=== PATIENT | male | born 1995 | race Caucasian/White ===

== ENCOUNTER 2020-07-08 03:30 | Emergency (ER) | payer MEDICAID, SELFPAY ==
[2020-07-08 03:33] VITALS: BP 148/80; PULSE 110; RESP 18; TEMP 37.2; O2SAT 96; BMI 68.4
--- NOTE | 2020-07-08 03:42 | ED_ITS ---
HPI - General Adult General Chief complaint: General Medical Stated complaint: Blood in urine/Nausea Time Seen by Provider: 07/08/20 03:42 Source: patient Mode of arrival: ambulatory Limitations: no limitations History of Present Illness HPI narrative: Patient no significant urinary complaints in the past no history of kidney stone noticed blood in the urine for last 2 days especially when he starts urinating. Patient denies any significant back pain ,has some burning sensation when he urinates no fever no chills no nausea or vomiting patient never had similar complaints in the past Related Data Allergies Allergy/AdvReac Type Severity Reaction Status Date / Time No Known Allergies Allergy Verified 07/08/20 03:37 Review of Systems Review of Systems: Constitutional : No Weight loss, No Fever, No Chills ENT/Mouth : No sore throat, No Rhinorrhea Eyes: No Eye Pain, No Swelling Cardiovascular : pos Chest Pain, no SOB, no Dyspnea on Exertion, No Orthopnea, No Edema, No Palpitations Respiratory : No Cough, No Sputum Gastrointestinal : no Nausea, No Vomiting, No Diarrhea, No abdominal Pain, No Hematochezia, No Melena Genitourinary : No Urinary Frequency Musculoskeletal : No joint pain, No Myalgias, No Joint Swelling Skin : No Skin Lesions, No rash Neuro : No Weakness, No Numbness, pos Dizziness, No Headache Psych : No Anxiety/Panic, No Depression Heme/Lymph: No Bruising, No Lymphadenopathy Endocrine : No Polyuria, No Polydipsia All other systems reviewed and are negative [facility] Past Medical History Medical History Asthma Hypercholesteremia Hypertension Social History Social History Advance Directives: No Advance Directives Information Provided: No Physical Exam Vital Signs: Vital Signs: Last Vital Signs Temp 98.9 F 07/08/20 03:33 Pulse 110 H 07/08/20 03:33 Resp 18 07/08/20 03:33 BP 148/80 H 07/08/20 03:33 Pulse Ox 96 07/08/20 03:33 Body Mass Index 68.4 Appearance: Alert. Oriented X3. No acute distress. Eyes: Pupils equal, round and reactive to light. ENT: Pharynx normal. Neck: Normal inspection. Neck supple. CVS: Normal heart rate and rhythm. Pulses normal. Respiratory: No respiratory distress. Breath sounds normal. Abdomen: Soft and nontender. No mass palpable, bowel sounds are present all 4 quadrants normal no cva tenderness Skin: Skin warm and dry. Normal skin color. Normal skin turgor. Extremities: No lower extremity edema. Neuro: Oriented X 3. No motor deficit. No sensory deficit. Medical Decision Making MDM Narrative Medical decision making narrative: Patient 550 lb with rachele hematuria no significant CVA tenderness no history of kidney stone likely acute cystitis. Patient advised to take antibiotics course and follow-up with urologist for further evaluation Lab Data Lab results reviewed: Yes I reviewed the patient's lab results. Labs: Lab Results 07/08/20 Range/Units 04:00 Urine Color PINK Urine Appearance HAZY Urine pH 6.5 (5.0-8.0) Ur Specific [place] 1.010 (1.005-1.025) Urine Protein 2+ H (NEG-TRACE) MG/DL Urine Glucose (UA) NEG (NEG) MG/DL Urine Ketones NEG (NEG) MG/DL Urine Blood 3+ H (NEG) Urine Nitrite NEG (NEG) Ur Leukocyte Esterase TRACE H (NEG) Urine RBC 76-150 H (0) /HPF Urine WBC 10-14 H (0-4) /HPF Ur Squamous Epith Cells 1+ /LPF Urine Bacteria 1+ /LPF
--- NOTE | 2020-07-08 03:49 | PC.NURSE ---
PATIENT REPORTS WARREN RED BLOOD IN URINE x2 DAYS. PATIENT DENIES PAIN. AWAITING EVALUATION BY . CALL [facility] WITHIN REACH, ENCOURAGED TO PROVIDE URINE SPECIMEN, BUT UNABLE AT THIS TIME. WILL CONTINUE TO MONITOR.
[2020-07-08 04:08] LABS: Glucose Urine UA NEG (NEG); Leukocyte Esterase Urine TRACE (NEG); Nitrite Urine NEG (NEG); PH 6.5 (5.0-8.0); Urine Blood 3+ (NEG); Urine Ketones NEG (NEG); Urine Protein 2+ MG/DL (NEG-TRACE)
[2020-07-08 04:09] LABS: Appearance Urine HAZY; Color Urine PINK
[2020-07-08 04:14] LABS: Bacteria Urine 1+ /LPF; Squamous Epithelial Cell Urine 1+ /LPF
[2020-07-08] MEDS: levoFLOXacin 500 MG TABLET PO (04:40)
== END 2020-07-08 04:44 | disposition home or self-care (01) ==
PROVIDERS: Emergency Provider Internal Medicine
DX: N30.01 Acute cystitis with hematuria (principal)
CPT/HCPCS: 81001; 87086; 99283

== ENCOUNTER 2021-04-19 23:13 | Emergency (ER) | payer MEDICAID, SELFPAY ==
--- NOTE | ~2021-04-19 | XR_ITS ---
EXAMINATION: XR CHEST CLINICAL INFORMATION: Asthma. Cough. COMPARISON: 10/29/2013 TECHNIQUE: Frontal view of the chest was obtained. FINDINGS: The lungs are well expanded. There is no focal consolidation, edema, or effusion. No pneumothorax. The cardiomediastinal silhouette is within normal limits. No acute osseous abnormality. XR/XR chest 1V IMPRESSION: No acute pulmonary finding.
[2021-04-19 23:29] VITALS: BP 144/80; PULSE 128; RESP 22; TEMP 36.6; O2SAT 98; BMI 96.5
[2021-04-20 00:39] LABS: MANUAL DIFF FLAG NO
[2021-04-20 00:40] LABS: Basophils Percent Auto 0.1 % (0-2); Eosinophils Absolute Auto 0.1 X10*3/uL (0.0-0.4); Eosinophils Percent Auto 1.3 % (0-4); Hematocrit 36.4 % (42-52); Hemoglobin 11.2 g/dl (14.0-18.0); Imm Gran Abs Auto 0.03 X10*3/uL (0.00-0.03); Imm Gran Pct Auto 0.4 % (0.0-0.4); Lymphocytes Absolute Auto 1.6 X10*3/uL (1.2-4.9); Mean Corpuscular HGB Conc 30.8 g/dl (31.0-36.0); Mean Corpuscular Hemoglobin 22.8 pg (27.0-33.0); Mean Corpuscular Volume 74.1 fL (80-98); Mean Platelet Volume 11.3 fL (9.4-12.4); Monocytes Absolute Auto 0.7 X10*3/uL (0.1-1.2); Monocytes Percent Auto 9.1 % (2-11); Neutrophils Percent Auto 67.1 % (45-73); Platelet Count 264 X10*3/uL (160-400); Red Blood Count 4.91 X10*6/uL (4.60-5.80); Red Cell Distribution Width 15.9 % (11.0-16.0); White Blood Count 7.5 X10*3/uL (4.8-10.8)
[2021-04-20 00:41] VITALS: BP 132/69; PULSE 113; RESP 18; O2SAT 97
[2021-04-20] MEDS: predniSONE 20 MG TABLET 60 MG PO (01:00)
[2021-04-20] MEDS: Albuterol Sulfate 90 MCG 8 GM INHALER 4 PUFF INHALE (01:01)
[2021-04-20 01:09] LABS: Alanine Aminotransferase 13 U/L (0-40); Albumin Level 3.6 g/dL (3.5-5.0); Alkaline Phosphatase 63 U/L (39-117); Aspartate Amino Transferase 12 U/L (5-37); Bilirubin Total 0.3 mg/dL (0.0-1.0); Blood Urea Nitrogen 14 mg/dL (9-16); Calcium 8.9 mg/dL (8.4-10.2); Creatinine Clr Calc Pharmacy 218.9; Estimated Glomerular Filt Rate > 60; Glucose Random 112 mg/dL (60-115)
[2021-04-20 01:17] LABS: Anion Gap 15 (12-20); Carbon Dioxide 22 mmol/L (22-29); Chloride 105 mmol/L (96-108); Sodium 138 mmol/L (135-145)
[2021-04-20 01:24] LABS: Influenza A PCR NEGATIVE (Negative); Influenza B PCR NEGATIVE (Negative); Resp Syncy Virus RNA Qual PCR NEGATIVE (Negative); SARS COV2 PCR INHOUSE NEGATIVE (Negative)
[2021-04-20 01:31] VITALS: BP 127/80; PULSE 114; RESP 20; O2SAT 98
--- NOTE | 2021-04-20 01:46 | ED.ASTHMA ---
HPI - Asthma General Chief Complaint: Asthma Stated Complaint: asthma Time Seen by Provider: 04/20/21 00:53 Source: patient Mode of arrival: ambulatory Limitations: no limitations History of Present Illness HPI Narrative: Patient morbidly obese to 88 kg with history of asthma and sleep apnea undiagnosed does not have any inhaler complaining of increased shortness of breath for last 3 days with dry cough no fever no chills no chest pain no leg swelling Related Data Previous Rx's Medication Instructions Recorded ciprofloxacin HCl 500 mg tablet 500 mg PO BID #14 tab 07/08/20 (Cipro) albuterol sulfate 90 mcg/actuation 2 puff INHALATION Q4-6H PRN #8.5 g 04/20/21 aerosol inhaler (ProAir HFA) prednisone 20 mg tablet 40 mg PO DAILY #10 tab 04/20/21 Allergies Allergy/AdvReac Type Severity Reaction Status Date / Time No Known Allergies Allergy Verified 07/08/20 03:37 Review of Systems Review of Systems: Yes all other systems are reviewed and are negative PMFSH Past Medical History Medical History Asthma Hypercholesteremia Hypertension Social History Social History Advance Directives: No Advance Directives Information Provided: Yes Physical Exam Vital Signs: Vital Signs: Last Vital Signs Temp 97.8 F 04/19/21 23:29 Pulse 114 H 04/20/21 01:31 Resp 20 04/20/21 01:31 BP 127/80 04/20/21 01:31 Pulse Ox 98 04/20/21 01:31 Body Mass Index 96.5 Appearance: Alert. Oriented X3. No acute distress. ENT: Pharynx normal. Oral Mucosa moist Neck: Normal inspection. Neck supple. CVS: Normal heart rate and rhythm. Pulses normal. Respiratory: No respiratory distress. Equal air entry bilateral, prolonged expiration with wheezing and rhonchi and no rales Abdomen: Soft and nontender. Bowel sounds are present, Skin: Skin warm and dry. Normal skin color. Normal skin turgor. Extremities: No lower extremity edema. No calf tenderness Neuro: Oriented X 3. MDM - Asthma MDM Narrative Medical decision making narrative: Patient felt much better after 4 puffs of inhaler prednisone was given. 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 Result diagrams: 04/20/21 00:35 04/20/21 00:35 Labs: Lab Results 04/20/21 04/20/21 04/20/21 Range/Units 00:35 00:35 00:35 WBC 7.5 (4.8-10.8) X10*3/uL RBC 4.91 (4.60-5.80) X10*6/uL Hgb 11.2 L (14.0-18.0) g/dl Hct 36.4 L (42-52) % MCV 74.1 L (80-98) fL MCH 22.8 L (27.0-33.0) pg MCHC 30.8 L (31.0-36.0) g/dl RDW 15.9 (11.0-16.0) % Plt Count 264 (160-400) X10*3/uL MPV 11.3 (9.4-12.4) fL Immature Gran % (Auto) 0.4 (0.0-0.4) % Neut % (Auto) 67.1 (45-73) % Lymph % (Auto) 22.0 (20-40) % [place] % (Auto) 9.1 (2-11) % Eos % (Auto) 1.3 (0-4) % Baso % (Auto) 0.1 (0-2) % Lymph # (Auto) 1.6 (1.2-4.9) X10*3/uL [place] # (Auto) 0.7 (0.1-1.2) X10*3/uL Eos # (Auto) 0.1 (0.0-0.4) X10*3/uL Baso # (Auto) 0.0 (0.0-0.2) X10*3/uL Abs Immat Gran (auto) 0.03 (0.00-0.03) X10*3/uL Absolute Neuts (auto) 5.0 (2.0-8.3) X10*3/uL Absolute Nucleated RBC 0.000 (0.0-0.012) X10*3/uL Nucleated RBC % (auto) 0.0 (0.0-0.2) /100WBC Sodium 138 (135-145) mmol/L Potassium 4.0 (3.3-5.1) mmol/L Chloride 105 (96-108) mmol/L Carbon Dioxide 22 (22-29) mmol/L Anion Gap 15 (12-20) BUN 14 (9-16) mg/dL Creatinine 1.12 (0.5-1.4) mg/dL Estim Creat Clear Calc 218.9 Estimated GFR > 60 Random Glucose 112 (60-115) mg/dL Calcium 8.9 (8.4-10.2) mg/dL Total Bilirubin 0.3 (0.0-1.0) mg/dL AST 12 (5-37) U/L ALT 13 (0-40) U/L Alkaline Phosphatase 63 (39-117) U/L Total Protein 7.0 (6.5-8.0) g/dL Albumin 3.6 (3.5-5.0) g/dL Coronavirus (PCR) NEGATIVE (Negative) Influenza Type A (PCR) NEGATIVE (Negative) Influenza Type B (PCR) NEGATIVE (Negative) RSV RNA Qual (PCR) NEGATIVE (Negative) Discharge Plan Discharge Clinical Impression: Morbid obesity Asthma with acute exacerbation Qualifiers: Asthma severity: moderate Asthma persistence: persistent Qualified Code(s): J45.41 - Moderate persistent asthma with (acute) exacerbation Patient Disposition: Home, Self-Care Instructions: Asthma (ED), Weight Management (ED) Additional Instructions: Take albuterol inhaler and prednisone as prescribed Follow-up with greenhouse worker,and with weight reduction clinic Prescriptions: New prednisone 20 mg tablet 40 mg PO DAILY Qty: 10 RF: 0 albuterol sulfate [ProAir HFA] 90 mcg/actuation HFA aerosol inhaler 2 puff inhalation Q4-6H PRN (Reason: Wheezing) Qty: 8.5 RF: 0 No Action ciprofloxacin HCl [Cipro] 500 mg tablet 500 mg PO BID Qty: 14 RF: 0 Referrals: Cuco Malloy MD [Physician] - 1 week Quique Morales MD [Physician] - 1 week Interventions: ED Discharge Assessment Last Done: 04/20/21 02:05 Discharge Date/Time: 04/20/21 02:06
== END 2021-04-20 02:06 | disposition home or self-care (01) ==
PROVIDERS: Emergency Provider Internal Medicine
DX: J45.41 Moderate persistent asthma with (acute) exacerbation (principal); E66.01 Morbid (severe) obesity due to excess calories; Z20.822 Contact with and (suspected) exposure to COVID-19; Z79.899 Other long term (current) drug therapy
CPT/HCPCS: 0241U; 36415; 71045; 80053; 85025; 99284

== ENCOUNTER 2021-12-27 23:41 | Emergency (ER) | payer MEDICAID, SELFPAY ==
--- NOTE | ~2021-12-27 | US_ITS ---
EXAMINATION: US VENOUS ULTRASOUND WITH DOPPLER LOWER EXTREMITY, LEFT CLINICAL INFORMATION: Swelling COMPARISON: None TECHNIQUE: Ultrasound of the deep veins is performed from the hip to the calf with compression sonography and color and pulse Doppler assessment. Spectral analysis with color-flow imaging is performed. FINDINGS: There is normal venous compression and respiratory variation and augmented flow. The visualized common femoral vein, superficial femoral vein, profunda femoral vein, popliteal vein, and the trifurcation region shows no evidence of deep venous thrombosis. There is no significant popliteal fossa cyst. If the patient's symptoms persist, followup ultrasound in 5 days 7 days might be of value to exclude proximal propagation from a non-visualized calf vein. US/US venous duplex LE LT IMPRESSION: No DVT demonstrated in the left lower extremity.
--- NOTE | 2021-12-28 01:36 | ED.EXTPRO ---
HPI - Extremity Problem General Chief complaint: Extremity Problem Stated complaint: left leg swollen, right knee pain Time Seen by Provider: 12/28/21 00:20 Source: patient Mode of arrival: ambulatory Limitations: no limitations History of Present Illness HPI Narrative: Patient morbidly obese 450 lb comes here for increased ankle swelling more on the left side than right side, also complaining of right knee pain no shortness of breath no fever no chills Related Data Previous Rx's Medication Instructions Recorded ciprofloxacin HCl 500 mg tablet 500 mg PO BID #14 tabs 07/08/20 (Cipro) albuterol sulfate 90 mcg/actuation 2 puff inhalation Q4-6H PRN 04/20/21 aerosol inhaler (ProAir HFA) Wheezing #8.5 grams prednisone 20 mg tablet 40 mg PO DAILY #10 tabs 04/20/21 cephalexin 500 mg capsule 500 mg PO QID 10 days #40 caps 12/28/21 doxycycline hyclate 100 mg tablet 100 mg PO BID #20 tabs 12/28/21 furosemide 20 mg tablet (Lasix) 20 mg PO QAM #10 tabs 12/28/21 Allergies Allergy/AdvReac Type Severity Reaction Status Date / Time No Known Allergies Allergy Verified 12/28/21 01:46 Review of Systems Review of Systems: Yes all other systems are reviewed and are negative PMFSH Past Medical History Medical History Asthma Hypercholesteremia Hypertension Social History Social History Advance Directives: No Advance Directives Information Provided: No Physical Exam Vital Signs: Vital Signs: Last Vital Signs Temp 98.1 F 12/28/21 01:41 Pulse 110 H 12/28/21 01:41 Resp 20 12/28/21 01:41 BP 130/83 12/28/21 01:41 Pulse Ox 98 12/28/21 01:41 O2 Del Method 12/28/21 01:41 BMI result Body Mass Index 68.4 Appearance: Alert. Oriented X3. No acute distress. Morbidly obese ENT: Pharynx normal. Oral Mucosa moist Neck: Normal inspection. Neck supple. CVS: Normal heart rate and rhythm. Pulses normal. Respiratory: No respiratory distress. Equal air entry bilateral, no wheezing/rales/rhonchi Abdomen: Soft and nontender. Bowel sounds are present, no mass palpable, no CVA tenderness Skin: Skin warm and dry. Normal skin color. Normal skin turgor. Extremities: Nonpitting lower leg edema limited examination tenderness with slight warmth to the left leg Neuro: Oriented X 3. MDM - Extremity (Nontraumatic) MDM Narrative Medical decision making narrative: Patient with clinically left leg cellulitis with discharge patient home on doxycycline Keflex Doppler negative for DVT but showed left inguinal lymph node likely reactive lymphadenopathy from cellulitis. Also will use low-dose of Lasix daily for increased leg swelling/ lymphedema Discharge Plan Discharge Clinical Impression: Cellulitis Patient Disposition: Home, Self-Care Instructions: Cellulitis (ED) Additional Instructions: Take antibiotic as prescribed Report to the ER if worsening of the swelling or redness or pain Prescriptions: New cephalexin 500 mg capsule 500 mg PO QID 10 Days Qty: 40 0RF doxycycline hyclate 100 mg tablet 100 mg PO BID Qty: 20 0RF furosemide [Lasix] 20 mg tablet 20 mg PO QAM Qty: 10 0RF No Action ciprofloxacin HCl [Cipro] 500 mg tablet 500 mg PO BID Qty: 14 0RF prednisone 20 mg tablet 40 mg PO DAILY Qty: 10 0RF albuterol sulfate [ProAir HFA] 90 mcg/actuation HFA aerosol inhaler 2 puff inhalation Q4-6H PRN (Reason: Wheezing) Qty: 8.5 0RF Referrals: Serena Valdivia MD [Physician] - 1 week Cesar Stoner MD [Physician] - 1 week Interventions: ED Discharge Assessment Last Done: 12/28/21 02:24 Discharge Date/Time: 12/28/21 02:25
[2021-12-28 01:41] VITALS: BP 130/83; PULSE 110; RESP 20; TEMP 36.7; O2SAT 98; BMI 68.4
[2021-12-28] MEDS: cephALEXin 500 MG CAPSULE PO (01:50)
== END 2021-12-28 02:25 | disposition home or self-care (01) ==
PROVIDERS: Emergency Provider Internal Medicine
DX: L03.116 Cellulitis of left lower limb (principal); M79.89 Other specified soft tissue disorders; E66.01 Morbid (severe) obesity due to excess calories; Z68.44 Body mass index [BMI] 60.0-69.9, adult; I10 Essential (primary) hypertension; J45.909 Unspecified asthma, uncomplicated
CPT/HCPCS: 93971; 99284

== ENCOUNTER 2022-10-22 12:18 | Emergency (ER) | payer OTHER, SELFPAY ==
--- NOTE | ~2022-10-22 | XR_ITS ---
EXAMINATION: XR CHEST CLINICAL INFORMATION: Chest pain COMPARISON: X-ray 04/19/2021 TECHNIQUE: Frontal view of the chest was obtained. FINDINGS: The cardiomediastinal silhouette is within normal limits. The lungs are well expanded. There is no focal consolidation, edema, or effusion. No pneumothorax. No acute osseous abnormality. XR/XR chest 1V IMPRESSION: No evidence of acute cardiopulmonary process.
--- NOTE | ~2022-10-22 | XR_ITS ---
EXAMINATION: XR TIBIA AND FIBULA, LEFT CLINICAL INFORMATION: History of fall. COMPARISON: None available. TECHNIQUE: AP and lateral views of the left tibia and fibula were obtained. FINDINGS: Morbidly obese body habitus. Diffuse edema of the subcutaneous tissues. Tibia and fibula are intact. No fracture or subluxation at the ankle or foot. No knee joint effusion. At the ankle, the talar dome is well-positioned within the mortise. XR/XR tibia fibula LT 2V IMPRESSION: Normal left tibia and fibula.
--- NOTE | ~2022-10-22 | XR_ITS ---
EXAMINATION: X-ray left ankle X-ray left foot CLINICAL INFORMATION: Pain, injury COMPARISON: None TECHNIQUE: Ankle 3 views. Foot 3 views.. FINDINGS: Ankle: Prominent soft tissue swelling of the distal leg. No acute fracture or dislocation is seen. Talar dome is intact. Ankle mortise is maintained. Anterior calcaneal process appears intact. No significant tibiotalar joint effusion, evaluation limited by body habitus Foot: Alignment is anatomic. No acute fracture is seen. Joint spaces appear maintained. No abnormal soft tissue calcification. No erosions XR/XR ankle LT min 3V IMPRESSION: No visible acute fracture or dislocation. If there is persistent clinical concern/symptoms, follow-up imaging is recommended..
--- NOTE | ~2022-10-22 | XR_ITS ---
EXAMINATION: XR KNEE, LEFT CLINICAL INFORMATION: Knee pain. Status post fall. COMPARISON: X-ray 03/16/2020 TECHNIQUE: Four views of the left knee. FINDINGS: Assessment is limited due to patient body habitus, especially in the lateral views and with regards to evaluating for effusion. Osseous alignment is anatomic. No acute fracture is identified, limited evaluation on the lateral projections due to body habitus. Joint spaces appear maintained. Limited evaluation for joint effusion. XR/XR knee LT 2V IMPRESSION: No acute osseous findings. Limited assessment for fractures and for effusion due to patient body habitus.
--- NOTE | ~2022-10-22 | XR_ITS ---
EXAMINATION: X-ray left ankle X-ray left foot CLINICAL INFORMATION: Pain, injury COMPARISON: None TECHNIQUE: Ankle 3 views. Foot 3 views.. FINDINGS: Ankle: Prominent soft tissue swelling of the distal leg. No acute fracture or dislocation is seen. Talar dome is intact. Ankle mortise is maintained. Anterior calcaneal process appears intact. No significant tibiotalar joint effusion, evaluation limited by body habitus Foot: Alignment is anatomic. No acute fracture is seen. Joint spaces appear maintained. No abnormal soft tissue calcification. No erosions XR/XR foot LT 2V IMPRESSION: No visible acute fracture or dislocation. If there is persistent clinical concern/symptoms, follow-up imaging is recommended..
[2022-10-22 12:39] VITALS: BP 152/83; PULSE 129; RESP 20; TEMP 36.6; O2SAT 96; BMI 76.0
--- NOTE | 2022-10-22 12:41 | ED.GENADULT ---
HPI - General Adult General Chief complaint: Extremity Injury, Lower <YIN Edmonds - Last Filed: 10/22/22 12:43> Stated complaint: Fall/L foot swelling <YIN Edmonds - Last Filed: 10/22/22 12:43> Time Seen by Provider: 10/22/22 13:35 <YIN Edmonds - Last Filed: 10/22/22 12:43> Source: patient <YIN Lopez Last Filed: 10/23/22 18:23> Mode of arrival: ambulatory <YIN Lopez Last Filed: 10/23/22 18:23> Limitations: physical limitation <YIN Lopez Last Filed: 10/23/22 18:23> History of Present Illness HPI narrative: 27-year-old male with PMHx of ?DVT noncompliant on anticoagulation, hypertension, hyperlipidemia, asthma presents to the ED complaining of left ankle pain s/p falling down 3-4 stairs at home 3 days ago. Patient states he lost his balance, denies symptoms prior to fall including CP/SOB. Reports hitting his head against the door frame, denies LOC or taking anticoagulation. Reports ankle pain worse w/ ambulation, minimal relief with Tylenol/Motrin at home. Reports chronic back pain. Denies headache, neck pain, new back pain, urinary incontinence/ retention, numbness, weakness, chest pain, shortness of breath, abdominal pain. <YIN Lopez Last Filed: 10/23/22 18:23> Onset (ago): day(s) (3) <YIN Lopez - Last Filed: 10/23/22 18:23> Location: left (lower leg) <YIN Lopez Last Filed: 10/23/22 18:23> Exacerbating factors: movement <YIN Lopez Last Filed: 10/23/22 18:23> Treatments prior to arrival: NSAID <YIN Lopez Last Filed: 10/23/22 18:23> Related Data Home medications: Previous Rx's Medication Instructions Recorded ciprofloxacin HCl 500 mg tablet 500 mg PO BID #14 tabs 07/08/20 (Cipro) albuterol sulfate 90 mcg/actuation 2 puff inhalation Q4-6H PRN 04/20/21 aerosol inhaler (ProAir HFA) Wheezing #8.5 grams prednisone 20 mg tablet 40 mg PO DAILY #10 tabs 04/20/21 cephalexin 500 mg capsule 500 mg PO QID 10 days #40 caps 12/28/21 doxycycline hyclate 100 mg tablet 100 mg PO BID #20 tabs 12/28/21 furosemide 20 mg tablet (Lasix) 20 mg PO QAM #10 tabs 12/28/21 acetaminophen 500 mg tablet 500 mg PO Q6H PRN fever or pain 10/22/22 (Tylenol Extra Strength) #14 tabs naproxen 500 mg tablet 500 mg PO BID PRN pain 10 days #20 10/22/22 tabs walker #1 ea 10/22/22 <YIN Edmonds Last Filed: 10/22/22 12:43> Allergies/adverse reactions: Allergies Allergy/AdvReac Type Severity Reaction Status Date / Time No Known Allergies Allergy Verified 10/22/22 12:39 <YIN Edmonds Last Filed: 10/22/22 12:43> Review of Systems Review of Systems: Constitutional: No Fever, No Chills ENT/Mouth: No Ear Pain, No Nasal Congestion, No sore throat, No Rhinorrhea, No Swallowing Difficulty Cardiovascular: No Chest Pain, No SOB Respiratory: No Cough, No Sputum, No Wheezing Gastrointestinal: No Nausea, No Vomiting, No Diarrhea, No Constipation, No Abdominal pain Genitourinary: No Dysuria, No Urinary Frequency, No Urgency, No Flank Pain, no urinary incontinence/retention Musculoskeletal: + joint pain, No Myalgias, + Joint Swelling Skin: No Skin Lesions, No rash Neuro: No Weakness, No Numbness, No Paresthesias, + hit head, no LOC, no headache <YIN Lopez Last Filed: 10/23/22 18:23> Yes all other systems are reviewed and are negative <YIN Lopez Last Filed: 10/23/22 18:23> Constitutional: Constitutional: Reports as per HPI <YIN Lopez Last Filed: 10/23/22 18:23> Neurologic: Denies Abnormal speech present and Denies Sensory deficit (Neuro) <YIN Lopez - Last Filed: 10/23/22 18:23> [facility] Past Medical History Attestation statement: The following information was validated with the patient. <YIN Lopez - Last Filed: 10/23/22 18:23> Medical History: Medical History Asthma Hypercholesteremia Hypertension <YIN Edmonds - Last Filed: 10/22/22 12:43> Social History Social History: Social History Advance Directives: No Advance Directives Information Provided: No <YIN Edmonds Last Filed: 10/22/22 12:43> Physical Exam ED Vital Signs: Vital Signs - 24 hr 10/22/22 12:39 10/22/22 13:48 Temperature 98 F Pulse Rate 129 H 116 H Respiratory Rate 20 Blood Pressure 152/83 H Pulse Oximetry 96 98 Oxygen Delivery Method Room Air BMI result Body Mass Index 76.0 <YIN Edmonds - Last Filed: 10/22/22 12:43> Vital Signs - 24 hr 10/22/22 12:39 10/22/22 13:48 Temperature 98 F Pulse Rate 129 H 116 H Respiratory Rate 20 Blood Pressure 152/83 H Pulse Oximetry 96 98 Oxygen Delivery Method Room Air BMI result Body Mass Index 76.0 <YIN Lopez Last Filed: 10/23/22 18:23> Const General: cooperative and no acute distress <YIN Lopez - Last Filed: 10/23/22 18:23> Nutritional Appearance: obese morbidly obese <YIN Lopez Last Filed: 10/23/22 18:23> Orientation/consciousness: patient oriented x3 <YIN Lopez Last Filed: 10/23/22 18:23> Limitations: no limitations <YIN Lopez Last Filed: 10/23/22 18:23> HENMT Head: Yes normal to inspection and Yes atraumatic <YIN Lopez Last Filed: 10/23/22 18:23> Ears: hearing grossly normal bilaterally <Corinna Leon PA - Last Filed: 10/23/22 18:23> General nose exam: Normal external nose present <Corinna Leon PA - Last Filed: 10/23/22 18:23> Face and sinus: Yes normal facial exam <YIN Lopez - Last Filed: 10/23/22 18:23> Eyes General: appearance normal, both eyes and all related structures <Corinna Leon PA - Last Filed: 10/23/22 18:23> Pupils: Equal, round and reactive pupils present <Corinna Leon PA - Last Filed: 10/23/22 18:23> EOM: EOMs intact bilaterally <Corinna Leon PA - Last Filed: 10/23/22 18:23> Neck Other: no midline cervical spinous tenderness <Corinna Leon PA - Last Filed: 10/23/22 18:23> Neck: Yes normal visual inspection and Yes no meningeal signs <Corinna Leon PA - Last Filed: 10/23/22 18:23> Chest Other: + tenderness to palpation to right anterior lateral chest wall. No flail chest, no erythema/ecchymosis, no crepitus <Corinna Leon PA - Last Filed: 10/23/22 18:23> Chest palpation & inspection: normal inspection of the chest, no crepitus and tenderness <Corinna Leon PA - Last Filed: 10/23/22 18:23> Resp Effort & Inspection: normal respiratory effort and no respiratory distress <Corinna Leon PA - Last Filed: 10/23/22 18:23> Auscultation: clear to auscultation bilaterally <Corinna Leon PA - Last Filed: 10/23/22 18:23> Cardio Rate: tachycardic <YIN Lopez - Last Filed: 10/23/22 18:23> Heart sounds: S1 normal heart sound present and S2 normal heart sound present <Corinna Leon PA - Last Filed: 10/23/22 18:23> GI Inspection: Yes normal to inspection <Corinna Leon PA - Last Filed: 10/23/22 18:23> Palpation (GI): Soft to palpation, nontender, no guarding and not rigid <Corinna Leon PA - Last Filed: 10/23/22 18:23> Back/Spine/Pelvis Other: No midline thoracic/lumbar spinous tenderness/step-off or deformity. + bilateral MSK lumbar tenderness. <Corinna Leon PA - Last Filed: 10/23/22 18:23> Cervical Spine: cervical ROM normal <Corinna Leon PA - Last Filed: 10/23/22 18:23> Thoracic/Lumbar Spine: thoracic and lumbar spine normal to inspection <Corinna Leon PA - Last Filed: 10/23/22 18:23> Skin Rashes: no rashes <Corinna Leon PA - Last Filed: 10/23/22 18:23> Wounds: no wounds <Corinna Leon PA - Last Filed: 10/23/22 18:23> Neuro General: patient oriented x3, tone normal, moves all extremities, no meningeal signs, CN's II-XI intact bilaterally and Unable to assess gait <Corinna Leon PA - Last Filed: 10/23/22 18:23> Cranial nerves: Yes Equal, round and reactive pupils present <Corinna Leon PA - Last Filed: 10/23/22 18:23> Cognition (Neuro): normal cognition <Corinna Leon PA - Last Filed: 10/23/22 18:23> Speech: No Abnormal speech present <Corinna Leon PA - Last Filed: 10/23/22 18:23> Gait exam (Neuro): Unable to assess gait <Corinna Leon PA - Last Filed: 10/23/22 18:23> Sensory Exam: No Sensory deficit (Neuro) <Corinna Leon PA - Last Filed: 10/23/22 18:23> Extrem Other: +Swelling appreciated to the left ankle w/ diffuse tenderness to palpation from left knee to foot. Range of motion of the LLE limited secondary to pain and body habitus. pulses intact. No erythema/ warmth or ecchymosis appreciated <Corinna Leon PA - Last Filed: 10/23/22 18:23> Left lower extremity: ankle Details: tenderness and swelling <YIN Lopez - Last Filed: 10/23/22 18:23> Course Course Course Narrative: This is an RME: Additional HPI, ROS, PE not included below will be deferred to primary provider. 27-year-old male presents for evaluation of left lower extremity pain status post fall few days ago, patient reports he fell down 3 steps, bumped his head and his whole lower extremity. He reports since then he has been having pain and swelling, difficulties with ambulation. Spoke to the walk-in center and he was advised to come into the emergency department. No loss of consciousness. Patient is supposed to take blood thinners however has not been taking any of his home medications secondary to not having a PCP. On exam patient with discomfort with ambulation. Neurovascular status intact. Patient obese. Plan imaging head CT. <YIN Edmonds - Last Filed: 10/22/22 12:43> This is an RME: Additional HPI, ROS, PE not included below will be deferred to primary provider. 27-year-old male presents for evaluation of left lower extremity pain status post fall few days ago, patient reports he fell down 3 steps, bumped his head and his whole lower extremity. He reports since then he has been having pain and swelling, difficulties with ambulation. Spoke to the walk-in center and he was advised to come into the emergency department. No loss of consciousness. Patient is supposed to take blood thinners however has not been taking any of his home medications secondary to not having a PCP. On exam patient with discomfort with ambulation. Neurovascular status intact. Patient obese. Plan imaging head CT. XR chest 1V IMPRESSION: No evidence of acute cardiopulmonary process. > unable to obtain rib x-rays as patient weight exceeds x-ray table > will obtain CT chest for further evaluation, to rule out rib fracture XR knee LT 2V IMPRESSION: No acute osseous findings. Limited assessment for fractures and for effusion due to patient body habitus. XR ankle LT min 3V/XR foot LT 2V IMPRESSION: No visible acute fracture or dislocation. If there is persistent clinical concern/symptoms, follow-up imaging is recommended. [id number]-- patient now refusing head/chest CT, reports his head is not a concern. > [place] head CT rule negative. Discussed with patient x-ray results and limited definitive studies due to body habitus. Stressed to patient need to establish PCP, and lose weight. Patient unable to use crutches for support. Will prescribe walker. Results discussed with patient including worrisome signs and symptoms and strict return precautions, and when to return to the emergency department. They verbalized understanding and feel safe for discharge at this time. <YIN Lopez - Last Filed: 10/23/22 18:23> Medications Administered Discontinued Medications Generic Name Dose Route Start Last Admin Trade Name Freq PRN Reason Stop Dose Admin Acetaminophen 650 mg 10/22/22 16:11 10/22/22 16:32 Acetaminophen 325 Mg Tablet PO 10/22/22 16:12 650 mg ONCE ONE Administration Oxycodone HCl 5 mg 10/22/22 16:11 10/22/22 16:31 Oxycodone Hcl Immed Release 5 Mg Tablet PO 10/22/22 16:12 5 mg ONCE ONE Administration <YIN Edmonds - Last Filed: 10/22/22 12:43> Medications Administered Discontinued Medications Generic Name Dose Route Start Last Admin Trade Name Freq PRN Reason Stop Dose Admin Acetaminophen 650 mg 10/22/22 16:11 10/22/22 16:32 Acetaminophen 325 Mg Tablet PO 10/22/22 16:12 650 mg ONCE ONE Administration Oxycodone HCl 5 mg 10/22/22 16:11 10/22/22 16:31 Oxycodone Hcl Immed Release 5 Mg Tablet PO 10/22/22 16:12 5 mg ONCE ONE Administration <YIN Lopez - Last Filed: 10/23/22 18:23> Medical Decision Making Medical Decision Making MDM Narrative: 27-year-old male with PMHx of ?DVT noncompliant on anticoagulation, hypertension, hyperlipidemia, asthma presents to the ED complaining of left ankle pain s/p falling down 3-4 stairs at home 3 days ago. Reports hitting his head against denies LOC or taking anticoagulation. on exam tachycardic, likely from pain/body habitus, left lower extremity with mild swelling and diffuse tenderness and limited ROM secondary to pain. Neurovascular intact. No focal deficits, no evidence of head trauma. No midline spinous tenderness throughout. Concern for lower extremity fracture vs sprain. concern for concussion. Lower suspicion for ICH/CVA. No evidence of cellulitis. Lower suspicion for DVT or compartment syndrome. Low suspicion for intra-abdominal / intrathoracic bleeding plan: X-rays, head CT ordered in triage Please refer to course for remaining clinical decision making, interpretation of labs/imaging results, and discussions with consultants and/or family members. <YIN Lopez - Last Filed: 10/23/22 18:23> Differential Diagnosis Differential Diagnoses: The differential diagnosis associated with the presentation includes <YIN Lopez - Last Filed: 10/23/22 18:23> As above <YIN Lopez - Last Filed: 10/23/22 18:23> Admission/Observation Consideration of admission/observation: Escalation of care including admission/observation considered <YIN Lopez - Last Filed: 10/23/22 18:23> Lab Data MDM Lab Attestation statement: I reviewed the patient's lab results. <YIN Lopez - Last Filed: 10/23/22 18:23> Radiology Impression Discussion of test interpretation with radiology: I have reviewed the radiologist's reading. <YIN Lopez - Last Filed: 10/23/22 18:23> External Record Review External record reviewed: Inpatient record, Office record, Outpatient record, Prior outpatient labs, Prior outpatient radiology, Primary care record and Outside ED record <YIN Lopez - Last Filed: 10/23/22 18:23> Discharge Plan Discharge Clinical Impression: Ankle sprain and strain, Head injury <YIN Edmonds - Last Filed: 10/22/22 12:43> Patient Disposition: Home, Self-Care <YIN Edmonds - Last Filed: 10/22/22 12:43> Instructions: Ankle Sprain (DC), Head Injury (ED) <YIN Edmonds - Last Filed: 10/22/22 12:43> Additional Instructions: Your x-rays do not show any acute fractures. The images are limited due to your body habitus. You likely sprained your ankle, however symptoms persist we recommend repeat x-rays in 1 week. Avoid bearing weight to your left leg until symptoms are improving. YOU NEED TO ESTABLISH CARE WITH A PRIMARY CARE DOCTOR. Ice and elevate your left ankle/ leg. Please practice a healthy diet /lifestyle <YIN Edmonds - Last Filed: 10/22/22 12:43> Prescriptions: New acetaminophen [Tylenol Extra Strength] 500 mg tablet 500 mg PO Q6H PRN (Reason: fever or pain) Qty: 14 0RF naproxen 500 mg tablet 500 mg PO BID PRN (Reason: pain) 10 Days Qty: 20 0RF (DME) walker Misc See Rx Instructions .Route Qty: 1 0RF Rx Instructions: As directed No Action ciprofloxacin HCl [Cipro] 500 mg tablet 500 mg PO BID Qty: 14 0RF prednisone 20 mg tablet 40 mg PO DAILY Qty: 10 0RF albuterol sulfate [ProAir HFA] 90 mcg/actuation HFA aerosol inhaler 2 puff inhalation Q4-6H PRN (Reason: Wheezing) Qty: 8.5 0RF cephalexin 500 mg capsule 500 mg PO QID 10 Days Qty: 40 0RF doxycycline hyclate 100 mg tablet 100 mg PO BID Qty: 20 0RF furosemide [Lasix] 20 mg tablet 20 mg PO QAM Qty: 10 0RF <YIN Edmonds - Last Filed: 10/22/22 12:43> Referrals: [facility] [place] Family Medicine [Provider Group] [facility] [place] Primary CareIon [Provider Group] [facility] [place] Primary Care,Home [Provider Group] <YIN Edmonds - Last Filed: 10/22/22 12:43> Interventions: ED Discharge Assessment Last Done: 10/22/22 17:08 <YIN Edmonds Last Filed: 10/22/22 12:43> Discharge Date/Time: 10/22/22 17:08 <YIN Edmonds - Last Filed: 10/22/22 12:43>
[2022-10-22 13:48] VITALS: PULSE 116; O2SAT 98
[2022-10-22] MEDS: oxyCODONE HCl Immed Release 5 MG TABLET PO (16:31)
[2022-10-22] MEDS: Acetaminophen 325 MG TABLET 650 MG PO (16:32)
== END 2022-10-22 17:08 | disposition home or self-care (01) ==
PROVIDERS: Emergency Provider Emergency Medicine Emergency Medical Services
DX: S09.90XA Unspecified injury of head, initial encounter (principal); S93.402A Sprain of unspecified ligament of left ankle, initial encounter; S96.912A Strain of unspecified muscle and tendon at ankle and foot level, left foot, initial encounter; W10.8XXA Fall (on) (from) other stairs and steps, initial encounter; M79.662 Pain in left lower leg; R00.0 Tachycardia, unspecified; E78.00 Pure hypercholesterolemia, unspecified; I10 Essential (primary) hypertension; E66.01 Morbid (severe) obesity due to excess calories; Z68.45 Body mass index [BMI] 70 or greater, adult; Z91.148 Patient's other noncompliance with medication regimen for other reason; Y93.9 Activity, unspecified; Y92.018 Other place in single-family (private) house as the place of occurrence of the external cause; Y99.9 Unspecified external cause status
CPT/HCPCS: 71045; 73560; 73590; 73610; 73620; 99283

== ENCOUNTER 2023-01-29 17:23 | Emergency (ER) | payer MEDICAID, SELFPAY ==
--- NOTE | ~2023-01-29 | XR_ITS ---
EXAMINATION: XR HIP, FEMUR, KNEE, TIBIA/FIBULA RIGHT CLINICAL INFORMATION: Status post fall, right leg pain. COMPARISON: None available. TECHNIQUE: AP and lateral views of the right hip, femur, knee and tibia/fibula were obtained. FINDINGS: There is no acute fracture or dislocation. Mild medial femoral-tibial joint space narrowing is seen. The remainder the joint spaces are unremarkable. Prominent soft tissue swelling is seen. XR/XR knee RT 2V IMPRESSION: 1. Significant soft tissue swelling without definitive acute underlying osseous abnormality. 2. Mild medial femoral-tibial joint space narrowing likely degenerative in nature.
--- NOTE | ~2023-01-29 | US_ITS ---
EXAMINATION: US EXTREMITY NONVASCULAR LIMITED CLINICAL INFORMATION: Assess for quadriceps tear. COMPARISON: None TECHNIQUE: Linear transducer grayscale and color Doppler examination with attention to the region of the soft tissues of the right neck. FINDINGS: No cystic or solid abnormality is seen. The subcutaneous soft tissues and overlying skin are unremarkable. US/US extremity nonvascular koch IMPRESSION: No soft tissue abnormality in the region of concern. The study is limited for evaluation of tear. If concern is high for tear, MRI is recommended.
--- NOTE | ~2023-01-29 | XR_ITS ---
EXAMINATION: XR HIP, FEMUR, KNEE, TIBIA/FIBULA RIGHT CLINICAL INFORMATION: Status post fall, right leg pain. COMPARISON: None available. TECHNIQUE: AP and lateral views of the right hip, femur, knee and tibia/fibula were obtained. FINDINGS: There is no acute fracture or dislocation. Mild medial femoral-tibial joint space narrowing is seen. The remainder the joint spaces are unremarkable. Prominent soft tissue swelling is seen. XR/XR tibia fibula RT 2V IMPRESSION: 1. Significant soft tissue swelling without definitive acute underlying osseous abnormality. 2. Mild medial femoral-tibial joint space narrowing likely degenerative in nature.
--- NOTE | ~2023-01-29 | XR_ITS ---
EXAMINATION: XR HIP, FEMUR, KNEE, TIBIA/FIBULA RIGHT CLINICAL INFORMATION: Status post fall, right leg pain. COMPARISON: None available. TECHNIQUE: AP and lateral views of the right hip, femur, knee and tibia/fibula were obtained. FINDINGS: There is no acute fracture or dislocation. Mild medial femoral-tibial joint space narrowing is seen. The remainder the joint spaces are unremarkable. Prominent soft tissue swelling is seen. XR/XR femur RT 2V IMPRESSION: 1. Significant soft tissue swelling without definitive acute underlying osseous abnormality. 2. Mild medial femoral-tibial joint space narrowing likely degenerative in nature.
--- NOTE | ~2023-01-29 | XR_ITS ---
EXAMINATION: XR HIP, FEMUR, KNEE, TIBIA/FIBULA RIGHT CLINICAL INFORMATION: Status post fall, right leg pain. COMPARISON: None available. TECHNIQUE: AP and lateral views of the right hip, femur, knee and tibia/fibula were obtained. FINDINGS: There is no acute fracture or dislocation. Mild medial femoral-tibial joint space narrowing is seen. The remainder the joint spaces are unremarkable. Prominent soft tissue swelling is seen. XR/XR ankle RT 2V IMPRESSION: 1. Significant soft tissue swelling without definitive acute underlying osseous abnormality. 2. Mild medial femoral-tibial joint space narrowing likely degenerative in nature.
--- NOTE | ~2023-01-29 | XR_ITS ---
EXAMINATION: XR HIP, FEMUR, KNEE, TIBIA/FIBULA RIGHT CLINICAL INFORMATION: Status post fall, right leg pain. COMPARISON: None available. TECHNIQUE: AP and lateral views of the right hip, femur, knee and tibia/fibula were obtained. FINDINGS: There is no acute fracture or dislocation. Mild medial femoral-tibial joint space narrowing is seen. The remainder the joint spaces are unremarkable. Prominent soft tissue swelling is seen. XR/XR hip RT w PEL1V IMPRESSION: 1. Significant soft tissue swelling without definitive acute underlying osseous abnormality. 2. Mild medial femoral-tibial joint space narrowing likely degenerative in nature.
--- NOTE | 2023-01-29 18:14 | ED_ITS ---
HPI - General Adult General Chief complaint: Extremity Injury, Lower Stated complaint: Right knee pain/left leg pain Time Seen by Provider: 01/29/23 20:28 Source: patient and family (Mother) Mode of arrival: ambulatory Limitations: no limitations History of Present Illness HPI narrative: 27-year-old male history of morbid obesity with a BMI of 60 who presents emergency department for evaluation of fall and pain in his right leg. The patient states that he fell in October of 2022. At that time, he injured his ri ght leg. He was seen in the emergency department and had negative x-rays. He states that since that time he has been having pain in his right leg any points to his right knee when asked to localize the pain. He states the pain is got progressively worse to the point where he cannot walk. He states that over the past week his right leg is given out on him minutes caused him to fall at least 5 times. Prior to coming to the emergency department again his right knee gave out and he fell. He states he is having difficulty walking since this fall and needed assistance from his mother and brother in order to come to the emergency department which is unusual for him. He is currently complaining of pain in his right knee which is 10/10 and worse with movement. He denied any systemic symptoms such as fever, chills, chest pain, shortness of breath, nausea, vomiting. Patient states that his left leg is also become swollen over the the last week and is now larger than the right. He is concerned that he may be retaining fluid in his leg. Related Data Previous Rx's Medication Instructions Recorded ciprofloxacin HCl 500 mg tablet 500 mg PO BID #14 tabs 07/08/20 (Cipro) albuterol sulfate 90 mcg/actuation 2 puff inhalation Q4-6H PRN 04/20/21 aerosol inhaler (ProAir HFA) Wheezing #8.5 grams prednisone 20 mg tablet 40 mg PO DAILY #10 tabs 04/20/21 cephalexin 500 mg capsule 500 mg PO QID 10 days #40 caps 12/28/21 doxycycline hyclate 100 mg tablet 100 mg PO BID #20 tabs 12/28/21 furosemide 20 mg tablet (Lasix) 20 mg PO QAM #10 tabs 12/28/21 acetaminophen 500 mg tablet 500 mg PO Q6H PRN fever or pain 10/22/22 (Tylenol Extra Strength) #14 tabs naproxen 500 mg tablet 500 mg PO BID PRN pain 10 days #20 10/22/22 tabs walker #1 ea 10/22/22 Allergies Allergy/AdvReac Type Severity Reaction Status Date / Time No Known Allergies Allergy Verified 10/22/22 12:39 Review of Systems Review of Systems: Yes all other systems are reviewed and are negative [facility] Past Medical History [facility] Narrative: Past medical history: Morbid obesity, reviewed below. Social history: He lives at home with his family. Medical History Asthma Hypercholesteremia Hypertension Social History Social History Advance Directives: No Advance Directives Information Provided: No Physical Exam ED Vital Signs: Vital Signs - 24 hr 01/29/23 18:22 01/29/23 23:03 01/30/23 06:21 Temperature 97.2 F 98.1 F Pulse Rate 111 H 115 H 111 H Respiratory Rate 20 18 40 H Blood Pressure 148/78 H 119/54 L 117/59 L Pulse Oximetry 99 99 95 Oxygen Delivery Method Room Air Room Air Room Air BMI result Body Mass Index 60.8 Vital signs were normal General: Awake, alert, male patient, he is very pleasant cooperative and does not appear to be in distress Right lower extremity exam: The patient's right lower extremity is tender at the hip, thigh and knee. The patient has limited movement of his knee secondary to his pain, his exam is very limited secondary to his obesity. Course Course Course Narrative: This is a rapid medical exam: Additional HPI, ROS, PE not included below will be deferred to primary provider. Patient is a 27-year-old male with history of asthma, HTN, hypercholesterolemia, and sleep apnea presenting to the emergency department with complaint of right knee pain for 3 weeks, beginning after a fall. States has also had several falls since related to his pain. Also reports left lower leg swelling since a fall 4-5 days ago. Denies fevers. Denies any drainage from his legs. Plan: x-ray, labs 01/30/2023 0717: Patient still pending PT evaluation and Case management. Medications Administered Generic Name Dose Route Start Last Admin Trade Name Freq PRN Reason Stop Dose Admin Acetaminophen 975 mg 01/29/23 23:32 07/13/23 03:45 Acetaminophen 325 Mg Tablet PO 975 mg Q6H PRN Administration Pain, Moderate(Pain Scale 4-6) Discontinued Medications Generic Name Dose Route Start Last Admin Trade Name Mirna PRN Reason Stop Dose Admin Acetaminophen 975 mg 01/29/23 20:51 01/29/23 21:50 Acetaminophen 325 Mg Tablet PO 01/29/23 20:52 975 mg ONCE STA Administration Oxycodone HCl 10 mg 01/29/23 20:51 01/29/23 21:50 Oxycodone Hcl Immed Release 5 Mg Tablet PO 01/29/23 20:52 10 mg ONCE ONE Administration Medical Decision Making Medical Decision Making MDM Narrative: 27-year-old male with a history of asthma, hypercholesterolemia, hypertension sleep apnea morbid obesity with a BMI of 60 who presents emergency department for evaluation of right lower extremity pain after fall. Patient had a fall and October of 2022, was seen here in the emergency department and had negative x-rays of his right leg. States since that time his right leg is become progressively more painful to the point where he is having difficulty walking. Over the past week he has had 5 falls any did fall prior to coming to the emergency department. Patient also states that his left lower extremity is larger than his right lower extremity over the past 4-5 days and he is concerned that he is retaining fluid in his right leg. His exam is limited but he does have tenderness palpation of his right hip, right thigh and right knee. I did order x-rays. Patient's pain was treated with Tylenol 970 mg orally and oxycodone 10 mg orally. It is unclear to me why the patient is left leg is swollen, DVT needs to be considered however duplex ultrasound would not be possible in this patient given his morbid obesity. I will order a D-dimer, PT/INR, PTT. If the D-dimer is positive, then the risks and benefits of starting him on an oral anticoagulant needs to be considered. 2309: Start physician observation: My interpretation of the patient's right hip, tib-fib, knee and ankle x-ray is as follows: No acute fracture seen. Radiology reading similar however the radiologist did note significant soft tissue swelling without definite acute underlying fracture. Also radiologist noted medial femoral tib fib joint space narrowing likely degenerative disease. I did order oxycodone 5 mg and Tylenol 975 mg Q 6 hours as needed for pain. The patient would like to go home if possible. The patient will be kept in the emergency department overnight for case management and physical therapy evaluation to determine if he qualifies for home physical therapy. 0233: Continue physician observation The patient D-dimer 299 which is below the 230 threshold which is reassuring, making DVT of left lower extremity less likely. Patient's medication reconciliation is pending. At the end of my shift, patient's care was turned over to my colleague, Dr. Candie Koch Differential Diagnosis Differential Diagnoses: The differential diagnosis associated with the presentation includes Differential diagnosis includes but is not limited to: Right leg: Acute fracture, soft tissue injury, degenerative joint disease Left leg: DVT Admission/Observation Consideration of admission/observation: Escalation of care including admission/observation considered Lab Data MDM Lab Attestation statement: I reviewed the patient's lab results. Patient's CBC and BMP were unremarkable. The patient's D-dimer was 229 which is normal. PT/INR PTT were normal. 01/29/23 19:00 01/29/23 19:00 Labs: Lab Results 01/29/23 01/29/23 01/30/23 Range/Units 19:00 19:00 01:13 WBC 7.4 (4.8-10.8) X10*3/uL RBC 4.93 (4.60-5.80) X10*6/uL Hgb 10.1 L (14.0-18.0) g/dl Hct 35.4 L (42.0-52.0) % MCV 71.8 L (80.0-98.0) fL MCH 20.5 L (27.0-33.0) pg MCHC 28.5 L (31.0-36.0) g/dl RDW 16.3 H (11.0-16.0) % Plt Count 258 (160-400) X10*3/uL MPV 10.2 (9.4-12.4) fL Immature Gran % (Auto) 0.5 H (0.0-0.4) % Neut % (Auto) 68.5 (45-73) % Lymph % (Auto) 20.0 (20-40) % Levy % (Auto) 9.9 (2-11) % Eos % (Auto) 0.8 (0-4) % Baso % (Auto) 0.3 (0-2) % Lymph # (Auto) 1.5 (1.2-4.9) X10*3/uL Levy # (Auto) 0.7 (0.1-1.2) X10*3/uL Eos # (Auto) 0.1 (0.0-0.4) X10*3/uL Baso # (Auto) 0.0 (0.0-0.2) X10*3/uL Abs Immat Gran (auto) 0.04 H (0.00-0.03) X10*3/uL Absolute Neuts (auto) 5.1 (2.0-8.3) x10*3/uL Absolute Nucleated RBC 0.000 (0.0-0.012) X10*3/uL Nucleated RBC % (auto) 0.0 (0.0-0.2) /100WBC PT 12.6 (10.0-13.1) SEC INR 1.1 (0.9-1.1) APTT 28.6 (26.0-36.4) SEC D-Dimer High Sensitivty 229 NG/ML Sodium 137 (135-145) mmol/L Potassium 4.0 (3.3-5.1) mmol/L Chloride 100 (96-108) mmol/L Carbon Dioxide 26 (22-29) mmol/L Anion Gap 15 (12-20) BUN 6 L (9-16) mg/dL Creatinine 0.82 (0.5-1.4) mg/dL Estim Creat Clear Calc 215.5 Estimated GFR > 60 Random Glucose 101 (60-115) mg/dL Calcium 9.9 D (8.4-10.2) mg/dL Total Bilirubin 0.4 (0.0-1.0) mg/dL AST 13 (5-37) U/L ALT 11 (0-40) U/L Alkaline Phosphatase 63 (39-117) U/L Total Protein 8.1 H (6.5-8.0) g/dL Albumin 3.4 L (3.5-5.0) g/dL Radiology Impression Discussion of test interpretation with radiology: I have reviewed the radiologist's reading. Discharge Plan Discharge Clinical Impression: Acute pain of right knee, Left leg swelling, Multiple falls, Right leg weakness Patient Disposition: Still a Patient Prescriptions: No Action ciprofloxacin HCl [Cipro] 500 mg tablet 500 mg PO BID Qty: 14 0RF prednisone 20 mg tablet 40 mg PO DAILY Qty: 10 0RF albuterol sulfate [ProAir HFA] 90 mcg/actuation HFA aerosol inhaler 2 puff inhalation Q4-6H PRN (Reason: Wheezing) Qty: 8.5 0RF cephalexin 500 mg capsule 500 mg PO QID 10 Days Qty: 40 0RF doxycycline hyclate 100 mg tablet 100 mg PO BID Qty: 20 0RF furosemide [Lasix] 20 mg tablet 20 mg PO QAM Qty: 10 0RF acetaminophen [Tylenol Extra Strength] 500 mg tablet 500 mg PO Q6H PRN (Reason: fever or pain) Qty: 14 0RF naproxen 500 mg tablet 500 mg PO BID PRN (Reason: pain) 10 Days Qty: 20 0RF (DME) walker Misc See Rx Instructions .Route Qty: 1 0RF Rx Instructions: As directed
[2023-01-29 18:22] VITALS: BP 148/78; PULSE 111; RESP 20; TEMP 36.2; O2SAT 99; BMI 60.8
[2023-01-29 19:05] LABS: MANUAL DIFF FLAG NO
[2023-01-29 19:06] LABS: Basophils Percent Auto 0.3 % (0-2); Eosinophils Absolute Auto 0.1 X10*3/uL (0.0-0.4); Eosinophils Percent Auto 0.8 % (0-4); Hematocrit 35.4 % (42.0-52.0); Hemoglobin 10.1 g/dl (14.0-18.0); Imm Gran Abs Auto 0.04 X10*3/uL (0.00-0.03); Imm Gran Pct Auto 0.5 % (0.0-0.4); Lymphocytes Absolute Auto 1.5 X10*3/uL (1.2-4.9); Mean Corpuscular HGB Conc 28.5 g/dl (31.0-36.0); Mean Corpuscular Hemoglobin 20.5 pg (27.0-33.0); Mean Corpuscular Volume 71.8 fL (80.0-98.0); Mean Platelet Volume 10.2 fL (9.4-12.4); Monocytes Absolute Auto 0.7 X10*3/uL (0.1-1.2); Monocytes Percent Auto 9.9 % (2-11); Neutrophils Absolute Auto 5.1 x10*3/uL (2.0-8.3); Neutrophils Percent Auto 68.5 % (45-73); Platelet Count 258 X10*3/uL (160-400); Red Blood Count 4.93 X10*6/uL (4.60-5.80); Red Cell Distribution Width 16.3 % (11.0-16.0); White Blood Count 7.4 X10*3/uL (4.8-10.8)
[2023-01-29 19:29] LABS: Alanine Aminotransferase 11 U/L (0-40); Albumin Level 3.4 g/dL (3.5-5.0); Alkaline Phosphatase 63 U/L (39-117); Anion Gap 15 (12-20); Aspartate Amino Transferase 13 U/L (5-37); Bilirubin Total 0.4 mg/dL (0.0-1.0); Blood Urea Nitrogen 6 mg/dL (9-16); Calcium 9.9 mg/dL (8.4-10.2); Carbon Dioxide 26 mmol/L (22-29); Chloride 100 mmol/L (96-108); Creatinine Clr Calc Pharmacy 215.5; Estimated Glomerular Filt Rate > 60; Glucose Random 101 mg/dL (60-115); Sodium 137 mmol/L (135-145); Total Protein 8.1 g/dL (6.5-8.0)
[2023-01-29] MEDS: Acetaminophen 325 MG TABLET 975 MG PO (21:50)
[2023-01-29] MEDS: oxyCODONE HCl Immed Release 5 MG TABLET 10 MG PO (21:50)
[2023-01-29 23:03] VITALS: BP 119/54; PULSE 115; RESP 18; O2SAT 99
[2023-01-30 01:31] LABS: INTERNATIONAL NORM RATIO 1.1 (0.9-1.1); Prothrombin Time 12.6 SEC (10.0-13.1)
[2023-01-30 01:33] LABS: D Dimer High Sensitivity 229 NG/ML; Partial Thromboplastin Time 28.6 SEC (26.0-36.4)
[2023-01-30] MEDS: Acetaminophen 325 MG TABLET 975 MG PO ×2 (03:45→11:15)
--- NOTE | 2023-01-30 03:45 | PC.NURSE ---
Pt endorsing pain in R knee, 5/10. Plan to medicate per orders.
--- NOTE | 2023-01-30 06:09 | PC.NURSE ---
pt has been sleeping thur the night daughter at bedside. pt has sleep apnea noted. needs met at bedside, no s/s of distress.
[2023-01-30 06:21] VITALS: BP 117/59; PULSE 111; RESP 40; TEMP 36.7; O2SAT 95
[2023-01-30 07:27] VITALS: BP 123/72; PULSE 106; RESP 20; TEMP 36.7; O2SAT 93
--- NOTE | 2023-01-30 07:29 | PC.NURSE ---
pt a&ox3, vss, pt stating that his pain is a 6/10 level, pt lying in bed - seems to be breathing heavier the flatter he lays on the bed, offered to sit patient up a little bit pt denies, call santo placed within reach.
--- NOTE | 2023-01-30 07:57 | PHA.MEDREC ---
Pharmacy Consult ? Medication Reconciliation Pharmacy has completed the medication reconciliation. Pt states no over the counter medications or pain meds. He says only meds are albuterol inhaler, bupropion, and trazodone.
[2023-01-30 08:12] LABS: COVID-19 Test Negative (Negative); IDNOW Serial# 08D9AD1C
[2023-01-30 08:35] VITALS: PULSE 111; O2SAT 95
[2023-01-30 09:40] VITALS: BP 141/90; PULSE 99; RESP 20; TEMP 36.7; O2SAT 93
--- NOTE | 2023-01-30 10:36 | MHC.CM.ED ---
Received case management consult overnight. Patient came to the ER due to knee pain and falls. Work up essentially negative. Physical therapy eval completed. Short term rehab is recommneded. Patient weighs 400lbs and is not vaccinated against Covid. Patient will be difficult to place due to this. Referral sent to all 3 acute rehabs. No bed offers made. Referral sent to all facilities within 25 miles of patient's residence. [facility] is the only facility that is able to offer a bed. Met with patient in regards to discharge planning. Patient lives alone, ambulates independently and had no services prior to coming to the hospital Patient does not have a PCP. T/W explained home therapy would not be an option due to not having a PCP. Option of rehab at [facility] presented. Patient wants to speak to his family and then will let CM know if he's willing to go to [facility]. Continue to monitor for d/c needs.
--- NOTE | 2023-01-30 11:16 | PC.NURSE ---
prn tylenol administered per provider order, pt stating 8/10 pain in right knee - will reassess.
--- NOTE | 2023-01-30 11:17 | PC.NURSE ---
pt requesting to speak to case management.
--- NOTE | 2023-01-30 12:06 | PC.NURSE ---
pt refusing rehab, cm unable to place with [facility] d/t no PCP. dc home via ems at 1300
--- NOTE | 2023-01-30 12:07 | PC.NURSE ---
pt's pain level reassessed -pt stating that the tylenol administration did not help and that the pain in his right knee continues to be an 8/10. pt states that he feels like there is someone poking/pinching him in that area.
--- NOTE | 2023-01-30 12:11 | MHC.CM.ED ---
Addendum entered by Dora Dela Cruz 01/30/23 13:10: Gene NATH made T/W aware that patient is now declining BLS transport and has a ride coming to take him home. Original Note: Patient's family feels patient should go to [facility]. Patient wants to go home before going to [facility]. T/W explained patient would need to go to [facility] from ER. Patient requesting to be d/c'd home. Patient aware he will not receive home PT because he doesn't have a PCP. Patient aware he will need to come back to ER if he feels he needs STR. Patient requesting walker. T/W explained prescription will be provided and that patient's family can bring the [facility]. Gene NATH booked for 1pm. Gene aware patient is 400lbs and lives on the 2nd floor. Patient, Nancy HDZ and Yasmin ESQUEDA aware. Continue to monitor for d/c needs.
[2023-01-30 12:16] VITALS: BP 120/75; PULSE 105; RESP 20; TEMP 36.8; O2SAT 94
== END 2023-01-30 13:21 | disposition home or self-care (01) ==
PROVIDERS: Physician Assistant Medical; Registered Nurse Emergency; Emergency Provider Emergency Medicine Emergency Medical Services
DX: M79.604 Pain in right leg (principal); R53.1 Weakness; R29.6 Repeated falls; I10 Essential (primary) hypertension; E78.00 Pure hypercholesterolemia, unspecified; E66.01 Morbid (severe) obesity due to excess calories; Z68.44 Body mass index [BMI] 60.0-69.9, adult; Z79.899 Other long term (current) drug therapy
CPT/HCPCS: 36415; 73502; 73552; 73560; 73590; 73600; 76882; 80053; 85025; 85379; 85610; 85730; 87635; 97162; 99284

== ENCOUNTER 2023-04-21 14:35 | Outpatient (REF) | payer MEDICAID, SELFPAY ==
[2023-04-21 15:55] LABS: MANUAL DIFF FLAG NO
[2023-04-21 16:05] LABS: Basophils Percent Auto 0.4 % (0-2); Eosinophils Absolute Auto 0.1 X10*3/uL (0.0-0.4); Eosinophils Percent Auto 0.6 % (0-4); Hematocrit 37.6 % (42.0-52.0); Hemoglobin 10.9 g/dl (14.0-18.0); INTERNATIONAL NORM RATIO 1.1 (0.9-1.1); Imm Gran Abs Auto 0.03 X10*3/uL (0.00-0.03); Imm Gran Pct Auto 0.4 % (0.0-0.4); Lymphocytes Absolute Auto 2.1 X10*3/uL (1.2-4.9); Lymphocytes Percent Auto 26.6 % (20-40); Mean Corpuscular Hemoglobin 20.4 pg (27.0-33.0); Mean Corpuscular Volume 70.4 fL (80.0-98.0); Mean Platelet Volume 11.4 fL (9.4-12.4); Monocytes Absolute Auto 0.8 X10*3/uL (0.1-1.2); Monocytes Percent Auto 10.2 % (2-11); Neutrophils Absolute Auto 4.9 x10*3/uL (2.0-8.3); Neutrophils Percent Auto 61.8 % (45-73); Platelet Count 346 X10*3/uL (160-400); Prothrombin Time 13.3 SEC (11.1-13.3); Red Blood Count 5.34 X10*6/uL (4.60-5.80); Red Cell Distribution Width 17.1 % (11.0-16.0); White Blood Count 7.9 X10*3/uL (4.8-10.8)
[2023-04-21 16:13] LABS: Estimated Average Glucose 114 mg/dL; Hemoglobin A1c % 5.6 % (<6.0)
[2023-04-21 16:18] LABS: Alanine Aminotransferase 8 U/L (0-40); Albumin Level 3.9 g/dL (3.5-5.0); Alkaline Phosphatase 69 U/L (39-117); Anion Gap 15 (12-20); Aspartate Amino Transferase 12 U/L (5-37); Bilirubin Total 0.4 mg/dL (0.0-1.0); Blood Urea Nitrogen 12 mg/dL (9-16); C Reactive Protein 6.75 mg/dL (< or = 0.50); Calcium 9.6 mg/dL (8.4-10.2); Carbon Dioxide 25 mmol/L (22-29); Chloride 99 mmol/L (96-108); Cholesterol 242 mg/dL (<200); Estimated Glomerular Filt Rate > 60; Glucose Random 84 mg/dL (60-115); HDL Cholesterol 49 mg/dL (>40); Iron 26 mcg/dL (45-160); LDL Cholesterol Calculated 179 mg/dL (<100); Lactate Dehydrogenase 244 U/L (118-273); Percent Iron Saturation 9 % (15-50); Potassium 4.1 mmol/L (3.3-5.1); Sodium 135 mmol/L (135-145); Total Iron Binding Capacity 283 mcg/dL (228-428); Total Protein 9.1 g/dL (6.5-8.0); Triglycerides 74 mg/dL (<150); Unsaturated Iron Binding 257 ug/dL
[2023-04-21 16:30] LABS: Rheumatoid Factor < 13.0 IU/mL (<15.0)
[2023-04-21 16:37] LABS: Ferritin 52 ng/mL (20-250); TSH reflex Free T4 4.45 uIU/mL (0.32-4.0)
[2023-04-21 16:52] LABS: Creatinine Urine 208.92 mg/dL; Microalbum/Creatinine Ratio Ur 3.8 ug/mg cr (<30)
[2023-04-21 16:57] LABS: Folate 7.2 ng/mL (> or = 4.0); Vitamin B12 392 pg/mL (200-900)
[2023-04-21 17:14] LABS: Erythrocyte Sedimentation Rate 79 MM/HR (0-15)
[2023-04-21 17:18] LABS: Free T4 (Free Thyroxine) 1.13 ng/dL (0.71-1.85)
[2023-04-21 18:50] LABS: CT PCR NOT DETECTED (Not Detect.); NG PCR NOT DETECTED (Not Detect.)
[2023-04-22 07:57] LABS: Syphilis Screen Nonreactive (Nonreactive)
[2023-04-22 08:15] LABS: HBS Num1 12.36 mIU/mL (0-7.99); HBc Num1 0.09 S/CO (0.00-0.79); HBsAGNum1 0.31 S/CO (0.00-0.99); HIV AB/AG Nonreactive (Nonreactive); HIV Num 1 0.06 S/CO (0.00-0.99); Hepatitis B Core Antibody Nonreactive (Nonreactive); Hepatitis B Surface Antigen Negative (Negative); ~Hepatitis B Surface Antibody REACTIVE (Nonreactive)
[2023-04-23 03:22] LABS: Haptoglobin 415 MG/DL ((30-200))
[2023-04-23 15:30] LABS: Cyclic Citrullinated Peptide <16 UNITS
[2023-04-23 16:48] LABS: TS Negative Control Passed; TS Panel A 1; TS Panel B 0; TS Positive Control Passed; TSpotTB Negative (Negative)
[2023-04-25 18:13] LABS: VITAMIN D (1,25 OH) D3 48 pg/mL; Vit D (1,25-Dihydroxy) Total 48 pg/mL (18-72); Vitamin D (1,25 OH) D2 <8 pg/mL
== END 2023-04-21 14:36 | disposition home or self-care (01) ==
LOC: HO.HHCL 14:35
PROVIDERS: Visit Provider Student in an Organized Health Care Education/Training Program
DX: Z00.00 Encounter for general adult medical examination without abnormal findings (principal); Z11.3 Encounter for screening for infections with a predominantly sexual mode of transmission
CPT/HCPCS: 0353U; 80053; 80061; 82043; 82570; 82607; 82652; 82728; 82746; 83010; 83036; 83540; 83615; 84439; 84443; 85025; 85610; 85652; 86140; 86200; 86431; 86481; 86704; 86706; 86780; 87340; 87389

== ENCOUNTER 2023-05-07 12:18 | Outpatient (AMB) | payer MEDICAID, SELFPAY ==
--- NOTE | 2023-05-07 12:21 | MHC.OFFVIS ---
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 Patient reports ongoing pain for 3 years with no previous treatment. He states that he tried Ibuprofen with no relief. Patient reports his right knee is worse than the left knee. The patient states that he was given a prescription for Percocet in the emergency room which gave him fairly good relief. He walks with either a walker or a cane. Patient currently weighs over 700 lb. He states that he has been able to lose approximately 100 lb from cutting out soda and sweets. Allergies No Known Allergies Allergy (Verified 05/07/23 12:21) Medication List - Last Reconciled 05/07/23 by Rickey Michaels MD albuterol sulfate 90 mcg/actuation (ProAir HFA) 2 puffs inhalation Q4-6H PRN bupropion HCl (Wellbutrin XL) 150 mg PO DAILY oxycodone-acetaminophen 5-325 mg (Percocet) 1 tab PO Q12H PRN trazodone 50 mg PO BEDTIME walker As directed walker As directed [facility] Medical History Asthma Hypercholesteremia Hypertension Social History Alcohol intake: current Alcohol intake frequency: holidays/special occasions only Substance Use Type: Marijuana Physical Exam Vital Signs: BMI result Body Mass Index 114.5 Extrem Other: Right knee examination shows no skin lesions, no crepitus with range of motion Results Reviewed Results Reviewed: X-rays of the patient's right knee show mild diffuse joint space narrowing, no acute bony abnormalities Assessment & Plan Assessment & Plan (1) Right knee pain: Code(s): M25.561 - Pain in right knee Plan Mr. Ferrell presents with right knee pain due to morbid obesity, deconditioning and possible meniscus tearing. Because of the patient's size is not a candidate for an MRI or a knee brace. He is not wish to go to formal physical therapy at this time. I did Perch in a referral to the weight loss clinic. I also put in a referral to Interventional Radiology to see if he might be a candidate for a right knee intra-articular cortisone injection under fluoroscopic guidance. Patient states that he has gotten relief from Percocet in the past. I told him that I would give him a prescription for Percocet but for no longer than 1 month. The patient is encouraged to continue with his current weight loss program. Thank you very much for asking me to see this very friendly gentleman. I spent 22 minutes in reviewing the patient's records and imaging studies, seeing the patient and documenting in the medical record. Orders: Referrals Interventional Radiology Referral M25.561 - Pain in right knee Bariatric Surgery Referral E66.9 - Obesity, unspecified Medications: New oxycodone-acetaminophen 5-325 mg (Percocet) Partial Fill upon patient request. 1 tab PO Q12H PRN 30 tabs 0RF pain Coding Level of Care Code New Pt Level 2 (35047) Diagnoses Right knee pain M25.561
[2023-05-07 12:28] VITALS: BMI 114.5
== END 2023-05-07 12:42 | disposition home or self-care (01) ==
PROVIDERS: PCP Student in an Organized Health Care Education/Training Program; Visit Provider Orthopaedic Surgery
DX: M25.561 Pain in right knee (principal)
CPT/HCPCS: 99202

== ENCOUNTER → 2023-05-07 12:18 | Outpatient (BNVA) | payer MEDICAID, SELFPAY | PROVIDERS: PCP Student in an Organized Health Care Education/Training Program; Visit Provider Orthopaedic Surgery | DX: M25.561 Pain in right knee (principal) | CPT/HCPCS: 99202 ==

== ENCOUNTER → 2023-06-17 14:01 | Outpatient (REF) | payer MEDICAID, SELFPAY ==
--- NOTE | 2023-06-17 14:09 | CA_ITS ---
Transthoracic Echocardiogram Patient (Last, First, Middle): Rosendo Ferrell, Gender: Male Date of : 1995 Age: 28 Procedure Date: 06/17/2023 Procedure Type: Transthoracic Echocardiogram Location: OP Height: 172.72 cm Weight: 344.74 kg BSA: 3.60 m2 Heart Rate: bpm BP: 140 / 68 mmHg Infrastructure Solutions Architect: ENMA Referring MD: Karina Duarte MD Symptoms: TACHYCARDIA Study Quality: Technically Difficult, contrast Conclusions: - 1. Technically very limited study despite use of contrast agent due to body habitus 2. Low normal LV ejection fraction of 50-55% Findings Procedure Information The study quality is limited by patients body habitus. Left Ventricle Normal left ventricular cavity size. There is normal left ventricular wall thickness. The left ventricular systolic function is low normal. The visually estimated ejection fraction is between 50-55%. Diastolic function is indeterminate on the basis of available data. Right Ventricle The right ventricle was not well visualized. Atria The left atrium was not well visualized. Interatrial shunt cannot be excluded. The right atrium was not well visualized. Aortic Valve The aortic valve was not well visualized. Mitral Valve The mitral valve was not well visualized. Pulmonic Valve The pulmonic valve was not well visualized. Tricuspid Valve The tricuspid valve was not well visualized. Tricuspid regurgitation envelope is inadequate for calculation of right ventricular systolic pressure. Great Vessels The aorta was not well visualized. The pulmonary artery was not well visualized. Venous The inferior vena cava was not well visualized. Pericardium/Pleural The pericardium was not well visualized. Prior Study Comparison No prior study available for comparison. Measurements 2D Linear Measurements IVSd: 0.92 0.6-0.9/0.6-1.0 cm LVIDd: 5.63 3.9-5.3/4.2-5.9 cm LVIDd Index: 1.06 2.4-3.2/2.2-3.1 cm/m2 LVIDs: 3.87 2.0-3.6 cm LVPWd: 0.92 0.7-1.1 cm LA Diam: 3.70 2.7-3.8/3.0-4.0 cm LAIDs Index: 1.03 1.5-2.3 cm/m2 LV Mass: 256.68 67-162/88-224 g LV Mass Index: 71.30 43-95/49-115 g/m2 LVOT Diam: 2.30 3.0+(-)1.3 cm Mitral Valve MV Pk E: 1.24 MV PK A: 0.88 MV Decel Time: 199.00 E/A: 1.40 E'Lateral: 12.40 E'Medial: 10.70 E/E' Med: 11.60 E/E' Lat: 10.00 PHT: 58.00 MVA PHT: 3.79 Decel Payne: 6.21 Aortic Valve AoV Pk Baron: 1.24 AoV Mn Baron: 0.80 AoV VTI: 0.23 AoV Pk Grad: 6.00 Aov Mn Grad: 3.00 [place] Cont.VTI: 3.05 LVOT LVOT Pk Baron: 0.79 LVOT Mn Baron: 0.51 LVOT VTI: 0.17 LVOT Pk Grad: 3.00 LVOT Mn Grad: 1.00 LVOT Diam: 2.30 LVOT Area: 4.15 Diastolic Function MV Pk E: 1.24 MV Pk A: 0.88 E/A: 1.40 E'Medial: 10.70 E/E' Med: 11.60 E' Laterial: 12.40 E/E' Lat: 10.00 Tricuspid Valve RA Press: 15.00 Great Vessels Aorta Sinus of Valsalva: 3.39 2.0-3.5 cm Ao Asc: 3.00 2.1-3.4 cm Updated in Other Vendor System with Status of Final Marito Turk MD electronically signed on 06/17/2023 6:33:35 PM with status of Final
== END ==
LOC: HO.CARD 14:01
PROVIDERS: PCP Student in an Organized Health Care Education/Training Program; Visit Provider Student in an Organized Health Care Education/Training Program
DX: R00.0 Tachycardia, unspecified (principal); I10 Essential (primary) hypertension
CPT/HCPCS: 93306; Q9957

== ENCOUNTER → 2023-06-17 14:09 | Outpatient (BNV) | payer MEDICAID, SELFPAY | PROVIDERS: PCP Student in an Organized Health Care Education/Training Program; Visit Provider Internal Medicine Cardiovascular Disease | DX: R00.0 Tachycardia, unspecified (principal) | CPT/HCPCS: 93306 ==

== ENCOUNTER 2023-07-10 13:07 | Outpatient (AMB) | payer MEDICAID, SELFPAY ==
[2023-07-10 13:11] VITALS: BP 140/100; PULSE 120; TEMP 34.4; O2SAT 94; BMI 117.6
--- NOTE | 2023-07-10 13:11 | A.OFFVIS_ITS ---
Intake Vital Signs 07/10/23 13:11 Height 5 ft 8 in Weight 773 lb 4 oz BMI 117.6 BP 140/100 H Blood Pressure Location Rt radial Position Sitting Pulse 120 H Pulse Source Pulse Oximeter Temp 94 F L Pulse Oximetry (%) 94 Oxygen Delivery Method Room Air Intake Visit Reasons: ENP-Morbid Obesity -Confirmed Allergies No Known Allergies Allergy (Verified 07/10/23 13:14) HPI HPI Comments History of Present Illness Details 28 y/o morbidly obese male patient prese nts for new in-person visit to manage sleep apnea. Pt reports he was diagnosed with LC in 2012. He started using CPAP since then. He had a repeat sleep study done in 2015. 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 Pt reports he was about 400 lb in 2020. He fell after drinking alcohol and had knee fx at that time. He gained more than 300 lb since then. He sleeps sitting position due to difficulty breathing. Sleep questionnaire: Have you ever been diagnosed with a sleep disorder? LC Have you ever had a sleep study in the past? Yes, the last sleep study was 2015. Have you ever been treated for a sleep disorder? Yes, with CPAP. He used loner CPAP and returned. Do you take medications for a sleep disorder? Trazodone. Do you snore? Yes. Do you wake up gasping at night? Yes. Do you have episodes of apneas? Yes. If yes, are they witnessed? Yes. Do you have episodes of nocturnal chest pain or dyspnea? Yes. Do you have difficulty initiating sleep? Yes. Do you have difficulty maintaining sleep? Yes. Do you wake up tired? Yes. Do you have headaches upon awakening? Yes. Do you wake up with dry mouth or throat? Yes. Do you have GERD? No. Do you have nocturia? Yes, a lot. Do you have nocturnal leg cramps? No. Do you have symptoms of restless legs? Yes. Do you act out your dreams? No. Sleep hygiene questionnaire: What is your usual sleep routine? Usual bedtime is at 10-11 pm; Usual wake up time is at 8-9 am . Do you take naps? Yes, everyday. Is your sleep environment cool, dark, and quiet? Yes. Do you exercise? He is doing home physical therapy, three times a day. Do you take caffeine or other stimulants? Soda throughout the day. Do you use electronics in bed? Yes. What is your work schedule? N/A. Hypersomnolence questionnaire: Do you have daytime tiredness or fatigue? Yes. Do you easily fall asleep when inactive? Yes. Have you ever had episodes of sudden weakness? No. Have you ever had episodes of sudden weakness associated with strong emotions? No. PFSH Medical History Hypertension Hypercholesteremia Asthma Social History (Updated 07/10/23 @ 13:17 by Madeleine Ding) Alcohol intake: current Alcohol intake frequency: holidays/special occasions only Patient Tobacco Use Status: Never used Tobacco Substance Use Type: Marijuana Review of Systems Const All systems reviewed & are unremarkable except as noted in HPI and below Physical Exam Vital Signs: BMI result Body Mass Index 117.6 Const General: cooperative and tired appearing Nutritional Appearance: obese Orientation/consciousness: patient oriented x3 Limitations: physical limitations and ambulation with cane Neck Neck: Yes supple Neuro General: patient oriented x3 and moves all extremities Cranial nerves: Yes CN's II-XII intact bilaterally Cognition (Neuro): normal cognition Motor exam (neuro): 5/5 motor strength present throughout, Pronator motor function not present and no tremor noted Psych Appearance: grossly normal Mental Status: mental status grossly normal Affect: normal affect Attitude: cooperative Assessment & Plan Assessment & Plan (1) Morbid obesity: Comment: BMI is over 100. Code(s): E66.01 - Morbid (severe) obesity due to excess calories (2) LC on CPAP: Code(s): G47.33 - Obstructive sleep apnea (adult) (pediatric) Plan Pt is advised to undergo in lab sleep study to assess for sleep apnea. Will f/u with pt after study to discuss results and appropriate treatment options. Advised patient to limit soda intake. Pt to call with any worsening concerns or questions. Coding Level of Care Code New Pt Level 3 (30891) Diagnoses Morbid obesity E66.01 LC on CPAP G47.33
== END 2023-07-10 13:42 | disposition home or self-care (01) ==
PROVIDERS: PCP Student in an Organized Health Care Education/Training Program; Visit Provider Nurse Practitioner Family
DX: E66.01 Morbid (severe) obesity due to excess calories (principal); G47.33 Obstructive sleep apnea (adult) (pediatric)
CPT/HCPCS: 99203

== ENCOUNTER → 2023-07-10 13:07 | Outpatient (BNVA) | payer MEDICAID, SELFPAY | PROVIDERS: PCP Student in an Organized Health Care Education/Training Program; Visit Provider Nurse Practitioner Family | DX: E66.01 Morbid (severe) obesity due to excess calories (principal); G47.33 Obstructive sleep apnea (adult) (pediatric); Z68.45 Body mass index [BMI] 70 or greater, adult | CPT/HCPCS: 99212 ==

== ENCOUNTER 2023-07-16 14:57 | Emergency (ER) | payer MEDICAID, SELFPAY ==
--- NOTE | ~2023-07-16 | XR_ITS ---
Examination: Bilateral knee. Comparison right knee 01/29/2023 and left knee 10/22/2022 Clinical indications: Fall. Pain. TECHNIQUE: 2 views each knee. FINDINGS: Left knee: Lateral view was not obtained. There is mild reduction in medial compartment joint space. The right lateral compartment joint space is normal. No visible acute fracture or dislocation seen. Right knee. Lateral view was not obtained. There is mild reduction in the medial compartment joint space. No visible fracture or dislocation. XR/XR knee RT 1V IMPRESSION: No acute fracture or dislocation seen on the limited AP and oblique views of both knees. The lateral views are not obtained. There is mild reduction in the medial compartment joint space both knees.
--- NOTE | ~2023-07-16 | XR_ITS ---
Examination: Bilateral knee. Comparison right knee 01/29/2023 and left knee 10/22/2022 Clinical indications: Fall. Pain. TECHNIQUE: 2 views each knee. FINDINGS: Left knee: Lateral view was not obtained. There is mild reduction in medial compartment joint space. The right lateral compartment joint space is normal. No visible acute fracture or dislocation seen. Right knee. Lateral view was not obtained. There is mild reduction in the medial compartment joint space. No visible fracture or dislocation. XR/XR knee LT 1V IMPRESSION: No acute fracture or dislocation seen on the limited AP and oblique views of both knees. The lateral views are not obtained. There is mild reduction in the medial compartment joint space both knees.
[2023-07-16 15:21] VITALS: BP 154/93; PULSE 117; RESP 20; TEMP 36.2; O2SAT 98; BMI 114.0
--- NOTE | 2023-07-16 15:21 | ED.GENADULT ---
HPI - General Adult General Chief complaint: Fall Stated complaint: Numbness in feet Time Seen by Provider: 07/16/23 16:50 Source: patient Mode of arrival: ambulatory Limitations: no limitations History of Present Illness HPI narrative: 28 year old male history of morbid obesity, sleep apnea hypercholesterolemia, hypertension, asthma presents to the emergency department for evaluation of bilateral knee pain and bilateral numbness to feet that is intermittent in nature going on for the past few weeks worsening. He reports he has had knee pain in the past. He feels like he is having difficulty walking secondary to pain. He feels like sometimes his knee will give out on him. Last fall onto both knee 2 weeks ago Reports pain is worse with movement and ambulation/weight-bearing better at rest. Denies fevers, chills, falls Related Data Home Medications Medication Instructions Recorded Confirmed trazodone 50 mg tablet 50 mg PO BEDTIME 01/30/23 05/07/23 albuterol sulfate 90 mcg/actuation 1 inh inhalation QID 07/10/23 aerosol inhaler (Ventolin HFA) bupropion HCl 150 mg 24 hr tablet, 150 mg PO QAM 07/10/23 extended release dulaglutide 0.75 mg/0.5 mL 0.75 mg subcut QWEEK 07/10/23 subcutaneous pen injector (Exablox) lidocaine 5 % topical patch 1 patch topical DAILY 07/10/23 meloxicam 15 mg tablet 15 mg PO DAILY 07/10/23 metoprolol succinate 25 mg 12.5 mg PO BID 07/10/23 tablet,extended release 24 hr Previous Rx's Medication Instructions Recorded albuterol sulfate 90 mcg/actuation 2 puff inhalation Q4-6H PRN 04/20/21 aerosol inhaler (ProAir HFA) Wheezing #8.5 grams walker #1 ea 10/22/22 walker #1 ea 01/30/23 oxycodone-acetaminophen 5 mg-325 1 tab PO DAILY PRN pain #20 tabs 05/14/23 mg tablet (Percocet) Allergies Allergy/AdvReac Type Severity Reaction Status Date / Time No Known Allergies Allergy Verified 07/10/23 13:14 Review of Systems Review of Systems: Constitutional : No Weight loss, No Fever, No Chills, No Fatigue, No Malaise ENT/Mouth : No sore throat, No Rhinorrhea Eyes: No Eye Pain, No Swelling, No Redness Cardiovascular : No Chest Pain, No SOB, No Dyspnea on Exertion, No Orthopnea, No Edema, No Palpitations Respiratory : No Cough, No Sputum, No Wheezing Gastrointestinal : No Nausea, No Vomiting, No Diarrhea, No Constipation, No abdominal Pain, No Hematochezia, No Melena Genitourinary : No Dysuria, No Urinary Frequency, No Hematuria, Musculoskeletal : + joint pain, No Myalgias, + Joint Swelling Skin : No Skin Lesions, No rash Neuro : No Weakness, No Numbness, No Dizziness, No Headache Psych : No Anxiety/Panic, No Depression All other systems reviewed and are negative Yes all other systems are reviewed and are negative [facility] Past Medical History Medical History Hypertension Hypercholesteremia Asthma Social History Social History (Updated 07/10/23 @ 13:17 by Madeleine Ding) Alcohol intake: current Alcohol intake frequency: holidays/special occasions only Patient Tobacco Use Status: Never used Tobacco Substance Use Type: Marijuana Advance Directives: No Advance Directives Information Provided: No Physical Exam ED Vital Signs: Vital Signs - 24 hr 07/16/23 15:21 Temperature 97.2 F Pulse Rate 117 H Respiratory Rate 20 Blood Pressure 154/93 H Pulse Oximetry 98 Oxygen Delivery Method Room Air BMI result Body Mass Index 114.0 vss Appearance: Alert.? Oriented X3.? No acute distress.? Patient morbidly obese Head: Normocephalic, atraumatic, no step-offs or deformities Eyes: Pupils equal, round and reactive to light.? ENT: Pharynx normal.? Neck: Normal inspection.? Neck supple.? CVS: Normal heart rate and rhythm.? Pulses normal.? Respiratory: No respiratory distress.? Breath sounds normal.? Abdomen: Soft and nontender.? Skin: Skin warm and dry.? Normal skin color.? Normal skin turgor.? Extremities: No lower extremity edema.? No calf ttp. Diffuse global weakness extremity exam extremely limited secondary to patient's body habitus, he reports pain with range of motion of bilateral knees. Normal sensation distally. Global weakness. Unable to identify landmarks secondary to obesity. Patient reports he is unable to stand due to pain. No calf TTP. Palpable pulses to b/l lower extremities DP,AT,PT equal and b/l. Normal sensation distally Neuro: Oriented X 3.? No motor deficit.? No sensory deficit. CN 2-12 intact Course Course Course Narrative: RME: 28 yo M w/PMHx LC on CPAP, morbid obesity, HTN, HLD, presenting to the ED c/o fall x2 landing on bilateral knees & parathesia's/numbness in toes Labs, XRs ordered Full HPI, ROS and PE to be performed by primary ED provider. Reevaluation(s) Reevaluation #1: Patient nervous as he lives on second floor and has to go up 20 steps and feels like hes going to fall. Time: 17:29 Reevaluation #2: Will give Dilaudid for pain. X-rays no fractures or dislocations. There is no head strike or loss of consciousness no injuries to head, neck, chest, abdomen or pelvis. At this time patient to be placed in observation will be evaluated by physical therapy and case management. Time: 17:47 Medical Decision Making Medical Decision Making MDM Narrative: 28-year-old male presents with intermittent numbness to bilateral lower extremities as well as bilateral knee pain, history of morbid obesity Physical exam morbid obese male unable to ambulate No calf TTP. Palpable pulses to b/l lower extremities DP,AT,PT equal and b/l. Normal sensation distally. Diffuse global weakness extremity exam extremely limited secondary to patient's body habitus, he reports pain with range of motion of bilateral knees. Normal sensation distally. Global weakness. Unable to identify landmarks secondary to obesity. Patient reports he is unable to stand due to pain. Likely Osteoarthritis, degenerative joint disease, obesity, inflammatory arthritis. Atraumatic unlikely fracture, dislocation. No signs of neurovascular compromise, threatened limb Plan at this time imaging Differential Diagnosis Differential Diagnoses: The differential diagnosis associated with the presentation includes Likely Osteoarthritis, degenerative joint disease, obesity, inflammatory arthritis. Atraumatic unlikely fracture, dislocation. No signs of neurovascular compromise, threatened limb Admission/Observation Consideration of admission/observation: Escalation of care including admission/observation considered Unlikley Lab Data 07/16/23 17:25 07/16/23 17:25 Labs: Lab Results 07/16/23 Range/Units 17:25 WBC 8.1 (4.8-10.8) X10*3/uL RBC 4.97 (4.60-5.80) X10*6/uL Hgb 10.0 L (14.0-18.0) g/dl Hct 35.5 L (42.0-52.0) % MCV 71.4 L (80.0-98.0) fL MCH 20.1 L (27.0-33.0) pg MCHC 28.2 L (31.0-36.0) g/dl RDW 17.4 H (11.0-16.0) % Plt Count 269 (160-400) X10*3/uL MPV 11.1 (9.4-12.4) fL Immature Gran % (Auto) 0.2 (0.0-0.4) % Neut % (Auto) 62.1 (45-73) % Lymph % (Auto) 25.1 (20-40) % [place] % (Auto) 11.2 H (2-11) % Eos % (Auto) 1.2 (0-4) % Baso % (Auto) 0.2 (0-2) % Lymph # (Auto) 2.0 (1.2-4.9) X10*3/uL [place] # (Auto) 0.9 (0.1-1.2) X10*3/uL Eos # (Auto) 0.1 (0.0-0.4) X10*3/uL Baso # (Auto) 0.0 (0.0-0.2) X10*3/uL Abs Immat Gran (auto) 0.02 (0.00-0.03) X10*3/uL Absolute Neuts (auto) 5.1 (2.0-8.3) x10*3/uL Absolute Nucleated RBC 0.000 (0.0-0.012) X10*3/uL Nucleated RBC % (auto) 0.0 (0.0-0.2) /100WBC Independent Interpretation I performed an independent interpretation of an: Plain X-Ray Interpretation: XR/XR knee RT 1V IMPRESSION: No acute fracture or dislocation seen on the limited AP and oblique views of both knees. The lateral views are not obtained. There is mild reduction in the medial compartment joint space both knees. Subsequently after initial AP and oblique views, lateral shoot through view of both knees were performed. There is no fracture seen involving either patella. No abnormal joint effusion or soft tissue swelling. External Record Review External record reviewed: Inpatient record, Office record, Outpatient record, Prior outpatient labs, Prior outpatient radiology, Primary care record and Outside ED record Chronic Conditions Patient?s care impacted by: Hypertension and Other (morbid obesity ) Critical Care Time Critical Care Time Critical Care Time: No Discharge Plan Discharge Clinical Impression: Obesity, Acute bilateral knee pain Patient Disposition: Still a Patient Prescriptions: No Action oxycodone-acetaminophen [Percocet] 5-325 mg tablet 1 tab PO DAILY PRN (Reason: pain) Qty: 20 0RF Rx Instructions: Partial Fill upon patient request. albuterol sulfate [ProAir HFA] 90 mcg/actuation HFA aerosol inhaler 2 puff inhalation Q4-6H PRN (Reason: Wheezing) Qty: 8.5 0RF (DME) edmund Tinajero See Rx Instructions .Route Qty: 1 0RF Rx Instructions: As directed trazodone 50 mg tablet 50 mg PO BEDTIME (DME) edmund Forbes See Rx Instructions .Route Qty: 1 0RF Rx Instructions: As directed albuterol sulfate [Ventolin HFA] 90 mcg/actuation HFA aerosol inhaler 1 inh inhalation QID lidocaine 5 % adhesive patch,medicated 1 patch topical DAILY Rx Instructions: leave on most painful area for up to 12 hrs metoprolol succinate 25 mg tablet extended release 24 hr 12.5 mg PO BID meloxicam 15 mg tablet 15 mg PO DAILY bupropion HCl 150 mg tablet extended release 24 hr 150 mg PO QAM Trulicity 0.75 mg/0.5 mL pen injector 0.75 mg subcut QWEEK
--- NOTE | 2023-07-16 17:28 | PC.NURSE ---
Labs drawn and sent.
[2023-07-16 17:31] LABS: MANUAL DIFF FLAG NO
[2023-07-16 17:40] LABS: Basophils Percent Auto 0.2 % (0-2); Eosinophils Absolute Auto 0.1 X10*3/uL (0.0-0.4); Eosinophils Percent Auto 1.2 % (0-4); Hematocrit 35.5 % (42.0-52.0); Imm Gran Abs Auto 0.02 X10*3/uL (0.00-0.03); Imm Gran Pct Auto 0.2 % (0.0-0.4); Lymphocytes Percent Auto 25.1 % (20-40); Mean Corpuscular HGB Conc 28.2 g/dl (31.0-36.0); Mean Corpuscular Hemoglobin 20.1 pg (27.0-33.0); Mean Corpuscular Volume 71.4 fL (80.0-98.0); Mean Platelet Volume 11.1 fL (9.4-12.4); Monocytes Absolute Auto 0.9 X10*3/uL (0.1-1.2); Monocytes Percent Auto 11.2 % (2-11); Neutrophils Absolute Auto 5.1 x10*3/uL (2.0-8.3); Neutrophils Percent Auto 62.1 % (45-73); Platelet Count 269 X10*3/uL (160-400); Red Blood Count 4.97 X10*6/uL (4.60-5.80); Red Cell Distribution Width 17.4 % (11.0-16.0); White Blood Count 8.1 X10*3/uL (4.8-10.8)
[2023-07-16 17:48] LABS: Alanine Aminotransferase 9 U/L (0-40); Albumin Level 3.4 g/dL (3.5-5.0); Alkaline Phosphatase 66 U/L (39-117); Anion Gap 10 (12-20); Aspartate Amino Transferase 12 U/L (5-37); Bilirubin Direct < 0.2 mg/dL (0.0-0.5); Bilirubin Total 0.2 mg/dL (0.0-1.0); Blood Urea Nitrogen 9 mg/dL (9-16); Calcium 9.3 mg/dL (8.4-10.2); Carbon Dioxide 31 mmol/L (22-29); Chloride 102 mmol/L (96-108); Creatinine Clr Calc Pharmacy 306.8; Estimated Glomerular Filt Rate > 60; Glucose Random 88 mg/dL (60-115); Potassium 4.2 mmol/L (3.3-5.1); Sodium 139 mmol/L (135-145); Total Protein 7.8 g/dL (6.5-8.0)
[2023-07-16] MEDS: HYDROmorphone HCl 2 MG TABLET PO (18:08)
--- NOTE | 2023-07-16 18:34 | MHC.CM.ED ---
CM met with patient at request of Eugenia ESQUEDA. Pt c/o bilateral knee pain and numbness. Recent falls. Pt is 5 '8 and weighs 340 kg/748 pounds. Pt tells CM he has 20 steps into his apartment in the front and 6 steps from the back. Uses a walker. States in process of having his brother be his INFORMATION TECH. States his brother provides all of his care. Help with with toileting and showering, and ambulation. Pt has a visiting nurse 3 times a week and PT at home 3 times a week. Pt cannot remember the name of the agency. Pt states the nurse was at his home today and suggested he come to the ED due to the numbness and pain in his knees with ambulation. Pt has LC, but does not have a CPAP at home. Pt would like more PT in a facility. [facility] is pending for the morning. Explained to patient that his weight might be a barrier to STR placement, as the facility will need a bariatric bed. Pt states if no facility can accommodate him, he will go home. Pt has no choices for facilities. Will place referrals locally tonight pending PT [facility]. CM will follow for discharge planning.
[2023-07-16 21:10] VITALS: BP 124/56; PULSE 114; RESP 16; TEMP 36.9; O2SAT 98
[2023-07-16 23:26] VITALS: BP 139/87; PULSE 108; RESP 22; TEMP 36.8; O2SAT 95
[2023-07-17 06:00] VITALS: PULSE 111; RESP 22; O2SAT 94
[2023-07-17 07:16] VITALS: BP 148/77; PULSE 101; RESP 28; TEMP 36.9; O2SAT 92
--- NOTE | 2023-07-17 07:40 | PC.NURSE ---
patient o2 desats when sleeping, placed on 2l NC
--- NOTE | 2023-07-17 09:37 | MHC.CM.PN ---
Addendum entered by Arabella Doe 07/17/23 11:50: REFERRAL MADE TO [facility] Addendum entered by Arabella Doe 07/17/23 11:43: ARACELI CALLED PTS PCP OFFICE AT [facility] [phone], AND WAS INFORMED THE PT IS ACTIVE WITH [facility] A REFERRAL WAS PLACED TO THEM AND A FAX SENT CM ALSO SPOKE TO [facility], THEY ARE ONLY ABLE TO CONFIRM PTS ELIGIBILITY DETERMINATION IS IN PROCESS CM DID REITERATE THE IMPORTANCE OF THIS PT GETTING SERVICES IN A TIMELY MANNER PER FURTHER DISCUSSION WITH PT, HE IS REQUESTING A REFERRAL TO [facility] TO DETERMINE IF THEY CAN ARRANGE [facility] SOONER THAN [facility] Addendum entered by Arabella Doe 07/17/23 11:35: ARACELI MET WITH PT AGAIN TO INFORM HIM THE REFERRAL HAD TO BE EXPANDED FURTHER HE REPORTS HE WOULD PREFER TO GO HOME IT WOULD BE SO FAR AWAY AND HE HAS NOT BEEN ABLE TO TAKE A SHOWER WHILE HERE HE REPORTS HE HAS PT AT HOME AND WILL CALL HIS PCP TO SEE IF THEY CAN ORDER MORE HE ALSO STATES HE IS IN THE PROCESS OF GETTING [facility] APPROVED VIA [facility] AND IF THEY WOULD GO THROUGH, HIS BROTHER WOULD BE ABLE TO HELP MORE AND HELP HIM EXERCISE MORE CM INFORMED PT THE [facility] WOULD BE NOTIFIED OF DC, HE DOES NOT KNOW THE NAME OF THE AGENCY, AND THAT CM WOULD CALL [facility] TO DETERMINE HOW MUCH LONGER IT WOULD BE FOR PT TO HAVE THE [facility] SERVICES PT REPORTS HIS BROTHER WILL TRANSPORT HIM HOME Original Note: ARACELI MET WITH PT AND INFORMED HIM THE FIRST ROUND OF REFERRALS DID NOT PRODUCE A BED OFFER CM INFORMED HIM THE REFERRAL WOULD HAVE TO BE EXPANDED TO 50 MILES AT THIS TIME HE EXPRESSES CONCERN THAT FAMILY WILL HAVE A HARD TIME VISITING HOWEVER AGREES TO SEE IF THERE ARE ANY BED OFFERS AND THEN DECIDE REFERRAL HAS BEEN EXPANDED
== END 2023-07-17 12:14 | disposition home or self-care (01) ==
PROVIDERS: Physician Assistant; Emergency Provider Emergency Medicine; PCP Student in an Organized Health Care Education/Training Program
DX: M25.561 Pain in right knee (principal); M25.562 Pain in left knee; R20.0 Anesthesia of skin; E66.01 Morbid (severe) obesity due to excess calories; I10 Essential (primary) hypertension; J45.909 Unspecified asthma, uncomplicated
CPT/HCPCS: 36415; 73560; 80048; 80076; 83735; 85025; 97162; 99284

== ENCOUNTER → 2023-08-06 20:30 | Outpatient (REF) | payer MEDICAID, SELFPAY | LOC: HO.SL 20:30 | PROVIDERS: PCP Student in an Organized Health Care Education/Training Program; Visit Provider Nurse Practitioner Family | DX: E66.01 Morbid (severe) obesity due to excess calories (principal); G47.33 Obstructive sleep apnea (adult) (pediatric) | CPT/HCPCS: 95810 ==

== ENCOUNTER → 2023-08-06 22:21 | Outpatient (BNV) | payer MEDICAID, SELFPAY | PROVIDERS: PCP Student in an Organized Health Care Education/Training Program; Visit Provider Internal Medicine | DX: G47.33 Obstructive sleep apnea (adult) (pediatric) (principal) | CPT/HCPCS: 95810 ==

== ENCOUNTER 2023-09-11 05:00 | Observation (INO) | payer MEDICAID, SELFPAY ==
[2023-09-11 05:17] VITALS: BP 133/70; PULSE 113
[2023-09-11 05:18] VITALS: BP 151/100; PULSE 112; RESP 16; O2SAT 99; BMI 117.5
--- NOTE | 2023-09-11 05:31 | PC.NURSE ---
Neuro assessment completed when pt arrived with WILDER Epperson while we awaited bariatric bed. Left arm weakness noted, Dr. Cespedes aware. Neuro assessment otherwise WNL.
--- NOTE | 2023-09-11 05:33 | ECG_ITS ---
Test Reason : SOB Blood Pressure : / mmHG Vent. Rate : 105 BPM Atrial Rate : 105 BPM P-R Int : 140 ms QRS Dur : 082 ms QT Int : 342 ms P-R-T Axes : 067 016 067 degrees QTc Int : 452 ms Sinus tachycardia Otherwise normal ECG When compared with ECG of 29-OCT-2013 23:25, No significant change was found Referred By: Deloris Cespedes Electronically Signed By:TONY GUERRERO MD
--- NOTE | 2023-09-11 05:37 | ED.EXTPRO ---
HPI - Extremity Problem General Chief complaint: Extremity Injury, Upper Stated complaint: MORBIDLY OBESE Time Seen by Provider: 09/11/23 05:16 Source: patient Mode of arrival: ambulatory Limitations: no limitations History of Present Illness HPI Narrative: Patient comes to emergency room complaining of chest pain only at night for about days. Also, patient reports that he has been having intermittent arm numbness tingling and weakness in the left arm, and today he experience tongue heaviness and mild slurred speech. Patient states that today patient woke up around 03:00, patient woke up from sleep with chest pain, noticed that his arm was numb tingly and weak. Patient states that for the last 3 days this has been happening, and is usually to ?shake it off , but this time lasted for about 45 minutes and he started becoming concerned. When patient arrived to the hospital, patient states that the chest pain had subsided but his left arm was still numb tingly and weak. At this time, patient is still feels that his tongue is a bit heavy/numb Related Data Home Medications Medication Instructions Recorded Confirmed trazodone 50 mg tablet 50 mg PO BEDTIME 01/30/23 07/17/23 albuterol sulfate 90 mcg/actuation 1 inh inhalation QID 07/10/23 aerosol inhaler (Ventolin HFA) bupropion HCl 150 mg 24 hr tablet, 150 mg PO QAM 07/10/23 07/17/23 extended release dulaglutide 0.75 mg/0.5 mL 0.75 mg subcut QWEEK 07/10/23 subcutaneous pen injector (Trulicity) lidocaine 5 % topical patch 1 patch topical DAILY 07/10/23 07/17/23 meloxicam 15 mg tablet 15 mg PO DAILY 07/10/23 metoprolol succinate 25 mg 12.5 mg PO BID 07/10/23 07/17/23 tablet,extended release 24 hr Previous Rx's Medication Instructions Recorded albuterol sulfate 90 mcg/actuation 2 puff inhalation Q4-6H PRN 04/20/21 aerosol inhaler (ProAir HFA) Wheezing #8.5 grams walker #1 ea 10/22/22 walker #1 ea 01/30/23 oxycodone-acetaminophen 5 mg-325 1 tab PO DAILY PRN pain #20 tabs 05/14/23 mg tablet (Percocet) Allergies Allergy/AdvReac Type Severity Reaction Status Date / Time No Known Allergies Allergy Verified 09/11/23 06:37 Review of Systems Review of Systems: Constitutional : No Weight loss, No Fever, No Chills, No Night Sweats, No Fatigue, No Malaise ENT/Mouth : No Hearing loss, No Ear Pain, No Nasal Congestion, No Sinus Pain, No Hoarseness, No sore throat, No Rhinorrhea, No Swallowing Difficulty Eyes: No Eye Pain, No Swelling, No Redness, No Foreign Body, No Discharge, No Vision Changes Cardiovascular : Complaining of intermittent Chest Pain, No SOB, No Dyspnea on Exertion, No Orthopnea, No Edema, No Palpitations Respiratory : No Cough, No Sputum, No Wheezing, No Smoke Exposure, No Dyspnea Gastrointestinal : No Nausea, No Vomiting, No Diarrhea, No Constipation, No abdominal Pain, No Hematochezia, No Melena Genitourinary : no irregular bleeding, No Dysuria, No Urinary Frequency, No Hematuria, No Urinary Incontinence, No Urgency, No Flank Pain, No Urinary Flow Changes, No Hesitancy Musculoskeletal : No joint pain, No Myalgias, No Joint Swelling Skin : No Skin Lesions, No rash Neuro : Intermittent left arm weakness numbness and tingling, complaining of intermittent slurred speech and tongue numbness Psych : No Anxiety/Panic, No Depression, No SI/HI/AH/VH, No Social Issues, Heme/Lymph: No Bruising, No Bleeding,No Lymphadenopathy Endocrine : No Polyuria, No Polydipsia, No Temperature Intolerance PMFSH Past Medical History Medical History Hypertension Hypercholesteremia Asthma Social History Social History (Updated 07/10/23 @ 13:17 by Madeleine Ding) Alcohol intake: current Alcohol intake frequency: holidays/special occasions only Patient Tobacco Use Status: Never used Tobacco Smoked in Last 30 Days: No Use of substances other than those prescribed or required for medical reasons: Yes Substance Use Type: Marijuana Substance Use Frequency: Daily Advance Directives: No Physical Exam Vital Signs: Vital Signs: Last Vital Signs Temp 98 F 09/11/23 06:37 Pulse 99 09/11/23 06:37 Resp 16 09/11/23 06:37 BP 161/84 H 09/11/23 06:37 Pulse Ox 97 09/11/23 06:37 O2 Del Method Room Air 09/11/23 06:37 BMI result Body Mass Index 120.5 Const: Other: Appearance: Alert. Oriented X3. No acute distress. Patient is morbidly obese Eyes: Pupils equal, round and reactive to light. ENT: Pharynx normal. Neck: Normal inspection. Neck supple. No lymph nodes noted. No crepitus CVS: Normal heart rate and rhythm. Pulses normal. Normal S1 and S2 Respiratory: No respiratory distress. Breath sounds normal. No Wheezing. No rales Abdomen: Soft and nontender. No rigidity. No distention. Skin: Skin warm and dry. Normal skin color. Normal skin turgor. Extremities: No lower extremity edema. No Lacerations. No Rash Neuro: Oriented X 3. Patient has 2/5 strength in the left upper extremity and 5/5 in the right upper extremity. Patient is able to lift both legs. Psych: calm, cooperative, normal affect NIH Stroke Scale Internal: Initial- Upon Arrival Level of Consciousness: Alert Level of Consciousness Questions: Answers both questions correctly Level of Consciousness Commands: Performs both tasks correctly Best Gaze: Normal Visual: No visual loss Facial Palsy: Normal Motor Arm (Right): No drift Motor Arm (Left): No drift Motor Leg (Right): No drift Motor Leg (Left): No drift Limb Ataxia: Absent Sensory: Normal Best Language: No aphasia Dysarthia: Mild to moderate dysarthria Extinction and Inattention: No abnormality Score: 1 Medical Decision Making Medical Decision Making MDM Narrative: -my interpretation of labs: Hematology is at baseline from previous labs, chemistry within normal limits. Troponin negative, less than 2.7. -my interpretation of EKG: Sinus tachycardia, heart rate 105, no ST segment depression or elevation, no T-wave inversion, QTC 452 -at this time, 627, patient states that the strength in his left arm is getting much better. Less numbness tingling and his speech is nearly back to normal. NIH score at this time 0. -unfortunately, due to patient's weight, we could not get a CT scan or CTA. -we tried transferring the patient to [facility], [facility], [place]. The maximum wait for any of their scanners is 650 lb. -our patient is 770 lb and 81 cm from shoulder to shoulder -patient is currently in a bariatric bed. -I discussed the patient with Dr. Evangelista. At this time, admission pending, she will discussed this patient's/admission with Dr. Cleveland -at this time, 07:00, patient is awake, alert and oriented x3, vitals are stable, NIH score is 0. -I discussed the patient with Dr. Cleveland, waiting for hospitalist to admit the patient. Differential Diagnosis Differential Diagnoses: The differential diagnosis associated with the presentation includes (TIA, CVA, ACS) Admission/Observation Consideration of admission/observation: Escalation of care including admission/observation considered Consult Healthcare Provider Management of the patient was discussed with: Hospitalist Lab Data MDM Lab Attestation statement: I reviewed the patient's lab results. 09/11/23 05:39 09/11/23 05:39 Labs: Lab Results 09/11/23 09/11/23 Range/Units 05:39 06:12 WBC 9.3 (4.8-10.8) X10*3/uL RBC 4.96 (4.60-5.80) X10*6/uL Hgb 10.0 L (14.0-18.0) g/dl Hct 35.0 L (42.0-52.0) % MCV 70.6 L (80.0-98.0) fL MCH 20.2 L (27.0-33.0) pg MCHC 28.6 L (31.0-36.0) g/dl RDW 18.1 H (11.0-16.0) % Plt Count 318 (160-400) X10*3/uL MPV 10.6 (9.4-12.4) fL Immature Gran % (Auto) 0.3 (0.0-0.4) % Neut % (Auto) 69.2 (45-73) % Lymph % (Auto) 20.5 (20-40) % [place] % (Auto) 8.9 (2-11) % Eos % (Auto) 0.9 (0-4) % Baso % (Auto) 0.2 (0-2) % Lymph # (Auto) 1.9 (1.2-4.9) X10*3/uL [place] # (Auto) 0.8 (0.1-1.2) X10*3/uL Eos # (Auto) 0.1 (0.0-0.4) X10*3/uL Baso # (Auto) 0.0 (0.0-0.2) X10*3/uL Abs Immat Gran (auto) 0.03 (0.00-0.03) X10*3/uL Absolute Neuts (auto) 6.4 (2.0-8.3) x10*3/uL Absolute Nucleated RBC 0.000 (0.0-0.012) X10*3/uL Nucleated RBC % (auto) 0.0 (0.0-0.2) /100WBC PT 13.3 (11.1-13.3) SEC INR 1.1 (0.9-1.1) Sodium 138 (135-145) mmol/L Potassium 4.1 (3.3-5.1) mmol/L Chloride 100 (96-108) mmol/L Carbon Dioxide 28 (22-29) mmol/L Anion Gap 14 (12-20) BUN 8 L (9-16) mg/dL Creatinine 0.88 (0.5-1.4) mg/dL Estim Creat Clear Calc 314.0 Estimated GFR > 60 Random Glucose 80 (60-115) mg/dL Calcium 9.4 (8.4-10.2) mg/dL Magnesium 2.0 (1.6-2.6) mg/dL Total Bilirubin 0.3 (0.0-1.0) mg/dL Direct Bilirubin 0.2 (0.0-0.5) mg/dL AST 11 (5-37) U/L ALT 10 (0-40) U/L Alkaline Phosphatase 68 (39-117) U/L Troponin I High Sens < 2.7 (<3.5-35.0) ng/L Total Protein 8.2 H (6.5-8.0) g/dL Albumin 3.6 (3.5-5.0) g/dL Urine Color Yellow Urine Appearance Clear Urine pH 7.0 (5.0-9.0) Ur Specific [place] <= 1.005 (1.005-1.025) Urine Protein Negative (Neg-Trace) mg/dL Urine Glucose (UA) Negative (Negative) mg/dL Urine Ketones Negative (Negative) mg/dL Urine Blood Small (1+) H (Negative) Urine Nitrite Negative (Negative) Ur Leukocyte Esterase Negative (Negative) Urine RBC 6-10 H (0-2) /HPF Urine WBC 0-5 (0-5) /HPF Ur Squamous Epith Cells 0-2 (0-2) /HPF Urine Bacteria None Seen (None Seen) Hyaline Casts 0-2 (0-2) /LPF COVID-19 (CHRISTEN) Negative (Negative) COVID-19 Clin Com See Note Independent Interpretation I performed an independent interpretation of an: EKG Critical Care Time Critical Care Time Critical Care Time: Yes Total Critical Care Time: 75 Attestation: I have personally provided critical care time. Time includes review of lab data, radiology results, discussion with consultants, and monitoring for potential decompensation. Intervention performed as documented. Discharge Plan Discharge Clinical Impression: Brain TIA, Chest pain Patient Disposition: Admitted As Inpatient
[2023-09-11 05:38] VITALS: BMI 120.5
[2023-09-11 05:44] LABS: MANUAL DIFF FLAG NO
[2023-09-11 05:46] LABS: Basophils Percent Auto 0.2 % (0-2); Eosinophils Absolute Auto 0.1 X10*3/uL (0.0-0.4); Eosinophils Percent Auto 0.9 % (0-4); Imm Gran Abs Auto 0.03 X10*3/uL (0.00-0.03); Imm Gran Pct Auto 0.3 % (0.0-0.4); Lymphocytes Absolute Auto 1.9 X10*3/uL (1.2-4.9); Lymphocytes Percent Auto 20.5 % (20-40); Mean Corpuscular HGB Conc 28.6 g/dl (31.0-36.0); Mean Corpuscular Hemoglobin 20.2 pg (27.0-33.0); Mean Corpuscular Volume 70.6 fL (80.0-98.0); Mean Platelet Volume 10.6 fL (9.4-12.4); Monocytes Absolute Auto 0.8 X10*3/uL (0.1-1.2); Monocytes Percent Auto 8.9 % (2-11); Neutrophils Absolute Auto 6.4 x10*3/uL (2.0-8.3); Neutrophils Percent Auto 69.2 % (45-73); Platelet Count 318 X10*3/uL (160-400); Red Blood Count 4.96 X10*6/uL (4.60-5.80); Red Cell Distribution Width 18.1 % (11.0-16.0); White Blood Count 9.3 X10*3/uL (4.8-10.8)
[2023-09-11 05:53] LABS: INTERNATIONAL NORM RATIO 1.1 (0.9-1.1); Prothrombin Time 13.3 SEC (11.1-13.3)
[2023-09-11 05:59] LABS: COVID-19 Test Negative (Negative); IDNOW Serial# 152EDE1D
[2023-09-11 06:04] LABS: Alanine Aminotransferase 10 U/L (0-40); Albumin Level 3.6 g/dL (3.5-5.0); Alkaline Phosphatase 68 U/L (39-117); Anion Gap 14 (12-20); Aspartate Amino Transferase 11 U/L (5-37); Bilirubin Direct 0.2 mg/dL (0.0-0.5); Bilirubin Total 0.3 mg/dL (0.0-1.0); Blood Urea Nitrogen 8 mg/dL (9-16); Calcium 9.4 mg/dL (8.4-10.2); Carbon Dioxide 28 mmol/L (22-29); Chloride 100 mmol/L (96-108); Estimated Glomerular Filt Rate > 60; Glucose Random 80 mg/dL (60-115); Potassium 4.1 mmol/L (3.3-5.1); Sodium 138 mmol/L (135-145); Total Protein 8.2 g/dL (6.5-8.0)
[2023-09-11 06:11] LABS: Troponin-I High Sensitivity < 2.7 ng/L (<3.5-35.0)
[2023-09-11 06:20] LABS: Appearance Urine Clear; Color Urine Yellow; Glucose Urine UA Negative (Negative); Leukocyte Esterase Urine Negative (Negative); Nitrite Urine Negative (Negative); Specific Gravity - Urine <= 1.005 (1.005-1.025); UMIC TRIGGER UACC YES; Urine Blood Small (1+) (Negative); Urine Ketones Negative (Negative); Urine Protein Negative (Neg-Trace)
[2023-09-11 06:23] LABS: Bacteria Urine None Seen (None Seen); Hyaline Casts Urine 0-2 /LPF (0-2); Squamous Epithelial Cell Urine 0-2 /HPF (0-2); WBC Urine 0-5 /HPF (0-5)
--- NOTE | 2023-09-11 06:34 | MHC.EDTECH ---
CALLED OUT TO [facility] FOR POSSIBLE TRANSFER. PT CAME IN BY AMBULANCE FOR CHEST PAIN AND LEFT ARM NUMBNESS. PT ISNT ABLE TO GET CT SCAN DUE TO WEIGHT AND CIRCUMFERENCE. ALL HOSPITALS DENIED ANY POSSIBILITY TO TRANSFER DUE TO PT BEING OVER THE LIMIT.
[2023-09-11 06:37] VITALS: BP 161/84; PULSE 99; RESP 16; TEMP 36.6; O2SAT 97
--- NOTE | 2023-09-11 08:24 | PC.NURSE ---
pt ambulated to the bathroom independently with assistive device, cane. pt ambulated well.
--- NOTE | 2023-09-11 08:51 | P.HPHOSP_ITS ---
History of Present Illness Date of Service: 09/11/23 Chief Complaint: left arm weakness/numbness The patient is a 28 year old M with a PMH of morbid obesity - on Trulicity, LC (sleep study completed, awaiting equipment), HTN, Asthma, HLD who presents to [facility] with sudden onset chest pain and left arm numbness/tingling. The patient states he was awoken from sleep by this. He describes his chest pain as more of a numbness, tingling sensation. He says this moved to his left arm which also felt weak and heavy. 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 He also reports that he was told by family that he was mumbling his words. He states the arm symptoms lasted about 1-2 hours. He denies any prior such symptoms. In the ED, the patient had resoluation of his symptoms. However, given his risk factors, TIA is suspected and he will be placed under obs with neurology consult. Review of Systems 2 Review of Systems: Negative except HPI/interval history. [facility] Medical History Hypertension Hypercholesteremia Asthma Social History (Updated 07/10/23 @ 13:17 by Madeleine Ding) Alcohol intake: current Alcohol intake frequency: holidays/special occasions only Patient Tobacco Use Status: Never used Tobacco Smoked in Last 30 Days: No Use of substances other than those prescribed or required for medical reasons: Yes Substance Use Type: Marijuana Substance Use Frequency: Daily Advance Directives: No Meds Allergies Allergy/AdvReac Type Severity Reaction Status Date / Time No Known Allergies Allergy Verified 09/11/23 06:37 Home Medications Medication Instructions Recorded Confirmed Last Taken Type trazodone 50 mg tablet 50 mg PO BEDTIME 01/30/23 07/17/23 01/29/23 History albuterol sulfate 90 mcg/actuation 1 inh inhalation QID 07/10/23 Unknown History aerosol inhaler (Ventolin HFA) bupropion HCl 150 mg 24 hr tablet, 150 mg PO QAM 07/10/23 07/17/23 Unknown History extended release dulaglutide 0.75 mg/0.5 mL 0.75 mg subcut QWEEK 07/10/23 Unknown History [facility] lidocaine 5 % topical patch 1 patch topical DAILY 07/10/23 07/17/23 Unknown History meloxicam 15 mg tablet 15 mg PO DAILY 07/10/23 Unknown History metoprolol succinate 25 mg 12.5 mg PO BID 07/10/23 07/17/23 Unknown History tablet,extended release 24 hr Physical Exam 2 Vital Signs and Narrative: Vital Signs: Last Vital Signs Temp 98 F 09/11/23 06:37 Pulse 99 09/11/23 06:37 Resp 16 09/11/23 06:37 BP 161/84 H 09/11/23 06:37 Pulse Ox 97 09/11/23 06:37 O2 Del Method Room Air 09/11/23 06:37 BMI result Body Mass Index 120.5 Const: Other: Constitutional - Awake and Alert, No apparent distress Eyes - PERRLA, EOMI Cardiovascular - S1S2, RRR, No edema Respiratory - Normal lung expansion, Normal respiratory effort, No respiratory distress, CTA bilaterally Gastrointestinal - NT / ND; +BS; No rebound or guarding - No CVA tenderness Extremities - no calf tenderness bilaterally, no swelling Musculoskeletal - Normal inspection, normal ROM Skin - Warm/Dry Neurological - Alert & oriented x3, No focal deficit; CN 2-12 intact b/l Psychological - Appropriate affect Results Labs 09/11/23 05:39 09/11/23 05:39 Labs: Laboratory Results - last 24 hr 09/11/23 09/11/23 05:39 06:12 MCV 70.6 L MCH 20.2 L MCHC 28.6 L RDW 18.1 H Plt Count 318 MPV 10.6 Immature Gran % (Auto) 0.3 Neut % (Auto) 69.2 Lymph % (Auto) 20.5 [place] % (Auto) 8.9 Eos % (Auto) 0.9 Baso % (Auto) 0.2 Lymph # (Auto) 1.9 [place] # (Auto) 0.8 Eos # (Auto) 0.1 Baso # (Auto) 0.0 Abs Immat Gran (auto) 0.03 Absolute Neuts (auto) 6.4 Absolute Nucleated RBC 0.000 Nucleated RBC % (auto) 0.0 PT 13.3 INR 1.1 Anion Gap 14 Estim Creat Clear Calc 314.0 Estimated GFR > 60 Random Glucose 80 Calcium 9.4 Magnesium 2.0 Total Bilirubin 0.3 Direct Bilirubin 0.2 AST 11 ALT 10 Alkaline Phosphatase 68 Troponin I High Sens < 2.7 Total Protein 8.2 H Albumin 3.6 Urine Color Yellow Urine Appearance Clear Urine pH 7.0 Ur Specific [place] <= 1.005 Urine Protein Negative Urine Glucose (UA) Negative Urine Ketones Negative Urine Blood Small (1+) H Urine Nitrite Negative Ur Leukocyte Esterase Negative Urine RBC 6-10 H Urine WBC 0-5 Ur Squamous Epith Cells 0-2 Urine Bacteria None Seen Hyaline Casts 0-2 COVID-19 (CHRISTEN) Negative COVID-19 Clin Com See Note Assessment and Plan (1) Brain TIA: Status: Acute Plan 28 yo M with morbid obesity, LC, HTN, HLD and asthma who presents with sudden onset left arm weakness/numbness which has now resolved. Presentation is concerning for TIA. He will be admitted for further management. 1. Suspected TIA Pt with risk factors of obesity, HTN and HLD will repeat lipids monitor on tele will consult neurology- further work up pending their assessment 2. HTN not ideal control. will start his home meds and adjust as needed 3. HLD statin 4. Asthma at baseline, continue inhalers 5. LC completed sleep study as outpatient, awaiting equipment at home 6. Morbidy obesity weight loss/diet has been encouraged pt is currently on Trulicity as well 7. Chest pain this appears atypical and no anginal EKG without acute ischemic changes troponin neg x 1; second pending Full Code DVT pptx, Lovenox (weight b Quality Stroke Does the patient have a stroke diagnosis?: No VTE Prior VTE?: No VTE Risk Level:: Medical - moderate - high VTE Device Contraindication: Treatment Not Indicated VTE Drug Contraindication: N/A - Med Ordered
[2023-09-11 09:01] LABS: Troponin-I High Sensitivity < 2.7 ng/L (<3.5-35.0)
[2023-09-11 09:45] LABS: Cholesterol 231 mg/dL (<200); HDL Cholesterol 44 mg/dL (>40); LDL Cholesterol Calculated 171 mg/dL (<100); Triglycerides 80 mg/dL (<150)
[2023-09-11 10:46] VITALS: BP 142/77; PULSE 116; RESP 25; O2SAT 67
--- NOTE | 2023-09-11 10:50 | PC.NURSE ---
pt asleep - informed of need to complete swallow eval. pts lips cyanotic - assesed O2 - 67% - pt fighting this RN to place O2 on pt reporting he wants water first. started pt on 3L Oxymask with good effect o2 up to 97%
--- NOTE | 2023-09-11 10:52 | PC.NURSE ---
pt passed nursing bedside swallow eval
[2023-09-11] MEDS: Metoprolol Tartrate 12.5 MG HALFTAB PO (10:53)
[2023-09-11] MEDS: Enoxaparin Sodium 40 MG/0.4 ML SYRINGE SUBCUT (10:53)
--- NOTE | 2023-09-11 11:46 | PC.NURSE ---
pt with oxymask on 5L - pt cotninues to desat to mid 60s (64% at lowest), pt awake, speaking with this RN, encouraged to take deep breaths. pt quickly recovers to 97%.
--- NOTE | 2023-09-11 12:13 | MHC.STROKE ---
1045 - Met with patient to discuss stroke/tia education. Pt awake, alert and oriented x 3. Primary nurse with patient at bedside. Educating patient on oxygen usage as patient's 02 Sat noted to be dropping into the 60s while sleeping. Pt reports that for the past couple of nights he's experiences chest pain and also noted intermittent left arm numbness/tingling. Last night he also noted tongue to feel heavy . While meeting with patient, pt reports that all of his symptoms have subsided. Pt has no complaints currently. Primary RN reports that patient was ambulatory to bathroom with a cane. Pt states I try and do things for myself if I can . He reports that ambulation can be difficult due to pain in his right knee. When discussing lifestyle changes/habits, patient states that he doesn't qualify for bariatric surgery because he needs to lose 200 pounds before they will perform the surgery. He reports that he takes medication for his blood pressure. No neuro deficits at this time. Pt educated on plan of care/admission. Pt agreeable to plan. Consult placed to neurology for recommendations
--- NOTE | 2023-09-11 13:44 | PC.NURSE ---
pt irritable that this RN and PCT Brandon are waking pt up when he desats, pt reports he wants to sign out AMA, explained why staff is waking pt and he reports he will stay but to tell those mother fuckers to stop waking me up . oxymask reapplied to pts face at 5L
--- NOTE | 2023-09-11 13:57 | PC.NURSE ---
pt removed oxymask again, re-education provided to pt - pt refusing to allow this RN to replace his oxymask, pt reports he wants to speak with the DR and pt wants to AMA
--- NOTE | 2023-09-11 14:00 | PC.NURSE ---
informed Dr. ramirez of pts intent to leave AMA via [facility]. to be down to see pt
--- NOTE | 2023-09-11 14:17 | PM.EVENT ---
Event Note Date of Service: 09/11/23 Event Note: Informed by the RN that the patient wanted to leave against medical advice. Pt seen with [employer] sign language interpreter services and patient's RN. Pt states he feels better and would like to be discharged. Informed the patient of reason for hospitalization (suspected TIA) for which he is admitted. Explained to him the risks of leaving against medical advice, which include stroke, OK or even . Despite this, the patient would like to leave AMA. The patient is AAOx3 and is able to repeat his diagnosis and risks of leaving AMA in laymen's terms. Pt to signs AMA paperwork with RN. Time Spent With Patient Time: Total time managing care of this patient today ____ minutes.
--- NOTE | 2023-09-11 14:56 | PHA.MEDREC ---
Pharmacy Consult ? Medication Reconciliation Pharmacy has completed the medication reconciliation. pt confirmed medications based on claim history
--- NOTE | 2023-09-11 16:13 | P.CNNE_ITS ---
History of Present Illness Data of Consult Service Date: 09/11/23 Primary Care Provider: Karina Duarte MD HPI Reason for consult: Numbness 28 years old morbidly obese man who came to hospital with numbness. He said that his left side was numb. He also complained of chest pain and pressure. When I saw him he was in emergency room. Because of his morbid obesity even a CT scan of brain was not possible with him. Review of Systems 2 Review of Systems: Very sleepy and tired [facility] Past Medical History Medical History Hypertension Hypercholesteremia Asthma Social History Social History (Updated 07/10/23 @ 13:17 by Madeleine Ding) Alcohol intake: current Alcohol intake frequency: holidays/special occasions only Patient Tobacco Use Status: Never used Tobacco Substance Use Type: Marijuana Meds Allergies Allergy/AdvReac Type Severity Reaction Status Date / Time No Known Allergies Allergy Verified 09/11/23 06:37 Home Medications Medication Instructions Recorded Confirmed Last Taken Type trazodone 50 mg tablet 50 mg PO BEDTIME PRN Insomnia 01/30/23 09/11/23 01/29/23 History dulaglutide 0.75 mg/0.5 mL 0.75 mg subcut MO 07/10/23 09/11/23 Unknown History subcutaneous pen injector (Trulicity) lidocaine 5 % topical patch 2 patch topical DAILY 07/10/23 09/11/23 Unknown History meloxicam 15 mg tablet 15 mg PO DAILY 07/10/23 09/11/23 Unknown History metoprolol succinate 25 mg 25 mg PO DAILY 07/10/23 09/11/23 Unknown History tablet,extended release 24 hr bupropion HCl 300 mg 24 hr tablet, 300 mg PO DAILY 09/11/23 09/11/23 Unknown History extended release ferrous gluconate 324 mg (38 mg 324 mg PO DAILY@0800 09/11/23 09/11/23 Unknown History iron) tablet nystatin 100,000 unit/gram topical 1 appl topical BID PRN Rash 09/11/23 09/11/23 Unknown History powder omega-3 acid ethyl esters 1 gram 1 cap PO DAILY 09/11/23 09/11/23 Unknown History capsule oxycodone-acetaminophen 5 mg-325 2 tab PO BID PRN Moderate Pain 09/11/23 09/11/23 Unknown History mg tablet (Scale Score 5-6) Physical Exam 2 Vital Signs: Vital Signs: Last Vital Signs Temp 98 F 09/11/23 06:37 Pulse 116 H 09/11/23 10:46 Resp 25 H 09/11/23 10:46 BP 142/77 H 09/11/23 10:46 Pulse Ox 67 L 09/11/23 10:46 O2 Del Method Room Air 09/11/23 06:37 BMI result Body Mass Index 120.5 Neuro: Other: Morbidly obese man with normal spontaneity and fluency of speech comprehension and somewhat flat affect. Face was symmetrical. Visual ring are full. There was no obvious arm or leg weakness. Deep tendon reflexes could not be elicited because of morbid obesity. Results Labs 09/11/23 05:39 09/11/23 05:39 Labs: Short CBC 09/11/23 Range/Units 05:39 WBC 9.3 (4.8-10.8) X10*3/uL Hgb 10.0 L (14.0-18.0) g/dl Hct 35.0 L (42.0-52.0) % Plt Count 318 (160-400) X10*3/uL BMP 09/11/23 05:39 Sodium 138 Potassium 4.1 Chloride 100 Carbon Dioxide 28 BUN 8 L Creatinine 0.88 Calcium 9.4 Liver Function 09/11/23 Range/Units 05:39 Total Bilirubin 0.3 (0.0-1.0) mg/dL Direct Bilirubin 0.2 (0.0-0.5) mg/dL AST 11 (5-37) U/L ALT 10 (0-40) U/L Alkaline Phosphatase 68 (39-117) U/L Albumin 3.6 (3.5-5.0) g/dL Urine 09/11/23 Range/Units 06:12 Urine Color Yellow Urine Appearance Clear Urine pH 7.0 (5.0-9.0) Ur Specific [place] <= 1.005 (1.005-1.025) Urine Protein Negative (Neg-Trace) mg/dL Urine Glucose (UA) Negative (Negative) mg/dL Assessment and Plan (1) Arm numbness: Status: Acute 28 years old morbidly obese man complain of chest pressure pain and left arm numbness. It might be a cardiac symptom, a peripheral nerve entrapment, or it could also be a cerebral vascular symptom. Distinction was difficult to make at this time but I would recommend looking at his cardiac issue 1st. Also, he probably has hypoventilation syndrome, which was contributing to his other problems unlikely resulting in chest pressure. Appropriate pulmonary consultation is recommended for long-term solution for hypoventilation. As far as possibility of stroke is concerned, blood pressure management, which might be difficult without treating obstructive sleep apnea, a baby aspirin daily and review of other vascular risk factor such as lipids is recommended. Procedures Date of Service Date of Service: 09/11/23
== END 2023-09-11 14:49 | disposition left against medical advice (07) ==
LOC: HO.ED 06:33 → HO.EDOVER 08:57
PROVIDERS: Admitting Provider Family Medicine; Emergency Provider Emergency Medicine; PCP Student in an Organized Health Care Education/Training Program; Visit Provider Family Medicine
DX: R47.81 Slurred speech (principal); R53.1 Weakness; R07.9 Chest pain, unspecified; I10 Essential (primary) hypertension; E78.5 Hyperlipidemia, unspecified; J45.909 Unspecified asthma, uncomplicated; G47.33 Obstructive sleep apnea (adult) (pediatric); R20.0 Anesthesia of skin; E66.01 Morbid (severe) obesity due to excess calories; Z68.45 Body mass index [BMI] 70 or greater, adult; Z11.52 Encounter for screening for COVID-19
CPT/HCPCS: 36415; 80048; 80061; 80076; 81001; 83735; 84484; 85025; 85610; 87635; 93005; 96372; 99222; 99285; J1650

== ENCOUNTER → 2023-09-11 05:33 | Outpatient (BNV) | payer MEDICAID, SELFPAY | PROVIDERS: Admitting Provider Family Medicine; Emergency Provider Emergency Medicine; PCP Student in an Organized Health Care Education/Training Program; Visit Provider Internal Medicine Cardiovascular Disease | DX: R00.0 Tachycardia, unspecified (principal); G45.9 Transient cerebral ischemic attack, unspecified | CPT/HCPCS: 93010 ==

== ENCOUNTER → 2023-09-11 08:50 | Outpatient (BNV) | payer MEDICAID, SELFPAY | PROVIDERS: Admitting Provider Family Medicine; Emergency Provider Emergency Medicine; PCP Student in an Organized Health Care Education/Training Program; Visit Provider Psychiatry & Neurology Neurology | DX: R20.0 Anesthesia of skin (principal) | CPT/HCPCS: 99222 ==

== ENCOUNTER → 2023-09-11 08:50 | Outpatient (BNV) | payer MEDICAID, SELFPAY | PROVIDERS: Admitting Provider Family Medicine; Emergency Provider Emergency Medicine; PCP Student in an Organized Health Care Education/Training Program; Visit Provider Family Medicine | DX: G45.9 Transient cerebral ischemic attack, unspecified (principal) | CPT/HCPCS: 99235; 99499 ==

== ENCOUNTER 2023-10-04 19:51 | Emergency (ER) | payer MEDICAID, SELFPAY ==
--- NOTE | ~2023-10-04 | XR_ITS ---
EXAMINATION: XR CHEST CLINICAL INFORMATION: Rule out pneumonia COMPARISON: 10/22/2022 TECHNIQUE: Frontal view of the chest was obtained. FINDINGS: The lungs are hypoinflated, which limits evaluation. No definite focal consolidation is seen. No evidence of pneumothorax, significant pleural effusion, or overt pulmonary edema. Cardiac silhouette appears prominent though may be accentuated by low lung volumes. No acute osseous findings are seen. XR/XR chest 1V IMPRESSION: Low lung volumes without definite focal consolidation.
[2023-10-04 20:03] VITALS: BP 149/94; PULSE 100; PULSE 98; RESP 26; TEMP 36.4; O2SAT 100; O2SAT 90; BMI 115.2
--- NOTE | 2023-10-04 21:19 | ED.GENADULT ---
HPI - General Adult General Chief complaint: General Medical Stated complaint: fever chills body aches Time Seen by Provider: 10/04/23 21:01 Source: patient and EMS Mode of arrival: EMS Limitations: no limitations History of Present Illness HPI narrative: Patient comes to the emergency room complaining of flu-like symptoms that started this morning. According to EMS, patient's oxygen saturation was 90% on room air, placed on O2 for transfer. Related Data Home Medications Medication Instructions Recorded Confirmed trazodone 50 mg tablet 50 mg PO BEDTIME PRN Insomnia 01/30/23 09/11/23 dulaglutide 0.75 mg/0.5 mL 0.75 mg subcut MO 07/10/23 09/11/23 [facility] lidocaine 5 % topical patch 2 patch topical DAILY 07/10/23 09/11/23 meloxicam 15 mg tablet 15 mg PO DAILY 07/10/23 09/11/23 metoprolol succinate 25 mg 25 mg PO DAILY 07/10/23 09/11/23 tablet,extended release 24 hr bupropion HCl 300 mg 24 hr tablet, 300 mg PO DAILY 09/11/23 09/11/23 extended release ferrous gluconate 324 mg (38 mg 324 mg PO DAILY@0800 09/11/23 09/11/23 iron) tablet nystatin 100,000 unit/gram topical 1 appl topical BID PRN Rash 09/11/23 09/11/23 powder omega-3 acid ethyl esters 1 gram 1 cap PO DAILY 09/11/23 09/11/23 capsule oxycodone-acetaminophen 5 mg-325 2 tab PO BID PRN Moderate Pain 09/11/23 09/11/23 mg tablet (Scale Score 5-6) Previous Rx's Medication Instructions Recorded albuterol sulfate 90 mcg/actuation 2 puff inhalation Q4-6H PRN 04/20/21 aerosol inhaler (ProAir HFA) Wheezing #8.5 grams edmund #1 ea 10/22/22 edmund #1 ea 01/30/23 Allergies Allergy/AdvReac Type Severity Reaction Status Date / Time No Known Allergies Allergy Verified 09/11/23 06:37 Review of Systems Review of Systems: Constitutional : No Weight loss, complaining of fever and chills, fatigue and generalized malaise ENT/Mouth : No Hearing loss, No Ear Pain, No Nasal Congestion, No Sinus Pain, No Hoarseness, No sore throat, No Rhinorrhea, No Swallowing Difficulty Eyes: No Eye Pain, No Swelling, No Redness, No Foreign Body, No Discharge, No Vision Changes Cardiovascular : No Chest Pain, No SOB, No Dyspnea on Exertion, No Orthopnea, No Edema, No Palpitations Respiratory : No Cough, No Sputum, No Wheezing, No Smoke Exposure, No Dyspnea Gastrointestinal : No Nausea, No Vomiting, No Diarrhea, No Constipation, No abdominal Pain, No Hematochezia, No Melena Genitourinary : no irregular bleeding, No Dysuria, No Urinary Frequency, No Hematuria, No Urinary Incontinence, No Urgency, No Flank Pain, No Urinary Flow Changes, No Hesitancy Musculoskeletal : No joint pain, No Myalgias, No Joint Swelling Skin : No Skin Lesions, No rash Neuro : No Weakness, No Numbness, No Paresthesias, No Loss of Consciousness, No Dizziness, No Headache Psych : No Anxiety/Panic, No Depression, No SI/HI/AH/VH, No Social Issues, Heme/Lymph: No Bruising, No Bleeding,No Lymphadenopathy Endocrine : No Polyuria, No Polydipsia, No Temperature Intolerance [facility] Past Medical History Medical History Brain TIA Hypertension Hypercholesteremia Asthma Social History Social History (Updated 07/10/23 @ 13:17 by Madeleine Ding) Alcohol intake: current Alcohol intake frequency: holidays/special occasions only Patient Tobacco Use Status: Never used Tobacco Substance Use Type: Marijuana Advance Directives: No Advance Directives Information Provided: No Physical Exam ED Vital Signs: Vital Signs - 24 hr 10/04/23 20:03 10/04/23 21:32 Temperature 97.6 F 98 F Pulse Rate 98 87 Respiratory Rate 26 H 26 H Blood Pressure 149/94 H 148/82 H Pulse Oximetry 100 95 Oxygen Delivery Method Room Air BMI result Body Mass Index 115.2 Const Other: Appearance: Alert. Oriented X3. No acute distress. Patient is morbidly obese, weighing 344 kg, with a BMI of 115 Eyes: Pupils equal, round and reactive to light. ENT: Pharynx normal. Neck: Normal inspection. Neck supple. No lymph nodes noted. No crepitus CVS: Normal heart rate and rhythm. Pulses normal. Normal S1 and S2 Respiratory: No respiratory distress. Breath sounds normal. No Wheezing. No rales Abdomen: Soft and nontender. No rigidity. No distention. Skin: Skin warm and dry. Normal skin color. Normal skin turgor. Extremities: No lower extremity edema. No Lacerations. No Rash Neuro: Oriented X 3. No motor deficit. No sensory deficit. Moving all extremities. No slurred speech. CN 2 through 12 grossly intact Psych: calm, cooperative, normal affect Course Course Course Narrative: -patient's serology tests and labs pending -patient complaining of chronic shortness of breath, likely secondary to hypoventilation syndrome due to body habitus Medical Decision Making Medical Decision Making MDM Narrative: -my interpretation of labs: Patient tested negative for influenza, RSV, COVID -my interpretation of chest x-ray: No obvious pneumonia. Chest x-ray difficult to read due to patient's body habitus, per Radiology no infiltrates -it was noted that when patient sleeps, his oxygen drops to the low 80s. When he wakes up, oxygen saturation returns to 99% on room air. Patient was ambulated in the emergency room, patient maintain a good oxygen saturation between 95 and 97% ambulating. -patient's desaturation was sleeping secondary to hypoventilation syndrome due to patient's body habitus. Patient states that he has a CPAP that he uses at bedtime and is compliant with it. -at this time, no wheezing. Differential Diagnosis Differential Diagnoses: The differential diagnosis associated with the presentation includes (COVID, RSV, influenza, pneumonia) Lab Data MDM Lab Attestation statement: I reviewed the patient's lab results. Labs: Lab Results 10/04/23 Range/Units 20:47 Influenza Type A (PCR) NEGATIVE (Negative) Influenza Type B (PCR) NEGATIVE (Negative) RSV RNA Qual (PCR) NEGATIVE (Negative) SARS-CoV-2 RNA (RT-PCR) NEGATIVE (Negative) Independent Interpretation I performed an independent interpretation of an: Plain X-Ray Radiology Impression Discussion of test interpretation with radiology: I have reviewed the radiologist's reading. Radiologist Impression: The lungs are hypoinflated, which limits evaluation. No definite focal consolidation is seen. No evidence of pneumothorax, significant pleural effusion, or overt pulmonary edema. Cardiac silhouette appears prominent though may be accentuated by low lung volumes. No acute osseous findings are seen. XR/XR chest 1V IMPRESSION: Low lung volumes without definite focal consolidation. Discharge Plan Discharge Clinical Impression: Viral URI Patient Disposition: Home, Self-Care Instructions: Viral Syndrome (ED) Additional Instructions: Please follow-up with your primary care physician tomorrow. If you have any worsening or new symptoms, please return to the emergency room or call 911 Prescriptions: No Action albuterol sulfate [ProAir HFA] 90 mcg/actuation HFA aerosol inhaler 2 puff inhalation Q4-6H PRN (Reason: Wheezing) Qty: 8.5 0RF (DME) [facility] See Rx Instructions .Route Qty: 1 0RF Rx Instructions: As directed nystatin 100,000 unit/gram powder 1 appl topical BID PRN (Reason: Rash) bupropion HCl 300 mg tablet extended release 24 hr 300 mg PO DAILY omega-3 acid ethyl esters 1 gram capsule 1 cap PO DAILY ferrous gluconate 324 mg (38 mg iron) tablet 324 mg PO DAILY@0800 oxycodone-acetaminophen 5-325 mg tablet 2 tab PO BID PRN (Reason: Moderate Pain (Scale Score 5-6)) trazodone 50 mg tablet 50 mg PO BEDTIME PRN (Reason: Insomnia) (DME) [facility] See Rx Instructions .Route Qty: 1 0RF Rx Instructions: As directed lidocaine 5 % adhesive patch,medicated 2 patch topical DAILY Rx Instructions: apply 1 patch to back and 1 patch to knee metoprolol succinate 25 mg tablet extended release 24 hr 25 mg PO DAILY meloxicam 15 mg tablet 15 mg PO DAILY Trulicity 0.75 mg/0.5 mL pen injector 0.75 mg subcut MO
[2023-10-04 21:32] VITALS: BP 148/82; PULSE 87; RESP 26; TEMP 36.6; O2SAT 95
[2023-10-04 21:33] LABS: Influenza A PCR NEGATIVE (Negative); Influenza B PCR NEGATIVE (Negative); Resp Syncy Virus RNA Qual PCR NEGATIVE (Negative); SARS COV2 PCR INHOUSE NEGATIVE (Negative)
--- NOTE | 2023-10-04 21:41 | PC.NURSE ---
pt ambulated to bathroom and now back to bed, mom at bedside. pt sat 97%
[2023-10-04] MEDS: predniSONE 10 MG TABLET 50 MG PO (23:02)
[2023-10-04 23:15] VITALS: BP 105/52; PULSE 95; RESP 22; TEMP 36.3; O2SAT 99
== END 2023-10-05 01:04 | disposition home or self-care (01) ==
PROVIDERS: Emergency Provider Emergency Medicine; PCP Student in an Organized Health Care Education/Training Program
DX: J06.9 Acute upper respiratory infection, unspecified (principal); Z11.52 Encounter for screening for COVID-19; Z20.828 Contact with and (suspected) exposure to other viral communicable diseases; Z79.899 Other long term (current) drug therapy
CPT/HCPCS: 0241U; 71045; 99282; 99283

== ENCOUNTER 2023-12-03 16:59 | Emergency (ER) | payer MEDICAID, SELFPAY ==
--- NOTE | ~2023-12-03 | US_ITS ---
EXAMINATION: US EXTREMITY, NONVASCULAR CLINICAL INFORMATION: Painful lump with question of abscess COMPARISON: None TECHNIQUE: High-frequency linear ultrasound transducer was used to examine the area of clinical concern in the right lower extremity FINDINGS: Soft tissue swelling and edema is seen but there is no evidence of a abscess or mass. US/US extremity nonvascular IMPRESSION: No evidence of an abscess.
[2023-12-03 17:23] VITALS: BP 110/70; PULSE 106; O2SAT 97; BMI 118.6
[2023-12-03 17:34] VITALS: BP 145/70; PULSE 111; RESP 22; TEMP 36.3; O2SAT 99
--- NOTE | 2023-12-03 17:40 | ED.GENADULT ---
HPI - General Adult General Chief complaint: General Medical Stated complaint: cellulitis to lower extremity Time Seen by Provider: 12/03/23 17:17 Source: patient, EMS, RN notes reviewed and old records reviewed Mode of arrival: EMS Limitations: no limitations History of Present Illness HPI narrative: 28-year-old male past medical history significant for morbid obesity, obstructive sleep apnea on CPAP at night, TIA presents for evaluation of right leg pain Patient reports he was admitted to [facility] for 20 days about a month ago for cellulitis Patient reports for the last week he has had increasing redness and pain to the right lower leg His physical therapist recommended that he be evaluated for cellulitis again He denies any fevers or chills He reports 8/10 pain to the right lower extremity Related Data Home Medications ?Medication ?Instructions ?Recorded ?Confirmed trazodone 50 mg tablet 50 mg PO BEDTIME PRN Insomnia 01/30/23 09/11/23 dulaglutide 0.75 mg/0.5 mL 0.75 mg subcut MO 07/10/23 09/11/23 subcutaneous pen injector ([facility]) lidocaine 5 % topical patch 2 patch topical DAILY 07/10/23 09/11/23 meloxicam 15 mg tablet 15 mg PO DAILY 07/10/23 09/11/23 metoprolol succinate 25 mg 25 mg PO DAILY 07/10/23 09/11/23 tablet,extended release 24 hr bupropion HCl 300 mg 24 hr tablet, 300 mg PO DAILY 09/11/23 09/11/23 extended release ferrous gluconate 324 mg (38 mg 324 mg PO DAILY@0800 09/11/23 09/11/23 iron) tablet nystatin 100,000 unit/gram topical 1 appl topical BID PRN Rash 09/11/23 09/11/23 powder omega-3 acid ethyl esters 1 gram 1 cap PO DAILY 09/11/23 09/11/23 capsule oxycodone-acetaminophen 5 mg-325 2 tab PO BID PRN Moderate Pain 09/11/23 09/11/23 mg tablet (Scale Score 5-6) Previous Rx's ?Medication ?Instructions ?Recorded albuterol sulfate 90 mcg/actuation 2 puff inhalation Q4-6H PRN 04/20/21 aerosol inhaler (ProAir HFA) Wheezing #8.5 grams walker #1 ea 10/22/22 walker #1 ea 01/30/23 cefuroxime axetil 500 mg tablet 500 mg PO Q12H #20 tabs 12/03/23 doxycycline hyclate 100 mg capsule 100 mg PO BID #20 caps 12/03/23 Allergies Allergy/AdvReac Type Severity Reaction Status Date / Time No Known Allergies Allergy Verified 12/03/23 17:24 Review of Systems Constitutional: Constitutional: Denies body ache(s), Denies chills and Denies fever(s) Eyes: Eyes: Denies blurry vision ENT: Denies sore throat Cardiovascular: Cardiovascular: Denies chest pain and Denies dyspnea Respiratory: Respiratory: Denies cough and Denies dyspnea Gastrointestinal: Gastrointestinal: Denies abdominal pain, Denies nausea and Denies vomiting Integumentary/Breasts: Skin/Breast: Reports erythema and Denies wounds PMFSH Past Medical History Medical History Brain TIA Hypertension Hypercholesteremia Asthma Social History Social History (Updated 07/10/23 @ 13:17 by Madeleine Ding) Alcohol intake: current Alcohol intake frequency: holidays/special occasions only Patient Tobacco Use Status: Never used Tobacco Smoked in Last 30 Days: No Use of substances other than those prescribed or required for medical reasons: No Substance Use Type: Marijuana Advance Directives: No Advance Directives Information Provided: No Physical Exam ED Vital Signs: Vital Signs - 24 hr 12/03/23 17:34 12/03/23 20:03 Temperature 97.3 F 98.2 F Pulse Rate 111 H 109 H Respiratory Rate 22 H 24 H Blood Pressure 145/70 H 128/59 L Pulse Oximetry 99 90 L Oxygen Delivery Method Room Air Room Air BMI result Body Mass Index 118.6 Const Other: Difficult exam due to body habitus General: healthy appearing, comfortable, no acute distress, alert and awake Nutritional Appearance: well nourished and obese morbidly obese Orientation/consciousness: patient oriented x3 HENMT Head: Yes normocephalic and Yes atraumatic Eyes Eyelids: Yes eyelids normal Conjunctivae: conjunctivae normal Sclerae: sclerae normal Corneas: corneas normal Pupils: Equal, round and reactive pupils present EOM: EOMs intact bilaterally Neck Neck: Yes full ROM Resp Effort & Inspection: normal respiratory effort, able to speak in complete sentences and not labored Cardio Rate: regular rate Rhythm: regular rhythm GI Inspection: No distended Palpation (GI): Soft to palpation, not firm, nontender, no guarding and not rigid Rectal Exam - Male: Yes visual inspection normal, Yes heme positive stool and No External hemorrhoid(s) present Skin Other: Patient has dry cracked skin with lichenification to the right lower extremity on the medial side. There is erythema to the right lower extremity on the medial side as well. No obvious open wounds. No drainage. There is a small area of serous drainage to the right anterior [place] General skin exam: elasticity normal Neuro General: patient oriented x3 Cranial nerves: Yes Equal, round and reactive pupils present and Yes Bilaterally intact EOM present Cognition (Neuro): normal cognition Extrem Other: Moving all extremities well without any obvious deformities Course Reevaluation(s) Reevaluation #1: Patient's workup is significant for a normal white count, no leukocytosis, he is afebrile, lactate within normal limits. He is not septic. He does have a right lower extremity cellulitis on exam. Ultrasound shows no evidence of drainable fluid collection/abscess. He was noted to have anemia, he was guaiac positive on exam with light brown stool. I discussed with Dr. Sander HATFIELD who recommends outpatient workup from a GI standpoint. The patient is tolerating p.o., will treat his cellulitis with doxycycline and cefuroxime at home. He will be given a dose of IV doxycycline and ceftriaxone prior to discharge Time: 22:53 Medical Decision Making Medical Decision Making [facility] Narrative: 28-year-old male past medical history as documented above presents for evaluation of right lower leg pain and swelling. Clinically likely has acute cellulitis. Plan for basic labs, soft tissue ultrasound to evaluate for abscess. Plan to attempt to get records from recent discharge Differential Diagnosis Differential Diagnoses: The differential diagnosis associated with the presentation includes Cellulitis Abscess Lymphedema CHF Leg wound Admission/Observation Consideration of admission/observation: Escalation of care including admission/observation considered Consider admission due to anemia Consult Healthcare Provider Management of the patient was discussed with: Molding Machine Operator Dr Boucher, LIU who recommends outpatient workup Lab Data [facility] Lab Attestation statement: I reviewed the patient's lab results. Patient has no leukocytosis. He does have anemia with a hemoglobin 7.6 hematocrit 25.8. This is decreased from his baseline from August with a hemoglobin 10. However I was able to obtain [facility] records from 1 month ago which showed a hemoglobin of 7.8 on 10/20/2023. Patient's CO2 is elevated at 32 likely related to obesity hypoventilation syndrome. Kidney function is within normal limits, electrolytes within normal limits. 12/03/23 19:05 12/03/23 19:05 Labs: Lab Results 12/03/23 12/03/23 12/03/23 Range/Units 19:05 20:47 20:50 WBC 7.3 (4.8-10.8) X10*3/uL RBC 3.36 L D (4.60-5.80) X10*6/uL Hgb 7.6 L D (14.0-18.0) g/dl Hct 25.8 L D (42.0-52.0) % MCV 76.8 L (80.0-98.0) fL MCH 22.6 L (27.0-33.0) pg MCHC 29.5 L (31.0-36.0) g/dl RDW 21.2 H (11.0-16.0) % Plt Count 282 (160-400) X10*3/uL MPV 10.9 (9.4-12.4) fL Immature Gran % (Auto) 1.5 H (0.0-0.4) % Neut % (Auto) 68.3 (45-73) % Lymph % (Auto) 19.6 L (20-40) % Hopkins % (Auto) 8.7 (2-11) % Eos % (Auto) 1.5 (0-4) % Baso % (Auto) 0.4 (0-2) % Lymph # (Auto) 1.4 (1.2-4.9) X10*3/uL Hopkins # (Auto) 0.6 (0.1-1.2) X10*3/uL Eos # (Auto) 0.1 (0.0-0.4) X10*3/uL Baso # (Auto) 0.0 (0.0-0.2) X10*3/uL Abs Immat Gran (auto) 0.11 H (0.00-0.03) X10*3/uL Absolute Neuts (auto) 5.0 (2.0-8.3) x10*3/uL Absolute Nucleated RBC 0.000 (0.0-0.012) X10*3/uL Nucleated RBC % (auto) 0.0 (0.0-0.2) /100WBC Hold Purple Top SEE NOTE SEE NOTE PT 14.3 H (11.1-13.3) SEC INR 1.2 H (0.9-1.1) Sodium 139 (135-145) mmol/L Potassium 3.8 (3.3-5.1) mmol/L Chloride 100 (96-108) mmol/L Carbon Dioxide 32 H (22-29) mmol/L Anion Gap 11 L (12-20) BUN 5 L (9-16) mg/dL Creatinine 0.87 (0.5-1.4) mg/dL Estim Creat Clear Calc 323.5 Estimated GFR > 60 Random Glucose 84 (60-115) mg/dL Lactic Acid 0.9 (0.5-2.0) mmol/L Calcium 8.9 (8.4-10.2) mg/dL Total Bilirubin 0.3 (0.0-1.0) mg/dL AST 13 (5-37) U/L ALT 6 (0-40) U/L Alkaline Phosphatase 71 (39-117) U/L Total Protein 7.6 (6.5-8.0) g/dL Albumin 2.9 L (3.5-5.0) g/dL Lipase 11 (8-78) U/L Stool Occult Blood (NEGATIVE) Blood Type Antibody Screen 12/03/23 12/03/23 Range/Units 20:55 20:56 WBC (4.8-10.8) X10*3/uL RBC (4.60-5.80) X10*6/uL Hgb (14.0-18.0) g/dl Hct (42.0-52.0) % MCV (80.0-98.0) fL MCH (27.0-33.0) pg MCHC (31.0-36.0) g/dl RDW (11.0-16.0) % Plt Count (160-400) X10*3/uL MPV (9.4-12.4) fL Immature Gran % (Auto) (0.0-0.4) % Neut % (Auto) (45-73) % Lymph % (Auto) (20-40) % Hopkins % (Auto) (2-11) % Eos % (Auto) (0-4) % Baso % (Auto) (0-2) % Lymph # (Auto) (1.2-4.9) X10*3/uL Hopkins # (Auto) (0.1-1.2) X10*3/uL Eos # (Auto) (0.0-0.4) X10*3/uL Baso # (Auto) (0.0-0.2) X10*3/uL Abs Immat Gran (auto) (0.00-0.03) X10*3/uL Absolute Neuts (auto) (2.0-8.3) x10*3/uL Absolute Nucleated RBC (0.0-0.012) X10*3/uL Nucleated RBC % (auto) (0.0-0.2) /100WBC Hold Purple Top PT (11.1-13.3) SEC INR (0.9-1.1) Sodium (135-145) mmol/L Potassium (3.3-5.1) mmol/L Chloride (96-108) mmol/L Carbon Dioxide (22-29) mmol/L Anion Gap (12-20) BUN (9-16) mg/dL Creatinine (0.5-1.4) mg/dL Estim Creat Clear Calc Estimated GFR Random Glucose (60-115) mg/dL Lactic Acid (0.5-2.0) mmol/L Calcium (8.4-10.2) mg/dL Total Bilirubin (0.0-1.0) mg/dL AST (5-37) U/L ALT (0-40) U/L Alkaline Phosphatase (39-117) U/L Total Protein (6.5-8.0) g/dL Albumin (3.5-5.0) g/dL Lipase (8-78) U/L Stool Occult Blood POSITIVE (NEGATIVE) Blood Type A Positive Antibody Screen NEGATIVE Independent Interpretation I performed an independent interpretation of an: Ultrasound Radiology Impression Discussion of test interpretation with radiology: I have reviewed the radiologist's reading. Radiologist Impression: No evidence of right lower extremity abscess Discharge Plan Discharge Clinical Impression: Cellulitis of leg, right, Iron deficiency anemia Patient Disposition: Home, Self-Care Instructions: Cellulitis (ED), Iron Deficiency Anemia (ED) Additional Instructions: Your red blood cell counts are little bit low today. You need to follow-up with GI as an outpatient. It is recommended that you follow-up at a larger hospital for potential colonoscopy Take both antibiotics as directed for 10 days Follow-up with your primary doctor, return for new or worsening symptoms Prescriptions: New doxycycline hyclate 100 mg capsule 100 mg PO BID Qty: 20 0RF cefuroxime axetil 500 mg tablet 500 mg PO Q12H Qty: 20 0RF No Action albuterol sulfate [ProAir HFA] 90 mcg/actuation HFA aerosol inhaler 2 puff inhalation Q4-6H PRN (Reason: Wheezing) Qty: 8.5 0RF (DME) [facility] See Rx Instructions .Route Qty: 1 0RF Rx Instructions: As directed nystatin 100,000 unit/gram powder 1 appl topical BID PRN (Reason: Rash) bupropion HCl 300 mg tablet extended release 24 hr 300 mg PO DAILY omega-3 acid ethyl esters 1 gram capsule 1 cap PO DAILY ferrous gluconate 324 mg (38 mg iron) tablet 324 mg PO DAILY@0800 oxycodone-acetaminophen 5-325 mg tablet 2 tab PO BID PRN (Reason: Moderate Pain (Scale Score 5-6)) trazodone 50 mg tablet 50 mg PO BEDTIME PRN (Reason: Insomnia) (DME) [facility] See Rx Instructions .Route Qty: 1 0RF Rx Instructions: As directed lidocaine 5 % adhesive patch,medicated 2 patch topical DAILY Rx Instructions: apply 1 patch to back and 1 patch to knee metoprolol succinate 25 mg tablet extended release 24 hr 25 mg PO DAILY meloxicam 15 mg tablet 15 mg PO DAILY Trulicity 0.75 mg/0.5 mL pen injector 0.75 mg subcut MO Print Language: [place]
[2023-12-03 19:10] LABS: MANUAL DIFF FLAG NO
[2023-12-03 19:22] LABS: Lactic Acid 0.9 mmol/L (0.5-2.0)
[2023-12-03 19:26] LABS: Alanine Aminotransferase 6 U/L (0-40); Albumin Level 2.9 g/dL (3.5-5.0); Alkaline Phosphatase 71 U/L (39-117); Anion Gap 11 (12-20); Aspartate Amino Transferase 13 U/L (5-37); Bilirubin Total 0.3 mg/dL (0.0-1.0); Blood Urea Nitrogen 5 mg/dL (9-16); Calcium 8.9 mg/dL (8.4-10.2); Carbon Dioxide 32 mmol/L (22-29); Chloride 100 mmol/L (96-108); Creatinine Clr Calc Pharmacy 323.5; Estimated Glomerular Filt Rate > 60; Glucose Random 84 mg/dL (60-115); Lipase 11 U/L (8-78); Potassium 3.8 mmol/L (3.3-5.1); Sodium 139 mmol/L (135-145); Total Protein 7.6 g/dL (6.5-8.0)
[2023-12-03 19:36] LABS: Basophils Percent Auto 0.4 % (0-2); Eosinophils Absolute Auto 0.1 X10*3/uL (0.0-0.4); Eosinophils Percent Auto 1.5 % (0-4); Hematocrit 25.8 % (42.0-52.0); Hemoglobin 7.6 g/dl (14.0-18.0); Imm Gran Abs Auto 0.11 X10*3/uL (0.00-0.03); Imm Gran Pct Auto 1.5 % (0.0-0.4); Lymphocytes Absolute Auto 1.4 X10*3/uL (1.2-4.9); Lymphocytes Percent Auto 19.6 % (20-40); Mean Corpuscular HGB Conc 29.5 g/dl (31.0-36.0); Mean Corpuscular Hemoglobin 22.6 pg (27.0-33.0); Mean Corpuscular Volume 76.8 fL (80.0-98.0); Mean Platelet Volume 10.9 fL (9.4-12.4); Monocytes Absolute Auto 0.6 X10*3/uL (0.1-1.2); Monocytes Percent Auto 8.7 % (2-11); Neutrophils Percent Auto 68.3 % (45-73); Platelet Count 282 X10*3/uL (160-400); Red Blood Count 3.36 X10*6/uL (4.60-5.80); Red Cell Distribution Width 21.2 % (11.0-16.0); White Blood Count 7.3 X10*3/uL (4.8-10.8)
--- NOTE | 2023-12-03 20:00 | PC.NURSE ---
Assumed care of pt. Malachi stretcher moved into room 3 without incident. pt lying on stretcher, increased work of breathing baseline for pt, per pt. pt denies acute distress at this time. Pt observed by this RN ambulating to bathroom with steady gait.
[2023-12-03 20:03] VITALS: BP 128/59; PULSE 109; RESP 24; TEMP 36.8; O2SAT 90
[2023-12-03 21:16] LABS: OBS Int Ctl Valid YES; OBS1 POSITIVE (NEGATIVE)
[2023-12-03 21:29] LABS: INTERNATIONAL NORM RATIO 1.2 (0.9-1.1); Prothrombin Time 14.3 SEC (11.1-13.3)
[2023-12-03 23:13] VITALS: BP 116/79; PULSE 108; RESP 22; TEMP 36.8; O2SAT 94
[2023-12-03] MEDS: cefTRIAXone sodium 1 GM in 0.9 % Sodium Chloride 50 ML IV (23:43)
[2023-12-03] MEDS: Doxycycline Hyclate 100 MG in 0.9 % Sodium Chloride 250 ML 166.67 MG IV (23:57)
[2023-12-04 03:39] VITALS: BP 121/81; PULSE 99; RESP 20; TEMP 36.7; O2SAT 95
--- NOTE | 2023-12-04 04:11 | MHC.EDTECH ---
Addendum entered by Priscilla Apple 12/04/23 04:20: EMS was called back and transport was cancelled. Original Note: Called out to [facility] at 0117 to book transport for pt back home. [facility] said they would call back to confirm that they are able to transport pt due to being over the weight limit. [facility] confirmed they could transport pt back home. Pt did not want to wait for EMS, he called his brother to pick him up. Pt walked out of the ED using a walker.
== END 2023-12-04 03:43 | disposition home or self-care (01) ==
PROVIDERS: Physician Assistant; Emergency Provider Internal Medicine; PCP Student in an Organized Health Care Education/Training Program
DX: L03.115 Cellulitis of right lower limb (principal); D50.9 Iron deficiency anemia, unspecified; M79.604 Pain in right leg; I10 Essential (primary) hypertension; E78.00 Pure hypercholesterolemia, unspecified; J45.909 Unspecified asthma, uncomplicated
CPT/HCPCS: 36415; 76882; 80053; 82272; 83605; 83690; 85025; 85610; 86850; 86900; 86901; 87040; 96365; 96367; 99284; J0696

== ENCOUNTER 2024-01-06 14:17 | Outpatient (REF) | payer MEDICAID, SELFPAY ==
[2024-01-06 16:01] LABS: Appearance Urine Clear; Color Urine Yellow; Glucose Urine UA Negative (Negative); Leukocyte Esterase Urine Trace (Negative); Nitrite Urine Positive (Negative); Specific Gravity - Urine 1.015 (1.005-1.025); UMIC TRIGGER UACC YES; Urine Blood Negative (Negative); Urine Ketones Negative (Negative); Urine Protein Negative (Neg-Trace)
[2024-01-06 16:07] LABS: Bacteria Urine 4+ (None Seen); Hyaline Casts Urine 0-2 /LPF (0-2); RBC Urine 0-2 /HPF (0-2); Squamous Epithelial Cell Urine 0-2 /HPF (0-2); UACC Culture Trigger YES
== END 2024-01-06 14:18 | disposition home or self-care (01) ==
LOC: HO.HHCL 14:17
PROVIDERS: Visit Provider Student in an Organized Health Care Education/Training Program
DX: R32 Unspecified urinary incontinence (principal); R82.79 Other abnormal findings on microbiological examination of urine
CPT/HCPCS: 81001; 87086; 87088; 87186

== ENCOUNTER 2024-01-19 17:14 | Inpatient (IN) | payer MEDICAID, SELFPAY ==
[2024-01-19] VITALS (10 sets, daily range): BP systolic 108–153; BP diastolic 33–84; PULSE 78–112; RESP 14–45; TEMP 36.6–36.9; O2SAT 88–100; BMI 114.5; BMI 116.7
--- NOTE | ~2024-01-19 | US_ITS ---
EXAMINATION: US VENOUS ULTRASOUND WITH DOPPLER LOWER EXTREMITY, BILATERAL CLINICAL INFORMATION: Bilateral lower extremity pain and swelling COMPARISON: 12/28/2021 TECHNIQUE: Ultrasound of the deep veins is performed from the hip to the calf with compression sonography and color and pulse Doppler assessment. Spectral analysis with color-flow imaging is performed. FINDINGS: Evaluation is suboptimal and limited due to due to patient body habitus and inability to tolerate compression. RIGHT: There is normal venous respiratory variation and augmented flow within the visualized vessels. The visualized common femoral vein, superficial femoral vein, profunda femoral vein, shows no evidence of deep venous thrombosis. Popliteal vein and calf veins are not visualized due to body habitus. No significant change compared to the prior exam LEFT: There is normal venous respiratory variation and augmented flow within the visualized vessels. The visualized common femoral vein, superficial femoral vein, profunda femoral vein, shows no evidence of deep venous thrombosis. Popliteal vein and calf veins are not visualized due to body habitus. No significant change compared to the prior exam If the patient's symptoms persist, followup ultrasound in 5 days 7 days might be of value to exclude proximal propagation from a non-visualized calf vein. US/US venous duplex LE BI IMPRESSION: Suboptimal evaluation due to nonvisualization of the popliteal and calf veins due to body habitus. Limited evaluation due to inability to perform adequate compression. No DVT demonstrated in the bilateral lower extremity within the visualized vessels as described above.
--- NOTE | ~2024-01-19 | XR_ITS ---
EXAMINATION: PORTABLE CHEST 1 VIEW CLINICAL INFORMATION: sob. COMPARISON: 10/04/2023. TECHNIQUE: Portable frontal view of the chest was obtained. FINDINGS: Lungs are hypoexpanded with overlying soft tissues. Bibasilar markings more likely due to atelectasis. Cardiac silhouette is enlarged and there is central vascular prominence suggesting component of pulmonary edema superimposed on the degree of hypoexpansion. No acute bony abnormality XR/XR chest 1V IMPRESSION: Enlarged cardiac silhouette with central vascular prominence suggesting component of pulmonary edema superimposed on the degree of hypoexpansion.
--- NOTE | 2024-01-19 17:58 | ED_ITS ---
HPI - SOB/Dyspnea General Chief Complaint: Dyspnea Stated Complaint: low o2 at pcp office, 70's Time Seen by Provider: 01/19/24 17:57 Source: patient and family Mode of arrival: EMS Limitations: no limitations History of Present Illness ED Provider: suad DEVINE Narrative: Patient is morbid obese weighing more than 700 lb with Pickwickian syndrome and sleep apnea using CPAP at night sent from PCP office for saturating 70% patient has been very sleepy on arrival with central cyanosis suppose to get home oxygen still waiting no fever no cough no chest pain no increased pain in the leg patient with limited activities at home because of obesity Related Data Home Medications ?Medication ?Instructions ?Recorded ?Confirmed trazodone 50 mg tablet 50 mg PO BEDTIME PRN Insomnia 01/30/23 01/19/24 lidocaine 5 % topical patch 1 patch topical DAILY 07/10/23 01/19/24 meloxicam 15 mg tablet 15 mg PO DAILY 07/10/23 01/19/24 bupropion HCl 300 mg 24 hr tablet, 300 mg PO DAILY 09/11/23 01/19/24 extended release ferrous gluconate 324 mg (38 mg 324 mg PO TIDWM 09/11/23 01/19/24 iron) tablet omega-3 acid ethyl esters 1 gram 1 cap PO DAILY 09/11/23 01/19/24 capsule oxycodone-acetaminophen 5 mg-325 2 tab PO BID PRN Moderate Pain 09/11/23 01/19/24 mg tablet (Scale Score 5-6) albuterol sulfate 90 mcg/actuation 2 inh inhalation Q6H PRN Shortness 01/19/24 01/19/24 aerosol inhaler (Ventolin HFA) Of Breath ascorbic acid (vitamin C) 500 mg 500 mg PO DAILY 01/19/24 01/19/24 tablet aspirin 81 mg chewable tablet 1 tab PO DAILY 01/19/24 01/19/24 metoprolol tartrate 25 mg tablet 25 mg PO BID 01/19/24 01/19/24 semaglutide (weight loss) 0.25 0.25 mg subcut QWEEK 01/19/24 01/19/24 mg/0.5 mL subcutaneous pen injector (Wegovy) Previous Rx's ?Medication ?Instructions ?Recorded edmund #1 shireen 10/22/22 edmund #1 ea 01/30/23 Allergies Allergy/AdvReac Type Severity Reaction Status Date / Time No Known Allergies Allergy Verified 01/19/24 18:21 Review of Systems 2 Review of Systems: Yes all other systems are reviewed and are negative [facility] Past Medical History Medical History Brain TIA Hypertension Hypercholesteremia Asthma Social History Social History Household Members: Family Housing: House Alcohol intake: current Alcohol intake frequency: holidays/special occasions only Patient Tobacco Use Status: Never used Tobacco Use of substances other than those prescribed or required for medical reasons: No Substance Use Type: Marijuana Advance Directives: No Advance Directives Information Provided: No Do you have a plan to hurt others: No Plan Recently lost weight without trying: Unsure Nutrition Risks: No Nutritional Risk Poor oral hygiene: No Physical Exam 2 Vital Signs: Vital Signs: Last Vital Signs Temp 97.9 F 01/20/24 00:00 Pulse 102 H 01/20/24 02:00 Resp 28 H 01/20/24 02:00 BP 168/84 H 01/20/24 02:00 Pulse Ox 93 01/20/24 02:00 O2 Del Method BiPAP 01/20/24 02:00 O2 Flow Rate 4 01/19/24 18:08 FiO2 25 01/20/24 02:00 BMI result Body Mass Index 114.5 Appearance: Lethargic sleepy very often Oriented X3. short of breath with cyanosed lip, morbidly obese Eyes: PERRLA, ENT: Pharynx normal. Oral Mucosa moist Neck: Normal inspection. Neck supple. CVS: Normal heart rate and rhythm. Pulses normal. Respiratory: No respiratory distress. Equal air entry bilateral, no wheezing/rales/rhonchi decreased air entry bilateral Abdomen: Soft and nontender. Bowel sounds are present, no mass palpable, no CVA tenderness Skin: Skin warm and dry. Normal skin color. Normal skin turgor. Extremities: Not pitting lower extremity edema No calf tenderness Neuro: Oriented X 3. No motor deficit. No sensory deficit.No cerebellar signs , cranial nerves II-XII intact Medications Administered Generic Name Dose Route Start Last Admin Trade Name Freq PRN Reason Stop Dose Admin Apixaban 10 mg 01/19/24 22:40 01/19/24 22:48 Apixaban 5 Mg Tablet PO 01/26/24 09:01 Not Given BID [facility] Medical Decision Making Medical Decision Making [facility] Narrative: Patient is morbidly obese with chronic hypoxia hypercapnia requiring BiPAP to keep the saturation above 90 no signs infection or CHF will admit to ICU for BiPAP treatment respiratory acidosis with hypercapnia patient had elevated D- dimer with symptoms are more from obstructive respiratory failure venous Doppler was done which is negative for DVT case discussed with security professionals does not want to give any anticoagulation at this time will evaluate and go from there Differential Diagnosis Differential Diagnoses: The differential diagnosis associated with the presentation includes Respiratory acidosis/respiratory failure/CHF/pneumonia/sleep apnea/PE Admission/Observation Consideration of admission/observation: Escalation of care including admission/observation considered Consult Healthcare Provider Management of the patient was discussed with: [employer] Trainer [employer] 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 01/19/24 18:30 01/19/24 18:30 Labs: Lab Results 01/19/24 01/19/24 01/19/24 Range/Units 18:28 18:30 18:34 WBC 7.9 (4.8-10.8) X10*3/uL RBC 3.71 L (4.60-5.80) X10*6/uL Hgb 8.1 L (14.0-18.0) g/dl Hct 28.4 L (42.0-52.0) % MCV 76.5 L (80.0-98.0) fL MCH 21.8 L (27.0-33.0) pg MCHC 28.5 L (31.0-36.0) g/dl RDW 18.1 H (11.0-16.0) % Plt Count 302 (160-400) X10*3/uL MPV 10.2 (9.4-12.4) fL Immature Gran % (Auto) 0.6 H (0.0-0.4) % Neut % (Auto) 74.0 H (45-73) % Lymph % (Auto) 16.9 L (20-40) % [place] % (Auto) 7.4 (2-11) % Eos % (Auto) 1.0 (0-4) % Baso % (Auto) 0.1 (0-2) % Lymph # (Auto) 1.3 (1.2-4.9) X10*3/uL [place] # (Auto) 0.6 (0.1-1.2) X10*3/uL Eos # (Auto) 0.1 (0.0-0.4) X10*3/uL Baso # (Auto) 0.0 (0.0-0.2) X10*3/uL Abs Immat Gran (auto) 0.05 H (0.00-0.03) X10*3/uL Absolute Neuts (auto) 5.9 (2.0-8.3) x10*3/uL Absolute Nucleated RBC 0.000 (0.0-0.012) X10*3/uL Nucleated RBC % (auto) 0.0 (0.0-0.2) /100WBC PT 14.3 H (11.1-13.3) SEC INR 1.2 H (0.9-1.1) D-Dimer High Sensitivty 878 NG/ML O2 Saturation 95.0 % ABG pH at Pt Temp 7.35 (7.35-7.45) ABG pCO2 at Pt Temp 68 H* (32-45) mmHg ABG pO2 at Pt Temp 78 L (83-108) mmHg ABG HCO3 38 H (22-26) mmol/L ABG Base Excess (Actual) 10.7 mmol/L Sodium 138 (135-145) mmol/L Potassium 3.8 (3.3-5.1) mmol/L Chloride 97 (96-108) mmol/L Carbon Dioxide 36 H (22-29) mmol/L Anion Gap 9 L (12-20) BUN 9 (9-16) mg/dL Creatinine 0.77 (0.5-1.4) mg/dL Estim Creat Clear Calc 377.6 Estimated GFR > 60 Random Glucose 90 (60-115) mg/dL Lactic Acid 0.7 (0.5-2.0) mmol/L Calcium 9.2 (8.4-10.2) mg/dL Total Bilirubin 0.3 (0.0-1.0) mg/dL AST 12 (5-37) U/L ALT 5 (0-40) U/L Alkaline Phosphatase 60 (39-117) U/L Total Protein 8.1 H (6.5-8.0) g/dL Albumin 3.2 L (3.5-5.0) g/dL Influenza Type A (PCR) NEGATIVE (Negative) Influenza Type B (PCR) NEGATIVE (Negative) RSV RNA Qual (PCR) NEGATIVE (Negative) SARS-CoV-2 RNA (RT-PCR) NEGATIVE (Negative) ABG Data Attestation ABG: I personally reviewed and interpreted this ABG as follows: Interpretation: Respiratory acidosis with compensated metabolic alkalosis Independent Interpretation I performed an independent interpretation of an: Plain X-Ray Radiology Impression Discussion of test interpretation with radiology: I have reviewed the radiologist's reading. Critical Care Time Critical Care Time Critical Care Time: Yes Total Critical Care Time: 90 Attestation: The patient was critically ill with a high probability of imminent or life threatening deterioration. I spent greater than ?100??minutes of discontinuous time evaluating the patient,delivering critical care at the bedside, discussing and evaluating pertinent data with consultants. Critical care time does not include time spent performing separately billable procedures or teaching. Total time spent performing critical care was ?90??minutes. Discharge Plan Discharge Clinical Impression: Acute on chronic respiratory failure with hypoxia and hypercapnia, Sleep apnea with hypersomnolence, Morbid obesity Patient Disposition: Admitted As Inpatient Interventions: Admission Worksheet (ED) Last Done: 01/19/24 21:11 Discharge Date/Time: 01/19/24 21:11
[2024-01-19 18:36] LABS: MANUAL DIFF FLAG NO
[2024-01-19 18:36] LABS: ABG Base Excess 10.7 mmol/L; ABG HCO3 38 mmol/L (22-26); ABG pCO2 68 mmHg (32-45); ABG pH 7.35 (7.35-7.45); ABG pO2 78 mmHg (83-108)
[2024-01-19 18:37] LABS: Basophils Percent Auto 0.1 % (0-2); Eosinophils Absolute Auto 0.1 X10*3/uL (0.0-0.4); Hematocrit 28.4 % (42.0-52.0); Hemoglobin 8.1 g/dl (14.0-18.0); Imm Gran Abs Auto 0.05 X10*3/uL (0.00-0.03); Imm Gran Pct Auto 0.6 % (0.0-0.4); Lymphocytes Absolute Auto 1.3 X10*3/uL (1.2-4.9); Lymphocytes Percent Auto 16.9 % (20-40); Mean Corpuscular HGB Conc 28.5 g/dl (31.0-36.0); Mean Corpuscular Hemoglobin 21.8 pg (27.0-33.0); Mean Corpuscular Volume 76.5 fL (80.0-98.0); Mean Platelet Volume 10.2 fL (9.4-12.4); Monocytes Absolute Auto 0.6 X10*3/uL (0.1-1.2); Monocytes Percent Auto 7.4 % (2-11); Neutrophils Absolute Auto 5.9 x10*3/uL (2.0-8.3); Platelet Count 302 X10*3/uL (160-400); Red Blood Count 3.71 X10*6/uL (4.60-5.80); Red Cell Distribution Width 18.1 % (11.0-16.0); White Blood Count 7.9 X10*3/uL (4.8-10.8)
--- NOTE | 2024-01-19 18:42 | MHC.EDTECH ---
patient was biba ,vitals taken ,Patient was hooked up to monitoring and evaluation advisor ,blood drawn including both sets of blood culture ,lactic acid and oscar/covid swab all sent to lab .
[2024-01-19 18:43] LABS: INTERNATIONAL NORM RATIO 1.2 (0.9-1.1); Prothrombin Time 14.3 SEC (11.1-13.3)
[2024-01-19 18:45] LABS: D Dimer High Sensitivity 878 NG/ML
[2024-01-19 18:54] LABS: Alanine Aminotransferase 5 U/L (0-40); Albumin Level 3.2 g/dL (3.5-5.0); Alkaline Phosphatase 60 U/L (39-117); Anion Gap 9 (12-20); Aspartate Amino Transferase 12 U/L (5-37); Bilirubin Total 0.3 mg/dL (0.0-1.0); Blood Urea Nitrogen 9 mg/dL (9-16); Calcium 9.2 mg/dL (8.4-10.2); Carbon Dioxide 36 mmol/L (22-29); Chloride 97 mmol/L (96-108); Creatinine Clr Calc Pharmacy 377.6; Estimated Glomerular Filt Rate > 60; Glucose Random 90 mg/dL (60-115); Potassium 3.8 mmol/L (3.3-5.1); Sodium 138 mmol/L (135-145); Total Protein 8.1 g/dL (6.5-8.0)
[2024-01-19 19:01] LABS: Lactic Acid 0.7 mmol/L (0.5-2.0)
[2024-01-19 19:23] LABS: Influenza A PCR NEGATIVE (Negative); Influenza B PCR NEGATIVE (Negative); Resp Syncy Virus RNA Qual PCR NEGATIVE (Negative); SARS COV2 PCR INHOUSE NEGATIVE (Negative)
--- NOTE | 2024-01-19 20:56 | PHA.MEDREC ---
Pharmacy Consult ? Medication Reconciliation Pharmacy has completed the medication reconciliation.UNABLE TO SPEAK WITH PATIENT. MED REC COMPLETED PER CLAIM HISTORY.
[2024-01-19 21:03] LABS: VBG HCO3 42 mmol/L (22-26); VBG pCO2 78 mmHg; VBG pH 7.34 (7.32-7.43); VBG pO2 70 mmHg
[2024-01-19 21:04] LABS: Venous Blood Gas Refer to POC result
[2024-01-19 22:24] LABS: ABG Refer to POC result
--- NOTE | 2024-01-19 22:29 | PC.NURSE ---
Pt refused watkins cath. Kavya HDZ notified Plan of care ongoing.
--- NOTE | 2024-01-19 22:40 | P.HPCC_ITS ---
History of Present Illness Date of Service: 01/19/24 Attending physician on admission: Cuco Malloy Chief Complaint: Acute hypoxemic hypercapneic respiratory failure Mr. Ferrell A 28-year-old Czech-speaking male who is morbidly obese weighing more than 700 lb with Pickwickian syndrome, LC with BiPAP at HS, asthma, TIA, HTN, HLD who? was sent to the ER from PCP? office for O2 sat in the 70s, very sleepy, central cyanosis.? Apparently he was to get home O2 but is still awaiting its arrival.?The pt did report that he has not been using his home BiPAP because it backs up with water. He is mostly bed-bound due to obesity.? On arrival to the ED, the patient's blood pressure was 111/56, heart rate 112,? respiratory rate 14, O2 Sat 98% on 4LNC. Afebrile.? Laboratory data significant for Hemoglobin 8.1, hematocrit 28.4, D-dimer 878.? Lactic acid 0.7. VBG 7.35/68/78/38. IMAGING:? CXR:? central vascular prominence suggesting component of pulmonary edema superimposed on the degree of hypoexpansion. US venous duplex LE BI: No DVT demonstrated but suboptimal evaluation due to body habitus. ED course:?The patient was placed on BiPAP.? Review of Systems 2 Review of Systems: Yes all other systems are reviewed and are negative Constitutional: Constitutional: Reports daytime sleepiness and Denies weakness ENT: Reports Normal hearing present Respiratory: Respiratory: Reports as per HPI and Reports no additional respiratory complaints Musculoskeletal: Musculoskeletal: Denies numbness and Denies tingling Integumentary/Breasts: Skin/Breast: Reports other (RLE cellulitis) Neurologic: Reports Normal hearing present, Denies Abnormal speech present, Denies numbness, Denies tingling and Denies weakness Hematologic/Lymphatic: Hematologic/Lymphatic: Reports no additional hematologic/lymphatic complaints PMFSH Past Medical History Medical History Brain TIA Hypertension Hypercholesteremia Asthma Social History Social History Household Members: Family Housing: House Alcohol intake: current Alcohol intake frequency: holidays/special occasions only Patient Tobacco Use Status: Never used Tobacco Use of substances other than those prescribed or required for medical reasons: No Substance Use Type: Marijuana Advance Directives: No Advance Directives Information Provided: No Do you have a plan to hurt others: No Plan Recently lost weight without trying: Unsure Nutrition Risks: No Nutritional Risk Poor oral hygiene: No Meds Allergies Allergy/AdvReac Type Severity Reaction Status Date / Time No Known Allergies Allergy Verified 01/19/24 18:21 Active Medications: Current Medications Albuterol Sulfate (Albuterol Sulfate 90 Mcg 8 Gm Inhaler) 2 puff INHALE Q6H PRN PRN Reason: Shortness Of Breath Apixaban (Apixaban 5 Mg Tablet) 10 mg PO BID [facility] Stop: 01/26/24 09:01 Non-Formulary Medication (Ferrous Gluconate) 324 mg PO TIDWM [facility] Home Medications ?Medication ?Instructions ?Recorded ?Confirmed ?Last Taken ?Type trazodone 50 mg tablet 50 mg PO BEDTIME PRN Insomnia 01/30/23 01/19/24 01/29/23 History lidocaine 5 % topical patch 1 patch topical DAILY 07/10/23 01/19/24 Unknown History meloxicam 15 mg tablet 15 mg PO DAILY 07/10/23 01/19/24 Unknown History bupropion HCl 300 mg 24 hr tablet, 300 mg PO DAILY 09/11/23 01/19/24 Unknown History extended release ferrous gluconate 324 mg (38 mg 324 mg PO TIDWM 09/11/23 01/19/24 Unknown History iron) tablet omega-3 acid ethyl esters 1 gram 1 cap PO DAILY 09/11/23 01/19/24 Unknown History capsule oxycodone-acetaminophen 5 mg-325 2 tab PO BID PRN Moderate Pain 09/11/23 01/19/24 Unknown History mg tablet (Scale Score 5-6) albuterol sulfate 90 mcg/actuation 2 inh inhalation Q6H PRN Shortness 01/19/24 01/19/24 Unknown History aerosol inhaler (Ventolin HFA) Of Breath ascorbic acid (vitamin C) 500 mg 500 mg PO DAILY 01/19/24 01/19/24 Unknown History tablet aspirin 81 mg chewable tablet 1 tab PO DAILY 01/19/24 01/19/24 Unknown History metoprolol tartrate 25 mg tablet 25 mg PO BID 01/19/24 01/19/24 Unknown History semaglutide (weight loss) 0.25 0.25 mg subcut QWEEK 01/19/24 01/19/24 Unknown History mg/0.5 mL subcutaneous pen injector (Wegovcristine) Physical Exam 2 Vital Signs: Vital Signs: Last Vital Signs Temp 97.9 F 01/19/24 20:31 Pulse 96 01/19/24 22:00 Resp 38 H 01/19/24 22:07 BP 153/76 H 01/19/24 22:00 Pulse Ox 88 L 01/19/24 22:00 O2 Del Method BiPAP 01/19/24 22:00 O2 Flow Rate 4 01/19/24 18:08 FiO2 30 01/19/24 22:00 BMI result Body Mass Index 114.5 Const: General: no acute distress and alert Orientation/consciousness: p atient oriented x3 (answering appropriately. ) HEENT: Head: Yes normocephalic and Yes atraumatic General nose exam: Normal external nose present (Nares patent, septum midline, sinuses nontender bilaterally.) Mouth: Normal oral and palatal mucosa present (dry) Neck: Neck: Yes supple (no thyromegaly, trachea midline.) Resp: Effort & Inspection: able to speak in complete sentences and no respiratory distress Auscultation: diminished lung sounds bilateral throughout Cardio: Jugular venous distension: no JVD Rate: regular rate Rhythm: r egular rhythm Heart sounds: no gallops, no murmurs and no rubs GI: Palpation (GI): Soft to palpation (nondistended.) and nontender Skin: General skin exam: turgor normal and lichenification (RLE cellulitis) Lesions: no lesions Rashes: no rashes Trauma: no lacerations or abrasions Neuro: Other: Sleepy but oriented. General: patient oriented x3 (answering appropriately. ) Cranial nerves: Yes CN's II-XII intact bilaterally and Yes Normal hearing present Speech: No Abnormal speech present Extrem: General: Yes no pedal edema and Yes calf tenderness (at site of cellulitis) Psych: Affect: normal affect Attitude: cooperative Results Labs 01/20/24 05:25 01/20/24 05:25 Labs: Laboratory Results - last 24 hr 01/19/24 01/19/24 01/19/24 18:28 18:30 18:34 MCV 76.5 L MCH 21.8 L MCHC 28.5 L RDW 18.1 H Plt Count 302 MPV 10.2 Immature Gran % (Auto) 0.6 H Neut % (Auto) 74.0 H Lymph % (Auto) 16.9 L [place] % (Auto) 7.4 Eos % (Auto) 1.0 Baso % (Auto) 0.1 Lymph # (Auto) 1.3 [place] # (Auto) 0.6 Eos # (Auto) 0.1 Baso # (Auto) 0.0 Abs Immat Gran (auto) 0.05 H Absolute Neuts (auto) 5.9 Absolute Nucleated RBC 0.000 Nucleated RBC % (auto) 0.0 PT 14.3 H INR 1.2 H D-Dimer High Sensitivty 878 O2 Saturation 95.0 ABG pH at Pt Temp 7.35 ABG pCO2 at Pt Temp 68 H* ABG pO2 at Pt Temp 78 L ABG HCO3 38 H ABG Base Excess (Actual) 10.7 VBG pH VBG pCO2 VBG pO2 VBG HCO3 VBG O2 Saturation VBG Base Excess Anion Gap 9 L Estim Creat Clear Calc 377.6 Estimated GFR > 60 Random Glucose 90 Lactic Acid 0.7 Calcium 9.2 Total Bilirubin 0.3 AST 12 ALT 5 Alkaline Phosphatase 60 Total Protein 8.1 H Albumin 3.2 L Influenza Type A (PCR) NEGATIVE Influenza Type B (PCR) NEGATIVE RSV RNA Qual (PCR) NEGATIVE SARS-CoV-2 RNA (RT-PCR) NEGATIVE 01/19/24 20:55 MCV MCH MCHC RDW Plt Count MPV Immature Gran % (Auto) Neut % (Auto) Lymph % (Auto) [place] % (Auto) Eos % (Auto) Baso % (Auto) Lymph # (Auto) [place] # (Auto) Eos # (Auto) Baso # (Auto) Abs Immat Gran (auto) Absolute Neuts (auto) Absolute Nucleated RBC Nucleated RBC % (auto) PT INR D-Dimer High Sensitivty O2 Saturation ABG pH at Pt Temp ABG pCO2 at Pt Temp ABG pO2 at Pt Temp ABG HCO3 ABG Base Excess (Actual) VBG pH 7.34 VBG pCO2 78 VBG pO2 70 VBG HCO3 42 H VBG O2 Saturation 91.0 VBG Base Excess 14.0 Anion Gap Estim Creat Clear Calc Estimated GFR Random Glucose Lactic Acid Calcium Total Bilirubin AST ALT Alkaline Phosphatase Total Protein Albumin Influenza Type A (PCR) Influenza Type B (PCR) RSV RNA Qual (PCR) SARS-CoV-2 RNA (RT-PCR) Imaging Radiologist's Impressions: Impressions Chest X-Ray 01/19/24 19:24 IMPRESSION: Enlarged cardiac silhouette with central vascular prominence suggesting component of pulmonary edema superimposed on the degree of hypoexpansion. Venous Duplex 01/19/24 20:04 IMPRESSION: Suboptimal evaluation due to nonvisualization of the popliteal and calf veins due to body habitus. Limited evaluation due to inability to perform adequate compression. No DVT demonstrated in the bilateral lower extremity within the visualized vessels as described above. Assessment and Plan (1) Morbid obesity: Status: Acute (2) Sleep apnea with hypersomnolence: Status: Acute (3) Acute on chronic respiratory failure with hypoxia and hypercapnia: Status: Acute (4) LC on CPAP: Status: Acute Plan 28-year-old morbidly obese male with Pickwickian syndrome, LC with CPAP at , asthma, TIA, HTN, HLD? admitted for management of acute hypoxemic hypercapnic respiratory failure.? PLAN: Neuro:? No acute issues.? Cardiac: ? Underlying HTN, HLD. Continue home meds Pulmonary: Underlying? asthma, obesity hypoventilation syndrome, LC. Acute hypoxemic? hypercapnic respiratory failure, on Bipap.? Possible pulmonary edema noted on x-ray. ? Continue BiPAP.? Recheck blood gas in a.m.? Renal: ?No acute issues. Monitor renal indices, electrolytes and urine output.? Endo: ??No acute issues.? Patient on GLP-1 agonist (Wegovy) for weight loss.? GI: No acute issues. Heme/onc: Underlying anemia. Continue iron. Ddimer 878. DVT presence is unclear; inability to visualize veins on U/S, unable to obtain CT due to body habitus. Start Eliquis.? ID: ?Afebrile, normal WBC, lactic 0.7. No concern for sepsis. Cellulitis on the right medial lower extremity. No obvious open wounds. No drainage. Previously treated with doxycycline and cefuroxime. Wound consult placed.? Prophylaxis: Eliquis Diet:? NPO while on Bipap Case discussed with attending . Total time managing care of this patient today: 75 minutes.
[2024-01-20] VITALS (27 sets, daily range): BP systolic 97–168; BP diastolic 45–84; PULSE 84–104; RESP 16–40; TEMP 36.6–37.2; O2SAT 86–100; BMI 117.8
[2024-01-20 01:42] LABS: VBG Base Excess 10.3 mmol/L; VBG HCO3 32 mmol/L (22-26); VBG pCO2 33 mmHg; VBG pH 7.59 (7.32-7.43); VBG pO2 213 mmHg
[2024-01-20 01:43] LABS: Venous Blood Gas Refer to POC result
[2024-01-20 03:40] LABS: ABG Base Excess 13.5 mmol/L; ABG HCO3 39 mmol/L (22-26); ABG pCO2 58 mmHg (32-45); ABG pH 7.43 (7.35-7.45); ABG pO2 61 mmHg (83-108)
[2024-01-20 05:31] LABS: MANUAL DIFF FLAG NO
[2024-01-20 05:38] LABS: Basophils Percent Auto 0.3 % (0-2); Eosinophils Absolute Auto 0.1 X10*3/uL (0.0-0.4); Eosinophils Percent Auto 1.3 % (0-4); Hematocrit 28.7 % (42.0-52.0); Hemoglobin 8.2 g/dl (14.0-18.0); Imm Gran Abs Auto 0.04 X10*3/uL (0.00-0.03); Imm Gran Pct Auto 0.6 % (0.0-0.4); Lymphocytes Absolute Auto 1.2 X10*3/uL (1.2-4.9); Lymphocytes Percent Auto 17.8 % (20-40); Mean Corpuscular HGB Conc 28.6 g/dl (31.0-36.0); Mean Corpuscular Hemoglobin 21.7 pg (27.0-33.0); Mean Corpuscular Volume 75.9 fL (80.0-98.0); Mean Platelet Volume 10.9 fL (9.4-12.4); Monocytes Absolute Auto 0.8 X10*3/uL (0.1-1.2); Monocytes Percent Auto 11.1 % (2-11); Neutrophils Absolute Auto 4.7 x10*3/uL (2.0-8.3); Neutrophils Percent Auto 68.9 % (45-73); Platelet Count 286 X10*3/uL (160-400); Red Blood Count 3.78 X10*6/uL (4.60-5.80); Red Cell Distribution Width 18.1 % (11.0-16.0); White Blood Count 6.9 X10*3/uL (4.8-10.8)
[2024-01-20 05:53] LABS: Phosphorus 3.2 mg/dL (2.7-4.5)
[2024-01-20 05:56] LABS: Alanine Aminotransferase 5 U/L (0-40); Alkaline Phosphatase 61 U/L (39-117); Anion Gap 16 (12-20); Aspartate Amino Transferase 13 U/L (5-37); Bilirubin Total 0.4 mg/dL (0.0-1.0); Blood Urea Nitrogen 9 mg/dL (9-16); Calcium 9.1 mg/dL (8.4-10.2); Carbon Dioxide 29 mmol/L (22-29); Chloride 98 mmol/L (96-108); Creatinine Clr Calc Pharmacy 398.7; Estimated Glomerular Filt Rate > 60; Glucose Random 78 mg/dL (60-115); Sodium 138 mmol/L (135-145); Total Protein 7.7 g/dL (6.5-8.0)
[2024-01-20 06:20] LABS: Potassium 4.9 mmol/L (3.3-5.1)
[2024-01-20 06:29] LABS: ABG Refer to POC result
[2024-01-20] MEDS: acetaZOLAMIDE sodium 500 MG VIAL 250 MG IVPUSH ×2 (08:35→22:40)
--- NOTE | 2024-01-20 09:56 | P.PNCC_ITS ---
Subjective Subjective Date of Service: 01/20/24 Interval History: 28-year-old gentleman with underlying morbid obesity (BMI 118) with LC/OHS with suboptimal compliant with BiPAP, asthma, TIA, hypertension admitted on 01/19/2024 with acute on chronic hypoxic and hypercapnic respiratory failure requiring BiPAP support. Patient also with elevated D-dimer, unable to obtain CTA/V/Q, lower extremity Dopplers negative, though suboptimal quality of the study. Patient started on empiric Eliquis. No events overnight. Titrated off BiPAP Critical Care Time (minutes): 0 Physical Exam 2 Vital Signs: Vital Signs: Last Vital Signs Temp 97.8 F 01/20/24 08:00 Pulse 101 H 01/20/24 09:00 Resp 30 H 01/20/24 09:00 BP 116/60 01/20/24 09:00 Pulse Ox 86 L 01/20/24 09:00 O2 Del Method BiPAP 01/20/24 09:00 O2 Flow Rate 4 01/19/24 18:08 FiO2 21 01/20/24 09:00 BMI result Body Mass Index 117.8 Const: General: no acute distress, alert and awake Nutritional Appearance: obese Eyes: Sclerae: sclerae normal EOM: EOMs intact bilaterally Neck: Neck: Yes no lymphadenopathy, Yes trachea midline and Yes supple Resp: Effort & Inspection: normal respiratory effort and no respiratory distress Auscultation: clear to auscultation bilaterally Cardio: Rate: tachycardic Rhythm: regular rhythm Heart sounds: no gallops, no murmurs and no rubs GI: Palpation (GI): Soft to palpation and Other GI palpation findings present ( Nontender) Auscultation: normal bowel sounds Extrem: General: Yes no pedal edema, No clubbing and No cyanosis Objective Data Labs 01/20/24 05:25 01/20/24 05:25 Labs: Laboratory Results - last 24 hr 01/19/24 01/19/24 01/19/24 18:28 18:30 18:34 WBC 7.9 RBC 3.71 L Hgb 8.1 L Hct 28.4 L MCV 76.5 L MCH 21.8 L MCHC 28.5 L RDW 18.1 H Plt Count 302 MPV 10.2 Immature Gran % (Auto) 0.6 H Neut % (Auto) 74.0 H Lymph % (Auto) 16.9 L [place] % (Auto) 7.4 Eos % (Auto) 1.0 Baso % (Auto) 0.1 Lymph # (Auto) 1.3 [place] # (Auto) 0.6 Eos # (Auto) 0.1 Baso # (Auto) 0.0 Abs Immat Gran (auto) 0.05 H Absolute Neuts (auto) 5.9 Absolute Nucleated RBC 0.000 Nucleated RBC % (auto) 0.0 PT 14.3 H INR 1.2 H D-Dimer High Sensitivty 878 O2 Saturation 95.0 ABG pH at Pt Temp 7.35 ABG pCO2 at Pt Temp 68 H* ABG pO2 at Pt Temp 78 L ABG HCO3 38 H ABG Base Excess (Actual) 10.7 VBG pH VBG pCO2 VBG pO2 VBG HCO3 VBG O2 Saturation VBG Base Excess Sodium 138 Potassium 3.8 Chloride 97 Carbon Dioxide 36 H Anion Gap 9 L BUN 9 Creatinine 0.77 Estim Creat Clear Calc 377.6 Estimated GFR > 60 Random Glucose 90 Lactic Acid 0.7 Calcium 9.2 Phosphorus Magnesium Total Bilirubin 0.3 AST 12 ALT 5 Alkaline Phosphatase 60 Total Protein 8.1 H Albumin 3.2 L Influenza Type A (PCR) NEGATIVE Influenza Type B (PCR) NEGATIVE RSV RNA Qual (PCR) NEGATIVE SARS-CoV-2 RNA (RT-PCR) NEGATIVE 01/19/24 01/20/24 01/20/24 20:55 01:29 03:31 WBC RBC Hgb Hct MCV MCH MCHC RDW Plt Count MPV Immature Gran % (Auto) Neut % (Auto) Lymph % (Auto) [place] % (Auto) Eos % (Auto) Baso % (Auto) Lymph # (Auto) [place] # (Auto) Eos # (Auto) Baso # (Auto) Abs Immat Gran (auto) Absolute Neuts (auto) Absolute Nucleated RBC Nucleated RBC % (auto) PT INR D-Dimer High Sensitivty O2 Saturation 89.0 ABG pH at Pt Temp 7.43 ABG pCO2 at Pt Temp 58 H ABG pO2 at Pt Temp 61 L ABG HCO3 39 H ABG Base Excess (Actual) 13.5 VBG pH 7.34 7.59 H VBG pCO2 78 33 VBG pO2 70 213 VBG HCO3 42 H 32 H VBG O2 Saturation 91.0 99.0 VBG Base Excess 14.0 10.3 Sodium Potassium Chloride Carbon Dioxide Anion Gap BUN Creatinine Estim Creat Clear Calc Estimated GFR Random Glucose Lactic Acid Calcium Phosphorus Magnesium Total Bilirubin AST ALT Alkaline Phosphatase Total Protein Albumin Influenza Type A (PCR) Influenza Type B (PCR) RSV RNA Qual (PCR) SARS-CoV-2 RNA (RT-PCR) 01/20/24 01/20/24 05:25 05:25 WBC 6.9 RBC 3.78 L Hgb 8.2 L Hct 28.7 L MCV 75.9 L MCH 21.7 L MCHC 28.6 L RDW 18.1 H Plt Count 286 MPV 10.9 Immature Gran % (Auto) 0.6 H Neut % (Auto) 68.9 Lymph % (Auto) 17.8 L [place] % (Auto) 11.1 H Eos % (Auto) 1.3 Baso % (Auto) 0.3 Lymph # (Auto) 1.2 [place] # (Auto) 0.8 Eos # (Auto) 0.1 Baso # (Auto) 0.0 Abs Immat Gran (auto) 0.04 H Absolute Neuts (auto) 4.7 Absolute Nucleated RBC 0.000 Nucleated RBC % (auto) 0.0 PT INR D-Dimer High Sensitivty O2 Saturation ABG pH at Pt Temp ABG pCO2 at Pt Temp ABG pO2 at Pt Temp ABG HCO3 ABG Base Excess (Actual) VBG pH VBG pCO2 VBG pO2 VBG HCO3 VBG O2 Saturation VBG Base Excess Sodium 138 Potassium 4.9 D Chloride 98 Carbon Dioxide 29 Anion Gap 16 BUN 9 Creatinine 0.74 Estim Creat Clear Calc 398.7 Estimated GFR > 60 Random Glucose 78 Lactic Acid Calcium 9.1 Phosphorus 3.2 Magnesium 2.0 Total Bilirubin 0.4 AST 13 ALT 5 Alkaline Phosphatase 61 Total Protein 7.7 Albumin 3.0 L 3.0 L Influenza Type A (PCR) Influenza Type B (PCR) RSV RNA Qual (PCR) SARS-CoV-2 RNA (RT-PCR) Progress Note: A&P Assessment and plan (1) Acute on chronic respiratory failure with hypoxia and hypercapnia: Status: Acute (2) Obesity hypoventilation syndrome: Status: Acute (3) LC treated with BiPAP: Status: Acute Plan Assessment: 28-year-old gentleman with underlying morbid obesity admitted with acute on chronic hypoxic/hypercapnic respiratory failure requiring BiPAP support Plan: Neuro: No acute issues. Cardiac: No acute issues. Pulmonary: Obesity with obesity hypoventilation with suboptimal compliance with home BiPAP resultant in acute on chronic hypoxic/hypercapnic respiratory failure requiring BiPAP support, now titrated off daytime BiPAP. Continue nocturnal BiPAP and p.r.n. for nebs. Renal: No acute issues. Endo: No acute issues. GI: No acute issues. ID: No acute issues Heme/Onc: Possible pulmonary embolism, now on empiric Eliquis. Psych: No acute issues. Miscellaneous: No acute issues. Prophylaxis: Eliquis Diet: Regular Quality Stroke Does the patient have a stroke diagnosis?: No VTE Prior VTE?: No VTE Risk Level:: Medical - moderate - high VTE Device Contraindication: Procedure Contraindicated VTE Drug Contraindication: N/A - Med Ordered
[2024-01-20] MEDS: Lidocaine 4 % Patch ADH..PATCH 1 PATCH TRANSDERMA (10:20)
[2024-01-20] MEDS: Apixaban 5 MG TABLET 10 MG PO ×2 (10:21→22:39)
[2024-01-20] MEDS: Metoprolol Tartrate 25 MG TABLET PO ×2 (10:21→22:39)
[2024-01-20] MEDS: Ferrous Sulfate 324 MG TABLET.DR PO ×2 (10:21→17:59)
[2024-01-20] MEDS: buPROPion HCl XL 300 MG TAB.ER.24H PO (10:22)
--- NOTE | 2024-01-20 10:25 | MHC.CM.PN ---
Addendum entered by Barbara Franklin 01/20/24 10:42: PER CHART REVIEW, PT HAS CHILO STERLING AT [facility] A PCP Original Note: CM MET WITH FRIEND AT BEDSIDE IN ICU. PT LETHARGIC AND NOT ABLE TO PARTICIPATE. PT ON BIPAP. PER PT FLOOR COVERING LAYER, PT IS ESSENTIALLY BEDBOUND, HAS A BIPAP BUT DOESN'T USE. UNSURE OF VENDOR. PT LIVES WITH FAMILY MEMBERS. FRIEND STATES PT HAS NO SERVICES IN HOME. FRIEND UNSURE IF PT HAS HCP OR PCP. CM WILL RE-APPROACH WHEN PT IS MORE ALERT. DP: TO BE DETERMINED ONCE PT IS MORE ABLE TO PARTICIPATE. CM WILL CONTINUE TO FOLLOW FOR ANY CHANGE TO DC PLAN/NEEDS
--- NOTE | 2024-01-20 10:31 | P.CDIM_ITS ---
PROVIDER RESPONSE TEXT: To clarify, the appropriate diagnosis supported by the clinical indicators: Acute QUERY TEXT: PHYSICIAN'S DOCUMENTATION REQUEST Date of Query: 01/20/2024 10:23 AM EDT Patient Name: Rosendo Ferrell Admit Date: 01/19/2024 Dear Cuco Malloy MD, A review of the medical record indicates additional documentation may be needed. Please review below and update the documentation accordingly. Clinical Indicators: ICU H&P 01/18 within the Plan: Acute hypoxemic hypercapnic respiratory failure, possible pulmonary destiney a noted on Xray. Continue BIPAP Recheck blood gas. Clarify which of the following accurately represents the acuity of the noted Pulmonary edema, if ira ting: Acute Acute on chronic Other (explain) Clinically unable to determine (explain) Thank you, Cira Woody, CCS, CDIS Use of terms such as suspected, likely, concern for, or probable (associated with a specific diagnosi s that is being evaluated, monitored, or treated as if it exists) are acceptable and can be coded in the inpatient se tting, when documented at the time of discharge. Please use your independent medical judgment in providing your response. THIS QUERY IS PART OF THE PERMANENT MEDICAL RECORD
--- NOTE | 2024-01-20 13:45 | PM.EVENT ---
Event Note Date of Service: 01/20/24 Event Note: ICU transfer for hypoxic respiratory failure. Super morbidly obese patient also with LC. S/p Bipap in ICU, now on NC. Possible PE, can not rule out, started on Eliquis as per ICU attending. Time Spent With Patient Time: Total time managing care of this patient today ____ minutes.
[2024-01-20 15:34] LABS: ABG Base Excess 14.7 mmol/L; ABG HCO3 40 mmol/L (22-26); ABG pCO2 56 mmHg (32-45); ABG pH 7.46 (7.35-7.45); ABG pO2 59 mmHg (83-108)
[2024-01-20 17:50] LABS: ABG Refer to POC result
[2024-01-20] MEDS: bisacodyL 10 MG SUPP.RECT PR (22:27)
--- NOTE | 2024-01-20 22:42 | P.CNID_ITS ---
History of Present Illness Data of Consult Service Date: 01/20/24 Requesting physician: Esthela Cruz Primary Care Provider: Unknown Physician HPI Reason for consult: right lower leg scaliness,eczematous posterior areas He presents with shortness of breath and hypoxia. He has Pickwickian syndrome and LC. He also has lymphedema and scaliness right lower extremity,slight increased. He has no fever or chills or bacteremia. Review of Systems 2 Review of Systems: Yes all other systems are reviewed and are negative PMFSH Past Medical History Medical History (Updated 01/20/24 @ 22:46 by Britany Hernandez MD) Stasis dermatitis of both legs Brain TIA Hypertension Hypercholesteremia Asthma Family History Family history: reviewed and not pertinent Social History Social History Household Members: Family Housing: House Alcohol intake: current Alcohol intake frequency: holidays/special occasions only Patient Tobacco Use Status: Never used Tobacco Use of substances other than those prescribed or required for medical reasons: No Substance Use Type: Marijuana Currently Displaying Signs/Symptoms of Drug Intoxication Withdrawal: No Advance Directives: No Advance Directives Information Provided: No Do you have a plan to hurt others: No Plan Recently lost weight without trying: Unsure Nutrition Risks: No Nutritional Risk Poor oral hygiene: No service: No Meds Allergies Allergy/AdvReac Type Severity Reaction Status Date / Time No Known Allergies Allergy Verified 01/19/24 18:21 Active Medications: Current Medications Acetazolamide (Acetazolamide Sodium 500 Mg Vial) 250 mg IVPUSH BID [facility] Stop: 01/22/24 21:01 Last Admin: 01/20/24 22:40 Dose: 250 mg Albuterol Sulfate (Albuterol Sulfate 90 Mcg 8 Gm Inhaler) 2 puff INHALE Q6H PRN PRN Reason: Shortness Of Breath Apixaban (Apixaban 5 Mg Tablet) 10 mg PO BID [facility] Stop: 01/26/24 09:01 Last Admin: 01/20/24 22:39 Dose: 10 mg Bupropion HCl (Bupropion Hcl Xl 300 Mg Tab.Er.24h) 300 mg PO DAILY [facility] Last Admin: 01/20/24 10:22 Dose: 300 mg Ferrous Sulfate (Ferrous Sulfate 324 Mg Tablet.Dr) 324 mg PO BIDWM [facility] Last Admin: 01/20/24 17:59 Dose: 324 mg Lidocaine (Lidocaine 4 % Patch Adh..Patch) 1 patch TRANSDERMA DAILY [facility] Last Admin: 01/20/24 10:20 Dose: 1 patch Metoprolol Tartrate (Metoprolol Tartrate 25 Mg Tablet) 25 mg PO BID [facility]; Protocol Last Admin: 01/20/24 22:39 Dose: 25 mg Oxycodone HCl (Oxycodone Hcl Immed Release 5 Mg Tablet) 5 mg PO BID PRN PRN Reason: Pain, Moderate(Pain Scale 4-6) Home Medications ?Medication ?Instructions ?Recorded ?Confirmed ?Last Taken ?Type trazodone 50 mg tablet 50 mg PO BEDTIME PRN Insomnia 01/30/23 01/19/24 01/29/23 History lidocaine 5 % topical patch 1 patch topical DAILY 07/10/23 01/19/24 Unknown History meloxicam 15 mg tablet 15 mg PO DAILY 07/10/23 01/19/24 Unknown History bupropion HCl 300 mg 24 hr tablet, 300 mg PO DAILY 09/11/23 01/19/24 Unknown History extended release ferrous gluconate 324 mg (38 mg 324 mg PO TIDWM 09/11/23 01/19/24 Unknown History iron) tablet omega-3 acid ethyl esters 1 gram 1 cap PO DAILY 09/11/23 01/19/24 Unknown History capsule oxycodone-acetaminophen 5 mg-325 2 tab PO BID PRN Moderate Pain 09/11/23 01/19/24 Unknown History mg tablet (Scale Score 5-6) albuterol sulfate 90 mcg/actuation 2 inh inhalation Q6H PRN Shortness 01/19/24 01/19/24 Unknown History aerosol inhaler (Ventolin HFA) Of Breath ascorbic acid (vitamin C) 500 mg 500 mg PO DAILY 01/19/24 01/19/24 Unknown History tablet aspirin 81 mg chewable tablet 1 tab PO DAILY 01/19/24 01/19/24 Unknown History metoprolol tartrate 25 mg tablet 25 mg PO BID 01/19/24 01/19/24 Unknown History semaglutide (weight loss) 0.25 0.25 mg subcut QWEEK 01/19/24 01/19/24 Unknown History mg/0.5 mL subcutaneous pen injector (Leana) Physical Exam 2 Vital Signs: Vital Signs: Last Vital Signs Temp 98.1 F 01/20/24 20:00 Pulse 101 H 01/20/24 22:39 Resp 28 H 01/20/24 20:00 BP 127/62 01/20/24 22:39 Pulse Ox 93 01/20/24 20:00 O2 Del Method Room Air 01/20/24 20:00 O2 Flow Rate 2 01/20/24 13:00 FiO2 21 01/20/24 17:00 BMI result Body Mass Index 117.8 Extrem: Other: right lower extremity scaliness,especially posterior calf near ankle, no heat Results Labs 01/20/24 05:25 01/20/24 05:25 Labs: Short CBC 01/20/24 Range/Units 05:25 WBC 6.9 (4.8-10.8) X10*3/uL Hgb 8.2 L (14.0-18.0) g/dl Hct 28.7 L (42.0-52.0) % Plt Count 286 (160-400) X10*3/uL BMP 01/20/24 05:25 Sodium 138 Potassium 4.9 D Chloride 98 Carbon Dioxide 29 BUN 9 Creatinine 0.74 Calcium 9.1 Liver Function 01/20/24 01/20/24 Range/Units 05:25 05:25 Total Bilirubin 0.4 (0.0-1.0) mg/dL AST 13 (5-37) U/L ALT 5 (0-40) U/L Alkaline Phosphatase 61 (39-117) U/L Albumin 3.0 L 3.0 L (3.5-5.0) g/dL Microbiology Microbiology Results: Microbiology 01/19/24 18:39 Blood - Venous Blood Culture - Preliminary No growth after 24 hours. 01/19/24 18:34 Blood - Venous Blood Culture - Preliminary No growth after 24 hours. Assessment and Plan (1) LC treated with BiPAP: Status: Acute (2) Stasis dermatitis of both legs: Status: Acute Plan He has primarily stasis dermatitis Would continue topical moisturizing or even steroid cream to area. Lymphedema treatment. Bariatrics help.
[2024-01-21] VITALS (8 sets, daily range): BP systolic 110–130; BP diastolic 55–71; PULSE 90–95; RESP 20–30; TEMP 36.2–37.1; O2SAT 89–98; BMI 114.7
[2024-01-21] MEDS: buPROPion HCl XL 300 MG TAB.ER.24H PO (08:36)
[2024-01-21] MEDS: Ferrous Sulfate 324 MG TABLET.DR PO (08:37)
[2024-01-21] MEDS: Apixaban 5 MG TABLET 10 MG PO (08:37)
[2024-01-21] MEDS: acetaZOLAMIDE sodium 500 MG VIAL 250 MG IVPUSH (08:41)
[2024-01-21] MEDS: Metoprolol Tartrate 25 MG TABLET PO (08:42)
[2024-01-21] MEDS: oxyCODONE HCl Immed Release 5 MG TABLET PO (08:45)
[2024-01-21 08:47] LABS: MANUAL DIFF FLAG NO
[2024-01-21 08:48] LABS: Basophils Percent Auto 0.3 % (0-2); Eosinophils Absolute Auto 0.1 X10*3/uL (0.0-0.4); Eosinophils Percent Auto 1.4 % (0-4); Hematocrit 29.7 % (42.0-52.0); Hemoglobin 8.8 g/dl (14.0-18.0); Imm Gran Abs Auto 0.02 X10*3/uL (0.00-0.03); Imm Gran Pct Auto 0.3 % (0.0-0.4); Lymphocytes Absolute Auto 1.5 X10*3/uL (1.2-4.9); Lymphocytes Percent Auto 22.7 % (20-40); Mean Corpuscular HGB Conc 29.6 g/dl (31.0-36.0); Mean Corpuscular Hemoglobin 22.2 pg (27.0-33.0); Mean Corpuscular Volume 74.8 fL (80.0-98.0); Mean Platelet Volume 10.6 fL (9.4-12.4); Monocytes Absolute Auto 0.7 X10*3/uL (0.1-1.2); Neutrophils Absolute Auto 4.2 x10*3/uL (2.0-8.3); Neutrophils Percent Auto 65.3 % (45-73); Platelet Count 315 X10*3/uL (160-400); Red Blood Count 3.97 X10*6/uL (4.60-5.80); Red Cell Distribution Width 17.9 % (11.0-16.0); White Blood Count 6.5 X10*3/uL (4.8-10.8)
[2024-01-21 08:50] LABS: Venous Blood Gas Refer to POC result
[2024-01-21 08:50] LABS: VBG Base Excess 11.4 mmol/L; VBG HCO3 35 mmol/L (22-26); VBG pCO2 44 mmHg; VBG pH 7.51 (7.32-7.43); VBG pO2 38 mmHg
[2024-01-21 09:16] LABS: Anion Gap 12 (12-20); Blood Urea Nitrogen 9 mg/dL (9-16); Calcium 9.4 mg/dL (8.4-10.2); Carbon Dioxide 31 mmol/L (22-29); Chloride 100 mmol/L (96-108); Creatinine Clr Calc Pharmacy 330.8; Estimated Glomerular Filt Rate > 60; Glucose Random 83 mg/dL (60-115); Iron 18 mcg/dL (45-160); Percent Iron Saturation 8 % (15-50); Phosphorus 3.4 mg/dL (2.7-4.5); Potassium 3.9 mmol/L (3.3-5.1); Sodium 139 mmol/L (135-145); Total Iron Binding Capacity 237 mcg/dL (228-428); Unsaturated Iron Binding 219 ug/dL
[2024-01-21 09:27] LABS: Ferritin 34 ng/mL (20-250)
--- NOTE | 2024-01-21 10:13 | MHC.CM.PN ---
CM met with pt. at his request, he lives with family, his brother is his [employer]BL[employer], he has 40+ hours a week. For DME he has: CPAP, is getting home O2, cane, walker, scooter. Pt. said that he wants to go home, is having PT eval at this time, CM to assist with transportation.
--- NOTE | 2024-01-21 11:34 | P.DS_ITS ---
DS: Providers Provider Date of Service: 01/21/24 Date of admission: 01/19/24 19:38 Primary care physician: Karina Duarte MD Consults: 01/20/24 15:25 Consult to Infectious Diseases Routine Consulting Provider: [facility] Reason for consultation: ? right leg cellulitis DS: Diagnosis Discharge Diagnosis (1) LC treated with BiPAP: Status: Acute (2) Stasis dermatitis of both legs: Status: Acute DS: Summary Hospital Course Hospital Course: from initial hpi: 28-year-old Lao-speaking male who is morbidly obese weighing more than 700 lb with Pickwickian syndrome, LC with BiPAP at HS, asthma, TIA, HTN, HLD who? was sent to the ER from PCP? office for O2 sat in the 70s, very sleepy, central cyanosis.? Apparently he was to get home O2 but is still awaiting its arrival.?The pt did report that he has not been using his home BiPAP because it backs up with water. He is mostly bed-bound due to obesity.? On arrival to the ED, the patient's blood pressure was 111/56, heart rate 112,? respiratory rate 14, O2 Sat 98% on 4LNC. Afebrile.? Laboratory data significant for Hemoglobin 8.1, hematocrit 28.4, D-dimer 878.? L actic acid 0.7. VBG 7.35/68/78/38. IMAGING:? CXR:? central vascular prominence suggesting component of pulmonary edema superimposed on the degree of hypoexpansion. US venous duplex LE BI: No DVT demonstrated but suboptimal evaluation due to body habitus. ED course:?The patient was placed on BiPAP.? hospital course: Patient was admitted to the intensive care unit for acute hypoxic and hypercapni c respiratory failure due to severe morbid obesity hypoventilation/ LC and noncompliance with CPAP. He was treated with BiPAP and hypercapnia and hypoxia improved. He was also given IV diuresis for acute on chronic diastolic CHF. Patient also noted to have elevated D-dimer of about 800. Due to his size he is unable to undergo any imaging and was empirically started on apixaban to treat possible pulmonary embolism. He will continue this for 3 months. For chronic iron deficiency anemia we will continue on iron supplement. For severe obesity weight loss is strongly recommended . Patient is now back on room air with a pCO2 of 44. Compliance with CPAP is strongly encouraged. Time Attestation Discharge Coordination Time (in mins): 37 Quality: Safe Use of Opioids Does Pt have an Active Cancer Diagnosis on the Problem List?: No Quality: Stroke Does the patient have a stroke diagnosis?: No Physical Exam Vital Signs: Vital Signs: Last Vital Signs Temp 98.6 F 01/21/24 08:00 Pulse 94 01/21/24 10:28 Resp 20 01/21/24 08:00 BP 122/65 01/21/24 10:28 Pulse Ox 93 01/21/24 08:00 O2 Del Method Room Air 01/21/24 08:00 O2 Flow Rate 2 01/21/24 04:00 FiO2 21 01/21/24 04:00 BMI result Body Mass Index 114.7 General: AO X 3, no acute distress, severely obese Resp: CTA bilateral, no accessory muscles used CVS: S1,S2,RRR GI: soft, non tender, non distended Neuro: motor grossly intact, alert Psych: appropriate affect, appropriate insight chornic venous stasis changes DS: Data Data Completed and Pending Labs on day of discharge: Laboratory Results - last 24 hr 01/20/24 01/21/24 01/21/24 15:25 08:42 08:43 WBC 6.5 RBC 3.97 L Hgb 8.8 L Hct 29.7 L MCV 74.8 L MCH 22.2 L MCHC 29.6 L RDW 17.9 H Plt Count 315 MPV 10.6 Immature Gran % (Auto) 0.3 Neut % (Auto) 65.3 Lymph % (Auto) 22.7 [place] % (Auto) 10.0 Eos % (Auto) 1.4 Baso % (Auto) 0.3 Lymph # (Auto) 1.5 [place] # (Auto) 0.7 Eos # (Auto) 0.1 Baso # (Auto) 0.0 Abs Immat Gran (auto) 0.02 Absolute Neuts (auto) 4.2 Absolute Nucleated RBC 0.000 Nucleated RBC % (auto) 0.0 O2 Saturation 88.0 ABG pH at Pt Temp 7.46 H ABG pCO2 at Pt Temp 56 H ABG pO2 at Pt Temp 59 L ABG HCO3 40 H ABG Base Excess (Actual) 14.7 VBG pH 7.51 H VBG pCO2 44 VBG pO2 38 VBG HCO3 35 H VBG O2 Saturation 63.0 VBG Base Excess 11.4 Sodium 139 Potassium 3.9 D Chloride 100 Carbon Dioxide 31 H Anion Gap 12 BUN 9 Creatinine 0.88 Estim Creat Clear Calc 330.8 Estimated GFR > 60 Random Glucose 83 Calcium 9.4 Phosphorus 3.4 Magnesium 2.0 Iron 18 L TIBC 237 % Saturation 8 L Unsat Iron Binding 219 Ferritin 34 Preliminary micro results at discharge 01/19/24 18:39 Blood Culture - Preliminary Blood - Venous No growth after 24 hours. 01/19/24 18:34 Blood Culture - Preliminary Blood - Venous No growth after 24 hours. Discharge Plan Discharge Anticipated Discharge Date/Time: 01/21/24 11:28 Patient Disposition: Home, Self-Care Discharge Diagnosis: OHS Referrals: Karina Lopez MD [Primary Care Provider] - 1 Week Discharge Medications: New Eliquis 5 mg tablet 5 mg PO BID Qty: 180 0RF Continued (DME) edmund Forbes See Rx Instructions .Route Qty: 1 0RF Rx Instructions: As directed bupropion HCl 300 mg tablet extended release 24 hr 300 mg PO DAILY omega-3 acid ethyl esters 1 gram capsule 1 cap PO DAILY ferrous gluconate 324 mg (38 mg iron) tablet 324 mg PO TIDWM oxycodone-acetaminophen 5-325 mg tablet 2 tab PO BID PRN (Reason: Moderate Pain (Scale Score 5-6)) ascorbic acid (vitamin C) 500 mg Tablet 500 mg PO DAILY albuterol sulfate [Ventolin HFA] 90 mcg/actuation HFA aerosol inhaler 2 inh INHALATION Q6H PRN (Reason: Shortness Of Breath) metoprolol tartrate 25 mg tablet 25 mg PO BID [place] 0.25 mg/0.5 mL pen injector 0.25 mg subcut QWEEK trazodone 50 mg tablet 50 mg PO BEDTIME PRN (Reason: Insomnia) (DME) edmund Forbes See Rx Instructions .Route Qty: 1 0RF Rx Instructions: As directed lidocaine 5 % adhesive patch,medicated 1 patch topical DAILY meloxicam 15 mg tablet 15 mg PO DAILY Held aspirin 81 mg tablet,chewable 1 tab PO DAILY Hold Instructions: Resume on 03/24/24. Discharge Orders: Discharge Order (Routine); Ordered 07/03/24 Ordered By: David Leach Diet: low calorie diet Activity on Discharge: As tolerated Stand Alone Forms: Patient Portal Discharge page Print Language: Bengali Care Plan Goals: recovery Health Concerns: possible PE, severe obesity related hypotventilation Plan of Treatment: empiric eliquis for 3 months, always use CPAP when sleeping! calorie restriction, weight loss Assessment: see above
--- NOTE | 2024-01-21 12:06 | MHC.CM.PN ---
Pt has been medically cleared for DC. He will go home via family transport, will be taken in bed to ED ambulance entrance, where he can transfer into his brother's vehicle. PT rec home PT. CM spoke with pt about this, he declined these services because when he had them in the past, it did not work for him. They came early in the day, when he was not up and ready, and could not wait for him, so left. Provider aware that pt. will not have VNA services.
== END 2024-01-21 13:36 | disposition home or self-care (01) | DRG 421 ==
LOC: HO.ED 19:42 → HO.EDOVER 20:17 → HO.ICU 20:20 → HO.IMC 01-20 17:37
PROVIDERS: Internal Medicine Pulmonary Disease; Nurse Practitioner Acute Care; Admitting Provider Nurse Practitioner Family; Emergency Provider Internal Medicine; PCP Student in an Organized Health Care Education/Training Program; Referring Provider Student in an Organized Health Care Education/Training Program; Visit Provider Internal Medicine
DX: E66.2 Morbid (severe) obesity with alveolar hypoventilation (principal); J96.21 Acute and chronic respiratory failure with hypoxia; I26.99 Other pulmonary embolism without acute cor pulmonale; I87.2 Venous insufficiency (chronic) (peripheral); I50.33 Acute on chronic diastolic (congestive) heart failure; D50.9 Iron deficiency anemia, unspecified; J96.22 Acute and chronic respiratory failure with hypercapnia; Z68.45 Body mass index [BMI] 70 or greater, adult; Z71.3 Dietary counseling and surveillance; Z91.199 Patient's noncompliance with other medical treatment and regimen due to unspecified reason; Z20.822 Contact with and (suspected) exposure to COVID-19; Z79.82 Long term (current) use of aspirin; Z79.899 Other long term (current) drug therapy
CPT/HCPCS: 0241U; 36415; 36600; 71045; 80048; 80053; 82040; 82728; 82803; 83540; 83605; 83735; 84100; 85025; 85379; 85610; 87040; 93970; 94660; 97163; 99285; J1120

== ENCOUNTER → 2024-01-19 19:38 | Outpatient (BNV) | payer MEDICAID, SELFPAY | PROVIDERS: Admitting Provider Nurse Practitioner Family; Emergency Provider Internal Medicine; Visit Provider Nurse Practitioner Acute Care | DX: G47.33 Obstructive sleep apnea (adult) (pediatric) (principal); I87.2 Venous insufficiency (chronic) (peripheral) | CPT/HCPCS: 99239; 99499 ==

== ENCOUNTER → 2024-01-19 19:38 | Outpatient (BNV) | payer MEDICAID, SELFPAY | PROVIDERS: Admitting Provider Nurse Practitioner Family; Emergency Provider Internal Medicine; Visit Provider Internal Medicine Pulmonary Disease | DX: J96.21 Acute and chronic respiratory failure with hypoxia (principal); J96.22 Acute and chronic respiratory failure with hypercapnia; E66.2 Morbid (severe) obesity with alveolar hypoventilation; G47.33 Obstructive sleep apnea (adult) (pediatric) | CPT/HCPCS: 99232 ==

== ENCOUNTER → 2024-01-19 19:38 | Outpatient (BNV) | payer MEDICAID, SELFPAY | PROVIDERS: Admitting Provider Nurse Practitioner Family; Emergency Provider Internal Medicine; Visit Provider Nurse Practitioner Family | DX: E66.01 Morbid (severe) obesity due to excess calories (principal); G47.10 Hypersomnia, unspecified; G47.30 Sleep apnea, unspecified; J96.21 Acute and chronic respiratory failure with hypoxia; J96.22 Acute and chronic respiratory failure with hypercapnia; G47.33 Obstructive sleep apnea (adult) (pediatric) | CPT/HCPCS: 99291; 99292 ==

== ENCOUNTER → 2024-01-19 19:38 | Outpatient (BNV) | payer MEDICAID, SELFPAY | PROVIDERS: Admitting Provider Nurse Practitioner Family; Emergency Provider Internal Medicine; Visit Provider Internal Medicine | DX: G47.33 Obstructive sleep apnea (adult) (pediatric) (principal); I87.2 Venous insufficiency (chronic) (peripheral) | CPT/HCPCS: 99222 ==

== ENCOUNTER 2024-05-01 16:44 | Emergency (ER) | payer MEDICAID, SELFPAY ==
[2024-05-01 16:47] VITALS: BP 130/91; PULSE 120; RESP 18; TEMP 36.9; O2SAT 96; BMI 98.5
--- NOTE | 2024-05-01 16:49 | ED.GENADULT ---
HPI - General Adult General Chief complaint: Skin/Abscess/Foreign Body Stated complaint: swollen upper lip x3 days Time Seen by Provider: 05/01/24 20:53 History of Present Illness ED Provider: Cristobal DEVINE narrative: The patient says that he had a pimple on his upper lip about 3 days ago that he squeezed. Since then he has had worsening pain and swelling of the upper lip for which he comes to the emergency room this evening. He has had no fever, sweats, chills. No nausea or vomiting. He does not feel that the swelling or pain has spread significantly from the upper lip. He has no intraoral discomfort or sense of any swelling within his mouth. Related Data Home Medications ?Medication ?Instructions ?Recorded ?Confirmed trazodone 50 mg tablet 50 mg PO BEDTIME PRN Insomnia 01/30/23 01/19/24 lidocaine 5 % topical patch 1 patch topical DAILY 07/10/23 01/19/24 meloxicam 15 mg tablet 15 mg PO DAILY 07/10/23 01/19/24 bupropion HCl 300 mg 24 hr tablet, 300 mg PO DAILY 09/11/23 01/19/24 extended release ferrous gluconate 324 mg (38 mg 324 mg PO TIDWM 09/11/23 01/19/24 iron) tablet omega-3 acid ethyl esters 1 gram 1 cap PO DAILY 09/11/23 01/19/24 capsule oxycodone-acetaminophen 5 mg-325 2 tab PO BID PRN Moderate Pain 09/11/23 01/19/24 mg tablet (Scale Score 5-6) albuterol sulfate 90 mcg/actuation 2 inh inhalation Q6H PRN Shortness 01/19/24 01/19/24 aerosol inhaler (Ventolin HFA) Of Breath ascorbic acid (vitamin C) 500 mg 500 mg PO DAILY 01/19/24 01/19/24 tablet aspirin 81 mg chewable tablet 1 tab PO DAILY 01/19/24 01/19/24 metoprolol tartrate 25 mg tablet 25 mg PO BID 01/19/24 01/19/24 semaglutide (weight loss) 0.25 0.25 mg subcut QWEEK 01/19/24 01/19/24 mg/0.5 mL subcutaneous pen injector (Wegovy) Previous Rx's ?Medication ?Instructions ?Recorded edmund #1 shireen 10/22/22 walker #1 ea 01/30/23 apixaban 5 mg tablet (Eliquis) 5 mg PO BID #180 tabs 01/21/24 amoxicillin 875 mg-potassium 1 tab PO BID #20 tabs 05/01/24 clavulanate 125 mg tablet sulfamethoxazole 800 1 tab PO BID #20 tabs 05/01/24 mg-trimethoprim 160 mg tablet (Bactrim DS) Allergies Allergy/AdvReac Type Severity Reaction Status Date / Time No Known Allergies Allergy Verified 05/01/24 16:51 [facility] Past Medical History Medical History (Updated 05/02/24 @ 00:00 by Phillip Leigh) Stasis dermatitis of both legs Brain TIA Hypertension Hypercholesteremia Asthma Social History Social History Household Members: Family Housing: House Alcohol intake: current Alcohol intake frequency: holidays/special occasions only Patient Tobacco Use Status: Never used Tobacco Substance Use Type: Marijuana Advance Directives: No Advance Directives Information Provided: No service: No Physical Exam ED Vital Signs: Vital Signs - 24 hr 05/01/24 16:47 05/01/24 20:29 05/01/24 21:33 Temperature 98.4 F 98.5 F 98.5 F Pulse Rate 120 H 99 99 Respiratory Rate 18 20 20 Blood Pressure 130/91 H 122/69 122/69 Pulse Oximetry 96 100 100 Oxygen Delivery Method Room Air Room Air Room Air BMI result Body Mass Index 98.5 HENMT Other: The patient has swelling to the right upper lip. There is a small pimple just above the vermilion border. The lip is quite tender. The lower lip is not swollen. No intraoral swelling. Course Course Course Narrative: This is a Rapid Medical Examination (RME) performed by Chema Bingham PA-C in triage. Full HPI, ROS, assessment and treatment plan per primary provider in the Main ED. 29 yo male hx of morbid obesity, CL on CPAP, TIA here for eval of upper lip swelling/pain x3 days. reports symptoms began as a pimple along his right upper lip, now growing with swelling to entire upper lip. admits to pain and drainage from the area. denies insect bites. +small area of erythema with central pointing/fluctuance noted to right upper lip along facial hair line. no active drainage. noted swelling to entire upper lip (R>L). air way patent. Plan: labs Medications Administered Discontinued Medications Generic Name Dose Route Start Last Admin Trade Name Mirna PRN Reason Stop Dose Admin Amoxicillin/Clavulanate Potassium 875 mg 05/01/24 21:17 05/01/24 21:30 Amoxicillin/Potassium Clav 875 Mg Tablet PO 05/01/24 21:18 875 mg ONCE ONE Administration Trimethoprim/Sulfamethoxazole 1 tab 05/01/24 21:17 05/01/24 21:30 Sulfamethox/Trimeth 800/160 Tablet PO 05/01/24 21:18 1 tab ONCE ONE Administration Medical Decision Making Lab Data 05/01/24 17:05 05/01/24 17:05 Labs: Lab Results 05/01/24 Range/Units 17:05 WBC 6.3 (4.8-10.8) X10*3/uL RBC 5.22 D (4.60-5.80) X10*6/uL Hgb 11.3 L D (14.0-18.0) g/dl Hct 37.2 L D (42.0-52.0) % MCV 71.3 L (80.0-98.0) fL MCH 21.6 L (27.0-33.0) pg MCHC 30.4 L (31.0-36.0) g/dl RDW 21.5 H (11.0-16.0) % Plt Count 221 D (160-400) X10*3/uL MPV Not Reportable Immature Gran % (Auto) Cancelled Neut % (Auto) Cancelled Lymph % (Auto) Cancelled Hubbard % (Auto) Cancelled Eos % (Auto) Cancelled Baso % (Auto) Cancelled Lymph # (Auto) Cancelled Hubbard # (Auto) Cancelled Eos # (Auto) Cancelled Baso # (Auto) Cancelled Abs Immat Gran (auto) Cancelled Absolute Neuts (auto) Cancelled Absolute Nucleated RBC 0.000 (0.0-0.012) X10*3/uL Nucleated RBC % (auto) 0.0 (0.0-0.2) /100WBC Neutrophils % (Manual) 61 (45-73) % Band Neutrophils % 0 L (3-5) % Lymphocytes % (Manual) 30 (20-40) % Monocytes % (Manual) 6 (2-11) % Eosinophils % (Manual) 2 (0-4) % Basophils % (Manual) 1 (0-2) % Abs Neuts (Manual) 3.8 (2.0-8.3) X10*3/uL Lymphocytes # (Manual) 1.9 (1.2-4.9) X10*3/uL Monocytes # (Manual) 0.4 (0.1-1.2) X10*3/uL Eosinophils # (Manual) 0.1 (0.0-0.4) X10*3/uL Basophils # (Manual) 0.1 (0.0-0.2) X10*3/uL Toxic Vacuolation PRESENT Platelet Estimate NORMAL (NORMAL) Plt Morphology Comment NORMAL RBC Morphology NORMAL Sodium 136 (135-145) mmol/L Potassium 4.0 (3.3-5.1) mmol/L Chloride 103 (96-108) mmol/L Carbon Dioxide 24 (22-29) mmol/L Anion Gap 13 (12-20) BUN 8 L (9-16) mg/dL Creatinine 1.19 (0.5-1.4) mg/dL Estim Creat Clear Calc 203.6 Estimated GFR > 60 Random Glucose 93 (60-115) mg/dL Calcium 9.2 (8.4-10.2) mg/dL Magnesium 1.8 (1.6-2.6) mg/dL Total Bilirubin 0.7 (0.0-1.0) mg/dL AST 8 (5-37) U/L ALT 6 (0-40) U/L Alkaline Phosphatase 87 (39-117) U/L Total Protein 8.0 (6.5-8.0) g/dL Albumin 3.5 (3.5-5.0) g/dL Discharge Plan Discharge Clinical Impression: Infection of lip Patient Disposition: Home, Self-Care Additional Instructions: You have an infection of your upper lip. I used an ultrasound to see if there was any abscess fluid but I did not see any drainable abscess. You have been started on 2 different antibiotics to help treat this infection. Please take the amoxicillin/clavulanate (also known as Augmentin) 2 times a day, approximately every 12 hours. Also please take the sulfamethoxazole-trimethoprim (also known as Bactrim) day as well. Also approximately every 12 hours. You may take the medications together. Apply warm compresses to your for 10 minutes every couple of hours. Use a warm cloth which is not hot enough to be uncomfortable. Please follow up with your regular doctor's office this week for a recheck. If you feel things are getting significantly worse please return to the emergency department. Prescriptions: New amoxicillin-pot clavulanate 875-125 mg tablet 1 tab PO BID Qty: 20 0RF sulfamethoxazole-trimethoprim [Bactrim DS] 800-160 mg tablet 1 tab PO BID Qty: 20 0RF No Action (DME) edmund [facility] [place] See Rx Instructions .Route Qty: 1 0RF Rx Instructions: As directed bupropion HCl 300 mg tablet extended release 24 hr 300 mg PO DAILY omega-3 acid ethyl esters 1 gram capsule 1 cap PO DAILY ferrous gluconate 324 mg (38 mg iron) tablet 324 mg PO TIDWM oxycodone-acetaminophen 5-325 mg tablet 2 tab PO BID PRN (Reason: Moderate Pain (Scale Score 5-6)) ascorbic acid (vitamin C) 500 mg Tablet 500 mg PO DAILY aspirin 81 mg tablet,chewable 1 tab PO DAILY albuterol sulfate [Ventolin HFA] 90 mcg/actuation HFA aerosol inhaler 2 inh INHALATION Q6H PRN (Reason: Shortness Of Breath) metoprolol tartrate 25 mg tablet 25 mg PO BID Wegovy 0.25 mg/0.5 mL pen injector 0.25 mg subcut QWEEK Eliquis 5 mg tablet 5 mg PO BID Qty: 180 0RF trazodone 50 mg tablet 50 mg PO BEDTIME PRN (Reason: Insomnia) (DME) edmund [facility] [place] See Rx Instructions .Route Qty: 1 0RF Rx Instructions: As directed lidocaine 5 % adhesive patch,medicated 1 patch topical DAILY meloxicam 15 mg tablet 15 mg PO DAILY Referrals: Karina Lopez MD [Primary Care Provider] - (Upper lip infection) Interventions: ED Discharge Assessment Last Done: 05/01/24 21:33 Discharge Date/Time: 05/01/24 21:33 Print Language: Iranian
[2024-05-01 17:13] LABS: Hematocrit 37.2 % (42.0-52.0); Hemoglobin 11.3 g/dl (14.0-18.0); Mean Corpuscular HGB Conc 30.4 g/dl (31.0-36.0); Mean Corpuscular Hemoglobin 21.6 pg (27.0-33.0); Mean Corpuscular Volume 71.3 fL (80.0-98.0); Platelet Count 221 X10*3/uL (160-400); Red Blood Count 5.22 X10*6/uL (4.60-5.80); Red Cell Distribution Width 21.5 % (11.0-16.0)
[2024-05-01 17:16] LABS: WBC ABN SCTR FOR CBC 1; White Blood Count 6.3 X10*3/uL (4.8-10.8)
[2024-05-01 18:10] LABS: Alanine Aminotransferase 6 U/L (0-40); Albumin Level 3.5 g/dL (3.5-5.0); Alkaline Phosphatase 87 U/L (39-117); Anion Gap 13 (12-20); Aspartate Amino Transferase 8 U/L (5-37); Bilirubin Total 0.7 mg/dL (0.0-1.0); Blood Urea Nitrogen 8 mg/dL (9-16); Calcium 9.2 mg/dL (8.4-10.2); Carbon Dioxide 24 mmol/L (22-29); Chloride 103 mmol/L (96-108); Creatinine Clr Calc Pharmacy 203.6; Estimated Glomerular Filt Rate > 60; Glucose Random 93 mg/dL (60-115); Magnesium 1.8 mg/dL (1.6-2.6); Sodium 136 mmol/L (135-145)
[2024-05-01 18:25] LABS: Band Neutrophils Percent 0 % (3-5); Basophils Abs Manual 0.1 X10*3/uL (0.0-0.2); Basophils Percent Manual 1 % (0-2); Eosinophils Absolute Manual 0.1 X10*3/uL (0.0-0.4); Eosinophils Percent Manual 2 % (0-4); Lymphocytes Absolute Manual 1.9 X10*3/uL (1.2-4.9); Lymphocytes Percent Manual 30 % (20-40); Monocytes Absolute Manual 0.4 X10*3/uL (0.1-1.2); Monocytes Percent Manual 6 % (2-11); Neutrophils Absolute Manual 3.8 X10*3/uL (2.0-8.3); Neutrophils Percent Manual 61 % (45-73)
[2024-05-01 18:26] LABS: Platelet Estimate NORMAL (NORMAL); Platelet Morphology Comment NORMAL; RBC Morphology NORMAL; Toxic Vacuolation PRESENT
[2024-05-01 20:29] VITALS: BP 122/69; PULSE 99; RESP 20; TEMP 36.9; O2SAT 100
[2024-05-01] MEDS: Sulfamethox/Trimeth 800/160 TABLET 1 TAB PO (21:30)
[2024-05-01] MEDS: Amoxicillin/Potassium Clav 875 MG TABLET PO (21:30)
[2024-05-01 21:33] VITALS: BP 122/69; PULSE 99; RESP 20; TEMP 36.9; O2SAT 100
== END 2024-05-01 21:33 | disposition home or self-care (01) ==
PROVIDERS: Physician Assistant Medical; Emergency Provider Emergency Medicine; PCP Student in an Organized Health Care Education/Training Program
DX: K13.0 Diseases of lips (principal)
CPT/HCPCS: 36415; 80053; 83735; 85007; 85027; 99282; 99283

== ENCOUNTER 2024-05-28 16:37 | Emergency (ER) | payer MEDICAID, SELFPAY ==
--- NOTE | ~2024-05-28 | XR_ITS ---
EXAMINATION: XR ABDOMEN KUB CLINICAL INDICATION: Pain with question of bowel obstruction COMPARISON: None available. TECHNIQUE: AP view of the abdomen. FINDINGS: The bowel gas pattern is normal with no evidence of ileus or obstruction. No unusual soft tissue calcifications are noted. The bones are unremarkable. XR/XR KUB IMPRESSION: Unremarkable examination. Electronically signed by: Arben La MD 05/28/2024 08:06 PM [facility]
[2024-05-28 16:58] VITALS: BP 116/77; BP 142/78; PULSE 83; PULSE 85; RESP 20; TEMP 36.4; O2SAT 93; O2SAT 98; BMI 95.0
--- NOTE | 2024-05-28 17:02 | PC.NURSE ---
pt states he had gastric sleeve surgery in [place] on 03/11. The first several weeks after went well. He followed the diet, felt fine and has lost 250l as of a couple of days ago. # weeks ago he began having mild rUQ pain and contacted his doctor. He doctor advised him to go to the ER for an endoscopy. The pt went and waited in the ED for hours and ended up leaving without one. Yesterday and today he fell. No LOC, no HS. He was able to get himself up but his RUQ has gotten much worse (02/27). He was advised to come to the ER here by his PCP.
--- NOTE | 2024-05-28 17:17 | PC.NURSE ---
pt states that he has not been able to eat much or drink much for the past couple of weeks because every time he vomits. lips very dry
--- NOTE | 2024-05-28 17:56 | ECG_ITS ---
Test Reason : PAIN Blood Pressure : / mmHG Vent. Rate : 079 BPM Atrial Rate : 079 BPM P-R Int : 172 ms QRS Dur : 064 ms QT Int : 360 ms P-R-T Axes : 032 002 050 degrees QTc Int : 412 ms Normal sinus rhythm Anterior infarct , age undetermined Abnormal ECG When compared with ECG of 11-SEP-2023 05:42, Anterior infarct is now Present ST now depressed in Anterior leads Referred By: Edy Juarez Electronically Signed By:TONY GUERRERO MD
--- NOTE | 2024-05-28 18:20 | ED.GENADULT ---
HPI - General Adult General Chief complaint: Abdominal Pain Stated complaint: FELL FORWARD WEAK ABD PAIN -HEADSTRIKE - LOC Time Seen by Provider: 05/28/24 17:44 Source: patient, family, RN notes reviewed and old records reviewed Mode of arrival: EMS Limitations: no limitations History of Present Illness ED Provider: Ann HPI narrative: 29-year-old male with past medical history significant for morbid obesity with recent gastric sleeve in [place] on 03/11/2024 presenting for evaluation abdominal pain, nausea Patient reports he has not been able tolerate anything to heal with the last 10 days He reports right-sided abdominal pain since yesterday. He reports anything he tries to eat comes back up. Denies any fevers, chills He believes he still has his gallbladder and his appendix His pain is 02/27 Related Data Home Medications ?Medication ?Instructions ?Recorded ?Confirmed trazodone 50 mg tablet 50 mg PO BEDTIME PRN Insomnia 01/30/23 01/19/24 lidocaine 5 % topical patch 1 patch topical DAILY 07/10/23 01/19/24 meloxicam 15 mg tablet 15 mg PO DAILY 07/10/23 01/19/24 bupropion HCl 300 mg 24 hr tablet, 300 mg PO DAILY 09/11/23 01/19/24 extended release ferrous gluconate 324 mg (38 mg 324 mg PO TIDWM 09/11/23 01/19/24 iron) tablet omega-3 acid ethyl esters 1 gram 1 cap PO DAILY 09/11/23 01/19/24 capsule oxycodone-acetaminophen 5 mg-325 2 tab PO BID PRN Moderate Pain 09/11/23 01/19/24 mg tablet (Scale Score 5-6) albuterol sulfate 90 mcg/actuation 2 inh inhalation Q6H PRN Shortness 01/19/24 01/19/24 aerosol inhaler (Ventolin HFA) Of Breath ascorbic acid (vitamin C) 500 mg 500 mg PO DAILY 01/19/24 01/19/24 tablet aspirin 81 mg chewable tablet 1 tab PO DAILY 01/19/24 01/19/24 metoprolol tartrate 25 mg tablet 25 mg PO BID 01/19/24 01/19/24 semaglutide (weight loss) 0.25 0.25 mg subcut QWEEK 01/19/24 01/19/24 mg/0.5 mL subcutaneous pen injector (Wegovy) Previous Rx's ?Medication ?Instructions ?Recorded walker #1 ea 10/22/22 walker #1 ea 01/30/23 apixaban 5 mg tablet (Eliquis) 5 mg PO BID #180 tabs 01/21/24 amoxicillin 875 mg-potassium 1 tab PO BID #20 tabs 05/01/24 clavulanate 125 mg tablet sulfamethoxazole 800 1 tab PO BID #20 tabs 05/01/24 mg-trimethoprim 160 mg tablet (Bactrim DS) ondansetron 4 mg disintegrating 4 mg PO Q8H PRN nausea and 05/28/24 tablet vomiting #20 tabs Allergies Allergy/AdvReac Type Severity Reaction Status Date / Time No Known Allergies Allergy Verified 05/28/24 17:01 Review of Systems Constitutional: Constitutional: Denies body ache(s), Denies chills, Denies fever(s) and Denies headache(s) Eyes: Eyes: Denies blurry vision ENT: Denies dysphagia, Denies vertigo, Denies dizziness and Denies headache(s) Cardiovascular: Cardiovascular: Denies chest pain and Denies dyspnea Respiratory: Respiratory: Denies cough and Denies dyspnea Gastrointestinal: Gastrointestinal: Reports abdominal pain, Denies dysphagia, Reports nausea and Reports vomiting Musculoskeletal: Musculoskeletal: Denies back pain Integumentary/Breasts: Skin/Breast: Denies rash Neurologic: Denies vertigo, Denies dizziness and Denies headache(s) Psychiatric: Psychiatric: Denies anxiety [facility] Past Medical History Medical History (Updated 05/28/24 @ 21:42 by Edy Juarez) Stasis dermatitis of both legs Brain TIA Hypertension Hypercholesteremia Asthma Social History Social History Household Members: Family Housing: House Alcohol intake: current Alcohol intake frequency: holidays/special occasions only Patient Tobacco Use Status: Never used Tobacco Smoked in Last 30 Days: No Use of substances other than those prescribed or required for medical reasons: No Substance Use Type: Marijuana Advance Directives: No Advance Directives Information Provided: No service: No Physical Exam ED Vital Signs: Vital Signs - 24 hr 05/28/24 16:58 05/28/24 20:49 Temperature 97.6 F 97.8 F Pulse Rate 85 80 Respiratory Rate 20 20 Blood Pressure 116/77 122/63 Pulse Oximetry 98 100 Oxygen Delivery Method Room Air Room Air BMI result Body Mass Index 95.0 Const Other: Patient appears dry General: comfortable, no acute distress, alert and awake Nutritional Appearance: well nourished Orientation/consciousness: patient oriented x3 HENMT Head: Yes normocephalic and Yes atraumatic Eyes Eyelids: Yes eyelids normal Conjunctivae: conjunctivae normal Sclerae: sclerae normal Corneas: corneas normal Pupils: Equal, round and reactive pupils present EOM: EOMs intact bilaterally Neck Neck: Yes full ROM Resp Effort & Inspection: normal respiratory effort, able to speak in complete sentences and not labored Cardio Rate: regular rate Rhythm: regular rhythm GI Other: Abdominal exam limited secondary to body habitus Inspection: Yes obesity (Morbidly obese abdomen) Palpation (GI): Soft to palpation, not firm, Tenderness to palpation present (GI) in the RLQ and in the RUQ; not at McBurney's point, no guarding and not rigid Skin General skin exam: elasticity normal Neuro General: patient oriented x3 Cranial nerves: Yes Equal, round and reactive pupils present and Yes Bilaterally intact EOM present Cognition (Neuro): normal cognition Extrem Other: Moving all extremities well without any obvious deformities Course Reevaluation(s) Reevaluation #1: Patient's urinalysis does show 2+ bacteria, no nitrites and there is 1+ esterase, the patient is asymptomatic, possibly contamination, we will await culture prior to treating. Time: 22:28 Medications Administered Discontinued Medications Generic Name Dose Route Start Last Admin Trade Name Freq PRN Reason Stop Dose Admin Sodium Chloride 1,000 mls @ 999 mls/hr 05/28/24 18:00 05/28/24 20:43 Ns IV 05/28/24 19:00 Infused .Q1H1M GINA Infusion Morphine Sulfate 4 mg 05/28/24 17:54 05/28/24 19:19 Morphine Sulfate 4 Mg/Ml Cartridge IVPUSH 05/28/24 17:55 4 mg ONCE ONE Administration Protocol Ondansetron HCl 4 mg 05/28/24 17:54 05/28/24 19:19 Ondansetron Hcl 4 Mg/2 Ml Vial IVPUSH 05/28/24 17:55 4 mg ONCE ONE Administration Medical Decision Making Medical Decision Making MDM Narrative: 29-year-old male presents for evaluation of abdominal pain, nausea and vomiting. He had a recent gastric sleeve performed in [place]. The patient's weight today is 283.495kg. Unfortunately he would not fit on our CT scanner if this were necessary. At the moment I do not see any clear indication CT imaging. His pain may be related to complications of his gastric sleeve. He does appear quite comfortable though he appears dry. Plan for labs, IV fluids. I did order a KUB to attempt to evaluate for obstructive gas pattern. Differential Diagnosis Differential Diagnoses: The differential diagnosis associated with the presentation includes Abdominal pain Dehydration Hypovolemia Metabolic derangement Hypokalemia Bowel obstruction Obstipation Biliary disease less likely Lab Data 05/28/24 19:15 05/28/24 19:15 Labs: Lab Results 05/28/24 05/28/24 Range/Units 19:15 21:32 WBC 5.1 (4.8-10.8) X10*3/uL RBC 4.96 (4.60-5.80) X10*6/uL Hgb 11.2 L (14.0-18.0) g/dl Hct 36.5 L (42.0-52.0) % MCV 73.6 L (80.0-98.0) fL MCH 22.6 L (27.0-33.0) pg MCHC 30.7 L (31.0-36.0) g/dl RDW 20.2 H (11.0-16.0) % Plt Count 193 (160-400) X10*3/uL MPV Not Reportable Immature Gran % (Auto) 0.2 (0.0-0.4) % Neut % (Auto) 52.5 (45-73) % Lymph % (Auto) 35.4 (20-40) % Moody % (Auto) 10.1 (2-11) % Eos % (Auto) 1.0 (0-4) % Baso % (Auto) 0.8 (0-2) % Lymph # (Auto) 1.8 (1.2-4.9) X10*3/uL Moody # (Auto) 0.5 (0.1-1.2) X10*3/uL Eos # (Auto) 0.1 (0.0-0.4) X10*3/uL Baso # (Auto) 0.0 (0.0-0.2) X10*3/uL Abs Immat Gran (auto) 0.01 (0.00-0.03) X10*3/uL Absolute Neuts (auto) 2.7 (2.0-8.3) x10*3/uL Absolute Nucleated RBC 0.000 (0.0-0.012) X10*3/uL Nucleated RBC % (auto) 0.0 (0.0-0.2) /100WBC Sodium 140 (135-145) mmol/L Potassium 3.6 (3.3-5.1) mmol/L Chloride 103 (96-108) mmol/L Carbon Dioxide 26 (22-29) mmol/L Anion Gap 15 (12-20) BUN 9 (9-16) mg/dL Creatinine 1.26 (0.5-1.4) mg/dL Estim Creat Clear Calc 187.2 Estimated GFR > 60 Random Glucose 84 (60-115) mg/dL Calcium 9.5 (8.4-10.2) mg/dL Phosphorus 2.9 (2.7-4.5) mg/dL Magnesium 1.8 (1.6-2.6) mg/dL Total Bilirubin 0.6 (0.0-1.0) mg/dL AST 18 (5-37) U/L ALT 7 (0-40) U/L Alkaline Phosphatase 76 (39-117) U/L Total Protein 7.8 (6.5-8.0) g/dL Albumin 3.3 L (3.5-5.0) g/dL Lipase 9 (8-78) U/L Urine Color Dark Yellow Urine Appearance Cloudy Urine pH 5.5 (5.0-9.0) Ur Specific Wilson 1.020 (1.005-1.025) Urine Protein 30 (1+) H (Neg-Trace) mg/dL Urine Glucose (UA) Negative (Negative) mg/dL Urine Ketones Trace (Negative) mg/dL Urine Blood Negative (Negative) Urine Nitrite Negative (Negative) Ur Leukocyte Esterase Small (1+) H (Negative) Urine RBC 0-2 (0-2) /HPF Urine WBC 11-20 H (0-5) /HPF Ur Squamous Epith Cells 6-10 (0-2) /HPF Urine Bacteria 2+ (None Seen) Hyaline Casts 3-5 (0-2) /LPF Discharge Plan Discharge Clinical Impression: Abdominal pain, Vomiting Patient Disposition: Home, Self-Care Instructions: Acute Nausea and Vomiting (ED), Acute Abdominal Pain (ED) Additional Instructions: Your x-ray does not show any evidence of obstruction. Your blood work is reassuring. You may use Zofran as needed for nausea and vomiting. Call your surgeon to schedule follow-up Return for new or worsening symptoms Prescriptions: New ondansetron 4 mg tablet,disintegrating 4 mg PO Q8H PRN (Reason: nausea and vomiting) Qty: 20 0RF No Action (DME) edmund [facility] [place] See Rx Instructions .Route Qty: 1 0RF Rx Instructions: As directed bupropion HCl 300 mg tablet extended release 24 hr 300 mg PO DAILY omega-3 acid ethyl esters 1 gram capsule 1 cap PO DAILY ferrous gluconate 324 mg (38 mg iron) tablet 324 mg PO TIDWM oxycodone-acetaminophen 5-325 mg tablet 2 tab PO BID PRN (Reason: Moderate Pain (Scale Score 5-6)) ascorbic acid (vitamin C) 500 mg Tablet 500 mg PO DAILY aspirin 81 mg tablet,chewable 1 tab PO DAILY albuterol sulfate [Ventolin HFA] 90 mcg/actuation HFA aerosol inhaler 2 inh INHALATION Q6H PRN (Reason: Shortness Of Breath) metoprolol tartrate 25 mg tablet 25 mg PO BID Wegovy 0.25 mg/0.5 mL pen injector 0.25 mg subcut QWEEK Eliquis 5 mg tablet 5 mg PO BID Qty: 180 0RF amoxicillin-pot clavulanate 875-125 mg tablet 1 tab PO BID Qty: 20 0RF sulfamethoxazole-trimethoprim [Bactrim DS] 800-160 mg tablet 1 tab PO BID Qty: 20 0RF trazodone 50 mg tablet 50 mg PO BEDTIME PRN (Reason: Insomnia) (DME) edmund [facility] [place] See Rx Instructions .Route Qty: 1 0RF Rx Instructions: As directed lidocaine 5 % adhesive patch,medicated 1 patch topical DAILY meloxicam 15 mg tablet 15 mg PO DAILY Print Language: Turkish
[2024-05-28] MEDS: 0.9 % Sodium Chloride 1,000 ML 999 ML IV (19:16)
[2024-05-28] MEDS: Morphine Sulfate 4 MG/ML CARTRIDGE IVPUSH (19:19)
[2024-05-28] MEDS: ondansetron HCL 4 MG/2 ML VIAL IVPUSH (19:19)
[2024-05-28 19:22] LABS: MANUAL DIFF FLAG NO
[2024-05-28 19:24] LABS: Basophils Percent Auto 0.8 % (0-2); Eosinophils Absolute Auto 0.1 X10*3/uL (0.0-0.4); Hematocrit 36.5 % (42.0-52.0); Hemoglobin 11.2 g/dl (14.0-18.0); Imm Gran Abs Auto 0.01 X10*3/uL (0.00-0.03); Imm Gran Pct Auto 0.2 % (0.0-0.4); Lymphocytes Absolute Auto 1.8 X10*3/uL (1.2-4.9); Lymphocytes Percent Auto 35.4 % (20-40); Mean Corpuscular HGB Conc 30.7 g/dl (31.0-36.0); Mean Corpuscular Hemoglobin 22.6 pg (27.0-33.0); Mean Corpuscular Volume 73.6 fL (80.0-98.0); Monocytes Absolute Auto 0.5 X10*3/uL (0.1-1.2); Monocytes Percent Auto 10.1 % (2-11); Neutrophils Absolute Auto 2.7 x10*3/uL (2.0-8.3); Neutrophils Percent Auto 52.5 % (45-73); Platelet Count 193 X10*3/uL (160-400); Red Blood Count 4.96 X10*6/uL (4.60-5.80); Red Cell Distribution Width 20.2 % (11.0-16.0); White Blood Count 5.1 X10*3/uL (4.8-10.8)
[2024-05-28 19:35] LABS: Alanine Aminotransferase 7 U/L (0-40); Albumin Level 3.3 g/dL (3.5-5.0); Alkaline Phosphatase 76 U/L (39-117); Anion Gap 15 (12-20); Aspartate Amino Transferase 18 U/L (5-37); Bilirubin Total 0.6 mg/dL (0.0-1.0); Blood Urea Nitrogen 9 mg/dL (9-16); Calcium 9.5 mg/dL (8.4-10.2); Carbon Dioxide 26 mmol/L (22-29); Chloride 103 mmol/L (96-108); Creatinine Clr Calc Pharmacy 187.2; Estimated Glomerular Filt Rate > 60; Glucose Random 84 mg/dL (60-115); Lipase 9 U/L (8-78); Magnesium 1.8 mg/dL (1.6-2.6); Phosphorus 2.9 mg/dL (2.7-4.5); Potassium 3.6 mmol/L (3.3-5.1); Sodium 140 mmol/L (135-145); Total Protein 7.8 g/dL (6.5-8.0)
[2024-05-28 20:49] VITALS: BP 122/63; PULSE 80; RESP 20; TEMP 36.6; O2SAT 100
[2024-05-28 21:39] LABS: Appearance Urine Cloudy; Color Urine Dark Yellow; Glucose Urine UA Negative (Negative); Leukocyte Esterase Urine Small (1+) (Negative); Nitrite Urine Negative (Negative); PH 5.5 (5.0-9.0); UMIC TRIGGER UACC YES; Urine Blood Negative (Negative); Urine Ketones Trace mg/dL (Negative); Urine Protein 30 (1+) mg/dL (Neg-Trace)
[2024-05-28 21:44] LABS: Bacteria Urine 2+ (None Seen); RBC Urine 0-2 /HPF (0-2); UACC Culture Trigger YES
[2024-05-28 22:41] VITALS: BP 122/63; PULSE 80; RESP 20; TEMP 36.6; O2SAT 100
== END 2024-05-28 22:43 | disposition home or self-care (01) ==
PROVIDERS: Physician Assistant; Emergency Provider Emergency Medicine; PCP Student in an Organized Health Care Education/Training Program
DX: R10.9 Unspecified abdominal pain (principal); R11.2 Nausea with vomiting, unspecified; E78.00 Pure hypercholesterolemia, unspecified; I10 Essential (primary) hypertension; Z86.73 Personal history of transient ischemic attack (TIA), and cerebral infarction without residual deficits; Z79.82 Long term (current) use of aspirin; Z79.899 Other long term (current) drug therapy
CPT/HCPCS: 36415; 74018; 80053; 81001; 83690; 83735; 84100; 85025; 87086; 87088; 87186; 93005; 96361; 96374; 96375; 99284; J2270; J2405

== ENCOUNTER → 2024-05-28 17:56 | Outpatient (BNV) | payer MEDICAID, SELFPAY | PROVIDERS: Emergency Provider Emergency Medicine; PCP Student in an Organized Health Care Education/Training Program; Visit Provider Internal Medicine Cardiovascular Disease | DX: R94.31 Abnormal electrocardiogram [ECG] [EKG] (principal) | CPT/HCPCS: 93010 ==

== ENCOUNTER 2024-06-15 13:21 | Emergency (ER) | payer MEDICAID, SELFPAY ==
[2024-06-15 13:28] VITALS: BP 151/101; PULSE 107; RESP 20; TEMP 37; O2SAT 96; BMI 97.6
--- NOTE | 2024-06-15 13:34 | ED_ITS ---
HPI - General Adult General Chief complaint: Nausea/Vomiting/Diarrhea Stated complaint: Vomiting Related Data Home Medications ?Medication ?Instructions ?Recorded ?Confirmed trazodone 50 mg tablet 50 mg PO BEDTIME PRN Insomnia 01/30/23 01/19/24 lidocaine 5 % topical patch 1 patch topical DAILY 07/10/23 01/19/24 meloxicam 15 mg tablet 15 mg PO DAILY 07/10/23 01/19/24 bupropion HCl 300 mg 24 hr tablet, 300 mg PO DAILY 09/11/23 01/19/24 extended release ferrous gluconate 324 mg (38 mg 324 mg PO TIDWM 09/11/23 01/19/24 iron) tablet omega-3 acid ethyl esters 1 gram 1 cap PO DAILY 09/11/23 01/19/24 capsule oxycodone-acetaminophen 5 mg-325 2 tab PO BID PRN Moderate Pain 09/11/23 01/19/24 mg tablet (Scale Score 5-6) albuterol sulfate 90 mcg/actuation 2 inh inhalation Q6H PRN Shortness 01/19/24 01/19/24 aerosol inhaler (Ventolin HFA) Of Breath ascorbic acid (vitamin C) 500 mg 500 mg PO DAILY 01/19/24 01/19/24 tablet aspirin 81 mg chewable tablet 1 tab PO DAILY 01/19/24 01/19/24 metoprolol tartrate 25 mg tablet 25 mg PO BID 01/19/24 01/19/24 semaglutide (weight loss) 0.25 0.25 mg subcut QWEEK 01/19/24 01/19/24 mg/0.5 mL subcutaneous pen injector (Arengojhoanay) Previous Rx's ?Medication ?Instructions ?Recorded walker #1 ea 10/22/22 walker #1 ea 01/30/23 apixaban 5 mg tablet (Eliquis) 5 mg PO BID #180 tabs 01/21/24 amoxicillin 875 mg-potassium 1 tab PO BID #20 tabs 05/01/24 clavulanate 125 mg tablet sulfamethoxazole 800 1 tab PO BID #20 tabs 05/01/24 mg-trimethoprim 160 mg tablet (Bactrim DS) ondansetron 4 mg disintegrating 4 mg PO Q8H PRN nausea and 05/28/24 tablet vomiting #20 tabs Allergies Allergy/AdvReac Type Severity Reaction Status Date / Time No Known Allergies Allergy Verified 06/15/24 13:34 [facility] Past Medical History Medical History (Updated 06/17/24 @ 12:04 by Moni Dennis NP) Stasis dermatitis of both legs Brain TIA Hypertension Hypercholesteremia Asthma Social History Social History Household Members: Family Housing: House Alcohol intake: current Alcohol intake frequency: holidays/special occasions only Patient Tobacco Use Status: Never used Tobacco Substance Use Type: Marijuana Advance Directives: No Advance Directives Information Provided: No service: No Physical Exam ED Vital Signs: Vital Signs - 24 hr 06/15/24 13:28 06/15/24 16:57 Temperature 98.6 F 97.6 F Pulse Rate 107 H 105 H Respiratory Rate 20 16 Blood Pressure 151/101 H 155/106 H Pulse Oximetry 96 99 Oxygen Delivery Method Room Air Room Air BMI result Body Mass Index 97.6 Course Course Course Narrative: This is a rapid medical exam performed by Delia Dennis NP: Additional HPI, ROS, PE not included below will be deferred to primary provider. Patient is a 29-year-old male with history of gastric bypass on 05/12 in [place] presenting with complaint of nausea, vomiting, lightheadedness. States was prescribed antibiotics here recently for a UTI, but has not been able to tolerate them. Plan: labs, UA, will likely need CT but may need transfer due to weight limit of scanner *Nurse from PCP office called, would like primary provider to contact bariatric surgeon, Dr. Weeks, at [facility] in [place] to discuss plan. They note that they advised patient to go there for evaluation for continuity of care. 18:06 Patient now stating he is leaving to go to [facility] for evaluation as recommended by PCP. Medical Decision Making Lab Data 06/15/24 14:00 06/15/24 14:00 Labs: Lab Results 06/15/24 Range/Units 14:00 WBC 6.7 (4.8-10.8) X10*3/uL RBC 5.62 (4.60-5.80) X10*6/uL Hgb 12.9 L (14.0-18.0) g/dl Hct 41.4 L (42.0-52.0) % MCV 73.7 L (80.0-98.0) fL MCH 23.0 L (27.0-33.0) pg MCHC 31.2 (31.0-36.0) g/dl RDW 19.3 H (11.0-16.0) % Plt Count 188 (160-400) X10*3/uL MPV TNP Immature Gran % (Auto) Cancelled Neut % (Auto) Cancelled Lymph % (Auto) Cancelled [place] % (Auto) Cancelled Eos % (Auto) Cancelled Baso % (Auto) Cancelled Lymph # (Auto) Cancelled [place] # (Auto) Cancelled Eos # (Auto) Cancelled Baso # (Auto) Cancelled Abs Immat Gran (auto) Cancelled Absolute Neuts (auto) Cancelled Absolute Nucleated RBC 0.000 (0.0-0.012) X10*3/uL Nucleated RBC % (auto) 0.0 (0.0-0.2) /100WBC Neutrophils % (Manual) 63 (45-73) % Band Neutrophils % 0 L (3-5) % Lymphocytes % (Manual) 32 (20-40) % Monocytes % (Manual) 4 (2-11) % Eosinophils % (Manual) 1 (0-4) % Abs Neuts (Manual) 4.2 (2.0-8.3) X10*3/uL Lymphocytes # (Manual) 2.1 (1.2-4.9) X10*3/uL Monocytes # (Manual) 0.3 (0.1-1.2) X10*3/uL Eosinophils # (Manual) 0.1 (0.0-0.4) X10*3/uL Platelet Estimate NORMAL (NORMAL) Large Platelets PRESENT Plt Morphology Comment NOTED RBC Morphology NOTED Hypochromasia 1+ (5-14) /OIF Sodium 137 (135-145) mmol/L Potassium 3.5 (3.3-5.1) mmol/L Chloride 102 (96-108) mmol/L Carbon Dioxide 24 (22-29) mmol/L Anion Gap 15 (12-20) BUN 8 L (9-16) mg/dL Creatinine 1.17 (0.5-1.4) mg/dL Estim Creat Clear Calc 193.2 Estimated GFR > 60 Random Glucose 96 (60-115) mg/dL Calcium 9.7 (8.4-10.2) mg/dL Magnesium 1.8 (1.6-2.6) mg/dL Total Bilirubin 0.7 (0.0-1.0) mg/dL AST 18 (5-37) U/L ALT 12 (0-40) U/L Alkaline Phosphatase 79 (39-117) U/L Total Protein 8.3 H (6.5-8.0) g/dL Albumin 3.6 (3.5-5.0) g/dL Amylase 35 (28-100) U/L Lipase 9 (8-78) U/L Discharge Plan Discharge Clinical Impression: Nausea & vomiting Patient Disposition: Left W/O Completing Treatment Prescriptions: No Action (DME) edmund Forbes See Rx Instructions .Route Qty: 1 0RF Rx Instructions: As directed bupropion HCl 300 mg tablet extended release 24 hr 300 mg PO DAILY omega-3 acid ethyl esters 1 gram capsule 1 cap PO DAILY ferrous gluconate 324 mg (38 mg iron) tablet 324 mg PO TIDWM oxycodone-acetaminophen 5-325 mg tablet 2 tab PO BID PRN (Reason: Moderate Pain (Scale Score 5-6)) ascorbic acid (vitamin C) 500 mg Tablet 500 mg PO DAILY aspirin 81 mg tablet,chewable 1 tab PO DAILY albuterol sulfate [Ventolin HFA] 90 mcg/actuation HFA aerosol inhaler 2 inh INHALATION Q6H PRN (Reason: Shortness Of Breath) metoprolol tartrate 25 mg tablet 25 mg PO BID Wegovy 0.25 mg/0.5 mL pen injector 0.25 mg subcut QWEEK Eliquis 5 mg tablet 5 mg PO BID Qty: 180 0RF amoxicillin-pot clavulanate 875-125 mg tablet 1 tab PO BID Qty: 20 0RF sulfamethoxazole-trimethoprim [Bactrim DS] 800-160 mg tablet 1 tab PO BID Qty: 20 0RF ondansetron 4 mg tablet,disintegrating 4 mg PO Q8H PRN (Reason: nausea and vomiting) Qty: 20 0RF trazodone 50 mg tablet 50 mg PO BEDTIME PRN (Reason: Insomnia) (DME) edmund Forbes See Rx Instructions .Route Qty: 1 0RF Rx Instructions: As directed lidocaine 5 % adhesive patch,medicated 1 patch topical DAILY meloxicam 15 mg tablet 15 mg PO DAILY Discharge Date/Time: 06/15/24 19:06
[2024-06-15 14:12] LABS: Hematocrit 41.4 % (42.0-52.0); Hemoglobin 12.9 g/dl (14.0-18.0); Mean Corpuscular HGB Conc 31.2 g/dl (31.0-36.0); Mean Corpuscular Volume 73.7 fL (80.0-98.0); Platelet Count 188 X10*3/uL (160-400); Red Blood Count 5.62 X10*6/uL (4.60-5.80); Red Cell Distribution Width 19.3 % (11.0-16.0)
[2024-06-15 14:13] LABS: WBC ABN SCTR FOR CBC 1
[2024-06-15 14:29] LABS: Anion Gap 15 (12-20); Carbon Dioxide 24 mmol/L (22-29); Chloride 102 mmol/L (96-108); Potassium 3.5 mmol/L (3.3-5.1); Sodium 137 mmol/L (135-145)
[2024-06-15 14:31] LABS: Alanine Aminotransferase 12 U/L (0-40); Albumin Level 3.6 g/dL (3.5-5.0); Alkaline Phosphatase 79 U/L (39-117); Amylase 35 U/L (28-100); Aspartate Amino Transferase 18 U/L (5-37); Bilirubin Total 0.7 mg/dL (0.0-1.0); Blood Urea Nitrogen 8 mg/dL (9-16); Calcium 9.7 mg/dL (8.4-10.2); Creatinine Clr Calc Pharmacy 193.2; Eosinophils Percent Manual 1 % (0-4); Estimated Glomerular Filt Rate > 60; Glucose Random 96 mg/dL (60-115); Lipase 9 U/L (8-78); Lymphocytes Percent Manual 32 % (20-40); Magnesium 1.8 mg/dL (1.6-2.6); Monocytes Percent Manual 4 % (2-11); Neutrophils Percent Manual 63 % (45-73); Total Protein 8.3 g/dL (6.5-8.0)
[2024-06-15 14:32] LABS: Band Neutrophils Percent 0 % (3-5)
[2024-06-15 14:33] LABS: RBC Morphology NOTED
[2024-06-15 14:35] LABS: Eosinophils Absolute Manual 0.1 X10*3/uL (0.0-0.4); Hypochromasia 1+ (5-14) /OIF; Large Platelet PRESENT; Lymphocytes Absolute Manual 2.1 X10*3/uL (1.2-4.9); Monocytes Absolute Manual 0.3 X10*3/uL (0.1-1.2); Neutrophils Absolute Manual 4.2 X10*3/uL (2.0-8.3); Platelet Estimate NORMAL (NORMAL); Platelet Morphology Comment NOTED; White Blood Count 6.7 X10*3/uL (4.8-10.8)
[2024-06-15 16:57] VITALS: BP 155/106; PULSE 105; RESP 16; TEMP 36.4; O2SAT 99
== END 2024-06-15 19:06 | disposition left against medical advice (07) ==
LOC: HO.ED 19:04
PROVIDERS: Registered Nurse Emergency; Emergency Provider Internal Medicine; PCP Student in an Organized Health Care Education/Training Program
DX: R11.2 Nausea with vomiting, unspecified (principal); Z79.899 Other long term (current) drug therapy
CPT/HCPCS: 36415; 80053; 82150; 83690; 83735; 85007; 85027; 99281; 99283

== ENCOUNTER 2024-06-20 21:28 | Emergency (ER) | payer MEDICAID, SELFPAY ==
--- NOTE | 2024-06-20 | ECG_ITS ---
Test Reason : DIZZINESS Blood Pressure : / mmHG Vent. Rate : 090 BPM Atrial Rate : 090 BPM P-R Int : 156 ms QRS Dur : 094 ms QT Int : 382 ms P-R-T Axes : 068 009 062 degrees QTc Int : 467 ms Normal sinus rhythm Normal ECG When compared with ECG of 28-MAY-2024 18:18, Criteria for Anterior infarct are no longer Present ST no longer depressed in Anterior leads QT has lengthened Referred By: Generic ED Physician Electronically Signed By:Santhosh Kearney
[2024-06-20 21:34] VITALS: BP 136/90; PULSE 99; O2SAT 97
[2024-06-20 21:41] VITALS: BP 139/86; PULSE 89; RESP 20; TEMP 36.5; O2SAT 98; BMI 91.2
--- NOTE | 2024-06-20 22:43 | MHC.EDTECH ---
Pt will only let you draw labs from hands. 2 ED techs attempted to find veins and were unsuccessful. Pt refusing to take off his jacket to allow us to look at his arms. RN aware
[2024-06-20 23:13] LABS: MANUAL DIFF FLAG NO
--- NOTE | 2024-06-20 23:14 | ED.GENADULT ---
HPI - General Adult General Chief complaint: Fall Stated complaint: ABD PAIN Time Seen by Provider: 06/20/24 22:43 Source: patient Mode of arrival: EMS Limitations: no limitations History of Present Illness ED Provider: HPI narrative: Patient is status post gastric sleeve surgery in 03/11/24 claims that not able to drink or eat anything for last 3 weeks was here on 06/15, 05/28 for the same reason with stable labs patient has been vomiting after every p.o. fluids taking Zofran sublingually without much response Related Data Home Medications ?Medication ?Instructions ?Recorded ?Confirmed trazodone 50 mg tablet 50 mg PO BEDTIME PRN Insomnia 01/30/23 01/19/24 lidocaine 5 % topical patch 1 patch topical DAILY 07/10/23 01/19/24 meloxicam 15 mg tablet 15 mg PO DAILY 07/10/23 01/19/24 bupropion HCl 300 mg 24 hr tablet, 300 mg PO DAILY 09/11/23 01/19/24 extended release ferrous gluconate 324 mg (38 mg 324 mg PO TIDWM 09/11/23 01/19/24 iron) tablet omega-3 acid ethyl esters 1 gram 1 cap PO DAILY 09/11/23 01/19/24 capsule oxycodone-acetaminophen 5 mg-325 2 tab PO BID PRN Moderate Pain 09/11/23 01/19/24 mg tablet (Scale Score 5-6) albuterol sulfate 90 mcg/actuation 2 inh inhalation Q6H PRN Shortness 01/19/24 01/19/24 aerosol inhaler (Ventolin HFA) Of Breath ascorbic acid (vitamin C) 500 mg 500 mg PO DAILY 01/19/24 01/19/24 tablet aspirin 81 mg chewable tablet 1 tab PO DAILY 01/19/24 01/19/24 metoprolol tartrate 25 mg tablet 25 mg PO BID 01/19/24 01/19/24 semaglutide (weight loss) 0.25 0.25 mg subcut QWEEK 01/19/24 01/19/24 mg/0.5 mL subcutaneous pen injector (Wegovy) Previous Rx's ?Medication ?Instructions ?Recorded walker #1 ea 10/22/22 walker #1 ea 01/30/23 apixaban 5 mg tablet (Eliquis) 5 mg PO BID #180 tabs 01/21/24 amoxicillin 875 mg-potassium 1 tab PO BID #20 tabs 05/01/24 clavulanate 125 mg tablet sulfamethoxazole 800 1 tab PO BID #20 tabs 05/01/24 mg-trimethoprim 160 mg tablet (Bactrim DS) ondansetron 4 mg disintegrating 4 mg PO Q8H PRN nausea and 05/28/24 tablet vomiting #20 tabs Allergies Allergy/AdvReac Type Severity Reaction Status Date / Time No Known Allergies Allergy Verified 06/20/24 21:43 Review of Systems Review of Systems: Yes all other systems are reviewed and are negative [facility] Past Medical History Medical History Stasis dermatitis of both legs Brain TIA Hypertension Hypercholesteremia Asthma Surgical History (Updated 06/20/24 @ 23:28 by Valdez Crook MD) S/P gastric sleeve procedure Social History Social History Household Members: Family Housing: House Alcohol intake: current Alcohol intake frequency: holidays/special occasions only Patient Tobacco Use Status: Never used Tobacco Smoked in Last 30 Days: No Use of substances other than those prescribed or required for medical reasons: Yes Substance Use Type: Marijuana Substance Use Frequency: Occasionally service: No Physical Exam ED Vital Signs: Vital Signs - 24 hr 06/20/24 21:41 Temperature 97.7 F Pulse Rate 89 Respiratory Rate 20 Blood Pressure 139/86 Pulse Oximetry 98 Oxygen Delivery Method Room Air BMI result Body Mass Index 91.2 Appearance: Alert. Oriented X3. No acute distress. Morbid obese Eyes: PERRLA, No Nystagmus ENT: Pharynx normal. Oral Mucosa moist Neck: Normal inspection. Neck supple. CVS: Normal heart rate and rhythm. Pulses normal. Respiratory: No respiratory distress. Equal air entry bilateral, no wheezing/rales/rhonchi Abdomen: Soft and nontender. Bowel sounds are present, no mass palpable, no CVA tenderness Skin: Skin warm and dry. Normal skin color. Normal skin turgor. Extremities: No lower extremity edema. No calf tenderness Neuro: Oriented X 3. No motor deficit. No sensory deficit.No cerebellar signs , cranial nerves II-XII intact Medical Decision Making Medical Decision Making MDM Narrative: Patient is status post gastric sleeve surgery vomiting refused to get IV fluids will give IM Compazine does not want to wait for the labs to come back signed against medical advice Lab Data 06/20/24 23:08 06/20/24 23:08 Labs: Lab Results 06/20/24 Range/Units 23:08 WBC 5.7 (4.8-10.8) X10*3/uL RBC 5.34 (4.60-5.80) X10*6/uL Hgb 12.4 L (14.0-18.0) g/dl Hct 39.5 L (42.0-52.0) % MCV 74.0 L (80.0-98.0) fL MCH 23.2 L (27.0-33.0) pg MCHC 31.4 (31.0-36.0) g/dl RDW 19.0 H (11.0-16.0) % Plt Count 176 (160-400) X10*3/uL MPV Not Reportable Immature Gran % (Auto) 0.2 (0.0-0.4) % Neut % (Auto) 58.7 (45-73) % Lymph % (Auto) 29.1 (20-40) % [place] % (Auto) 10.7 (2-11) % Eos % (Auto) 0.9 (0-4) % Baso % (Auto) 0.4 (0-2) % Lymph # (Auto) 1.7 (1.2-4.9) X10*3/uL [place] # (Auto) 0.6 (0.1-1.2) X10*3/uL Eos # (Auto) 0.1 (0.0-0.4) X10*3/uL Baso # (Auto) 0.0 (0.0-0.2) X10*3/uL Abs Immat Gran (auto) 0.01 (0.00-0.03) X10*3/uL Absolute Neuts (auto) 3.4 (2.0-8.3) x10*3/uL Absolute Nucleated RBC 0.000 (0.0-0.012) X10*3/uL Nucleated RBC % (auto) 0.0 (0.0-0.2) /100WBC Discharge Plan Discharge Clinical Impression: Vomiting Patient Disposition: Left Against Medical Advice Additional Instructions: Follow up with your bariatric surgeon Drink plenty of fluids Prescriptions: No Action (DME) edmund Forbes See Rx Instructions .Route Qty: 1 0RF Rx Instructions: As directed bupropion HCl 300 mg tablet extended release 24 hr 300 mg PO DAILY omega-3 acid ethyl esters 1 gram capsule 1 cap PO DAILY ferrous gluconate 324 mg (38 mg iron) tablet 324 mg PO TIDWM oxycodone-acetaminophen 5-325 mg tablet 2 tab PO BID PRN (Reason: Moderate Pain (Scale Score 5-6)) ascorbic acid (vitamin C) 500 mg Tablet 500 mg PO DAILY aspirin 81 mg tablet,chewable 1 tab PO DAILY albuterol sulfate [Ventolin HFA] 90 mcg/actuation HFA aerosol inhaler 2 inh INHALATION Q6H PRN (Reason: Shortness Of Breath) metoprolol tartrate 25 mg tablet 25 mg PO BID Wegovy 0.25 mg/0.5 mL pen injector 0.25 mg subcut QWEEK Eliquis 5 mg tablet 5 mg PO BID Qty: 180 0RF amoxicillin-pot clavulanate 875-125 mg tablet 1 tab PO BID Qty: 20 0RF sulfamethoxazole-trimethoprim [Bactrim DS] 800-160 mg tablet 1 tab PO BID Qty: 20 0RF ondansetron 4 mg tablet,disintegrating 4 mg PO Q8H PRN (Reason: nausea and vomiting) Qty: 20 0RF trazodone 50 mg tablet 50 mg PO BEDTIME PRN (Reason: Insomnia) (DME) edmund Forbes See Rx Instructions .Route Qty: 1 0RF Rx Instructions: As directed lidocaine 5 % adhesive patch,medicated 1 patch topical DAILY meloxicam 15 mg tablet 15 mg PO DAILY Stand Alone Forms: Against Medical Advice Print Language: Maltese
[2024-06-20 23:15] LABS: Basophils Percent Auto 0.4 % (0-2); Eosinophils Absolute Auto 0.1 X10*3/uL (0.0-0.4); Eosinophils Percent Auto 0.9 % (0-4); Hematocrit 39.5 % (42.0-52.0); Hemoglobin 12.4 g/dl (14.0-18.0); Imm Gran Abs Auto 0.01 X10*3/uL (0.00-0.03); Imm Gran Pct Auto 0.2 % (0.0-0.4); Lymphocytes Absolute Auto 1.7 X10*3/uL (1.2-4.9); Lymphocytes Percent Auto 29.1 % (20-40); Mean Corpuscular HGB Conc 31.4 g/dl (31.0-36.0); Mean Corpuscular Hemoglobin 23.2 pg (27.0-33.0); Monocytes Absolute Auto 0.6 X10*3/uL (0.1-1.2); Monocytes Percent Auto 10.7 % (2-11); Neutrophils Absolute Auto 3.4 x10*3/uL (2.0-8.3); Neutrophils Percent Auto 58.7 % (45-73); Platelet Count 176 X10*3/uL (160-400); Red Blood Count 5.34 X10*6/uL (4.60-5.80); White Blood Count 5.7 X10*3/uL (4.8-10.8)
--- NOTE | 2024-06-20 23:35 | PC.NURSE ---
po trial, pt vomited right away. aware. pt refusing IV and IVF
[2024-06-20 23:37] LABS: Troponin-I High Sensitivity 2.9 ng/L (<3.5-35.0)
[2024-06-20 23:42] LABS: Alanine Aminotransferase 9 U/L (0-40); Albumin Level 3.1 g/dL (3.5-5.0); Alkaline Phosphatase 70 U/L (39-117); Anion Gap 15 (12-20); Aspartate Amino Transferase 19 U/L (5-37); Bilirubin Total 0.7 mg/dL (0.0-1.0); Blood Urea Nitrogen 7 mg/dL (9-16); Carbon Dioxide 25 mmol/L (22-29); Chloride 103 mmol/L (96-108); Estimated Glomerular Filt Rate > 60; Glucose Random 84 mg/dL (60-115); Lipase 9 U/L (8-78); Magnesium 1.7 mg/dL (1.6-2.6); Potassium 3.9 mmol/L (3.3-5.1); Sodium 139 mmol/L (135-145); Total Protein 7.5 g/dL (6.5-8.0)
[2024-06-20] MEDS: Prochlorperazine Edisylate 10 MG/2 ML VIAL IM (23:45)
[2024-06-20 23:58] VITALS: BP 141/91; PULSE 109; RESP 20; TEMP 36.9; O2SAT 98
== END 2024-06-21 00:15 | disposition left against medical advice (07) ==
PROVIDERS: Emergency Provider Internal Medicine
DX: R10.2 Pelvic and perineal pain (principal); R11.10 Vomiting, unspecified; R42 Dizziness and giddiness; R94.31 Abnormal electrocardiogram [ECG] [EKG]; Z98.84 Bariatric surgery status; Z79.899 Other long term (current) drug therapy
CPT/HCPCS: 36415; 80053; 83690; 83735; 84484; 85025; 93005; 96372; 99284; J0737

== ENCOUNTER → 2024-06-20 22:12 | Outpatient (BNV) | payer MEDICAID, SELFPAY | PROVIDERS: Emergency Provider Internal Medicine; Visit Provider Internal Medicine Cardiovascular Disease | DX: R42 Dizziness and giddiness (principal) | CPT/HCPCS: 93010 ==

== ENCOUNTER 2024-08-19 12:54 | Emergency (ER) | payer MEDICAID, SELFPAY ==
--- NOTE | ~2024-08-19 | XR_ITS ---
EXAMINATION: XR ANKLE 3 OR MORE VIEWS RIGHT, XR FOOT 3 OR MORE VIEWS RIGHT HISTORY: pain COMPARISON: Comparison is made with the prior examination of the right ankle dated 01/29/2023. FINDINGS: Four portable views of the right foot and ankle are submitted. Osseous mineralization is normal. There is no fracture or dislocation. The joint spaces are preserved. The soft tissues are unremarkable. XR/XR ankle RT min 3V IMPRESSION: No evidence of fracture of the right foot or ankle. Electronically signed by: Omar Hammond MD 08/19/2024 02:54 PM TANA
--- NOTE | ~2024-08-19 | XR_ITS ---
EXAMINATION: XR KNEE 3 VIEWS RIGHT, XR KNEE 3 VIEWS LEFT HISTORY: pain s/p fall COMPARISON: Comparison is made with the prior examination dated 07/16/2023. FINDINGS: Five portable views of the bilateral knees are submitted. Osseous mineralization is normal. There is no fracture or dislocation. There is narrowing of the medial compartments of both knees. The soft tissues are unremarkable. There is no joint effusion. XR/XR knee LT 3V IMPRESSION: Narrowing of the medial compartments of both knees. No evidence of fracture. Electronically signed by: Omar Hammond MD 08/19/2024 02:56 PM EST
--- NOTE | ~2024-08-19 | XR_ITS ---
EXAMINATION: XR KNEE 3 VIEWS RIGHT, XR KNEE 3 VIEWS LEFT HISTORY: pain s/p fall COMPARISON: Comparison is made with the prior examination dated 07/16/2023. FINDINGS: Five portable views of the bilateral knees are submitted. Osseous mineralization is normal. There is no fracture or dislocation. There is narrowing of the medial compartments of both knees. The soft tissues are unremarkable. There is no joint effusion. XR/XR knee RT 3V IMPRESSION: Narrowing of the medial compartments of both knees. No evidence of fracture. Electronically signed by: Omar Hammond MD 08/19/2024 02:56 PM EST
--- NOTE | ~2024-08-19 | XR_ITS ---
EXAMINATION: XR ANKLE 3 OR MORE VIEWS RIGHT, XR FOOT 3 OR MORE VIEWS RIGHT HISTORY: pain COMPARISON: Comparison is made with the prior examination of the right ankle dated 01/29/2023. FINDINGS: Four portable views of the right foot and ankle are submitted. Osseous mineralization is normal. There is no fracture or dislocation. The joint spaces are preserved. The soft tissues are unremarkable. XR/XR foot RT min 3V IMPRESSION: No evidence of fracture of the right foot or ankle. Electronically signed by: Omar Hammond MD 08/19/2024 02:54 PM TANA
[2024-08-19 13:17] VITALS: BP 142/88; BP 143/85; PULSE 89; PULSE 96; RESP 18; TEMP 36.3; O2SAT 98; BMI 113.0
--- NOTE | 2024-08-19 13:22 | ED_ITS ---
HPI - General Adult General Chief complaint: Fall Stated complaint: 800 pounds, knee numbness s/p fall Time Seen by Provider: 08/19/24 13:22 Source: patient and RN notes reviewed Mode of arrival: ambulatory Limitations: no limitations History of Present Illness ED Provider: Aubree Dueñas PA-C HPI narrative: This is a [id number]-jgs-male, with a hx of TIA, HTN, HLD, asthma, who presents to the ER with complaints of bilateral knee pain status post mechanical fall which occurred today. Patient states that while he was using his walker, he felt pain in his bilateral feet, which caused him to have buckling in his knees, and he landed onto his knees directly. He was on the ground for approximately 15 minutes. He denies hitting his head or LOC. No chest pain or shortness of breath prior to the fall. He states he has been able to weightbear on his legs without difficulty since the fall. Denies any back pain. Denies any saddle anesthesia. MD complaint: Bilateral feet pain, knee pain, fall Location: lower extremity Radiation: non-radiation Relieving factors: none Exacerbating factors: none Associated symptoms: denies other symptoms Treatments prior to arrival: none Related Data Home Medications ?Medication ?Instructions ?Recorded ?Confirmed trazodone 50 mg tablet 50 mg PO BEDTIME PRN Insomnia 01/30/23 01/19/24 lidocaine 5 % topical patch 1 patch topical DAILY 07/10/23 01/19/24 meloxicam 15 mg tablet 15 mg PO DAILY 07/10/23 01/19/24 bupropion HCl 300 mg 24 hr tablet, 300 mg PO DAILY 09/11/23 01/19/24 extended release ferrous gluconate 324 mg (38 mg 324 mg PO TIDWM 09/11/23 01/19/24 iron) tablet omega-3 acid ethyl esters 1 gram 1 cap PO DAILY 09/11/23 01/19/24 capsule oxycodone-acetaminophen 5 mg-325 2 tab PO BID PRN Moderate Pain 09/11/23 01/19/24 mg tablet (Scale Score 5-6) albuterol sulfate 90 mcg/actuation 2 inh inhalation Q6H PRN Shortness 01/19/24 01/19/24 aerosol inhaler (Ventolin HFA) Of Breath ascorbic acid (vitamin C) 500 mg 500 mg PO DAILY 01/19/24 01/19/24 tablet aspirin 81 mg chewable tablet 1 tab PO DAILY 01/19/24 01/19/24 metoprolol tartrate 25 mg tablet 25 mg PO BID 01/19/24 01/19/24 semaglutide (weight loss) 0.25 0.25 mg subcut QWEEK 01/19/24 01/19/24 mg/0.5 mL subcutaneous pen injector ([place]) Previous Rx's ?Medication ?Instructions ?Recorded walker #1 ea 10/22/22 walker #1 ea 01/30/23 apixaban 5 mg tablet (Eliquis) 5 mg PO BID #180 tabs 01/21/24 amoxicillin 875 mg-potassium 1 tab PO BID #20 tabs 05/01/24 clavulanate 125 mg tablet sulfamethoxazole 800 1 tab PO BID #20 tabs 05/01/24 mg-trimethoprim 160 mg tablet (Bactrim DS) ondansetron 4 mg disintegrating 4 mg PO Q8H PRN nausea and 05/28/24 tablet vomiting #20 tabs Allergies Allergy/AdvReac Type Severity Reaction Status Date / Time No Known Allergies Allergy Verified 08/19/24 13:19 Review of Systems Review of Systems: Yes all other systems are reviewed and are negative Constitutional: Constitutional: Reports as per [facility] Past Medical History Medical History (Updated 08/19/24 @ 15:30 by YIN Chi) Stasis dermatitis of both legs Brain TIA Hypertension Hypercholesteremia Asthma Surgical History (Updated 06/20/24 @ 23:28 by Valdez Crook MD) S/P gastric sleeve procedure Social History Social History Household Members: Family Housing: House Alcohol intake: current Alcohol intake frequency: holidays/special occasions only Patient Tobacco Use Status: Never used Tobacco Smoked in Last 30 Days: No Use of substances other than those prescribed or required for medical reasons: Yes Substance Use Type: Marijuana Advance Directives: No Advance Directives Information Provided: Yes service: No Physical Exam ED Vital Signs: Vital Signs - 24 hr 08/19/24 13:17 08/19/24 14:54 Temperature 97.3 F Pulse Rate 96 Respiratory Rate 18 Blood Pressure 143/85 H Pulse Oximetry 98 95 Oxygen Delivery Method Room Air Nasal Cannula Oxygen Flow Rate 2.5 BMI result Body Mass Index 113.0 Const General: cooperative, comfortable and no acute distress Nutritional Appearance: obese Orientation/consciousness: patient oriented x3 Limitations: no limitations HENMT Head: Yes normal to inspection, Yes normocephalic and Yes atraumatic Ears: hearing grossly normal bilaterally General nose exam: Normal external nose present Face and sinus: Yes normal facial exam Mouth: Normal oral and palatal mucosa present, oropharynx normal and moist mucous membranes Throat: Yes posterior oropharynx normal Eyes General: appearance normal, both eyes and all related structures Eyelids: Yes eyelids normal Conjunctivae: conjunctivae normal Sclerae: sclerae normal Pupils: Equal, round and reactive pupils present EOM: EOMs intact bilaterally Neck Neck: Yes normal visual inspection, Yes full ROM and Yes no lymphadenopathy Lymphatic: no lymphadenopathy noted Chest Chest palpation & inspection: normal inspection of the chest Resp Effort & Inspection: normal respiratory effort and able to speak in complete sentences Auscultation: clear to auscultation bilaterally, no crackles, no rales, no rhonchi and no wheezes Cardio Rate: regular rate Rhythm: regular rhythm Heart sounds: S1 normal heart sound present and S2 normal heart sound present GI Inspection: Yes normal to inspection Skin General skin exam: no rashes or lesions noted Trauma: no lacerations or abrasions Wounds: no wounds Neuro General: patient oriented x3 and moves all extremities Cranial nerves: Yes Equal, round and reactive pupils present Extrem Other: Bilateral extremities, with no obvious bony deformity or swelling. He has diffuse tenderness along the right medial and lateral joint line of the right knee. Pain with range of motion of the knee, strong DP pulse, nontender calf. Tenderness palpation along the right foot dorsal aspect. Left knee, with good ROM, no tenderness palpation diffusely. No calf tenderness. General: Yes normal to inspection Right upper extremity: normal to inspection Left upper extremity: normal to inspection Right lower extremity: normal to inspection Left lower extremity: normal to inspection Medications Administered Discontinued Medications Generic Name Dose Route Start Last Admin Trade Name Freq PRN Reason Stop Dose Admin Acetaminophen 975 mg 08/19/24 13:41 08/19/24 14:38 Acetaminophen 325 Mg Tablet PO 08/19/24 13:42 975 mg ONCE ONE Administration Medical Decision Making Medical Decision Making [facility] Narrative: This is a 29-year-old male who presents emergency department for evaluation of bilateral knee pain, and right foot pain status post mechanical fall which occurred today. Denies hitting head or LOC. On arrival, vital signs within normal limits. He is speaking full sentences under no acute distress. He is not anticoagulated. He has diffuse tenderness to bilateral knees, and right foot. X-rays were ordered to rule out any bony abnormalities. X-rays reviewed, no bony abnormality seen, discussed findings with patient. Will discharge with Alistair bandage, and given strict return precautions. He is ambulatory with walker. He lives at home with sister. He feels safe for this disposition. Patient stable for discharge. Differential Diagnosis Differential Diagnoses: The differential diagnosis associated with the presentation includes Fracture, contusion, sprain, strain Admission/Observation Consideration of admission/observation: Escalation of care including admission/observation considered Radiology Impression Discussion of test interpretation with radiology: I have reviewed the radiologist's reading. Radiologist Impression: EXAMINATION: XR ANKLE 3 OR MORE VIEWS RIGHT, XR FOOT 3 OR MORE VIEWS RIGHT HISTORY: pain COMPARISON: Comparison is made with the prior examination of the right ankle dated 01/29/2023. FINDINGS: Four portable views of the right foot and ankle are submitted. Osseous mineralization is normal. There is no fracture or dislocation. The joint spaces are preserved. The soft tissues are unremarkable. XR/XR ankle RT min 3V IMPRESSION: No evidence of fracture of the right foot or ankle. Electronically signed by: Omar Hammond MD 08/19/2024 02:54 PM EST RP Dictated By: Omar Hammond MD EXAMINATION: XR KNEE 3 VIEWS RIGHT, XR KNEE 3 VIEWS LEFT HISTORY: pain s/p fall COMPARISON: Comparison is made with the prior examination dated 07/16/2023. FINDINGS: Five portable views of the bilateral knees are submitted. Osseous mineralization is normal. There is no fracture or dislocation. There is narrowing of the medial compartments of both knees. The soft tissues are unremarkable. There is no joint effusion. XR/XR knee LT 3V IMPRESSION: Narrowing of the medial compartments of both knees. No evidence of fracture. Electronically signed by: Omar Hammond MD 08/19/2024 02:56 PM EST RP Dictated By: Omar Hammond MD EXAMINATION: XR KNEE 3 VIEWS RIGHT, XR KNEE 3 VIEWS LEFT HISTORY: pain s/p fall COMPARISON: Comparison is made with the prior examination dated 07/16/2023. FINDINGS: Five portable views of the bilateral knees are submitted. Osseous mineralization is normal. There is no fracture or dislocation. There is narrowing of the medial compartments of both knees. The soft tissues are unremarkable. There is no joint effusion. XR/XR knee RT 3V IMPRESSION: Narrowing of the medial compartments of both knees. No evidence of fracture. Electronically signed by: Omar Hammond MD 08/19/2024 02:56 PM EST RP Dictated By: Omar Hammond MD Signed By: <Electronically signed b [address] [address] XRay Report Signed Patient: Rosendo Ferrell MR#: [id number] : 1995 Acct:[id number] Age/Sex: 29 / M ADM Date: 08/19/24 Loc: HO.ED Attending Dr: Ordering Physician: Aubree Dueñas Date of Service: 08/19/24 Procedure(s): XR foot RT min 3V Accession Number(s): [id number] cc: Aubree Dueñas; Karina Lopez MD~ EXAMINATION: XR ANKLE 3 OR MORE VIEWS RIGHT, XR FOOT 3 OR MORE VIEWS RIGHT HISTORY: pain COMPARISON: Comparison is made with the prior examination of the right ankle dated 01/29/2023. FINDINGS: Four portable views of the right foot and ankle are submitted. Osseous mineralization is normal. There is no fracture or dislocation. The joint spaces are preserved. The soft tissues are unremarkable. XR/XR foot RT min 3V IMPRESSION: No evidence of fracture of the right foot or ankle. Electronically signed by: Omar Hammond MD 08/19/2024 02:54 PM EST RP Dictated By: Omar Hammond MD Discharge Plan Discharge Clinical Impression: Acute bilateral knee pain Patient Disposition: Home, Self-Care Instructions: Knee Pain (ED) Additional Instructions: You were seen in the emergency department after a fall. Your x-ray of your right foot, ankle, and both of your knees do not show any new injury from the fall today. You do have narrowing of the medial compartments of both knees, this is a degenerative finding. Please rest, ice, use Alistair wrap, and elevate your legs. You may take Tylenol and your previously prescribed pain medication as needed. If any new or worsening symptoms occur including but not limited to severe chest pain, shortness of breath, severe headache, dizziness, please seek emergent care. Prescriptions: No Action (DME) edmund Tinajero See Rx Instructions .Route Qty: 1 0RF Rx Instructions: As directed bupropion HCl 300 mg tablet extended release 24 hr 300 mg PO DAILY omega-3 acid ethyl esters 1 gram capsule 1 cap PO DAILY ferrous gluconate 324 mg (38 mg iron) tablet 324 mg PO TIDWM oxycodone-acetaminophen 5-325 mg tablet 2 tab PO BID PRN (Reason: Moderate Pain (Scale Score 5-6)) ascorbic acid (vitamin C) 500 mg Tablet 500 mg PO DAILY aspirin 81 mg tablet,chewable 1 tab PO DAILY albuterol sulfate [Ventolin HFA] 90 mcg/actuation HFA aerosol inhaler 2 inh INHALATION Q6H PRN (Reason: Shortness Of Breath) metoprolol tartrate 25 mg tablet 25 mg PO BID Wegovy 0.25 mg/0.5 mL pen injector 0.25 mg subcut QWEEK Eliquis 5 mg tablet 5 mg PO BID Qty: 180 0RF amoxicillin-pot clavulanate 875-125 mg tablet 1 tab PO BID Qty: 20 0RF sulfamethoxazole-trimethoprim [Bactrim DS] 800-160 mg tablet 1 tab PO BID Qty: 20 0RF ondansetron 4 mg tablet,disintegrating 4 mg PO Q8H PRN (Reason: nausea and vomiting) Qty: 20 0RF trazodone 50 mg tablet 50 mg PO BEDTIME PRN (Reason: Insomnia) (DME) edmund Tinajero See Rx Instructions .Route Qty: 1 0RF Rx Instructions: As directed lidocaine 5 % adhesive patch,medicated 1 patch topical DAILY meloxicam 15 mg tablet 15 mg PO DAILY Print Language: Cameroonian
[2024-08-19] MEDS: Acetaminophen 325 MG TABLET 975 MG PO (14:38)
[2024-08-19 14:54] VITALS: O2SAT 95
--- NOTE | 2024-08-19 14:54 | MHC.EDTECH ---
pt reports regular o2 use at home, pt o2 sat dropped to 76 on RA, placed on 2.5L, o2 sat up to 95. RN aware
[2024-08-19 15:58] VITALS: BP 162/87; PULSE 93; RESP 20; O2SAT 93
[2024-08-19 16:00] VITALS: BP 162/87; PULSE 93; RESP 20; TEMP 36.6; O2SAT 93
--- OUTSIDE RECORDS SUMMARY | 2024-08-19 17:18 | XMS_ITS | Encounter Summary ---
Author Organization [employer] Address [address] [facility] [address] [place] [address] Care Team Providers Care Manager Building Name Role Phone Karina Lopez MD Primary Care Pro vider Reason for Visit * Reason Onset Date Comments Med Refill 08/04/2024 Encounter Details Date Type Department Care Team ([facility] st Contact Info) Description 08/04/2024 Refill [facility] CHC MED & PEDS [address] [place] [address] Gloria Richmond, WILDER [address] [place] [address] Chronic pain of both knees Social History Tobacco Use Types Packs/Day Years Used Date Smoking Tobacco: Never Passive Smoke Exposure: Never Smokeless Tobacco: Never Alcohol Use Standard Drinks/Week Comments Not Currently 0 (1 standard drink = 0.6 oz pur e alcohol) social Depression Answer Date Recorded Patient Health Questionnaire-9 Score 22 01/26/2024 Patient Health Questionnaire-9 Score 22 01/26/2024 Last PHQ-9: Questionnaire Data Not on file 0 01/26/2024 Housing Stability Answer Date Recorded What is your housing situation today? I have adrienne harry 05/22/[address] you li ve. Do you have problems with any of the following? None of the above 05/22/2023 Food Insecurity Answer Date Recorded Within the past 12 months, y ou worried that your food would run out before you got money to buy more: Never True 05/22/2023 Within the past 12 months,th e food you bought just didn't last and you didn't have enough money to get more: Never True 08/2022 Transportation Answer Date Recorded In the past 12 months, has l ack of transportation kept you from medical appts, meetings, work or from getting things needed for daily living? No 05/22/2023 Utilities Answer Date Recorded In the past 12 months, has t he electric, gas, oil or water company threatened to shut off services in your home? No 05/22/2023 Depression Answer Date Recorded Patient Health Questionnaire-2 Score 6 01/26/2024 Internet Access Answer Date Recorded Internet Access Q1 Yes 2024 Internet Access Q2 Not on file 2024 Sex and Gender Information Value Date Recorded Sex Assigned at Male 05/20/2022 10:15 AM EDT Legal Sex Male 10:15 AM EDT Gender Identity Male 05/20/2022 10:15 AM EDT Sexual Orientation Straight 04/21/2023 1: 41 PM EDT documented as of this encounter Plan of Treatment Upcoming Encounters Date Type Department Care Team (Late st Contact Info) Description 09/09/2024 1:30 PM EST Office Visit [facility] ADULT DENTAL [address] [place] [address] Curtis Borja DDS [address] [place] [address] 10/25/2024 2:00 PM EDT Telemedicine [facility] CHC MED & PEDS [address], [place] [phone] Gloria Richmond, RN [address] [place] [address] documented as of this encounter Visit Diagnoses Diagnosis Chronic pain of both knees documented in this encounter Additional Health Concerns Assessment Noted Time PHQ-9 Depression Total Score: 22 024 1:23 PM EDT documented as of this encounter Care Teams Manager Building Relationship Specialty Start Date End Date Karina Lopez MD [address] [place] [address] PCP - General Internal Medicine 04/22/23 Karina Thacker Building DismantlerPattern Puncher 09/26/23 documented as of this encounter
--- OUTSIDE RECORDS SUMMARY | 2024-08-19 17:18 | XMS_ITS | Encounter Summary ---
Author Organization [employer] Address [address] [facility] [address] [place] [address] Care Team Providers Care Organizational Effectiveness Consultant Name Role Phone Karina Lopez MD Primary Care Pro vider Reason for Visit * Reason Onset Date Comments Call Back Request 06/30/2023 Encounter Details Date Type Department Care Team ([facility] st Contact Info) Description 06/30/2023 Telephone [facility] MEDICINE [address] [place] [address] Karina Lopez MD [address] [place] [address] Call Back Request Social History Tobacco Use Types Packs/Day Years Used Date Smoking Tobacco: Never Passive Smoke Exposure: Never Smokeless Tobacco: Never Alcohol Use Standard Drinks/Week Comments Yes 0 (1 standard drink = 0.6 oz pur e alcohol) social Depression Answer Date Recorded Patient Health Questionnaire-9 Score 16 04/21/2023 Housing Stability Answer Date Recorded What is [...] Answer Date Recorded Patient Health Questionnaire-2 Score 2 04/21/2023 Sex and Gender Information Value Date Recorded Sex Assigned at Male 05/20/2022 10:15 AM EDT Legal Sex Male 10:15 AM EDT Gender Identity Male 05/20/2022 10:15 AM EDT Sexual Orientation Straight 04/21/2023 1: 41 PM EDT documented as of this encounter Miscellaneous Notes * Telephone Encounter - Arely Gage - 06/30/2023 4:02 PM EST Tc from pt requesting to speak with PCP in regards to a rehab he states spoke with PCP about. Please contact pt at [phone] documented in this encounter Plan of Treatment Upcoming Encounters Date Type Department Care Team (Late st Contact Info) Description 09/09/2024 1:30 PM EST Office Visit [facility] ADULT DENTAL [address] [place] [address] Curtis Borja DDS [address] [place] [address] 10/25/2024 2:00 PM EDT Telemedicine [facility] CHC MED & PEDS [address] [place] [address] Gloria Richmond, RN [address] [place] [address] documented as of this encounter Visit Diagnoses Not on filedocumented in this encounter Additional Health Concerns Assessment Noted Time PHQ-9 Depression Total Score: 16 023 1:41 PM EDT documented as of this encounter Care Teams Organizational Effectiveness Consultant Relationship Specialty Start Date End Date Karina Lopez MD [address] [place] [address] PCP - General Internal Medicine 04/22/23 Karina Thacker Oncology CoordinatorMoose Hunter 09/26/23 documented as of this encounter
--- OUTSIDE RECORDS SUMMARY | 2024-08-19 17:18 | XMS_ITS | Encounter Summary ---
Author Organization [employer] Address [address] [facility] [address] [place] [address] Care Team Providers Care Keno Terminal Operator Name Role Phone Karina Lopez MD Primary Care Pro vider Reason for Visit * Reason Onset Date Comments Med Refill 08/05/2024 Encounter Details Date Type Department Care Team ([facility] st Contact Info) Description 08/05/2024 Refill [facility] MED & PEDS [address] [place] [address] Karina Lopez MD [address] [place] [address] Social History Tobacco Use Types Packs/Day Years [...] is your housing situation today? I have adrienneolesya harry 05/22/[address] you [...] Description 09/09/2024 1:30 PM EST Office Visit [facility] ADULT DENTAL [address] [place] [address] Curtis Borja DDS [address] [place] [address] 10/25/2024 2:00 PM EDT Telemedicine [facility] CHC MED & PEDS [address] [place], [place] [phone] Gloria Richmond, RN [address] [place] [address] documented as of this encounter Visit Diagnoses Not on filedocumented in this encounter Additional Health Concerns Assessment Noted Time PHQ-9 Depression Total Score: 22 024 1:23 PM EDT documented as of this encounter Care Teams Keno Terminal Operator Relationship Specialty Start Date End Date Karina Lopez MD [address] [place] [address] PCP - General Internal Medicine 04/22/23 Karina Thacker Machine Repair PersonStone Driller Helper 09/26/23 documented as of this encounter
--- OUTSIDE RECORDS SUMMARY | 2024-08-19 17:18 | XMS_ITS | Encounter Summary ---
Author Organization [employer] Address [address] [facility] [address] [place] [address] Care Team Providers Care Sluice Tender Name Role Phone Karina Lopez MD Primary Care Pro vider Encounter Details Date Type Department Care Team ([facility] st Contact Info) Description 06/25/2023 Telephone [facility] MEDICINE [address] [place] [address] Karina Lopez MD [address] [place] [address] Social History Tobacco Use Types Packs/Day Years [...] t he electric, gas, oil or water [employer] threatened to shut off services in your [...] encounter Miscellaneous Notes * Telephone Encounter - Enid Samaniego Lott - 06/25/2023 3:42 PM EST TC from pt returning call from Triage task on 06/25/2023 RN called pt to triage below. No answer, LVM for return call. Tc from Diana at [facility] calling to report patient fell on 06/23 and is having minor pain in back area. Please contact pt at [phone] documented in this encounter Plan of Treatment Upcoming Encounters Date Type Department Care Team (Late st Contact Info) Description 09/09/2024 1:30 PM EST Office Visit [facility] ADULT DENTAL [address] [place] [address] Curtis Borja DDS [address] [place] [address] 10/25/2024 2:00 PM EDT Telemedicine [facility] CHC MED & PEDS [address] [place] [address] Gloria Richmond, RN [address] [place] [address] documented as of this encounter Visit Diagnoses Not on filedocumented in this encounter Additional Health Concerns Assessment Noted Time PHQ-9 Depression Total Score: 16 023 1:41 PM EDT documented as of this encounter Care Teams Sluice Tender Relationship Specialty Start Date End Date Karina Lopez MD [address] [place] [address] PCP - General Internal Medicine 04/22/23 Karina Thacker Sequins SpoolerDiet Aid 09/26/23 documented as of this encounter
--- OUTSIDE RECORDS SUMMARY | 2024-08-19 17:18 | XMS_ITS | Encounter Summary ---
Author Organization [employer] Address [address] [facility] [address] [place] [address] Care Team Providers Care Garment Steamer Name Role Phone Karina Lopez MD Primary Care Pro vider Reason for Visit * Reason Onset Date Comments FYI 07/24/2023 Encounter Details Date Type Department Care Team ([facility] st Contact Info) Description 07/24/2023 Telephone [facility] MEDICINE [address] [place] [address] Karina Lopez MD [address] [place] [address] FYI Social History Tobacco Use Types Packs/Day Years [...] * Telephone Encounter - Arely Gage - 07/24/2023 3:42 PM EST Tc from [facility] calling to report vitals. BP 160/98 with a heart rate of 114 at rest. Pt isalso taking 5 tablets of tylenol 3-4 times a day and states pt rates pain a 8-9. documented in this encounter Plan of Treatment Upcoming Encounters Date Type Department Care Team (Late st Contact Info) Description 09/09/2024 1:30 PM EST Office Visit [facility] ADULT DENTAL [address] [place] [address] Curtis Borja DDS [address] [place] [address] 10/25/2024 2:00 PM EDT Telemedicine [facility] CHC MED & PEDS [address] [place], [place] [phone] Gloria Richmond, RN [address] [place] [address] documented as of this encounter Visit Diagnoses Not on filedocumented in this encounter Additional Health Concerns Assessment Noted Time PHQ-9 Depression Total Score: 16 023 1:41 PM EDT documented as of this encounter Care Teams Garment Steamer Relationship Specialty Start Date End Date Karina Lopez MD [address] [place] [address] PCP - General Internal Medicine 04/22/23 Karina Thacker Zinc Furnace ChargerPayroll Assistant 09/26/23 documented as of this encounter
--- OUTSIDE RECORDS SUMMARY | 2024-08-19 17:18 | XMS_ITS | Encounter Summary ---
Author Organization [employer] Address 75 [facility] 7t [place] [address] Care Team Providers Care Housing Officer Name Role Phone Karina Lopez MD Primary Care Pro vider Reason for Visit * Reason Comments Med Refill Encounter Details Date Type Department Care Team (Late st Contact Info) Description 06/19/2023 Refill [facility] MEDICINE [address] [place] [address] Karina Lopez MD 230 [place] [address] Social History Tobacco Use Types Packs/Day Years Used Date Smoking Tobacco: Never Passive Smoke Exposure: Never Smokeless Tobacco: Never Alcohol Use Standard Drinks/Week Comments Yes 0 (1 standard drink = 0.6 oz pur e alcohol) social Depression Answer Date Recorded Patient Health Questionnaire-9 Score 16 04/21/2023 Housing Stability Answer Date Recorded What is your housing situation today? I have adrienne kamryn 05/22/[address] you li [...] Description 09/09/2024 1:30 PM EST Office Visit [facility] ADULT DENTAL 230 [place], [place] [phone] Curtis Borja DDS 230 [place] [address] 10/25/2024 2:00 PM EDT Telemedicine [facility] CHC MED & PEDS 505 [place] [address] Gloria Richmond, RN 505 [place] [address] documented as of this encounter Visit Diagnoses Not on filedocumented in this encounter Additional Health Concerns Assessment Noted Time PHQ-9 Depression Total Score: 16 023 1:41 PM EDT documented as of this encounter Care Teams Housing Officer Relationship Specialty Start Date End Date Karina Lopez MD 230 [place] [address] PCP - General Internal Medicine 04/22/23 Karina Thacker Mechanical Manufacturing EngineerCell Tuber Hand 09/26/23 documented as of this encounter
--- OUTSIDE RECORDS SUMMARY | 2024-08-19 17:18 | XMS_ITS | Encounter Summary ---
Author Organization [employer] Address 75 [facility] 7t [place] [address] Care Team Providers Care Construction Services Technician Name Role Phone Karina Lopez MD Primary Care Pro vider Reason for Visit * Reason Comments Med Refill Encounter Details Date Type Department Care Team (Late st Contact Info) Description 07/20/[address] [facility] MEDICINE [address] [place] [address] Karina Lopez MD 230 [place] [address] Social History Tobacco Use Types Packs/Day Years [...] Description 09/09/2024 1:30 PM EST Office Visit [facility] ADULT DENTAL 230 [place], [place] [phone] Curtis Borja DDS 230 [place] [address] 10/25/2024 2:00 PM EDT Telemedicine [facility] CHC MED & PEDS [address] [place] [address] Gloria Richmond, RN 505 [place] [address] documented as of this encounter Visit Diagnoses Not on filedocumented in this encounter Additional Health Concerns Assessment Noted Time PHQ-9 Depression Total Score: 16 023 1:41 PM EDT documented as of this encounter Care Teams Construction Services Technician Relationship Specialty Start Date End Date Karina Lopez MD 230 [place] [address] PCP - General Internal Medicine 04/22/23 Karina Thacker Imitation Marble MechanicStove Carriage Operator 09/26/23 documented as of this encounter
--- OUTSIDE RECORDS SUMMARY | 2024-08-19 17:18 | XMS_ITS | Encounter Summary ---
Author Organization [employer] Address 75 [facility] 7 [place] [address] Care Team Providers Care Split Leather Mosser Name Role Phone Karina Lopez MD Primary Care Pro vider Reason for Visit * Reason Onset Date Comments FYI 06/24/2023 Encounter Details Date Type Department Care Team ([facility] st Contact Info) Description 06/24/2023 Telephone [facility] MEDICINE [address] [place] [address] Karina Lopez MD 230 [place] [address] FYI Social History Tobacco Use Types Packs/Day [...] Miscellaneous Notes * Telephone Encounter - Arely Almonte - 06/25/2023 12:54 PM EST Tc shashi denise with S calling to advise PCP pt missed OT appointment due to fall. * Telephone Encounter - Gavin Glsas - 06/24/2023 3:35 PM EST Tc shashi Ortiz at [facility] calling to report patient fell on 06/23 and is having minor pain in back area. documented in this encounter Plan of Treatment Upcoming Encounters Date Type Department Care Team (Late st Contact Info) Description 09/09/2024 1:30 PM EST Office Visit [facility] ADULT DENTAL [address] [place] [address] Curtis Borja DDS [address] [place] [address] 10/25/2024 2:00 PM EDT Telemedicine [facility] CHC MED & PEDS [address] [place] [address] Gloria Richmond, RN 505 [place] [address] documented as of this encounter Visit Diagnoses Not on filedocumented in this encounter Additional Health Concerns Assessment Noted Time PHQ-9 Depression Total Score: 16 023 1:41 PM EDT documented as of this encounter Care Teams Split Leather Mosser Relationship Specialty Start Date End Date Karina Lopez MD [address] [place] [address] PCP - General Internal Medicine 04/22/23 Karina Thacker Beauty AdvisorMedical Records Supervisor 09/26/23 documented as of this encounter
--- OUTSIDE RECORDS SUMMARY | 2024-08-19 17:18 | XMS_ITS | Encounter Summary ---
Author Organization [employer] Address 75 [facility] [address] [place] [address] Care Team Providers Care Electrical Designer Name Role Phone Karina Lopez MD Primary Care Pro vider Reason for Visit * Reason Onset Date Comments FYI 07/18/2023 Encounter Details Date Type Department Care Team ([facility] Contact Info) Description 07/18/2023 Telephone [facility] MEDICINE 230 [place] [address] Karina Lopez MD 230 [place] [address] FYI Social History Tobacco Use Types Packs/Day [...] encounter Miscellaneous Notes * Telephone Encounter - Karina Duarte MD - 07/22/2023 2:37 PM EST Please can you check w nurse-[facility] if BP is all time elevated ? because can be reactive to pain ,if persist elevated can you ask [facility] to increase dose of metoprolol to 25 mg BID ( last dose prescribed was 12.5 mg BID) -please try to get earlier apt w me or any provider for HFU if needed for eval pain and BP -please remind pt of upcoming apt done for virtual visit w bariatric surgeon at [facility] on 08/28/2023 Thanks * Telephone Encounter - Mati Ahmadi - 07/18/2023 2:29 PM EST Travis Ortiz from [employer] would like to inform PCP that BP is elevated 164/110 with a heart rate at rest of 106 also stated pt is having knee pain and was seen at [facility] [id number]/28/23. Advised will leave message as FYI if any questions please contact at [phone] documented in this encounter Plan of Treatment Upcoming Encounters Date Type Department Care Team (Late st Contact Info) Description 09/09/2024 1:30 PM EST Office Visit [facility] ADULT DENTAL 230 [place], [place] [phone] Curtis Borja DDS 230 [place], [place] [phone] 10/25/2024 2:00 PM EDT Telemedicine [facility] CHC MED & PEDS 505 [place], [place] [phone] Gloria Richmond, RN 505 [place] [address] documented as of this encounter Visit Diagnoses Not on filedocumented in this encounter Additional Health Concerns Assessment Noted Time PHQ-9 Depression Total Score: 16 023 1:41 PM EDT documented as of this encounter Care Teams Electrical Designer Relationship Specialty Start Date End Date Karina Lopez MD 230 [place], [place] [phone] PCP - General Internal Medicine 04/22/23 Karina Thacker Service Observer ChiefStippler 09/26/23 documented as of this encounter
--- OUTSIDE RECORDS SUMMARY | 2024-08-19 17:18 | XMS_ITS | Clinical Summary ---
Author Organization [facility] Facility Address [address] [place] [address] Care Team Providers Care Machine Trimmer Name Role Phone Karina Morrison Primary Care Provid er Social History Tobacco Use Types Packs/Day Years Used Date Smoking Tobacco: Never Assessed Sex and Gender Information Value Date Recorded Sex Assigned at Not on file Legal Sex Male 10:51 AM EDT Gender Identity Not on file Sexual Orientation Not on file Plan of Treatment Health Maintenance Due Date Last Done Comments Diabetes: Hemoglobin A1C 10/16/2023 Diabetes: Ophthalmology Exam 10/16/2023 Diabetes: Pedal Pulse Checked 10/16/2023 Diabetes: Sensory Foot Exam 10/16/2023 Diabetes: Visual Foot Exam 10/16/2023 Influenza Vaccine (#1) 2024 04/21/2023 Hepatitis B Vaccine Completed 02/18/1995, 1994, 1994 Pneumococcal Vaccine: Pediat rics (0 to 5 Years) and At-Risk Patients (6 to 64 Years) Completed 04/21/2023 Insurance MEDICAID [place] Care Teams Machine Trimmer Relationship Specialty Start Date End Date Karina Morrison 230 [place] [address] PCP - General 10/16/23
--- OUTSIDE RECORDS SUMMARY | 2024-08-19 17:18 | XMS_ITS | Encounter Summary ---
Author Organization [employer] Address 75 [facility] 7t [place] [address] Care Team Providers Care Auto Tire Recapper Name Role Phone Karina Lopez MD Primary Care Pro vider Reason for Visit * Reason Comments Med Refill Encounter Details Date Type Department Care Team (Late st Contact Info) Description 09/21/[address] [facility] MEDICINE [address] [place] [address] Karina Lopez MD 230 [place] [address] Social History Tobacco Use Types Packs/Day Years [...] Description 09/09/2024 1:30 PM EST Office Visit [facility] ADULT DENTAL 230 [place], [place] [phone] Curtis Borja DDS [address] [place] [address] 10/25/2024 2:00 PM EDT Telemedicine [facility] CHC MED & PEDS 505 [place] [address] Gloria Richmond, RN 505 [place] [address] documented as of this encounter Visit Diagnoses Not on filedocumented in this encounter Additional Health Concerns Assessment Noted Time PHQ-9 Depression Total Score: 16 023 1:41 PM EDT documented as of this encounter Care Teams Auto Tire Recapper Relationship Specialty Start Date End Date Karina Lopez MD [address] [place] [address] PCP - General Internal Medicine 04/22/23 Karina Thacker Director Special EducationPaper Sales Manager 09/26/23 documented as of this encounter
--- OUTSIDE RECORDS SUMMARY | 2024-08-19 17:18 | XMS_ITS | Encounter Summary ---
Author Organization [employer] Address 75 [facility] 7 [place] [address] Care Team Providers Care Golf Course Architect Name Role Phone Karina Lopez MD Primary Care Pro vider Reason for Visit * Reason Onset Date Comments Forms Missing Info 02/19/2024 Encounter Details Date Type Department Care Team ([facility] st Contact Info) Description 02/19/2024 Telephone [facility] MEDICINE [address] [place] [address] Karina Lopez MD 230 [place] [address] Forms Missing Info Social History Tobacco Use Types Packs/Day Years [...] Recorded Patient Health Questionnaire-2 Score 6 01/26/2024 Sex and Gender Information Value Date Recorded Sex Assigned at Male 05/20/2022 10:15 AM EDT Legal Sex Male 10:15 AM EDT Gender Identity Male 05/20/2022 10:15 AM EDT Sexual Orientation Straight 04/21/2023 1: 41 PM EDT documented as of this encounter Miscellaneous Notes * Telephone Encounter - Nneka Plummer - 02/24/2024 3:48 PM EDT [facility] is requesting additional information for pending O2 DME order. Please advise if recommend continuing the O2 order as sent, if DME should be placed on hold since pt is admitted or if changes areneeded. Thank you * Telephone Encounter - Enid Lott - 02/19/2024 9:33 AM EDT Tc from [facility] with [facility] reporting that she received some forms but forms are incomplete Missing: [facility] ID Hours per use per day Therapy Objective Activity needed for Portability Notes were provided, does not contain retest of Oxygen needed to qualify Please contact [phone] documented in this encounter Plan of Treatment Upcoming Encounters Date Type Department Care Team (Late st Contact Info) Description 09/09/2024 1:30 PM EST Office Visit [facility] ADULT DENTAL [address] [place] [address] Curtis Borja DDS [address] [place] [address] 10/25/2024 2:00 PM EDT Telemedicine [facility] CHC MED & PEDS [address] [place] [address] Gloria Richmond, RN 505 [place], [place] [phone] documented as of this encounter Visit Diagnoses Not on filedocumented in this encounter Additional Health Concerns Assessment Noted Time PHQ-9 Depression Total Score: 22 024 1:23 PM EDT documented as of this encounter Care Teams Golf Course Architect Relationship Specialty Start Date End Date Karina Lopez MD [address] [place] [address] PCP - General Internal Medicine 04/22/23 Karina Thacker Milled Rice BrokerModel Technician 09/26/23 documented as of this encounter
--- OUTSIDE RECORDS SUMMARY | 2024-08-19 17:18 | XMS_ITS | Encounter Summary ---
Author Organization [employer] Address 75 [facility] 7 [place] [address] Care Team Providers Care Preparation Plant Repairer Name Role Phone Karina Lopez MD Primary Care Pro vider Reason for Visit * Reason Onset Date Comments Nurse Triage 07/04/2023 Encounter Details Date Type Department Care Team ([facility] st Contact Info) Description 07/04/2023 Telephone [facility] MEDICINE 230 [place] [address] Karina Lopez MD [address] [place] [address] Nurse Triage Social History Tobacco Use Types Packs/Day Years [...] encounter Miscellaneous Notes * Telephone Encounter - Madeleine Evangelista RN - 07/04/2023 4:26 PM EST Call returned to [facility] pt seen for PT today. States had to call in vitals of BP140/100 HR 110 during PT session per their protocol. This is baseline to occur with any activity for patient. Per [facility] pt baseline 95bmp at rest. No sx reported of CP, SILVA or dizziness. Pt has baseline SOB. Pt is scheduled for PT twice a week. Keeping PT sessions very short and simple. Pt having back, leg and ankle pain but not new onset pain. [facility] states pt at baseline when finished PT session. [facility] advised will send as update to PCP to discuss with Pt at upcoming appt this month. Future Appointments Date Time Provider Department Center 07/15/2023 11:15 AM Karina Duarte MD [facility] 07/24/2023 2:30 PM Gloria Waller RN [facility] Protocol Used: Information Only Call - No Triage (Adult) Protocol-Based Disposition: Home Care Positive Triage Question: * Follow-up information-only call to recent contact, no triage required * All higher-acuity triage questions were negative Care Advice Discussed: * Reasons To Call Back - New symptoms develop - You become worse * Telephone Encounter - Anabel Burgess - 07/04/2023 4:19 PM EST Tc from [facility] with [employer] calling to inform PCP Symptoms: High Blood Pressure - Caller Reports, Heartbeat Symptoms (Fast, Slow, or Irregular) Outcome: Schedule a same-day appointment or talk to a nurse or provider today Reason: Caller denied all higher acuity questions Any questions contact Chio [phone] documented in this encounter Plan of Treatment Upcoming Encounters Date Type Department Care Team (Late st Contact Info) Description 09/09/2024 1:30 PM EST Office Visit [facility] ADULT DENTAL [address] [place] [address] Curtis Borja DDS [address] [place] [address] 10/25/2024 2:00 PM EDT Telemedicine [facility] CHC MED & PEDS 505 [place], [place] [phone] Gloria Richmond, RN 505 [place], [place] [phone] documented as of this encounter Visit Diagnoses Not on filedocumented in this encounter Additional Health Concerns Assessment Noted Time PHQ-9 Depression Total Score: 16 023 1:41 PM EDT documented as of this encounter Care Teams Preparation Plant Repairer Relationship Specialty Start Date End Date Karina Lopez MD [address] [place] [address] PCP - General Internal Medicine 04/22/23 Karina Thacker Electronic Scale Assembler And TesterVegetable Ii Farmworker 09/26/23 documented as of this encounter
--- OUTSIDE RECORDS SUMMARY | 2024-08-19 17:18 | XMS_ITS | Encounter Summary ---
Author Organization [employer] Address 75 [facility] 7t [place] [address] Care Team Providers Care Daily Sales Audit Clerk Name Role Phone Karina Lopez MD Primary Care Pro vider Encounter Details Date Type Department Care Team (Late st Contact Info) Description 09/19/2023 Orders Only [facility] MEDICINE [address] [place] [address] Karina Lopez MD [address] [place] [address] Social History Tobacco Use Types Packs/Day Years [...] t he electric, gas, oil or water [employer] threatened to shut off services in your [...] Description 09/09/2024 1:30 PM EST Office Visit [facility] ADULT DENTAL [address] [place] [address] Curtis Borja DDS 230 [place] [address] 10/25/2024 2:00 PM EDT Telemedicine [facility] CHC MED & PEDS 505 [place] [address] Gloria Richmond, RN [address] [place] [address] documented as of this encounter Visit Diagnoses Not on filedocumented in this encounter Additional Health Concerns Assessment Noted Time PHQ-9 Depression Total Score: 16 023 1:41 PM EDT documented as of this encounter Care Teams Daily Sales Audit Clerk Relationship Specialty Start Date End Date Karina Lopez MD [address] [place] [address] PCP - General Internal Medicine 04/22/23 Karina Thacker Welding Systems And Equipment RepairerEducation Adviser 09/26/23 documented as of this encounter
--- OUTSIDE RECORDS SUMMARY | 2024-08-19 17:18 | XMS_ITS | Encounter Summary ---
Author Organization [employer] Address 75 [facility] 7 [place] [address] Care Team Providers Care Hot Strip Mill Supervisor Name Role Phone Karina Lopez MD Primary Care Pro vider Reason for Visit * Reason Onset Date Comments Reschedule 07/15/2023 Encounter Details Date Type Department Care Team ([facility] st Contact Info) Description 07/15/2023 Telephone [facility] MEDICINE 230 [place] [address] Karina Lopez MD 230 [place] [address] Reschedule Social History Tobacco Use Types Packs/Day Years [...] * Telephone Encounter - Arely Gage - 07/15/2023 9:10 AM EST Tc from pt requesting to r/s 07/15 follow up appointment. Pt he couldn't make it due to knee pain. Please contact pt at [phone] documented in this encounter Plan of Treatment Upcoming Encounters Date Type Department Care Team (Late st Contact Info) Description 09/09/2024 1:30 PM EST Office Visit [facility] ADULT DENTAL 230 [place] [address] Curtis Borja DDS 230 [place] [address] 10/25/2024 2:00 PM EDT Telemedicine [facility] CHC MED & PEDS 505 [place] [address] Gloria Richmond, WILDER [address] [place] [address] documented as of this encounter Visit Diagnoses Not on filedocumented in this encounter Additional Health Concerns Assessment Noted Time PHQ-9 Depression Total Score: 16 023 1:41 PM EDT documented as of this encounter Care Teams Hot Strip Mill Supervisor Relationship Specialty Start Date End Date Karina Lopez MD 230 [place] [address] PCP - General Internal Medicine 04/22/23 Karina Thacker Patch SetterPress Operator Heavy Duty 09/26/23 documented as of this encounter
--- OUTSIDE RECORDS SUMMARY | 2024-08-19 17:18 | XMS_ITS | Encounter Summary ---
Author Organization [employer] Address 75 [facility] 7t [place] [address] Care Team Providers Care Inside B2B Sales Name Role Phone Karina Lopez MD Primary Care Pro vider Encounter Details Date Type Department Care Team (Latest Contact Info) Description 08/04/2024 Travel Social History Tobacco Use Types Packs/Day Years [...] Description 09/09/2024 1:30 PM EST Office Visit [facility] ADULT DENTAL 230 [place], [place] [phone] Curtis Borja DDS [address] [place] [address] 10/25/2024 2:00 PM EDT Telemedicine [facility] CHC MED & PEDS 505 [place], [place] [phone] Gloria Richmond, RN 505 [place] [address] documented as of this encounter Visit Diagnoses Not on filedocumented in this encounter Additional Health Concerns Assessment Noted Time PHQ-9 Depression Total Score: 22 024 1:23 PM EDT documented as of this encounter Care Teams Inside B2B Sales Relationship Specialty Start Date End Date Karina Lopez MD [address] [place] [address] PCP - General Internal Medicine 04/22/23 Karina Thacker Ear Nose Throat PhysicianSas Analyst 09/26/23 documented as of this encounter
--- OUTSIDE RECORDS SUMMARY | 2024-08-19 17:18 | XMS_ITS | Encounter Summary ---
Author Organization [employer] Address 75 [facility] 7t [place] [address] Care Team Providers Care Strategic Sourcing Specialist Name Role Phone Karina Lopez MD Primary Care Pro vider Reason for Visit * Reason Comments Med Refill Encounter Details Date Type Department Care Team (Late st Contact Info) Description 06/10/2023 Refill [facility] MEDICINE [address] [place] [address] Karina Lopez MD [address] [place] [address] Social History Tobacco Use Types Packs/Day Years [...] Description 09/09/2024 1:30 PM EST Office Visit [facility] ADULT DENTAL 230 [place], [place] [phone] Curtis Borja DDS [address] [place] [address] 10/25/2024 2:00 PM EDT Telemedicine [facility] CHC MED & PEDS [address] [place] [address] Gloria Richmond, RN 505 [place] [address] documented as of this encounter Visit Diagnoses Not on filedocumented in this encounter Additional Health Concerns Assessment Noted Time PHQ-9 Depression Total Score: 16 023 1:41 PM EDT documented as of this encounter Care Teams Strategic Sourcing Specialist Relationship Specialty Start Date End Date Karina Lopez MD [address] [place] [address] PCP - General Internal Medicine 04/22/23 Karina Thacker Compensation And Benefits AdvisorHamper Maker Machine 09/26/23 documented as of this encounter
--- OUTSIDE RECORDS SUMMARY | 2024-08-19 17:18 | XMS_ITS | Encounter Summary ---
Author Organization [employer] Address [address] [facility] [address] [place] [address] Care Team Providers Care Substitute School Nurse Name Role Phone Karina Lopez MD Primary Care Pro vider Reason for Visit * Reason Onset Date Comments Call Back Request 12/08/2023 Encounter Details Date Type Department Care Team ([facility] st Contact Info) Description 12/08/2023 Telephone [facility] [address] [place] [address] Karina Lopez MD [address] [place] [address] Call Back Request Social History Tobacco Use [...] encounter Miscellaneous Notes * Telephone Encounter - Lola Dozier RN - 12/09/2023 9:35 AM EDT TC from [place] at [facility] to inform PCP of current concerns with the pt. Pt had EMS called twiceyesterday and pt refused one of the visits. The second visit by the [facility] resulted in being unableto move him due to his size. Pt is currently 774 pounds. Pt is very noncompliant with CPAP machine and O2 sats have been dropping into the 70s and 80s. The [facility] strongly feels the pt needs supplemental oxygen in the home. Pt also lives on the third floor and the [facility] wants to make living arrangements for the pt to have a first floor dwelling. Appt today for 1045 with PCP via telehealth.Forwarding to PCP for FYI * Telephone Encounter - Arely Almonte - 12/08/2023 10:20 AM EDT Tc from [facility] states pt is having low oxygen saturation. [facility] pt does not want to wear CPAP or go to the ER. [facility] pt is looking for recommendations. Declines triage andrequesting to speak with nurse. documented in this encounter Plan of Treatment Upcoming Encounters Date Type Department Care Team (Late st Contact Info) Description 09/09/2024 1:30 PM EST Office Visit [facility] ADULT DENTAL [address] [place] [address] Curtis Borja DDS [address] [place], [place] [phone] 10/25/2024 2:00 PM EDT Telemedicine [facility] MED & PEDS [address] [place] [address] Gloria Richmond, RN [address] [place], [place] [phone] documented as of this encounter Visit Diagnoses Not on filedocumented in this encounter Additional Health Concerns Assessment Noted Time PHQ-9 Depression Total Score: 16 023 1:41 PM EDT documented as of this encounter Care Teams Substitute School Nurse Relationship Specialty Start Date End Date Karina Lopez MD [address] [place] [address] PCP - General Internal Medicine 04/22/23 Karina Thacker GeomorphologistPpa Teacher 09/26/23 documented as of this encounter
--- OUTSIDE RECORDS SUMMARY | 2024-08-19 17:18 | XMS_ITS | Encounter Summary ---
Author Organization [employer] Address [address] [facility] 7[address] [place] [address] Care Team Providers Care Archaeologist Name Role Phone Karina Lopez MD Primary Care Pro vider Reason for Visit * Reason Onset Date Comments Medication Question 02/13/2024 Encounter Details Date Type Department Care Team ([facility] st Contact Info) Description 02/13/2024 Telephone [facility] [address] [place] [address] Karina Lopez MD [address] [place] [address] Medication Question Social History Tobacco Use Types Packs/Day Years [...] encounter Miscellaneous Notes * Telephone Encounter - Cedric Cruz - 02/13/2024 3:03 PM EDT Tc from pt caling in regards to Semaglutide-Weight Management (Wegovy) 0.5 MG/0.5ML solution auto-injector. Pt stated that in the program he is currently in they're trying to change the Wegovy for analternative medication anf pt wanted to discuss with pcp first. Please contact pt at [phone]. Turkish Speaker. documented in this encounter Plan of Treatment Upcoming Encounters Date Type Department Care Team ([facility] st Contact Info) Description 09/09/2024 1:30 PM EST Office Visit [facility] ADULT DENTAL [address] [place] [address] Curtis Borja DDS [address] [place] [address] 10/25/2024 2:00 PM EDT Telemedicine [facility] MED [facility] PEDS [address] [place] [address] Gloria Richmond, RN [address] [place] [address] documented as of this encounter Visit Diagnoses Not on filedocumented in this encounter Additional Health Concerns Assessment Noted Time PHQ-9 Depression Total Score: 22 024 1:23 PM EDT documented as of this encounter Care Teams Archaeologist Relationship Specialty Start Date End Date Karina Lopez MD [address] [place] [id number] PCP - General Internal Medicine 04/22/23 Karina Thacker Validation ManagerPump Tender 09/26/23 documented as of this encounter
--- OUTSIDE RECORDS SUMMARY | 2024-08-19 17:18 | XMS_ITS | Encounter Summary ---
Author Organization [employer] Address [address] [facility] 7[address] [place] [address] Care Team Providers Care Dental Specialist Name Role Phone Karina Lopez MD Primary Care Pro vider Reason for Visit * Reason Onset Date Comments Nurse Triage 08/13/2024 Encounter Details Date Type Department Care Team ([facility] st Contact Info) Description 08/13/2024 Telephone [facility] MEDICINE [address] [place] [address] Karina Lopez MD [address] [place] [address] Nurse Triage Social History Tobacco Use Types [...] encounter Miscellaneous Notes * Telephone Encounter - Josselyn Lanier RN - 08/13/2024 1:45 PM EST Called pt. He states that he has been having feelings of pins and needles in his feet bilateral when he is lying down. Feet swollen but pt. States that they are not more swollen than usual. Pt. States when he gets up and starts to walk around his feet are painful. No abnormal SOB or discoloration to legs. Pt. Denies chest pain. Pt. Declines appt. For today. Pt. States his [employer] will be with him tomorrow am at 8am. I advised to have pt. BAC[employer] SK[employer] L[employer]TER bring him to [facility] walk in tomorrow between 9am-11am to be evaluated. Protocol Used: Foot Pain (Adult) Protocol-Based Disposition: Advised to be seen in [facility] walk in Pt. Will come tomorrow am. Video visit not offered Positive Triage Questions: * Tingling in feet and new or increased * Patient wants to be seen * All higher-acuity triage questions were negative * Telephone Encounter - Jett Spring - 08/13/2024 1:29 PM EST Symptom: Foot or Ankle Pain - Not From Injury Outcome: Schedule an urgent appointment (within 1 hour) or talk to a nurse or provider soon Reason: Trouble walking The caller accepted this outcome. Contact pt at [phone] documented in this encounter Plan of Treatment Upcoming Encounters Date Type Department Care Team ([facility] st Contact Info) Description 09/09/2024 1:30 PM EST Office Visit [facility] ADULT DENTAL [address] [place] [address] Curtis Borja DDS [address] [place] [address] 10/25/2024 2:00 PM EDT Telemedicine [facility] MED & PEDS [address] [place], [place] [phone] Gloria Richmond, WILDER [address] [place], [place] [phone] documented as of this encounter Visit Diagnoses Not on filedocumented in this encounter Additional Health Concerns Assessment Noted Time PHQ-9 Depression Total Score: 22 024 1:23 PM EDT documented as of this encounter Care Teams Dental Specialist Relationship Specialty Start Date End Date Karina Lopez MD [address] [place] [address] PCP - General Internal Medicine 04/22/23 Karina Thacker InternistStone Gluer 09/26/23 documented as of this encounter
--- OUTSIDE RECORDS SUMMARY | 2024-08-19 17:18 | XMS_ITS | Encounter Summary ---
Author Organization [employer] Address [address] [facility] 7t [place] [address] Care Team Providers Care Atm Technician Name Role Phone Karina Lopez MD Primary Care Pro vider Reason for Visit * Reason Comments Med Refill Encounter Details Date Type Department Care Team (Late st Contact Info) Description 09/23/2023 Refill [facility] [address] [place] [address] Karina Lopez MD [address] [place] [address] Social History Tobacco Use Types Packs/Day Years [...] Description 09/09/2024 1:30 PM EST Office Visit [facility] ADULT DENTAL [address] [place], [place] [phone] Curtis Borja DDS [address] [place] [address] 10/25/2024 2:00 PM EDT Telemedicine [facility] MED [facility] PEDS [address] [place] [address] Gloria Richmond, RN [address] [place] [address] documented as of this encounter Visit Diagnoses Not on filedocumented in this encounter Additional Health Concerns Assessment Noted Time PHQ-9 Depression Total Score: 16 023 1:41 PM EDT documented as of this encounter Care Teams Atm Technician Relationship Specialty Start Date End Date Karina Lopez MD [address] [place] [address] PCP - General Internal Medicine 04/22/23 Karina Thacker Community OrganizerEvidence Custodian 09/26/23 documented as of this encounter
--- OUTSIDE RECORDS SUMMARY | 2024-08-19 17:18 | XMS_ITS | Encounter Summary ---
Author Organization [employer] Address [address] [facility] 7 [place] [address] Care Team Providers Care Fixed Route Operator Name Role Phone Karina Lopez MD Primary Care Pro vider Reason for Visit * Reason Onset Date Comments FYI 06/20/2023 Durable Medical Equipment 06/20/2023 Encounter Details Date Type Department Care Team ([facility] st Contact Info) Description 06/20/2023 Telephone [facility] [address] [place] [address] Karina Lopez MD [address] [place], [place] [phone] FYI; Durable Medical Equipment Social History Tobacco Use Types Packs/Day Years [...] encounter Miscellaneous Notes * Telephone Encounter - Mati Ahmadi - 06/30/2023 11:21 AM EST Tc [facility] requesting a status update on DME supplies requested ( bariatric walker, commode and tub bench). Please contact at [phone] * Telephone Encounter - Nneka Plummer - 06/25/2023 3:22 PM EST Please see below message regarding pt's bariatric DMEs. * Telephone Encounter - Gavin Glass - 06/20/2023 1:29 PM EST Tc shashi Moreira at [employer] calling to report some of the medical equipment will not be able to fill due to weight capacity max is 500-550. documented in this encounter Plan of Treatment Upcoming Encounters Date Type Department Care Team (Late st Contact Info) Description 09/09/2024 1:30 PM EST Office Visit [facility] ADULT DENTAL [address] [place] [address] Curtis Borja DDS [address] [place] [address] 10/25/2024 2:00 PM EDT Telemedicine [facility] MED [facility] PEDS [address] [place] [address] Gloria Richmond, RN [address] [place], [place] [phone] documented as of this encounter Visit Diagnoses Not on filedocumented in this encounter Additional Health Concerns Assessment Noted Time PHQ-9 Depression Total Score: 16 023 1:41 PM EDT documented as of this encounter Care Teams Fixed Route Operator Relationship Specialty Start Date End Date Karina Lopez MD [address] [place] [phone] PCP - General Internal Medicine 04/22/23 Karina Thacker Primer Expeditor And DrierIndustrial Relations Specialist 09/26/23 documented as of this encounter
--- OUTSIDE RECORDS SUMMARY | 2024-08-19 17:18 | XMS_ITS | Clinical Summary ---
Author Organization [facility] Address [address] [place] [address] Care Team Providers Care Sorting Machine Attendant Name Role Phone Unavailable Primary Care Provider Unavailabl e Social History Tobacco Use Types Packs/Day Years Used Date Smoking Tobacco: Never Assessed Sex and Gender Information Value Date Recorded Sex Assigned at Not on file Gender Identity Not on file Sexual Orientation Not on file Plan of Treatment Health Maintenance Due Date Last Done Comments DTaP,Tdap,and Td Vaccines (1 - Tdap) 2013 Hepatitis B Vaccines (1 of 3 - 19+ 3-dose series) 2013 Depression Screening 06/23/2022 HIV Screening 06/23/2022 Hepatitis C Screening 06/23/2022 Social Influencers of Health Screening 06/23/2022 COVID-19 Vaccine ( - 2023-2 5 season) 2024 Influenza Vaccine (#1) 2024 HIB Vaccines Aged Out No longer eligi ble based on patient's age to complete this topic HPV Vaccines Aged Out No longer eligi ble based on patient's age to complete this topic Hepatitis A Vaccines Aged Out No long er eligible based on patient's age to complete this topic IPV Vaccines Aged Out No longer eligi ble based on patient's age to complete this topic MMR Vaccines Aged Out No longer eligi ble based on patient's age to complete this topic Meningococcal ACWY Vaccine Aged Out N o longer eligible based on patient's age to complete this topic Pneumococcal Vaccine: Pediat rics (0 to 5 Years) and At-Risk Patients (6 to 64 Years) Aged Out No longer eligible b ased on patient's age to complete this topic RSV Immunization Patients Un kelly 20 months Aged Out No longer eligible b ased on patient's age to complete this topic Varicella Vaccines Aged Out No longer eligible based on patient's age to complete this topic
--- OUTSIDE RECORDS SUMMARY | 2024-08-19 17:18 | XMS_ITS | Encounter Summary ---
Author Organization [employer] Address [address] [facility] 7t [place] [address] Care Team Providers Care Supervisor Production Name Role Phone Karina Lopez MD Primary Care Pro vider Reason for Visit * Reason Comments Med Refill Encounter Details Date Type Department Care Team (Late st Contact Info) Description 02/11/2024 Refill [facility] [address] [place] [address] Karina Lopez MD [address] [place] [address] Social History Tobacco Use Types Packs/Day Years [...] Visit [facility] ADULT DENTAL [address] [place] [address] Curtis Borja DDS [address] [place] [address] 10/25/2024 2:00 PM EDT Telemedicine [facility] MED & PEDS [address] [place] [address] Gloria Richmond, RN [address] [place] [address] documented as of this encounter Visit Diagnoses Not on filedocumented in this encounter Additional Health Concerns Assessment Noted Time PHQ-9 Depression Total Score: 22 024 1:23 PM EDT documented as of this encounter Care Teams Supervisor Production Relationship Specialty Start Date End Date Karina Lopez MD [address] [place] [address] PCP - General Internal Medicine 04/22/23 Karina Thacker Rn NurseryCitrus Peeler 09/26/23 documented as of this encounter
--- OUTSIDE RECORDS SUMMARY | 2024-08-19 17:18 | XMS_ITS | Clinical Summary ---
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 Blood Pressure Monitor kit 1 kit in the morning. 1 kit 05/22/20 23 Active metoprolol tartrate (Lopressor) 25 MG tablet Take 1 tablet (25 mg) by mouth 2 times daily. 180 tablet 08/07/19 24 Active buPROPion XL (Wellbutrin XL) 300 MG 24 hr tablet TOME KAILA TABLETA TODOS LOS D EN LA MA STANTON 90 tablet 08/07/19 24 Active sodium chloride ([place]) 0.65 % nasal spray Administer 1 spray into each nostril if needed for congestion. 15 mL 2 12/09/19 24 025 Active meloxicam (Mobic) 15 MG tablet TAKE 1 TABLET BY MOUTH EVERY MORNING 30 tablet 1 12/13/19 24 Active Ascorbic Acid (vitamin C) 500 MG tablet TAKE 1 TABLET BY MOUTH EVERY MORNING 90 tablet 12/25/19 24 Active Aspirin Low Dose 81 MG chewable tablet CHEW 1 TABLET BY MOUTH EVERY DAY IN THE MORNING 90 tablet 12/25/19 24 Active atorvastatin (Lipitor) 20 MG tablet Take 1 tablet (20 mg) by mouth Once per day. 90 tablet 01/19/20 24 025 Active Misc. Devices (Pulse Oximeter) misc 1 Device Once per day. 1 each 01/19/20 24 Active albuterol (2.5 MG/3ML) 0.083% nebulizer solution Take 3 mL (2.5 mg) by nebulization every 6 (six) hours if needed for wheezing. 75 mL 11 01/19/20 24 Active ursodiol (Actigall) 250 MG tablet Take 1 tablet by mouth with breakfast and with evening meal. 03/29/20 Active esomeprazole (NexIUM) [address] capsule Take 20 mg by mouth before breakfast. Do not open capsule. Active beta carotene (vitamin A) 3 MG (75610 UT) capsule Take 1 capsule (3 mg) by mouth Once per day. 90 capsule 05/11/20 Active cholecalcifer ol (Vitamin D-3) 50 MCG (2000 UT) tablet Take 2,000 Units by mouth Once per day. 90 tablet 05/11/20 Active ferrous gluconate (Fergon) 324 (38 Fe) MG tablet Take 1 tablet (324 mg) by mouth at noon and 1 tablet (324 mg) in the evening. 180 tablet 05/11/20 Active folic acid (Folvite) 1 MG tablet Take 1 tablet (1,000 mcg) by mouth Once per day. 90 tablet 05/11/20 Active nystatin (Mycostatin) 218706 UNIT/GM powder Apply topically 2 times daily. 60 g 2 05/11/20 Active omega-3 (Fish Oil) 1000 MG capsule Take 1 capsule (1,000 mg) by mouth Once per day. 90 capsule 1 05/11/20 Active Citracal Petites/Vitam in D 200-6.25 MG-MCG tablet Take 1 tablet by mouth 3 times daily. 05/06/20 Active cyanocobalami n (Vitamin B-12) 500 MCG tablet Take 500 mcg by mouth Once per day. 05/06/20 Active Multiple Vitamins-Iron (Tab-A-Luis/I colleen/Beta Carotene) tablet Take 2 tablets by mouth Once per day. 05/06/20 Active ondansetron (Zofran) 4 MG tablet TAKE 1 TABLET BY MOUTH EVERY 6 HOURS NEEDED FOR NAUSEA AND VOMITING 20 tablet 2 06/29/20 Active hyoscyamine (Levsin) 0.125 MG SL tablet TAKE 1 TABLET BY MOUTH EVERY 6 HOURS NEEDED FOR CRAMPS 30 tablet 2 07/01/20 24 Active oxyCODONE-garrison taminophen (Percocet) 5-325 MG tabletIndicat ions:Chronic pain of both knees Take 2 tablets by mouth every 12 (twelve) hours if needed for severe pain. 112 tablet 08/04/19 25 Active lidocaine (Lidoderm) 5 % patch APPLY 1 PATCH TOPICALLY TO SKIN IN THE MORNING. LEAVE ON FOR 12 HOURS AND OFF FOR 12 HOURS DIRECTED 90 patch 08/05/19 25 Active albuterol (Ventolin HFA) 108 (90 Base) MCG/ACT inhaler INHALE 2 PUFFS BY MOUTH EVERY 6 HOURS NEEDED 18 g 2 08/05/19 25 Active naloxone (Narcan) 4 mg/0.1 mL nasal spray Administer 1 spray (4 mg) into affected nostril(s) if needed for opioid reversal. May repeat every 2-3 minutes if needed, alternating nostrils, until medical assistance becomes available. 2 each 08/07/19 24 025 albuterol (Ventolin HFA) 108 (90 Base) MCG/ACT inhaler INHALE 2 PUFFS BY MOUTH EVERY 6 HOURS NEEDED 18 g 2 12/08/19 24 025 Discontinued(R eorder (will not trigger notification to Pharmacy)) lidocaine (Lidoderm) 5 % patch APPLY 1 PATCH TOPICALLY TO SKIN IN THE MORNING. LEAVE ON FOR 12 HOURS AND OFF FOR 12 HOURS DIRECTED 30 patch 2 05/11/20 24 025 Discontinued(R eorder (will not trigger notification to Pharmacy)) oxyCODONE-garrison taminophen (Percocet) 5-325 MG tabletIndicat ions:Chronic pain of both knees Take 2 tablets by mouth every 12 (twelve) hours if needed for severe pain. 112 tablet 06/29/20 24 025 Discontinued(R eorder (will not trigger notification to Pharmacy)) Active Problems Problem Noted Date Diagnosed Date Emesis 05/11/2024 Blister of lip with infection 05/11/2024 S/P laparoscopic sleeve gastrectomy 03/29/2024 Transient ischemic attack (TIA) 03/11/2024 Severe episode of recurrent major depressive disorder, without psychotic features 01/26/2024 Assessment & Plan (02/17/2024 4:18 PM EDT): During IB Consult Rosendo presenting with depressed mood, loss of interests/pleasure , changes in sleep difficulty falling asleep, change in appetite or weight overeating, psychomotor retardation, trouble concentrating, thoughts of worthlessness or guilt, fatigue/loss of energy, inappropriate guilt , hopelessness, worthlessness , difficulty concentrating; for a period of 18+ mo, for all symptoms in the context of illness or family illness. Rosendo reports severity of sxs have been going on for a while. Stressors and trigger identified for presentation of sxs has been associated with his body weight and limitations due to his medical condition. Rosendo has been admitted to [facility] due to morbid obesity and life-threatening obesity. He will be having a surgery and is currently on treatment to lose weight. Rosendo reports feeling lonely, sad and isolated from his family. During today's intervention, Rosendo was engaged with active, reflective listening and validation of emotions. clinician provided supportive therapy and used open-ended questions to assess risks, stressors, intensity and frequency. Rosendo was provided with a safe space where he can share emotions and concerns associated with his medical condition and how that is affecting his mental health. PLAN: (check all that apply) Continue with current services (defined as services in the past 12 months) Behavioral Health Integration Plan Internal Follow up with [facility] Patient Self Plan Patient to utilize skills provided in intervention , Patient to reach out to [facility] team as needed, Comply with medication , and Patient to reach out to [facility] as needed Assessment & Plan (01/26/2024 1:56 PM EDT): During IB Consult Rosendo presenting with depressed mood, loss of interests/pleasure , changes in sleep difficulty falling asleep, change in appetite or weight overeating, psychomotor retardation, trouble concentrating, thoughts of worthlessness or guilt, fatigue/loss of energy, inappropriate guilt , hopelessness, worthlessness , difficulty concentrating; for a period of 18+ mo, for all symptoms in the context of illness or family illness. Rosendo reports severity of sxs have been going on for a while. He reports feeling better today but struggling to maintain improvement. Stressors and trigger identified for presentation of sxs has been associated with his body weight and limitations due to his medical condition. He states taking things day by day helps sometimes. Currently connected with a therapist at [facility]. His brother is main social support, he's also Rosendo's [employer] MEMBER. During today's intervention, Rosendo was engaged with active, reflective listening. clinician provided supportive therapy and used open-ended questions to assess risks, stressors, intensity and frequency. Recommendations regarding OP services (continue with [facility]) and incorporate small changes. PLAN: (check all that apply) Continue with current services (defined as services in the past 12 months) . Pt reports being connected with therapist at [facility]. Hypoxemia 12/09/2023 BMI 70 and over, adult 10/07/2023 Skin maceration 05/23/2023 Physical deconditioning 05/23/2023 Subclinical hypothyroidism 05/23/2023 Bilateral lower extremity edema 05/23/2023 Microcytic anemia 05/23/2023 Tachycardia 05/23/2023 HLD (hyperlipidemia) 04/22/2023 HTN (hypertension) 04/22/2023 LC (obstructive sleep apnea) 04/22/2023 Severe obesity 04/22/2023 Asthma 04/22/2023 Health care maintenance 04/22/2023 Knee pain, bilateral 04/22/2023 Family history of cancer 04/22/2023 Resolved Problems Problem Noted Date Diagnosed Date Resolved Date Urinary incontinence 11/08/2023 024 Hematuria 11/08/2023 01/19/2024 Cellulitis of left lower extremity 10/29/2023 01/19/2024 Overview (10/29/2023): Per pt it is improving. He recently completed Augmentin and repots symptoms better over past several days. Continue to monitor. Continue VNA. Low threshold to treat and strict Er precautions for fever, increased pain or redness. He agrees with the plan. Assessment & Plan (10/29/2023 4:12 PM EDT): -patient reports redness Encounters Date Type Department Care Team Description 08/19/2024 Orders Only [facility] External Provider, [facility] 08/13/2024 Telephone [facility] [address] [place] [phone] Karina Lopez MD Nurse Triage 08/05/2024 Refill [facility] [address] [place] [address] Karina Lopez MD 08/04/2024 3:15 PM EST Clinical Support [facility] [address] [place] [address] Gloria Richmond, logistical engineer pain of both knees 08/04/2024 Refill [facility] [address] [place] [address] Gloria Richmond, logistical engineer pain of both knees 08/04/2024 Travel 06/30/2024 Refill [facility] [address] [place] [address] Karina Lopez MD 06/29/2024 Refill [facility] [address] [place] [address] Karina Lopez MD Chronic pain of both knees 06/29/2024 Patient Outreach [facility] [address] [place] [address] Karina Lopez MD Transition Of Care (Tcm) (HDF unscheduled) 06/28/2024 Telephone [facility] [address] [place] [phone] Karina Lopez MD Canceled Appointment 06/28/2024 Telephone [facility] [address] [place] [phone] Arlin Tello MA Appointment 06/25/2024 Patient Outreach [facility] [address] [place] [address] Karina Lopez MD Transition Of Care (Tcm) (HDF unscheduled) 06/23/2024 Telephone [facility] [address] [place] [address] Lucas Pemberton [place] DME O2 from [employer] 06/21/2024 Telephone [facility] [address] [place] [address] Karina Lopez MD Nurse Triage 06/20/2024 Orders Only GENERIC EXTERNAL DATA DEPARTMENT Provider, Generic External Data 06/15/2024 Orders Only GENERIC EXTERNAL DATA DEPARTMENT Provider, Generic External Data 06/15/2024 Telephone [facility] [address] [place] [phone] Karina Lopez MD Nurse Triage 06/14/2024 Orders Only [facility] [address] [place] [address] Karina Lopez MD 06/09/2024 Telephone [facility] [address] [place] [phone] Lakesha Light, RN Results 06/05/2024 Refill [facility] [address] [place] [phone] Karina Lopez MD 05/28/2024 Orders Only [facility] External Provider, [facility] 05/28/2024 Telephone [facility] [address] [place] [address] Karina Lopez MD Nurse Triage 05/28/2024 Refill [facility] [address] [place] [address] Eden Mcdonald MD Chronic pain of both knees 05/27/2024 Orders Only [facility] [address] [place] [phone] Karina Lopez MD from Last 3 Months Immunizations Name Administration Dates Next Due DTaP 02/05/2010, 8,10/20/1995,1994,1994,1994 HPV, Quadrivalent 07/19/1998, 5,1994,1993 Hep B, Adolescent or Pediatric 02/18/1995,1993,1994 Hib (HbOC) 10/20/1995, 5,1994,1993 Influenza injectable quadriv alent preservative free 04/21/2023 Influenza, seasonal, injecta ble, preservative free 05/11/2024 MMR 07/19/1998,10/20/1995 Pfizer Covid-19 Vaccine 12+ 05/11/2024, Pneumococcal Conjugate PCV 20 04/21/2023 Tdap 04/21/2023 Varicella 02/05/2010,07/20/1998 Family History Medical History Relation Name Comments Breast cancer Mother's Sister maternal cousins x2 colon ca Other Relation Name Status Comments Mother's Sister Other Social History Tobacco Use Types Packs/Day Years Used Date Smoking Tobacco: Never Passive Smoke Exposure: Never Smokeless Tobacco: Never Tobacco Cessation:Counseling Given: Not Answered Alcohol Use Standard Drinks/Week Comments Not Currently [...] Orientation Straight 04/21/2023 1: 41 PM EDT Last Filed Vital Signs Vital Sign Reading Time Taken Comments Blood Pressure 140/86 05/11/2024 2:06 PM EDT Pulse 114 05/11/2024 2:06 PM EDT Temperature 36.8 ??C (98.2 ??F) 05/11/2024 2:06 PM ED T Respiratory Rate 28 05/11/2024 2:06 PM EDT Oxygen Saturation 97% 05/11/2024 2:06 PM EDT Inhaled Oxygen Concentration - - Weight 289 kg (637 lb 9.6 oz) 05/11/2024 2:06 PM EDT Height 172.7 cm (5' 8 ) 05/11/2024 2:06 PM EDT Body Mass Index 96.95 05/11/2024 2:06 PM EDT Plan of Treatment Upcoming Encounters Date Type Department Care Team (Late st Contact Info) Description 09/09/2024 1:30 PM EST Office Visit [facility] [address] [place] [address] Curtis Borja DDS [address] [place] [address] 10/25/2024 2:00 PM EDT Telemedicine [facility] [address] [place], [place] [phone] Gloria Richmond, RN [address] [place] [address] Health Maintenance Due Date Last Done Comments Dental Oral Exam 1994 Dental Prophylaxis 1994 Dental X-Ray: Full Mouth 1994 Alcohol/Substance Use Screening 2006 Family Planning (PISQ) 2009 Hepatitis C Screening 2012 Depression Monitoring (PHQ-9) 07/28/2024 01/26/2024, 01/26/2024 Dental X-Ray: Bitewings 08/13/2024 08/12/2023 Depression Screening 01/25/2025 01/26/2024, 01/26/20 SDOH Screening 03/16/2025 03/16/2024 Tobacco Screening 05/11/2025 05/11/2024 Lipid Panel 01/07/2029 01/08/2024, 04/21/2023 DTaP/Tdap/Td Vaccines (8 - Td or Tdap) 04/21/2033 04/21/2023, 02/05/2010, 07/19/1998, Additional history exists Zoster Vaccines (1 of 2) 2044 RSV Patients and Patients Aged 60 years or older (1 - 1-dose 75+ series) 2069 Hepatitis B Vaccines Completed 02/18/1995, 1994, 1994 HIB Vaccines Completed 10/20/1995, 07/1994, 1994, Additional history exists HPV Vaccines Aged Out 07/19/1998, 07/1994, 1994, Additional history exists No longer eligible based on patient's age to complete this topic HIV Screening Completed 04/21/2023 Pneumococcal Vaccine: Pediatrics (0 to 5 Years) and At-Risk Patients (6 to 49) Years) Completed 04/21/2023 COVID-19 Vaccine Completed 05/11/2024, 08/07/2023 Influenza Vaccine Completed 05/11/2024, 04/21/2023 Hepatitis A Vaccines Aged Out No long er eligible based on patient's age to complete this topic IPV Vaccines Aged Out No longer eligi ble based on patient's age to complete this topic Meningococcal Vaccine Aged Out No kandiec jarek eligible based on patient's age to complete this topic RSV under 20 months Aged Out No longe r eligible based on patient's age to complete this topic Rotavirus Vaccines Aged Out No longer eligible based on patient's age to complete this topic Procedures Procedure Name Priority Date/Time Associated Diagnosis Comments XR ANKLE 3+ VIEWS RIGHT Routine 08/19/2024 1:39 PM EST XR KNEE 3 VIEWS RIGHT Routine 08/19/2024 1:37 PM EST XR KNEE 3 VIEWS LEFT Routine 08/19/2024 1:37 PM EST XR FOOT 3+ VIEWS RIGHT Routine 1:37 PM EST POCT MARY-14 URINE DRUG SCREEN Routine 08/04/2024 3:38 PM EST Chronic pain of both knees LIPASE Routine 06/20/2024 11:08 PM EST MAGNESIUM Routine 06/20/2024 11:08 PM EST COMPREHENSIVE METABOLIC PANEL Routine 06/20/2024 11:08 PM EST LIPASE Routine 06/15/2024 2:00 PM EST AMYLASE Routine 06/15/2024 2:00 PM EST MAGNESIUM Routine 06/15/2024 2:00 PM EST COMPREHENSIVE METABOLIC PANEL Routine 06/15/2024 2:00 PM EST COMPLETE BLOOD COUNT MAN DIF Routine 06/15/2024 2:00 PM EST CULTURE, URINE, ROUTINE Routine 05/28/2024 9:45 PM EST URINALYSIS, COMPLETE, WITH REFLEX TO CULTURE Routine 05/28/2024 9:32 PM EST XR KUB AND UPRIGHT 2 VIEWS Routine 05/28/2024 6:38 PM EST LIPID PANEL, STANDARD Routine 01/08/2024 8:05 AM EDT BITEWING - SINGLE RADIOGRAPHIC IMAGE Routine 08/12/2023 1:00 PM EST Dental caries HIV ANTIBODY/ANTIGEN ([place] DPH) Routine 04/21/2023 2:44 PM EDT from Last 3 Months or Most Recently Relevant to Health Maintenance Results * XR Ankle 3+ Views Right (08/19/2024 1:39 PM EST) Anatomical Region Laterality Modality Lower Extremities, Ankle Right Radiogr aphic Imaging 08/19/2024 1:39 PM EST Narrative 08/19/2024 2:56 PM EST ? [facility] ?[address] ?[place] [address] ?XRay Report ? Signed ? Patient: Mariaelena,Rosendo ?MR#: [id number] ?? 6 ? : 1995 ?Acct:[id number] ? Age/Sex: 29 / M ?ADM Date: 08/19/24 ? Loc: HO.ED ? Attending Dr: ? Ordering Physician: Aubree Dueñas ?? Date of Service: 08/19/24 ?? Procedure(s): XR ankle RT min 3V ?? Accession Number(s): [id number] ? cc: Aubree Dueñas; Karina Lopez MD ? EXAMINATION: ??XR ANKLE 3 OR MORE VIEWS RIGHT, XR FOOT 3 OR MORE VIEWS ?? RIGHT ? HISTORY: pain ? COMPARISON: Comparison is made with the prior examination of the right ?? ankle dated 01/29/2023. ? FINDINGS: ? Four portable views of the right foot and ankle are submitted. ??Osseous ?? mineralization is normal. ??There is no fracture or dislocation. ??The ?? joint spaces are preserved. ??The soft tissues are unremarkable. ? XR/XR ankle RT min 3V ?? IMPRESSION: ? No evidence of fracture of the right foot or ankle. ? Electronically signed by: ??Omar Hammond MD ??08/19/2024 02:54 PM EST ?? RP ? Dictated By: ?Omar Hammond MD ? Signed By: ?<Electronically signed by Omra Faberman, MD in OV> ?08/19/24 1454 ? DD/ 1339 ? TD/TT: 08/19/24 1444 ? Service And Repair Supervisor: ? Procedure Note Horacio, Image - 08/19/[address] [address] XRay Report Signed Patient: Meliton Ferrell#: [id number] 6 : 1995Acct:[id number] Age/Sex: 29 / MADM Date: 08/19/24 Loc: HO.ED Attending Dr: Ordering Physician: Aubree Dueñas Date of Service: 08/19/24 Procedure(s): XR ankle RT min 3V Accession Number(s): [id number] cc: Aubree Dueñas; Karina Lopez MD EXAMINATION: XR ANKLE 3 OR MORE VIEWS RIGHT, XR FOOT 3 OR MORE VIEWS RIGHT HISTORY: pain COMPARISON: Comparison is made with the prior examination of the right ankle dated 01/29/2023. FINDINGS: Four portable views of the right foot and ankle are submitted. Osseous mineralization is normal. There is no fracture or dislocation. The joint spaces are preserved. The soft tissues are unremarkable. XR/XR ankle RT min 3V IMPRESSION: No evidence of fracture of the right foot or ankle. Electronically signed by: Omar Hammond MD 08/19/2024 02:54 PM EST RP Dictated By: Omar Hammond MD Signed By: <Electronically signed by Omar Hammond MD in OV> 08/19/24 1454 DD/ 1339 TD/TT: 08/19/24 1444 Service And Repair Supervisor: [facility] External Provider IMG XR PROCEDURES Final Result * XR Foot 3+ Views Right (08/19/2024 1:37 PM EST) Anatomical Region Laterality Modality Lower Extremities, Foot Right Radiogra phic Imaging 08/19/2024 1:37 PM EST Narrative 08/19/2024 2:56 PM EST ? [facility] ?[address] ?[place] [address] ?XRay Report ? Signed ? Patient: Mariaelena,Rosendo ?MR#: [id number] ?? 6 ? : 1995 ?Acct:[id number] ? Age/Sex: 29 / M ?ADM Date: 08/19/24 ? Loc: HO.ED ? Attending Dr: ? Ordering Physician: Aubree Dueñas ?? Date of Service: 08/19/24 ?? Procedure(s): XR foot RT min 3V ?? Accession Number(s): [id number] ? cc: Aubree Dueñas; Karina Lopez MD ? EXAMINATION: ??XR ANKLE 3 OR MORE VIEWS RIGHT, XR FOOT 3 OR MORE VIEWS ?? RIGHT ? HISTORY: pain ? COMPARISON: Comparison is made with the prior examination of the right ?? ankle dated 01/29/2023. ? FINDINGS: ? Four portable views of the right foot and ankle are submitted. ??Osseous ?? mineralization is normal. ??There is no fracture or dislocation. ??The ?? joint spaces are preserved. ??The soft tissues are unremarkable. ? XR/XR foot RT min 3V ?? IMPRESSION: ? No evidence of fracture of the right foot or ankle. ? Electronically signed by: ??Omar Hammond MD ??08/19/2024 02:54 PM EST ? Dictated By: ?Omar Hammond MD ? Signed By: ?<Electronically signed by Omar Hammond MD in OV> ?08/19/24 1454 ? DD/ 1337 ? TD/TT: 08/19/24 1444 ? Service And Repair Supervisor: ? Procedure Note Dondarylter, Image - 08/19/2024 [place] [address] XRay Report Signed Patient: Rosendo FerrellMR#: [id number] 6 : 1995Acct:[id number] Age/Sex: 29 M Date: 08/19/24 Loc: HO.ED Attending Dr: Ordering Physician: Aubree Dueñas Date of Service: 08/19/24 Procedure(s): XR foot RT min 3V Accession Number(s): [id number] cc: Aubree Dueñas; Karina Lopez MD EXAMINATION: XR ANKLE 3 OR MORE VIEWS RIGHT, XR FOOT 3 OR MORE VIEWS RIGHT HISTORY: pain COMPARISON: Comparison is made with the prior examination of the right ankle dated 01/29/2023. FINDINGS: Four portable views of the right foot and ankle are submitted. Osseous mineralization is normal. There is no fracture or dislocation. The joint spaces are preserved. The soft tissues are unremarkable. XR/XR foot RT min 3V IMPRESSION: No evidence of fracture of the right foot or ankle. Electronically signed by: Omar Hammond MD 08/19/2024 02:54 PM EST Dictated By: Omar Hammond MD Signed By: <Electronically signed by Omar Hammond MD in OV> 08/19/24 1454 DD/ 1337 TD/TT: 08/19/24 1444 Service And Repair Supervisor: us [facility] External Provider IMG XR PROCEDURES Final Result * XR Knee 3 Views Right (08/19/2024 1:37 PM EST) Anatomical Region Laterality Modality Lower Extremities, Knee Right Radiogra phic Imaging 08/19/2024 1:37 PM EST Narrative 08/19/2024 2:59 PM EST ? [facility] ?[address] ?[place] [address] ?XRay Report ? Signed ? Patient: Rosendo Ferrell ?MR#: [id number] ?? 6 ? : 1995 ?Acct:[id number] ? Age/Sex: 29 / M ?ADM Date: 08/19/24 ? Loc: HO.ED ? Attending Dr: ? Ordering Physician: Aubree Dueñas ?? Date of Service: 08/19/24 ?? Procedure(s): XR knee RT 3V ?? Accession Number(s): [id number] ? cc: Aubree Dueñas; Karina Lopez MD ? EXAMINATION: ??XR KNEE 3 VIEWS RIGHT, XR KNEE 3 VIEWS LEFT ? HISTORY: pain s/p fall ? COMPARISON: Comparison is made with the prior examination dated ?? 07/16/2023. ? FINDINGS: ? Five portable views of the bilateral knees are submitted. ??Osseous ?? mineralization is normal. ??There is no fracture or dislocation. ??There ?? is narrowing of the medial compartments of both knees. ??The soft ?? tissues are unremarkable. There is no joint effusion. ? XR/XR knee RT 3V ?? IMPRESSION: ? Narrowing of the medial compartments of both knees. No evidence of ?? fracture. ? Electronically signed by: ??Omar Hammond MD ??08/19/2024 02:56 PM EST ?? RP ? Dictated By: ?Omar Hammond MD ? Signed By: ?<Electronically signed by Omar Hammond MD in OV> ?08/19/24 1456 ? DD/ 1337 ? TD/TT: 08/19/24 1444 ? Service And Repair Supervisor: ? Procedure Note Horacio, Image - 08/19/[address] [address] XRay Report Signed Patient: Meliton Ferrell#: [id number] 6 : 1995Acct:[id number] Age/Sex: 29 / MADM Date: 08/19/24 Loc: HO.ED Attending Dr: Ordering Physician: Aubree Dueñas Date of Service: 08/19/24 Procedure(s): XR knee RT 3V Accession Number(s): [id number] cc: Aubree Dueñas; Karina Lopez MD EXAMINATION: XR KNEE 3 VIEWS RIGHT, XR KNEE 3 VIEWS LEFT HISTORY: pain s/p fall COMPARISON: Comparison is made with the prior examination dated 07/16/2023. FINDINGS: Five portable views of the bilateral knees are submitted. Osseous mineralization is normal. There is no fracture or dislocation. There is narrowing of the medial compartments of both knees. The soft tissues are unremarkable. There is no joint effusion. XR/XR knee RT 3V IMPRESSION: Narrowing of the medial compartments of both knees. No evidence of fracture. Electronically signed by: Omar Hammond MD 08/19/2024 02:56 PM EST Dictated By: Omar Hammond MD Signed By: <Electronically signed by Omar Hammond MD in OV> 08/19/24 1456 DD/ 1337 TD/TT: 08/19/24 1444 Service And Repair Supervisor: us [facility] External Provider IMG XR PROCEDURES Final Result * XR Knee 3 Views Left (08/19/2024 1:37 PM EST) Anatomical Region Laterality Modality Lower Extremities, Knee Left Radiogra phic Imaging 08/19/2024 1:37 PM EST Narrative 08/19/2024 2:59 PM EST ? [facility] ?[address] ?[place] [address] ?XRay Report ? Signed ? Patient: Mariaelena,Rosendo ?MR#: [id number] ?? 6 ? : 1995 ?Acct:[id number] ? Age/Sex: 29 / M ?ADM Date: 08/19/24 ? Loc: HO.ED ? Attending Dr: ? Ordering Physician: Aubree Dueñas ?? Date of Service: 08/19/24 ?? Procedure(s): XR knee LT 3V ?? Accession Number(s): [id number] ? cc: Aubree Dueñas; Karina Lopez MD ? EXAMINATION: ??XR KNEE 3 VIEWS RIGHT, XR KNEE 3 VIEWS LEFT ? HISTORY: pain s/p fall ? COMPARISON: Comparison is made with the prior examination dated ?? 07/16/2023. ? FINDINGS: ? Five portable views of the bilateral knees are submitted. ??Osseous ?? mineralization is normal. ??There is no fracture or dislocation. ??There ?? is narrowing of the medial compartments of both knees. ??The soft ?? tissues are unremarkable. There is no joint effusion. ? XR/XR knee LT 3V ?? IMPRESSION: ? Narrowing of the medial compartments of both knees. No evidence of ?? fracture. ? Electronically signed by: ??Omar Hammond MD ??08/19/2024 02:56 PM EST ?? RP ? Dictated By: ?Omar Hammond MD ? Signed By: ?<Electronically signed by Omar Hammond MD in OV> ?08/19/24 1456 ? DD/ 1337 ? TD/TT: 08/19/24 1444 ? Service And Repair Supervisor: ? Procedure Note Horacio, Catracho - 08/19/[address] [address] XRay Report Signed Patient: Meliton Ferrell#: [id number] 6 : 1995Acct:[id number] Age/Sex: 29 / MADM Date: 08/19/24 Loc: HO.ED Attending Dr: Ordering Physician: Aubree Dueñas Date of Service: 08/19/24 Procedure(s): XR knee LT 3V Accession Number(s): [id number] cc: Aubree Dueñas; Karina Lopez MD EXAMINATION: XR KNEE 3 VIEWS RIGHT, XR KNEE 3 VIEWS LEFT HISTORY: pain s/p fall COMPARISON: Comparison is made with the prior examination dated 07/16/2023. FINDINGS: Five portable views of the bilateral knees are submitted. Osseous mineralization is normal. There is no fracture or dislocation. There is narrowing of the medial compartments of both knees. The soft tissues are unremarkable. There is no joint effusion. XR/XR knee LT 3V IMPRESSION: Narrowing of the medial compartments of both knees. No evidence of fracture. Electronically signed by: Omar Hammond MD 08/19/2024 02:56 PM EST Dictated By: Omar Hammond MD Signed By: <Electronically signed by Omar Hammond MD in OV> 08/19/24 1456 DD/ 1337 TD/TT: 08/19/24 1444 Service And Repair Supervisor: [facility] External Provider IMG XR PROCEDURES Final Result * POCT MARY-14 Urine Drug Screen (08/04/2024 3:38 PM EST) Oxycodone Screen, Urine Positive Urine Urine specimen obtained by clean catch procedure / Unknown 08/04/2024 3:38 PM EST Narrative Gloria Richmond RN - 08/04/2024 3:38 PM EST Lot# [id number] Exp: 06-26-25 Karina Duarte MD POINT OF CARE BENITO T ENTER/EDIT ORDERABLES Final Result * Magnesium (06/20/2024 11:08 PM EST) Only the most recent of2 resultswithin the time period is included. Magnesium 1.7 1.6 - 2.6 mg/dL [facility] 06/20/2024 11:0 8 PM EST 06/20/2024 11:11 PM EST Generic External Data Provider LAB BLOOD ORDERAB LES Final Result [facility] [address] [place] [address] [phone] * Lipase (06/20/2024 11:08 PM EST) Only the most recent of2 resultswithin the time period is included. Lipase 9 8 - 78 U/L [facility] 06/20/2024 11:0 8 PM EST 06/20/2024 11:11 PM EST us Generic External Data Provider LAB BLOOD ORDERAB LES Final Result [facility] [address] [place] [address] [phone] * (ABNORMAL) Comprehensive Metabolic Panel (06/20/2024 11:08 PM EST) Only the most recent of2 resultswithin the time period is included. Sodium 139 135 - 145 mmol/L [facility] Potassium 3.9 3.3 - 5.1 mmol/L [facility] Comment:Slight Hemolysis.Int erpret result with caution. Chloride 103 96 - 108 mmol/L [facility] Carbon Dioxide 25 22 - 29 mmol/L [facility] Anion Gap 15 12 - 20 [facility] Urea Nitrogen (BUN) 7(L) 9 - 16 mg/dL [facility] Creatinine, Serum 1.05 0.5 - 1.4 mg/dL [facility] Creatinine Clr Calc Pharmacy 218.0 [facility] Comment:eGFR (calculated fro m the MDRD study equation) and eCrCl(calculated from the Cockcroft-Gault equation) are based ondifferent parameters and may not yield comparable results.If eCrCl result is absurd, please check patient'sheight/weight. Estimated Glomerular Filt Rate >60 [facility] Comment:Chronic Kidney Disea se: Estimated GFR < 60 mL/min/1.95u1Xdrrfq Kidney Disease: Estimated GFR < 15 mL/min/1.73m2 Glucose 84 60 - 115 mg/dL [facility] Calcium 9.0 8.4 - 10.2 mg/dL [facility] Bilirubin, Total 0.7 0.0 - 1.0 mg/dL [facility] Aspartate Amino Transferase 19 5 - 37 U/L [facility] Comment:Slight Hemolysis.Int erpret result with caution. Alanine Aminotransferase 9 0 - 40 U/L [facility] Total Protein 7.5 6.5 - 8.0 g/dL [facility] Albumin Level 3.1(L) 3.5 - 5.0 g/dL [facility] Alkaline Phosphatase 70 39 - 117 U/L [facility] 06/20/2024 11:0 8 PM EST 06/20/2024 11:11 PM EST us Generic External Data Provider LAB BLOOD ORDERAB LES Final Result [facility] [address] [place] [phone] * (ABNORMAL) Complete Blood Count Manual Diff (06/15/2024 2:00 PM EST) White Blood Count 6.7 4.8 - 10.8 X10*3/uL [facility] Red Blood Count 5.62 4.60 - 5.80 X10*6/uL [facility] Hemoglobin 12.9(L) 14.0 - 18.0 g/dl [facility] Hematocrit 41.4(L) 42.0 - 52.0 % [facility] Mean Corpuscular Volume 73.7(L) 80.0 - 98.0 fL [facility] Mean Corpuscular Hemoglobin 23.0(L) 27.0 - 33.0 pg [facility] Mean Corpuscular HGB Conc 31.2 31.0 - 36.0 g/dl [facility] Red Cell Distribution Width 19.3(H) 11.0 - 16.0 % [facility] Platelet Count 188 160 - 400 X10*3/uL [facility] Mean Platelet Volume TNP 9.4 - 12.4 fL [facility] NRBC Pct Auto 0.0 0.0 - 0.2 /100WBC [facility] NRBC Abs Auto 0.000 0.0 - 0.012 X10*3/uL [facility] Neutrophils % Manual 63 45 - 73 % [facility] Band Neutrophils Percent 0(L) 3 - 5 % [facility] Lymphocytes Percent Manual 32 20 - 40 % [facility] Monocytes Percent Manual 4 2 - 11 % [facility] EOSINOPHILS % MANUAL 1 0 - 4 % [facility] NEUTROPHILS ABSOLUTE MANUAL 4.2 2.0 - 8.3 X10*3/uL [facility] LYMPHOCYTES ABSOLUTE MANUAL 2.1 1.2 - 4.9 X10*3/uL [facility] MONOCYTES ABSOLUTE MANUAL 0.3 0.1 - 1.2 X10*3/uL [facility] EOSINOPHILS ABSOLUTE MANUAL 0.1 0.0 - 0.4 X10*3/uL [facility] Platelet Estimate NORMAL NORMAL [facility] Large Platelet [facility] Platelet Morphology Comment NOTED [facility] RBC Morphology NOTED [facility] Hypochromasia 1+ (5-14) /OIF [facility] 06/15/2024 2:00 PM EST 06/15/2024 2:07 PM EST us Generic External Data Provider LAB BLOOD ORDERAB LES Final Result Performing Organization Address City/[facility]/ZIP Co de Phone Number [facility] [address] [place] [address] [phone] * Amylase (06/15/2024 2:00 PM EST) Amylase 35 28 - 100 U/L [facility] 06/15/2024 2:00 PM EST 06/15/2024 2:07 PM EST us Generic External Data Provider LAB BLOOD ORDERAB LES Final Result Performing Organization Address City/[facility]/ZIP Co de Phone Number [facility] [address] [place] [address] [phone] * Culture, Urine, Routine (05/28/2024 9:45 PM EST) Urine Urine specimen obtained by clean catch procedure / Unknown 05/28/2024 9:45 PM EST 05/28/2024 9:45 PM EST Comment:UACC Narrative [facility] - 05/31/2024 7:37 AM EST Proteus mirabilis Quant > 100,000 cfu/mL Proteus mirabilis: Ampicillin <=2(S) Proteus mirabilis: Cefazolin 4(S) Proteus mirabilis: Cefepime <=0.12(S) Proteus mirabilis: Ceftriaxone <=0.25(S) Proteus mirabilis: Ciprofloxacin <=0.06(S) Proteus mirabilis: Gentamicin <=1(S) Proteus mirabilis: Nitrofurantoin 128(R) Proteus mirabilis: Trimethoprim/Sulfamethoxazole <=20(S) Specimen Source: Urine clean catch us Generic External Data Provider LAB MICROBIOLOGY - GENERAL ORDERABLES Final Result [facility] [address] [place] [phone] * (ABNORMAL) Urinalysis, Complete, with Reflex to Culture (05/28/2024 9:32 PM EST) Color Urine Dark Yellow [facility] Appearance Urine Cloudy [facility] PH 5.5 5.0 - 9.0 [facility] Glucose Urine UA Negative Negative mg/dL [facility] Urine Blood Negative Negative [facility] Specific [place] - Urine 1.020 1.005 - 1.025 [facility] Urine Protein 30 (1+)(A) Neg-Trace mg/dL [facility] Urine Ketones Trace Negative mg/dL [facility] Nitrite Urine Negative Negative [facility] Leukocyte Esterase Urine Small (1+)(A) Negative [facility] RBC Urine 0-2 0 - 2 /HPF [facility] Urine WBC 11-20(A) 0 - 5 /HPF [facility] Urine Squamous Epithelial Cell 6-10 0 - 2 /HPF [facility] Urine Bacteria 2+ None Seen [facility] Hyaline Casts, Urine 3-5 0 - 2 /LPF [facility] 05/28/2024 9:32 PM EST 05/28/2024 9:35 PM EST Narrative [facility] - 05/28/2024 9:45 PM EST [id number], Clean Catch us Generic External Data Provider LAB URINE ORDERAB LES Final Result [facility] [address] [place] [address] [phone] * XR KUB and Upright 2 Views (05/28/2024 6:38 PM EST) Anatomical Region Laterality Modality Radiographic Vivian ging 05/28/2024 6:38 PM EST Narrative 05/28/2024 8:09 PM EST ? [facility] ?[address] ?[place] [id number] ?XRay Report ? Signed ? Patient: Mariaelena,Rosendo ?MR#: [id number] ?? 6 ? : 1995 ?Acct:[id number] ? Age/Sex: 29 / M ?ADM Date: 05/28/24 ? Loc: HO.ED ? Attending Dr: ? Ordering Physician: Edy Juarez ?? Date of Service: 05/28/24 ?? Procedure(s): XR KUB ?? Accession Number(s): [id number] ? cc: Edy Juarez; Karina Lopez MD ? EXAMINATION: ?? XR ABDOMEN KUB ? CLINICAL INDICATION: ?? Pain with question of bowel obstruction ? COMPARISON: ?? None available. ? TECHNIQUE: ?? AP view of the abdomen. ? FINDINGS: ?? The bowel gas pattern is normal with no evidence of ileus or ?? obstruction. No unusual soft tissue calcifications are noted. The bones ?? are unremarkable. ? XR/XR KUB ?? IMPRESSION: ?? Unremarkable examination. ? Electronically signed by: ??Arben La MD ??05/28/2024 08:06 PM EST ?? RP ? Dictated By: ?Arben La MD ? Signed By: ?<Electronically signed by Arben La MD in OV> ? 05/28/24 2006 ? DD/ ? TD/TT: 05/28/24 185 ? Service And Repair Supervisor: COLLEEN ? Procedure Note Catracho Leonard - 05/28/[address] [address] XRay Report Signed Patient: Meliton Ferrell#: [id number] 6 : 1995Acct:[id number] Age/Sex: 29 / MADM Date: 05/28/24 Loc: HO.ED Attending Dr: Ordering Physician: Edy Juarez Date of Service: 05/28/24 Procedure(s): XR KUB Accession Number(s): [id number] cc: Edy Juarez; Karina Lopez MD EXAMINATION: XR ABDOMEN KUB CLINICAL INDICATION: Pain with question of bowel obstruction COMPARISON: None available. TECHNIQUE: AP view of the abdomen. FINDINGS: The bowel gas pattern is normal with no evidence of ileus or obstruction. No unusual soft tissue calcifications are noted. The bones are unremarkable. XR/XR KUB IMPRESSION: Unremarkable examination. Electronically signed by: Arben La MD 05/28/2024 08:06 PM EST Dictated By: Arben La MD Signed By: <Electronically signed by Arben La MD in OV> 05/28/242005 DD/ 37 TD/TT: 05/28/241850 Service And Repair Supervisor: COLLEEN [facility] External Provider IMG XR PROCEDURES Edited Result - Final * (ABNORMAL) Lipid Panel, Standard (01/08/2024 8:05 AM EDT) Cholesterol, Total 242(H) <200 mg/dL [facility] HDL Cholesterol 46 > OR = 40 mg/dL [facility] Triglycerides 62 <150 mg/dL [facility] LDL Cholesterol 180(H) mg/dL [facility] [employer] [place] [facility] Comment: Reference range: <100 Desirable range <100 mg/dL for primary prevention; ?? <70 mg/dL for patients with CHD or diabetic patients with > or = 2 CHD risk factors. LDL-C is now calculated using the Manuela calculation, which is a validated novel method providing better accuracy than the Friedewald equation in the estimation of LDL-C. Mathew SS et al. GIULIA. 2013;310(19): 1667-1145 (http://education.Envia Lá/faq/YSW905) Chol/HDLC Ratio 5.3(H) <5.0 (calc) [facility] Non-HDL Cholesterol 196(H) <130 mg/dL [facility] Comment: For patients with diabetes plus 1 major ASCVD risk factor, treating to a non-HDL-C goal of <100 mg/dL (LDL-C of <70 mg/dL) is considered a therapeutic option. 01/08/2024 8:05 AM EDT 01/08/2024 7:06 PM EDT Karina Duarte MD LAB BLOOD ORDERAB LES Final Result [facility] [address], [place] [address] [facility] [address] [place] [phone] * HIV Ab/Ag (DWAINE PIMENTEL) (04/21/2023 2:44 PM EDT) [facility] HIV AB/AG Nonreactive Nonreactive [facility] Comment:HIV-1 p24 Ag and/or HIV-1/HIV-2 Ab not detected.A test result that is nonreactive does not exclude thepossibility of exposure to or infection with HIV-1 and/orHIV-2. Nonreactive results in this assay for individualswith prior exposure to HIV-1 and/or HIV-2 may be due toantigen and antibody levels that are below the limit ofdetection of this assay.The Aoratonity HIV Ag/Ab Combo assay result andsupplemental assay results should be interpreted inconjunction with the patient's clinical presentation,history and other laboratory results. If the results areinconsistent with clinical evidence, additional testing issuggested to confirm the result. 04/21/2023 2:44 PM EDT 04/21/2023 3:51 PM EDT us aKrina Duarte MD LAB BLOOD ORDERAB LES Final Result [facility] [address] [place] [address] [phone] from Last 3 Months or Most Recently Relevant to Health Maintenance Insurance [facility] ST[facility] AD[facility] Advance Directives Documents on File Type Date Recorded Patient Arboriculture Instructor Expl anation Power of Cloth Handler 10/15/2023 Power of A ttorney Care Teams Deck And Hull Assembler Relationship Specialty Start Date End Date Karina Lopez MD [address] [place] [address] PCP - General Internal Medicine 04/22/23 Karina Thacker Scanning SupervisorExecutive Team Leader 09/26/23
--- OUTSIDE RECORDS SUMMARY | 2024-08-19 17:18 | XMS_ITS | Encounter Summary ---
Author Organization [employer] Address [address] [facility] [address] [place] [address] Care Team Providers Care Sewer Line Photo Inspector Name Role Phone Karina Lopez MD Primary Care Pro vider Reason for Visit * Reason Onset Date Comments FYI 08/05/2023 Encounter Details Date Type Department Care Team ([facility] st Contact Info) Description 08/05/2023 Telephone [facility] MEDICINE [address] [place] [address] Karina Lopez MD [address] [place] [address] FYI Social History Tobacco Use Types Packs/Day [...] encounter Miscellaneous Notes * Telephone Encounter - Rola Peguero RN - 08/05/2023 8:49 AM EST Noted. * Telephone Encounter - Gavin Glass - 08/05/2023 8:44 AM EST Tc from Diana at [facility] call to inform the PCP the patientis going to be discharged from physical therapy any questions please call diana at [phone] documented in this encounter Plan of Treatment Upcoming Encounters Date Type Department Care Team (Late st Contact Info) Description 09/09/2024 1:30 PM EST Office Visit [facility] ADULT DENTAL [address] [place] [address] Curtis Borja DDS [address] [place] [address] 10/25/2024 2:00 PM EDT Telemedicine [facility] CHC MED & PEDS [address] [place] [address] Gloria Richmond, RN [address] [place] [address] documented as of this encounter Visit Diagnoses Not on filedocumented in this encounter Additional Health Concerns Assessment Noted Time PHQ-9 Depression Total Score: 16 023 1:41 PM EDT documented as of this encounter Care Teams Sewer Line Photo Inspector Relationship Specialty Start Date End Date Karina Lopez MD [address] [place] [phone] PCP - General Internal Medicine 04/22/23 Karina Thacker Videotape Recording EngineerCirculation Tender 09/26/23 documented as of this encounter
--- OUTSIDE RECORDS SUMMARY | 2024-08-19 17:18 | XMS_ITS | Encounter Summary ---
Author Organization [employer] Address [address] [facility] [address] [place] [address] Care Team Providers Care Steel Loader Name Role Phone Karina Lopez MD Primary Care Pro vider Reason for Visit * Reason Comments controlled substance treatment Encounter Details Date Type Department Care Team (Latest Contact Info) Description 08/04/2024 3:15 PM EST Clinical Support [facility] MED & PEDS [address] [place] [address] Gloria Richmond, WILDER [address] [place] [address] Chronic pain of both knees Social History [...] PM EDT documented as of this encounter Progress Notes * Gloria Richmond, WILDER - 08/04/2024 3:15 PM EST S: CONCIERGE MANAGER [place]. Patient is prescribed Percocet 5-325 mg every day 1 tab for mod pain, 2 tab for severe pain PRN; bilateral knee pain. Patient states takes med only as prescribed. Tylenol PRN. Denies any adverse reactions. Patient denies smoking cigarettes and illicit drugs use. States smokes Marijuana, recreational use. Occasional ETOH use, states he is aware of the risks associated with the combination of ETOH and opioids. Last PCP appt 05/11/24. Current pain level is 7/10 located in both knees, feet and back. Patient states medication provides about 60% pain relief. No questions/ concerns at this time. CONCIERGE MANAGER Agreement renewed today. O: VSS. CONCIERGE MANAGER tier 4. VEHICLE DAMAGE APPRAISER checked on 08/04/24. No discrepancies noted. Pill count performed, patient has 12 pills left, 0 expected. Medication is not being overused. Utox performed, positive fro OXY only, as expected. .Fentanyl testing: negative Lot# [id number] Exp: 07-04-25 .BPI updated today. Pain severity score of (7.5), activity interference score of (7.5). Previous BPI completed (07/29/23) with pain severity score of (8), activity interference score of (6). A: Chronic opioid use r/t chronic pain. P: Patient to cont. with current pain medication regimen as needed and take medication only as directed. Next CONCIERGE MANAGER NV scheduled for 10/25/24 @ 2pm. f/u sooner PRN. Patient verbalized understanding and agreed to plan. documented in this encounter Plan of Treatment Upcoming Encounters Date Type Department Care Team (Late st Contact Info) Description 09/09/2024 1:30 PM EST Office Visit [facility] ADULT DENTAL [address] [place] [address] Curtis Borja, DDS [address] [place] [address] 10/25/2024 2:[address] [facility] CHC MED & PEDS [address] [place], [place] [phone] Gloria Richmond, RN [address] [place], [place] [phone] documented as of this encounter Procedures Procedure Name Priority Date/Time Associated Diagnosis Comments POCT MARY-14 URINE DRUG SCREEN Routine 08/04/2024 3:38 PM EST Chronic pain of both knees documented in this encounter Results * POCT MARY-14 Urine Drug Screen (08/04/2024 3:38 PM EST) Oxycodone Screen, Urine Positive Urine Urine specimen obtained by clean catch procedure / Unknown 08/04/2024 3:38 PM EST Narrative Gloria Richmond RN - 08/04/2024 3:38 PM EST Lot# [id number] Exp: 06-26-25 us Karina Duarte MD POINT OF CARE BENITO T ENTER/EDIT ORDERABLES Final Result documented in this encounter Visit Diagnoses Diagnosis Chronic pain of both knees documented in this encounter Additional Health Concerns Assessment Noted Time PHQ-9 Depression Total Score: 22 07/08/2 024 1:23 PM EDT documented as of this encounter Care Teams Steel Loader Relationship Specialty Start Date End Date Karina Lopez MD [address] [place] [phone] PCP - General Internal Medicine 04/22/23 Karina Thacker Loader Semiconductor DiesSupervisor Sewer Maintenance 09/26/23 documented as of this encounter
--- OUTSIDE RECORDS SUMMARY | 2024-08-19 17:18 | XMS_ITS | Encounter Summary ---
Author Organization [employer] Address [address] [facility] [address] [place] [address] Care Team Providers Care Us Customs And Border Officer Name Role Phone Karina Lopez MD Primary Care Pro vider Reason for Visit * Reason Comments Med Refill Encounter Details Date Type Department Care Team (Late st Contact Info) Description 07/08/2023 Refill [facility] MEDICINE [address] [place] [address] Karina Lopez MD [address] [place] [address] Social History Tobacco Use Types Packs/Day Years [...] Description 09/09/2024 1:30 PM EST Office Visit [facility] ADULT DENTAL [address] [place], [place] [phone] Curtis Borja DDS [address] [place] [address] 10/25/2024 2:00 PM EDT Telemedicine [facility] CHC MED & PEDS [address] [place] [address] Gloria Richmond, RN [address] [place] [address] documented as of this encounter Visit Diagnoses Not on filedocumented in this encounter Additional Health Concerns Assessment Noted Time PHQ-9 Depression Total Score: 16 023 1:41 PM EDT documented as of this encounter Care Teams Us Customs And Border Officer Relationship Specialty Start Date End Date Karina Lopez MD [address] [place] [address] PCP - General Internal Medicine 04/22/23 Karina Thacker Sheet Metal ForemanVp Cardiovascular Service Line 09/26/23 documented as of this encounter
--- OUTSIDE RECORDS SUMMARY | 2024-08-19 17:18 | XMS_ITS | Encounter Summary ---
Author Organization [employer] Address 75 [facility] 7 [place] [address] Care Team Providers Care Scalp Treatment Specialist Name Role Phone Karina Lopez MD Primary Care Pro vider Reason for Visit * Reason Onset Date Comments Med Refill 06/23/2023 Encounter Details Date Type Department Care Team ([facility] st Contact Info) Description 06/23/2023 Telephone [facility] MEDICINE [address] [place] [address] Karina Lopez MD [address] [place] [address] Med Refill Social History Tobacco Use Types Packs/Day Years [...] encounter Miscellaneous Notes * Telephone Encounter - Nidia Sands LPN - 06/23/2023 1:25 PM EST Trazodone and Wellbutrin were sent to [facility] #[id number] on 04/21/23 #30 with 2 refills. * Telephone Encounter - Arely Almonte - 06/23/2023 1:02 PM EST Tc from pt requesting medication refill on buPROPion XL (Wellbutrin XL) 150 MG 24 hr tablet and traZODone (Desyrel) 50 MG tablet to be sent to [facility]/pharmacy #[id number] - [address] documented in this encounter Plan of Treatment Upcoming Encounters Date Type Department Care Team (Late st Contact Info) Description 09/09/2024 1:30 PM EST Office Visit [facility] ADULT DENTAL [address] [place] [address] Curtis Borja DDS [address] [place] [address] 10/25/2024 2:00 PM EDT Telemedicine [facility] CHC MED & PEDS [address] [place] [address] Gloria Richmond, RN [address] [place] [address] documented as of this encounter Visit Diagnoses Not on filedocumented in this encounter Additional Health Concerns Assessment Noted Time PHQ-9 Depression Total Score: 16 023 1:41 PM EDT documented as of this encounter Care Teams Scalp Treatment Specialist Relationship Specialty Start Date End Date Karina Lopez MD [address] [place] [address] PCP - General Internal Medicine 04/22/23 Karina Thacker Child Support Case OfficerDeburr Operator 09/26/23 documented as of this encounter
--- OUTSIDE RECORDS SUMMARY | 2024-08-19 17:18 | XMS_ITS | Encounter Summary ---
Author Organization [employer] Address 75 [facility] 7 [place] [address] Care Team Providers Care Smutter Name Role Phone Karina Lopez MD Primary Care Pro vider Reason for Visit * Reason Onset Date Comments Nurse Triage 11/10/2023 Encounter Details Date Type Department Care Team ([facility] st Contact Info) Description 11/10/2023 Telephone [facility] MEDICINE [address] [place] [address] Karina Lopez MD [address] [place] [address] Nurse Triage Social History Tobacco Use Types [...] Telephone Encounter - Josselyn Lanier RN - 11/10/2023 1:02 PM EDT Called pt. He states he fell this am at 845am and twisted right ankle this am. Pt. Can barely put weight on foot. Pt. States he is over 740 pounds. Advised pt. To call 911 to have ambulance bring himto ED to get foot evaluated. Pt states that when he went to [facility] he was traumatized by the way he was treated there. I advised pt. To go to [facility] as it is closer anyway. Called pt. Home Health aid Girish. At [phone]. Pt. Was walking with walker this am to go to bathroom. Pt currently does have cellulitis on his right foot. Looking for order to have nurse visit to assess ankle on 11/11/23- Phone number for verbal order is [phone]-Lissette -Nurse. Pt. Is being apprehensive about going to ED today even after I encouraged him to go to [facility]. Protocol Used: Ankle and Foot Injury (Adult) Protocol-Based Disposition: See in Office or Video Visit Today- Advised pt. To call 911 to have ambulance bring him to ED pt. Is currently 740lbs. Positive Triage Question: * Severe pain (e.g., excruciating) * All higher-acuity triage questions were negative Care Advice Discussed: * Reassurance and Education - Bending or Twisting Injury (Strain, Sprain) * Use a Cold Pack for Pain, Swelling, or Bruising * Elevate the Ankle and Foot * Telephone Encounter - Cedric Cruz - 11/10/2023 12:54 PM EDT Symptoms: Fall, Foot or Ankle Pain - Not From Injury Outcome: Transfer to a nurse or provider NOW! Reason: Trouble walking that started after the fall Please contact pt at [phone]. documented in this encounter Plan of Treatment Upcoming Encounters Date Type Department Care Team (Late st Contact Info) Description 09/09/2024 1:30 PM EST Office Visit [facility] ADULT DENTAL [address] [place] [address] Curtis Borja DDS [address] [place] [address] 10/25/2024 2:00 PM EDT Telemedicine [facility] CHC MED & PEDS [address] [place], [place] [phone] Gloria Richmond, RN [address] [place] [address] documented as of this encounter Visit Diagnoses Not on filedocumented in this encounter Additional Health Concerns Assessment Noted Time PHQ-9 Depression Total Score: 16 023 1:41 PM EDT documented as of this encounter Care Teams Smutter Relationship Specialty Start Date End Date Karina Lopez MD [address] [place] [address] PCP - General Internal Medicine 04/22/23 Karina Thacker Retort ForkerRegistered Sales Assistant 09/26/23 documented as of this encounter
--- OUTSIDE RECORDS SUMMARY | 2024-08-19 17:18 | XMS_ITS | Encounter Summary ---
Author Organization [employer] Address 75 [facility] 7 [place] [address] Care Team Providers Care File Machine Operator Name Role Phone Karina Lopez MD Primary Care Pro vider Reason for Visit * Reason Onset Date Comments Call Back Request 12/08/2023 Encounter Details Date Type Department Care Team ([facility] st Contact Info) Description 12/08/2023 Telephone [facility] MEDICINE [address] [place] [address] Karina Lopez MD [address] [place] [address] Call Back Request Social History Tobacco Use [...] encounter Miscellaneous Notes * Telephone Encounter - Gavin Glass - 12/08/2023 2:57 PM EDT Tc from [facility] Nurse requesting a call back to discuss about health matters at [phone] no further information provided at this time documented in this encounter Plan of Treatment Upcoming Encounters Date Type Department Care Team (Late st Contact Info) Description 09/09/2024 1:30 PM EST Office Visit [facility] ADULT DENTAL [address] [place] [address] Curtis Borja DDS [address] [place] [address] 10/25/2024 2:00 PM EDT Telemedicine [facility] MED & PEDS [address] [place], [place] [phone] Gloria Richmond, WILDER 505 [place] [address] documented as of this encounter Visit Diagnoses Not on filedocumented in this encounter Additional Health Concerns Assessment Noted Time PHQ-9 Depression Total Score: 16 023 1:41 PM EDT documented as of this encounter Care Teams File Machine Operator Relationship Specialty Start Date End Date Karina Lopez MD [address] [place] [address] PCP - General Internal Medicine 04/22/[address]/Medical InterpreterPower Plant Operator Apprentice 09/26/23 documented as of this encounter
--- OUTSIDE RECORDS SUMMARY | 2024-08-19 17:19 | XMS_ITS | Encounter Summary ---
Author Organization [employer] Address 75 [facility] 7 [place] [address] Care Team Providers Care Hydration Plant Operator Name Role Phone Karina Lopez MD Primary Care Pro vider Reason for Visit * Reason Onset Date Comments FYI 07/30/2023 Encounter Details Date Type Department Care Team ([facility] st Contact Info) Description 07/30/2023 Telephone [facility] MEDICINE [address] [place] [address] Karina Lopez MD [address] [place] [address] FYI Social History Tobacco Use Types Packs/Day [...] * Telephone Encounter - Gavin Glass - 07/30/2023 2:00 PM EST Tc from Diana at [facility] calling to report the patients vital signs. Heart Rate: 112 Blood Pressure: 134/103 Pain: 04/29 documented in this encounter Plan of Treatment Upcoming Encounters Date Type Department Care Team (Late st Contact Info) Description 09/09/2024 1:30 PM EST Office Visit [facility] ADULT DENTAL [address] [place] [address] Curtis Borja DDS [address] [place] [address] 10/25/2024 2:00 PM EDT Telemedicine [facility] CHC MED & PEDS [address] [place] [address] Gloria Richmond, RN [address] [place] [address] documented as of this encounter Visit Diagnoses Not on filedocumented in this encounter Additional Health Concerns Assessment Noted Time PHQ-9 Depression Total Score: 16 023 1:41 PM EDT documented as of this encounter Care Teams Hydration Plant Operator Relationship Specialty Start Date End Date Karina Lopez MD [address] [place] [address] PCP - General Internal Medicine 04/22/23 Karina Thacker Physician AsstDiagrammer And Seamer 09/26/23 documented as of this encounter
--- OUTSIDE RECORDS SUMMARY | 2024-08-19 17:19 | XMS_ITS | Encounter Summary ---
Author Organization [employer] Address 75 [facility] 7 [place] [address] Care Team Providers Care Communication Technician Name Role Phone Karina Lopez MD Primary Care Pro vider Reason for Visit * Reason Onset Date Comments FYI 08/06/2023 Encounter Details Date Type Department Care Team ([facility] st Contact Info) Description 08/06/2023 Telephone [facility] MEDICINE [address] [place] [address] Karina Lopez MD [address] [place] [address] FYI Social History Tobacco Use Types Packs/Day [...] * Telephone Encounter - Arely Gage - 08/06/2023 3:09 PM EST Tc from [facility] calling to advise PCP pt will be discharged from PT due to no progress. documented in this encounter Plan of Treatment Upcoming Encounters Date Type Department Care Team (Late st Contact Info) Description 09/09/2024 1:30 PM EST Office Visit [facility] ADULT DENTAL [address] [place] [address] Curtis Borja DDS [address] [place] [address] 10/25/2024 2:00 PM EDT Telemedicine [facility] CHC MED & PEDS [address] [place] [address] Gloria Richmond, RN [address] [place] [address] documented as of this encounter Visit Diagnoses Not on filedocumented in this encounter Additional Health Concerns Assessment Noted Time PHQ-9 Depression Total Score: 16 023 1:41 PM EDT documented as of this encounter Care Teams Communication Technician Relationship Specialty Start Date End Date Karina Lopez MD [address] [place] [address] PCP - General Internal Medicine 04/22/23 Karina Thacker Clinical Laboratory DirectorStudio Camera Operator 09/26/23 documented as of this encounter
--- OUTSIDE RECORDS SUMMARY | 2024-08-19 17:19 | XMS_ITS | Encounter Summary ---
Author Organization [employer] Address 75 [facility] 7 [place] [address] Care Team Providers Care Nursing Staff Development Coordinator Name Role Phone Karina Lopez MD Primary Care Pro vider Reason for Visit * Reason Onset Date Comments FYI 12/17/2023 Encounter Details Date Type Department Care Team ([facility] Contact Info) Description 12/17/2023 Telephone [facility] MEDICINE [address] [place] [address] Karina Lopez MD [address] [place] [address] FYI Social History Tobacco Use Types Packs/Day [...] * Telephone Encounter - Mati Ahmadi - 12/17/2023 3:57 PM EDT Tc from [facility] would like to inform PCP that they had a visit with pt yesterday 12/16/23 and pt oxygen levels were at 70, [facility] stated they contacted 911 however pt refused to go to ER and follow with any medical treatments, also stated they discussed with pt hospice care, states pt agree to have an evaluation with [facility] for further information however pt still indecisive on wanting hospice care. [facility] also stated pt hasn't made any progress. Advised will leave message message as FYI. Please contact at [phone] documented in this encounter Plan of Treatment Upcoming Encounters Date Type Department Care Team (Late st Contact Info) Description 09/09/2024 1:30 PM EST Office Visit [facility] ADULT DENTAL [address] [place] [address] Curtis Borja DDS [address] [place] [address] 10/25/2024 2:00 PM EDT Telemedicine [facility] CHC MED & PEDS [address] [place] [address] Gloria Richmond, RN [address] [place] [address] documented as of this encounter Visit Diagnoses Not on filedocumented in this encounter Additional Health Concerns Assessment Noted Time PHQ-9 Depression Total Score: 16 023 1:41 PM EDT documented as of this encounter Care Teams Nursing Staff Development Coordinator Relationship Specialty Start Date End Date Karina Lopez MD [address] [place] [address] PCP - General Internal Medicine 04/22/23 Karina Thacker Salesperson MeatsProgramming Development Project Manager 09/26/23 documented as of this encounter
--- OUTSIDE RECORDS SUMMARY | 2024-08-19 17:19 | XMS_ITS | Encounter Summary ---
Author Organization [employer] Address 75 [facility] 7 [place] [address] Care Team Providers Care High [employer] Social Studies Teacher Name Role Phone Karina Lopez MD Primary Care Pro vider Reason for Visit * Reason Onset Date Comments Nurse Triage 05/26/2023 Encounter Details Date Type Department Care Team ([facility] st Contact Info) Description 05/26/2023 Telephone [facility] MEDICINE [address] [place] [address] Karina Lopez MD [address] [place] [address] Nurse Triage Social History Tobacco Use Types [...] encounter Miscellaneous Notes * Telephone Encounter - Angelina Davalos RN - 05/27/2023 12:56 PM EST Call to Pt to follow up Triage 05/26/23. Pt is aware that insurance is all set now, Pt spoke with [place] and standard insurance is in place. Advised Pt to call for [employer]ER now and Pt reports will do that at this time. No further questions. * Telephone Encounter - Angelina Davalos RN - 05/26/2023 3:57 PM EST Triage call regarding knee pain. Pt reports has had this knee problem for 3 years and is calling inregards to insurance. Pt reports needs [place] certain type [place] to be able to obtain [employer]ER for home help. Advised Pt will call insurance contact at [facility] and Pt agreed. Call to [facility] [phone] to possibly call this Pt regarding insurance plan. Protocol Used: No Protocol Available (Adult) Protocol-Based Disposition: See in Office or Video Visit within 2 Weeks Video visit not offered Positive Triage Question: * Nursing judgment * All higher-acuity triage questions were negative Care Advice Discussed: * Reasons To Call Back - New symptoms develop - You become worse * Telephone Encounter - Gavin Glass - 05/26/2023 3:41 PM EST Symptoms: Knee Pain - Not From Injury, Constipation Outcome: Talk to a nurse or provider within 15 minutes Reason: Can't walk (unless normally can't walk) The caller accepted this outcome Patient speaks eritrean documented in this encounter Plan of Treatment Upcoming Encounters Date Type Department Care Team (Late st Contact Info) Description 09/09/2024 1:30 PM EST Office Visit [facility] ADULT DENTAL [address] [place], [place] [phone] Curtis Borja DDS [address] [place] [address] 10/25/2024 2:00 PM EDT Telemedicine [facility] MED & PEDS [address] [place], [place] [phone] Gloria Richmond, WILDER [address] [place], [place] [phone] documented as of this encounter Visit Diagnoses Not on filedocumented in this encounter Additional Health Concerns Assessment Noted Time PHQ-9 Depression Total Score: 16 023 1:41 PM EDT documented as of this encounter Care Teams High School Social Studies Teacher Relationship Specialty Start Date End Date Karina Lopez MD [address] [place], [place] [phone] PCP - General Internal Medicine 04/22/23 Karina Thacker Complaint SupervisorFuneral Planning Counselor 09/26/23 documented as of this encounter
--- OUTSIDE RECORDS SUMMARY | 2024-08-19 17:19 | XMS_ITS | Encounter Summary ---
Author Organization [employer] Address 75 [facility] 7t [place] [address] Care Team Providers Care Heat Seal Operator Name Role Phone Karina Lopez MD Primary Care Pro vider Reason for Visit * Reason Comments Med Refill Encounter Details Date Type Department Care Team (Late st Contact Info) Description 02/06/2024 Refill [facility] CHC MED & PEDS [address] [place] [address] Karina Lopez MD [address] [place] [address] Chronic pain of both knees Social History [...] Visit [facility] ADULT DENTAL [address] [place] [address] Curtis Borja DDS [address] [place] [address] 10/25/2024 2:00 PM EDT Telemedicine [facility] MED & PEDS [address] [place] [address] Gloria Richmond, RN [address] [place] [address] documented as of this encounter Visit Diagnoses Diagnosis Chronic pain of both knees documented in this encounter Additional Health Concerns Assessment Noted Time PHQ-9 Depression Total Score: 22 024 1:23 PM EDT documented as of this encounter Care Teams Heat Seal Operator Relationship Specialty Start Date End Date Karina Lopez MD [address] [place] [address] PCP - General Internal Medicine 04/22/23 Karina Thacker Financial UnderwriterSurtass Analyst 09/26/23 documented as of this encounter
--- OUTSIDE RECORDS SUMMARY | 2024-08-19 17:19 | XMS_ITS | Encounter Summary ---
Author Organization [employer] Address 75 [facility] 7t [place] [address] Care Team Providers Care Salesperson Art Objects Name Role Phone Karina Lopez MD Primary Care Pro vider Reason for Visit * Reason Comments Med Refill Encounter Details Date Type Department Care Team (Late st Contact Info) Description 12/10/2023 Refill [facility] MEDICINE [address] [place] [address] Karina Lopez MD [address] [place] [address] Social History Tobacco Use Types Packs/Day Years [...] 1:30 PM EST Office Visit [facility] ADULT DENTAL [address] [place], [place] [phone] Curtis Borja DDS [address] [place] [address] 10/25/2024 2:00 PM EDT Telemedicine [facility] CHC MED & PEDS [address] [place] [address] Gloria Richmond, RN [address] [place] [address] documented as of this encounter Visit Diagnoses Not on filedocumented in this encounter Additional Health Concerns Assessment Noted Time PHQ-9 Depression Total Score: 16 023 1:41 PM EDT documented as of this encounter Care Teams Salesperson Art Objects Relationship Specialty Start Date End Date Karina Lopez MD [address] [place] [address] PCP - General Internal Medicine 04/22/23 Karina Thacker Electrotype MolderNewspaper Manager 09/26/23 documented as of this encounter
--- OUTSIDE RECORDS SUMMARY | 2024-08-19 17:19 | XMS_ITS | Encounter Summary ---
Author Organization [employer] Address 75 [facility] 7t [place] [address] Care Team Providers Care Vehicle Fuel Systems Converter Name Role Phone Karina Lopez MD Primary Care Pro vider Reason for Visit * Reason Onset Date Comments New patient 04/04/2023 Encounter Details Date Type Department Care Team ([facility] st Contact Info) Description 04/04/2023 Telephone [facility] MEDICINE [address] [place], [place] [phone] Daniele Desouza MD [address] [place] [address] New patient Social History Tobacco Use Types Packs/Day Years Used Date Smoking Tobacco: Never Assessed Sex and Gender Information Value Date Recorded Sex Assigned at Male 05/20/2022 10:15 AM EDT Legal Sex Male 10:15 AM EDT Gender Identity Male 05/20/2022 10:15 AM EDT Sexual Orientation Straight 04/21/2023 1: 41 PM EDT documented as of this encounter Miscellaneous Notes * Telephone Encounter - Enid Lott - 04/04/2023 12:11 PM EDT LADARIUS Dorman called pt to Offer QUENCHING CAR OPERATOR appt. Pt demographics and insurance information were verified. Pt reports the following medical conditions: HTN, High Cholesterol, Diabetic, Sleep Anemia, Weight. Pt is currently taking medication: Yes will bring on day of appt. Pt given QUENCHING CAR OPERATOR appt with Dr. Hall on 04/21/2023 @ 1:15 pm. Pt will be sent appt reminder card an/d medical release form and agrees to complete and to return to medical records prior to QUENCHING CAR OPERATOR appt. documented in this encounter Plan of Treatment Upcoming Encounters Date Type Department Care Team (Late st Contact Info) Description 09/09/2024 1:30 PM EST Office Visit [facility] ADULT DENTAL [address] [place], [place] [phone] Curtis Borja DDS [address] [place], [place] [phone] 10/25/2024 2:00 PM EDT Telemedicine [facility] CHC MED & PEDS [address] [place], [place] [phone] Gloria iRchmond, WILDER [address] [place], [place] [phone] documented as of this encounter Visit Diagnoses Not on filedocumented in this encounter Care Teams Vehicle Fuel Systems Converter Relationship Specialty Start Date End Date Karina Lopez MD [address] [place] [address] PCP - General Internal Medicine 04/22/23 Karina Thacker Top Stop AttacherStaffing Administrator 09/26/23 documented as of this encounter
== END 2024-08-19 16:02 | disposition home or self-care (01) ==
PROVIDERS: Emergency Provider Emergency Medicine; PCP Student in an Organized Health Care Education/Training Program
DX: M25.562 Pain in left knee (principal); M25.561 Pain in right knee; M79.672 Pain in left foot; M79.671 Pain in right foot; Z91.81 History of falling
CPT/HCPCS: 73562; 73610; 73630; 99283; 99284

== ENCOUNTER → 2024-08-19 13:39 | Outpatient (BNV) | payer MEDICAID, SELFPAY | PROVIDERS: Emergency Provider Emergency Medicine; PCP Student in an Organized Health Care Education/Training Program; Visit Provider Radiology Diagnostic Radiology | DX: M25.561 Pain in right knee (principal); M25.562 Pain in left knee; M25.571 Pain in right ankle and joints of right foot; M79.671 Pain in right foot | CPT/HCPCS: 73562; 73610; 73630 ==

== ENCOUNTER 2024-09-12 19:45 | Emergency (ER) | payer MEDICAID, SELFPAY ==
[2024-09-12 20:04] VITALS: BP 138/91; PULSE 94; O2SAT 93
[2024-09-12 20:08] VITALS: BP 131/82; PULSE 88; RESP 22; TEMP 36.5; O2SAT 100; BMI 89.0
--- NOTE | 2024-09-12 20:57 | ED.FALL ---
HPI - Fall General Chief Complaint: Fall Stated Complaint: LOW BACK PAIN, BARIATRIC, TINGLY HANDS PER EMS Time Seen by Provider: 09/12/24 20:30 History of Present Illness HPI Narrative: Patient is 29 years old presented today after an accidental fall. Complaining of some tingling also complaining of lower back pain. There is no fever no chills. There is no bowel urinary incontinence. Patient has weakness to bilateral leg which is more chronic in nature. He has larger in size weighing 265.5 kg today. Status post gastric sleeve surgery in February. His BMI is 89 his height is 5 ft 8 in. Has a history of TIAs in the past. Has a history of osteoarthritis. Related Data Home Medications ?Medication ?Instructions ?Recorded ?Confirmed trazodone 50 mg tablet 50 mg PO BEDTIME PRN Insomnia 01/30/23 01/19/24 lidocaine 5 % topical patch 1 patch topical DAILY 07/10/23 01/19/24 meloxicam 15 mg tablet 15 mg PO DAILY 07/10/23 01/19/24 bupropion HCl 300 mg 24 hr tablet, 300 mg PO DAILY 09/11/23 01/19/24 extended release ferrous gluconate 324 mg (38 mg 324 mg PO TIDWM 09/11/23 01/19/24 iron) tablet omega-3 acid ethyl esters 1 gram 1 cap PO DAILY 09/11/23 01/19/24 capsule oxycodone-acetaminophen 5 mg-325 2 tab PO BID PRN Moderate Pain 09/11/23 01/19/24 mg tablet (Scale Score 5-6) albuterol sulfate 90 mcg/actuation 2 inh inhalation Q6H PRN Shortness 01/19/24 01/19/24 aerosol inhaler (Ventolin HFA) Of Breath ascorbic acid (vitamin C) 500 mg 500 mg PO DAILY 01/19/24 01/19/24 tablet aspirin 81 mg chewable tablet 1 tab PO DAILY 01/19/24 01/19/24 metoprolol tartrate 25 mg tablet 25 mg PO BID 01/19/24 01/19/24 semaglutide (weight loss) 0.25 0.25 mg subcut QWEEK 01/19/24 01/19/24 mg/0.5 mL subcutaneous pen injector (Wegovy) Previous Rx's ?Medication ?Instructions ?Recorded edmund #1 shireen 10/22/22 walker #1 ea 01/30/23 apixaban 5 mg tablet (Eliquis) 5 mg PO BID #180 tabs 01/21/24 amoxicillin 875 mg-potassium 1 tab PO BID #20 tabs 05/01/24 clavulanate 125 mg tablet sulfamethoxazole 800 1 tab PO BID #20 tabs 05/01/24 mg-trimethoprim 160 mg tablet (Bactrim DS) ondansetron 4 mg disintegrating 4 mg PO Q8H PRN nausea and 05/28/24 tablet vomiting #20 tabs Allergies Allergy/AdvReac Type Severity Reaction Status Date / Time No Known Allergies Allergy Verified 09/12/24 20:10 Review of Systems Review of Systems: No fever no chills Positive weakness to the bilateral lower extremity Positive mild tingling to the hand PMFSH Past Medical History Attestation statement: The following information was validated with the patient. Medical History Stasis dermatitis of both legs Brain TIA Hypertension Hypercholesteremia Asthma Surgical History S/P gastric sleeve procedure Social History Social History Household Members: Family Housing: House Alcohol intake: current Alcohol intake frequency: does not drink Patient Tobacco Use Status: Never used Tobacco Smoked in Last 30 Days: No Use of substances other than those prescribed or required for medical reasons: Yes Substance Use Type: Marijuana and Prescription Drugs Substance Use Frequency: Daily Advance Directives: Yes Advance Directives Information Provided: Yes Advance Directives on File: No Do you have a plan to hurt others: No Plan service: No Physical Exam Vital Signs: Vital Signs: Last Vital Signs Temp 97.7 F 09/12/24 20:08 Pulse 88 09/12/24 20:08 Resp 22 H 09/12/24 20:08 BP 131/82 09/12/24 20:08 Pulse Ox 100 09/12/24 20:08 O2 Del Method Room Air 09/12/24 20:08 BMI result Body Mass Index 89.0 Appearance: Alert. Oriented X3. No acute distress. Eyes: Pupils equal, round and reactive to light. ENT: Pharynx normal. Neck: Normal inspection. No lymph nodes noted. No crepitus CVS: Normal heart rate and rhythm. Pulses normal. Normal S1 and S2 Respiratory: No respiratory distress. Breath sounds normal. No Wheezing. No rales Abdomen: Soft and nontender. No rigidity. No distention. good BS x4 Skin: Skin warm and dry. Normal skin color. Normal skin turgor. Extremities: No lower extremity edema. Neurovascular intact to all extremities. No Lacerations. No Rash Neuro: Oriented X 3. Weakness in lifting the lower extremity bilaterally. No sensory deficit. Moving all extermities. No slurred speech Medical Decision Making Medical Decision Making MDM Narrative: Patient had a traumatic event he fell accidentally. Landing on his lower back. Now has tingling sensation to hands and pain to the lower back. Positive weakness to the bilateral lower legs. The weakness in the legs are more chronic in nature. I checked in with the radiology department. Patient's weight prevents him from getting a CT, x-ray or MRI at [facility]. The weight limit for the x-ray table was 470 lb. The weight limit for the CT is 440 lb. The MRI is even less given patient's larger size and larger girth. Because patient had a traumatic injury. Contacted [facility] for potential transfer for more definitive care. Attempted to contact [facility] for more definitive care unfortunately their CT scanner and MRI was unable to hold his size and weight. Attempted to contact [facility] unfortunately day also can not accommodate his size. Patient's weight is 265.5 kg. More importantly patient's size his shoulder the shoulder length is approximately 29 in. His hip the hip length is approximately 33 in. The size was too large for [facility]. From previous experience you masses table it is approximately the size is [place]. Will contact [facility] to see if they have a table that is larger in size. Patient can not be collar due to size. Will attempt to stabilize patient's head using towels. Patient case discussed with [facility]. They were able to accommodate his size. There CT scan table maximal weight is 300 and there shoulder size and hip measurement barely fit. Discussed the case with yellow access. Discussed the case with Dr. Bacon from the Trauma team. Accepted patient to [facility]. Differential Diagnosis Differential Diagnoses: The differential diagnosis associated with the presentation includes C-spine injury, lumbar spine injury, intra-abdominal trauma Admission/Observation Consideration of admission/observation: Escalation of care including admission/observation considered Consult Healthcare Provider Management of the patient was discussed with: Nuclear Powerplant Supervisor ([facility] transfer line) External Record Review External record reviewed: Inpatient record Chronic Conditions Sleep apnea, status post gastric sleeve, morbid obesity Critical Care Time Critical Care Time Critical Care Time: Yes Total Critical Care Time: 40 Attestation: I have personally provided 40 minutes of critical care time exclusive of time spent on separately billable procedures. ?Time includes review of lab data, radiology results, discussion with consultants, and monitoring for potential decompensation. ?Interventions were performed as documented above Discharge Plan Discharge Clinical Impression: Obesity, Back pain Patient Disposition: [facility] Transfer Details: Transferred to [facility] Prescriptions: No Action (DME) edmund Forbes See Rx Instructions .Route Qty: 1 0RF Rx Instructions: As directed bupropion HCl 300 mg tablet extended release 24 hr 300 mg PO DAILY omega-3 acid ethyl esters 1 gram capsule 1 cap PO DAILY ferrous gluconate 324 mg (38 mg iron) tablet 324 mg PO TIDWM oxycodone-acetaminophen 5-325 mg tablet 2 tab PO BID PRN (Reason: Moderate Pain (Scale Score 5-6)) ascorbic acid (vitamin C) 500 mg Tablet 500 mg PO DAILY aspirin 81 mg tablet,chewable 1 tab PO DAILY albuterol sulfate [Ventolin HFA] 90 mcg/actuation HFA aerosol inhaler 2 inh INHALATION Q6H PRN (Reason: Shortness Of Breath) metoprolol tartrate 25 mg tablet 25 mg PO BID Wegovy 0.25 mg/0.5 mL pen injector 0.25 mg subcut QWEEK Eliquis 5 mg tablet 5 mg PO BID Qty: 180 0RF amoxicillin-pot clavulanate 875-125 mg tablet 1 tab PO BID Qty: 20 0RF sulfamethoxazole-trimethoprim [Bactrim DS] 800-160 mg tablet 1 tab PO BID Qty: 20 0RF ondansetron 4 mg tablet,disintegrating 4 mg PO Q8H PRN (Reason: nausea and vomiting) Qty: 20 0RF trazodone 50 mg tablet 50 mg PO BEDTIME PRN (Reason: Insomnia) (DME) edmund Forbes See Rx Instructions .Route Qty: 1 0RF Rx Instructions: As directed lidocaine 5 % adhesive patch,medicated 1 patch topical DAILY meloxicam 15 mg tablet 15 mg PO DAILY Print Language: Guyanese
--- NOTE | 2024-09-12 22:46 | MHC.EDTECH ---
Pt with c-spine secure and need to be transferred out due to imaging needs requested to urinate, pt presented withe the safest options of urinal or male purewick to protect c-spine. Two RN, Dr. Murphy, and this tech informed the pt of the the risks with getting up and moving spine. After leaving the room, the pt and the family got the pt up and walked down the chun at approximately 2243 to the bathroom.
--- NOTE | 2024-09-12 22:50 | PC.NURSE ---
Went to assist primary RN & EDT in speaking to patient about standing and urinating. Patient is currently being transferred d/t trauma for appropriately sized CT machine & cannot stand or walk d/t inability to assess injuries. Explained this to patient multiple times. Gave patient option of male purewick, assist with urinal in bed, or male pure wick. Patient refusing all options. Demanding to be walked to bathroom. Explained to patient it is not safe for him to do so. Family at bedside no assistance, stating it's his choice . This RN and José Miguel left room to go speak with provider, Dr. Cespedes. Dr. Cespedes okay'd patient to stand at bedside w/ assistance w/ urinal. While gathering supplies & staff, patient observed to be walking down hallway w/ chair being used as a walker, family walking beside him. Dr. Cespedes witnessed this. sole cutter Miranda also observed, spoke to patient about seriousness of walking in hallway. Primary Zoë made aware.
--- NOTE | 2024-09-12 23:26 | PC.NURSE ---
Secured pts C-Spine with soft collar per Dr. Murphy's order with EDT. Pt expressing need to get up and use restroom. Pt is currently being transferred d/t trauma for appropriate CT machine and can not stand or walk. Pt uses walker at baseline. Educated pt and family on severity of pt not getting up and protecting c-spine, offered pt assistance with urinal or male purwick and refused and demanded to get up to go to the bathroom, Dr. Murphy was aware at this time. I was in with another pt lacey and another RN and EDT helped assiting this pt, when i came out I was informed Dr. Cespedes okay'd patient to stand at bedside w/ assistance w/ urinal. While the other RN and EDT gathered supplies & staff, patient observed to be walking down hallway w/ chair being used as a walker, family walking beside him. Dr. Cespedes witnessed this. nylon operator Miranda also observed, spoke to patient about seriousness of walking in hallway.
[2024-09-13 01:16] VITALS: BP 135/76; PULSE 83; RESP 18; TEMP 36.6; O2SAT 99
[2024-09-13 01:36] VITALS: BP 135/76; PULSE 83; RESP 18; TEMP 36.6; O2SAT 99
== END 2024-09-13 03:14 | disposition short-term general hospital (02) ==
PROVIDERS: Emergency Provider Emergency Medicine Emergency Medical Services; PCP Student in an Organized Health Care Education/Training Program
DX: M54.50 Low back pain, unspecified (principal); R20.2 Paresthesia of skin; M62.81 Muscle weakness (generalized); E66.01 Morbid (severe) obesity due to excess calories; Z68.45 Body mass index [BMI] 70 or greater, adult; Z86.73 Personal history of transient ischemic attack (TIA), and cerebral infarction without residual deficits; Z79.899 Other long term (current) drug therapy
CPT/HCPCS: 99285

== ENCOUNTER 2024-10-15 14:35 | Outpatient (AMB) | payer MEDICAID, SELFPAY ==
--- NOTE | 2024-10-15 14:40 | MHC.OFFVIS ---
Vital Signs 10/15/24 14:47 Height 5 ft 8 in Weight 600 lb BMI 91.2 BP 130/85 Blood Pressure Location Lt radial Position Sitting Pulse 117 H Intake Visit Reasons: Chronic Low Back Pain Intake Note: Pain today 04/29 Allergies No Known Allergies Allergy (Verified 09/12/24 20:10) Medication List - Last Reconciled 10/15/24 by ANNA Cruz albuterol sulfate 90 mcg/actuation (Ventolin HFA) 2 inhalations inhalation Q6H PRN ascorbic acid (vitamin C) 500 mg PO DAILY aspirin 1 tab PO DAILY bupropion HCl XL 300 mg PO DAILY ferrous gluconate 324 mg PO TIDWM lidocaine 5% 1 patch topical DAILY meloxicam 15 mg PO DAILY metoprolol tartrate 25 mg PO BID omega-3 acid ethyl esters 1 cap PO DAILY ondansetron 4 mg PO Q8H PRN oxycodone-acetaminophen 5-325 mg 2 tabs PO BID PRN walker As directed wheelchair As directed HPI HPI Chronic Low Back Pain: Details: The patient is a 29-year-old severe morbid obesity male presenting with back pain with radicular symptoms and related complications. The back pain has been long standing issues but has worsened over the past 5 months, radiating to both legs. Onset appears to have been gradual. The patient has had multiple falls recently, which may have contributed to or exacerbated existing symptoms. Symptoms are compounded by neuropathy, as evidenced by reported weakness, numbness and tingling in the hands and legs. Pain impairs his mobility and activities of daily living, resulting in a current severe and persistent pain level of 10/10 on the pain scale. Patient utilized walker and wheelchair with transfers and mobility. The patient has a significant weight history, previously weighing 770 lb and having undergone a gastric bypass surgery at [facility], complicated by stricture; now reducing his weight to 600 lbs. He also has a history of recent cellulitis in the right leg, once escalating to sepsis with ICU treatment. Persistent efforts to access MRI imaging have been hampered by the patient's weight exceeding MRI table's weight capacity, but an open MRI at [facility] is considered a possible option. The timeline of falls, ongoing severe pain, and past infections supports the urgent further imaging need to elucidate potential spinal cord compression or further neurological deficit. - Onset: Chronic pain, worsening over past 5 months ago - Quality: Radiating, pressure, stabbing, shooting, aching, numbness, tingling, tiring, exhausting - Primary Location: Lower back - Radiation: Down the legs - Severity: Rated 10/10 on the pain scale - Exacerbating Factors: Physical activity, inability to assume certain postures, morbid obesity - Relieving Factors: Percocet has been most effective - Interference: Severe restriction on activities of daily living and mobility - Affect: Significant impact on mood due to limitations in mobility - Analgesia: Current pain level rated as 10/10; previously prescribed gabapentin and Percocet with no noted improvement - Adverse Effects: Noted issues include increased risk of respiratory depression due to combination medication therapy - Activities of Daily Living: Severe limitation in mobility; requires assistance for standing and movement - Aberrant Drug Related Behaviors: None indicated during visit [facility] Medical History Stasis dermatitis of both legs Brain TIA Hypertension Hypercholesteremia Asthma Surgical History S/P gastric sleeve procedure Social History Household Members: Family Housing: House Alcohol intake: current Alcohol intake frequency: does not drink Patient Tobacco Use Status: Never used Tobacco Substance Use Type: Marijuana and Prescription Drugs service: No Review of Systems Const Details: - Neurological: Reports numbness and tingling in hands and legs and generalized weakness - Musculoskeletal: Reports severe lower back pain with radiation down legs - Dermatological: No current open wounds reported All systems reviewed & are unremarkable except as noted in HPI and below Physical Exam Vital Signs: Last Vital Signs Pulse 117 H 10/15/24 14:47 BP 130/85 10/15/24 14:47 BMI result Body Mass Index 91.2 General: Appears afebrile. Severe morbid obesity. Alert and oriented. Mood and affect appropriate. Follows and participates in conversation appropriately. Respiratory effort is unlabored. No cough. Able to transition from sit to stand with difficulty and assistance. Patient arrived in bariatric wheelchair and was able slowly to ambulated to room with walker. Unable to perform lumbar ROM due to pain, difficult standing and bending due to pain. Back/Spine/Pelvis Cervical Spine: cervical ROM normal, cervical muscular tenderness, pain with cervical ROM and No Cervical spine tenderness Thoracic/Lumbar Spine: thoracic and lumbar spine normal to inspection, No Thoracic/lumbar spine scar(s), pain with thoraco-lumbar ROM, paraspinal muscle tenderness, thoraco-lumbar ROM limited, No thoracic spinal tenderness and lumbar spinal tenderness Results Reviewed Results Reviewed: No imaging results are available for review today. Noted challenges in obtaining MRI due to weight exceeding table capacity. Assessment & Plan Assessment & Plan (1) Numbness and tingling of both lower extremities: Code(s): R20.0 - Anesthesia of skin; R20.2 - Paresthesia of skin Category: Medical (2) Morbid obesity with BMI of 70 and over, adult: Code(s): E66.01 - Morbid (severe) obesity due to excess calories; Z68.45 - Body mass index [BMI] 70 or greater, adult Category: Medical (3) Chronic bilateral low back pain with sciatica: Code(s): G89.29 - Other chronic pain; M54.41 - Lumbago with sciatica, right side; M54.42 - Lumbago with sciatica, left side Category: Medical Plan Plan is to obtain an open MRI at [facility] to assess for neural integrity and compression given the severity and persistence of symptoms. The patient's chronic back pain, previously unresponsive to gabapentin, will now be addressed with an introductory low dose of Lyrica to manage neuropathic symptoms while cautiously monitoring for any adverse reactions due to concurrent medication use. Efforts to continue weight loss through possible bariatric follow-up and participation in low-intensity physical therapy as feasible are anticipated. Continual interdisciplinary integration is indispensable to address complex multi-system needs, with follow-up to adjust the care plan as imaging results come forth. Patient was informed and verbally consented to the use of an ambient scribe for clinic note documentation during this visit. Orders: Orders MR lumbar spine wo con 10/15/24 E66.01 - Morbid (severe) obesity due to excess calories, G89.29 - Other chronic pain, M54.41 - Lumbago with sciatica, right side, M54.42 - Lumbago with sciatica, left side, R20.0 - Anesthesia of skin, R20.2 - Paresthesia of skin, Z68.45 - Body mass index [BMI] 70 or greater, adult Medications: New pregabalin 25 mg PO BID 30 days 60 caps 0RF pain R20.0 - Anesthesia of skin, R20.2 - Paresthesia of skin Patient Instructions: I discussed with the patient the high likelihood that radiating back pain with numbness and tingling suggests possible neurological involvement, necessitating detailed imaging via open MRI at [facility]. We reviewed medication risks, benefits, and alternatives, clarifying Lyrica's purpose and onset expectations. Patient is also takes Percocet prescribed by his PCP. Additionally, emphasis was placed on the importance of the patient's continued weight loss. Ensuring a collaborative approach to management, I affirmed the necessity of continued coordination with the patient's bariatric team and considered pain therapy, particularly for neuropathic contributors, aligning with the patient's history. Discussions reinforced careful monitoring for side effects given co-morbid sleep apnea. The patient expressed understanding and agreement with the proposed management course and implications thereof. - Schedule an open MRI at [facility]. - Begin prescribed Lyrica at the specified low dosage. Discussed with the patient the risks associated with Lyrica and opioid use. - Patient is aware and verbalized an agreement to take the medications at least 2-4 hours apart and he has Narcan at home.? - Continue following the dietary and physical recommendations post-gastric bypass. - Monitor for any adverse reactions related to new medication and report these immediately. - Prioritize gentle physical activities as advised to gradually improve mobility. - Follow up with all relevant medical providers as coordination dictates, including bariatric consulting. - Return promptly if experiencing any unexplained difficulties or symptom exacerbations. Coding Level of Care Code New Pt Level 4 (69631) Diagnoses Numbness and tingling of both lower extremities R20.0; R20.2 Morbid obesity with BMI of 70 and over, adult E66.01; Z68.45 Chronic bilateral low back pain with sciatica G89.29; M54.41; M54.42
[2024-10-15 14:47] VITALS: BP 130/85; PULSE 117; BMI 91.2
== END 2024-10-15 15:13 | disposition home or self-care (01) ==
LOC: HO.PMC 14:36
PROVIDERS: PCP Student in an Organized Health Care Education/Training Program; Referring Provider Family Medicine; Visit Provider Nurse Practitioner Family
DX: R20.0 Anesthesia of skin (principal); R20.2 Paresthesia of skin; E66.01 Morbid (severe) obesity due to excess calories; Z68.45 Body mass index [BMI] 70 or greater, adult; G89.29 Other chronic pain; M54.41 Lumbago with sciatica, right side; M54.42 Lumbago with sciatica, left side
CPT/HCPCS: 99204

== ENCOUNTER → 2024-10-15 14:35 | Outpatient (BNVA) | payer MEDICAID, SELFPAY | PROVIDERS: PCP Student in an Organized Health Care Education/Training Program; Referring Provider Family Medicine; Visit Provider Nurse Practitioner Family | DX: M54.41 Lumbago with sciatica, right side (principal); M54.42 Lumbago with sciatica, left side; R20.0 Anesthesia of skin; R20.2 Paresthesia of skin; E66.01 Morbid (severe) obesity due to excess calories; G89.29 Other chronic pain; Z68.45 Body mass index [BMI] 70 or greater, adult | CPT/HCPCS: 99212 ==

== ENCOUNTER 2024-11-05 15:24 | Outpatient (REF) | payer MEDICAID, SELFPAY ==
[2024-11-05 16:24] LABS: Hematocrit 41.8 % (42.0-52.0); Hemoglobin 13.4 g/dl (14.0-18.0); Mean Corpuscular HGB Conc 32.1 g/dl (31.0-36.0); Mean Corpuscular Hemoglobin 28.7 pg (27.0-33.0); Mean Corpuscular Volume 89.5 fL (80.0-98.0); Mean Platelet Volume 13.3 fL (9.4-12.4); PLT CLUMP 1; Red Blood Count 4.67 X10*6/uL (4.60-5.80); Red Cell Distribution Width 16.6 % (11.0-16.0)
[2024-11-05 16:49] LABS: White Blood Count 9.2 X10*3/uL (4.8-10.8)
[2024-11-05 16:56] LABS: Estimated Average Glucose 82 mg/dL; Hemoglobin A1C 90.4932 umol/L; Hemoglobin A1c % 4.5 % (<6.0); Total Hemoglobin (HGBA1C) 3566.0825 umol/L
[2024-11-05 16:58] LABS: Alanine Aminotransferase 8 U/L (0-40); Albumin Level 3.2 g/dL (3.5-5.0); Anion Gap 13 (12-20); Aspartate Amino Transferase 19 U/L (5-37); Bilirubin Total 1.1 mg/dL (0.0-1.0); Blood Urea Nitrogen 11 mg/dL (9-16); Calcium 9.5 mg/dL (8.4-10.2); Carbon Dioxide 29 mmol/L (22-29); Chloride 99 mmol/L (96-108); Cholesterol 266 mg/dL (<200); Estimated Glomerular Filt Rate > 60; Glucose Random 74 mg/dL (60-115); HDL Cholesterol 43 mg/dL (>40); Iron 20 mcg/dL (45-160); LDL Cholesterol Calculated 200 mg/dL (<100); Percent Iron Saturation 12 % (15-50); Potassium 4.4 mmol/L (3.3-5.1); Sodium 137 mmol/L (135-145); Total Iron Binding Capacity 169 mcg/dL (228-428); Total Protein 7.8 g/dL (6.5-8.0); Triglycerides 118 mg/dL (<150); Unsaturated Iron Binding 149 ug/dL; Uric Acid 8.7 mg/dL (3.4-7.0)
[2024-11-05 17:12] LABS: Ferritin 228 ng/mL (20-250); TSH reflex Free T4 3.15 uIU/mL (0.32-4.0); Vitamin D 25-OH Total 23.3 ng/mL (>30)
[2024-11-05 17:20] LABS: Folate 6.9 ng/mL (> or = 4.0); Vitamin B12 850 pg/mL (200-900)
[2024-11-05 18:56] LABS: Alkaline Phosphatase 103 U/L (39-117)
[2024-11-06 08:07] LABS: Syphilis Screen Nonreactive (Nonreactive)
[2024-11-06 08:27] LABS: HBS Num1 1.51 mIU/mL (0-7.99); HBc Num1 0.09 S/CO (0.00-0.79); HBsAGNum1 0.39 S/CO (0.00-0.99); HIV AB/AG Nonreactive (Nonreactive); HIV Num 1 0.06 S/CO (0.00-0.99); Hepatitis B Core Antibody Nonreactive (Nonreactive); Hepatitis B Surface Antigen Negative (Negative); ~HepC Num1 0.23 S/CO (0.00-0.79); ~Hepatitis B Surface Antibody NONREACTIVE (Nonreactive); ~Hepatitis C Antibody Nonreactive (Nonreactive)
[2024-11-15 16:38] LABS: Vitamin B1 12 nmol/L (8-30)
== END 2024-11-05 15:25 | disposition home or self-care (01) ==
LOC: HO.HHCL 15:24
PROVIDERS: Visit Provider Student in an Organized Health Care Education/Training Program
DX: Z00.00 Encounter for general adult medical examination without abnormal findings (principal); D50.9 Iron deficiency anemia, unspecified; G62.9 Polyneuropathy, unspecified
CPT/HCPCS: 36415; 80053; 80061; 82306; 82607; 82728; 82746; 83036; 83540; 84207; 84425; 84443; 84550; 85027; 86704; 86706; 86780; 86803; 87340; 87389

== ENCOUNTER 2024-11-07 16:11 | Emergency (ER) | payer MEDICAID, SELFPAY ==
--- NOTE | ~2024-11-07 | XR_ITS ---
CLINICAL HISTORY: constipation 1 view abdomen Comparison: 05/28/2024 Findings: No significant bowel distention demonstrated. No significant increased stool noted. No free air. No abnormal calcification. No acute bony abnormalities. Impression: No significant abnormalities. This document has been electronically signed by: Mich Caldwell MD on 11/07/2024 19:24:16
[2024-11-07 16:30] VITALS: BP 148/89; PULSE 78; PULSE 83; RESP 18; TEMP 36.7; O2SAT 98; BMI 73.0
[2024-11-07 16:35] VITALS: BP 148/89; PULSE 78; RESP 18; TEMP 36.7; O2SAT 98
--- NOTE | 2024-11-07 16:37 | PC.NURSE ---
Pt comes to ED today via EMS for complaint of rectal pain. Pt reports seen recently by his PCP and Dx with internal hemorrhoids. He c/o severe pain x6 days with no relief from Rx suppositories. Pt states pain is so severe he must lay on his stomach. VSS, afebrile. Awaiting ED provider.
[2024-11-07 18:12] VITALS: BMI 77.2
--- NOTE | 2024-11-07 18:36 | ED_ITS ---
HPI - General Adult General Chief complaint: General Medical Stated complaint: neuropathy + hemorrhoids Time Seen by Provider: 11/07/24 17:53 Source: patient, EMS and old records reviewed Mode of arrival: EMS Limitations: no limitations History of Present Illness ED Provider: PHYLLIS HPI narrative: 29 yo male with PMH of morbid obesity he weights 506lbs at this time, LC, TIA, arthritis who notes he has not had a good BM in several days and his doctor has been giving him Rx for constipation suppositories and internal hemorrhoids. He also uses enemas. He has no fevers n/v. He denies abdominal pain. He states he cannot sit down or sit on a toilet due to rectal pain as it is so severe. He denies any other penetration of his rectum. He states he cannot even sit due to pain. He has passed gas but that is it. MD complaint: rectal pain Onset (ago): day(s) (6) Location: genitals (rectal) Radiation: non-radiation Severity: severe Quality: burning and aching Pain Consistency: constant Relieving factors: none Exacerbating factors: movement (BM) Associated symptoms: other (constipation) Treatments prior to arrival: none Related Data Home Medications ?Medication ?Instructions ?Recorded ?Confirmed lidocaine 5 % topical patch 1 patch topical DAILY 07/10/23 10/15/24 meloxicam 15 mg tablet 15 mg PO DAILY 07/10/23 10/15/24 bupropion HCl 300 mg 24 hr tablet, 300 mg PO DAILY 09/11/23 10/15/24 extended release ferrous gluconate 324 mg (38 mg 324 mg PO TIDWM 09/11/23 10/15/24 iron) tablet omega-3 acid ethyl esters 1 gram 1 cap PO DAILY 09/11/23 10/15/24 capsule oxycodone-acetaminophen 5 mg-325 2 tab PO BID PRN Moderate Pain 09/11/23 10/15/24 mg tablet (Scale Score 5-6) albuterol sulfate 90 mcg/actuation 2 inh inhalation Q6H PRN Shortness 01/19/24 10/15/24 aerosol inhaler (Ventolin HFA) Of Breath ascorbic acid (vitamin C) 500 mg 500 mg PO DAILY 01/19/24 10/15/24 tablet aspirin 81 mg chewable tablet 1 tab PO DAILY 01/19/24 10/15/24 metoprolol tartrate 25 mg tablet 25 mg PO BID 01/19/24 10/15/24 wheelchair 10/15/24 10/15/24 Previous Rx's ?Medication ?Instructions ?Recorded walker #1 ea 10/22/22 ondansetron 4 mg disintegrating 4 mg PO Q8H PRN nausea and 05/28/24 tablet vomiting #20 tabs pregabalin 25 mg capsule 25 mg PO BID pain 30 days #60 caps 10/15/24 Allergies Allergy/AdvReac Type Severity Reaction Status Date / Time No Known Allergies Allergy Verified 11/07/24 16:34 Review of Systems 2 Review of Systems: Constitutional : No Weight loss, No Fever, No Chills ENT/Mouth : No sore throat, No Rhinorrhea Eyes: No Swelling, No Redness Cardiovascular : No Chest Pain, No SOB, NoEdema Respiratory : No Cough, No Sputum, No Wheezing Gastrointestinal : no Nausea, no Vomiting, no Diarrhea, no abdominal Pain, No Hematochezia, No Melena, pos constipation, pos rectal pain Genitourinary : No Dysuria, No Urinary Frequency, No Hematuria, No Urgency Musculoskeletal : No joint pain, No Myalgias, No Joint Swelling Skin : No Skin Lesions, No rash Neuro : No Weakness, No Numbness, No Dizziness, No Headache Psych : No Anxiety/Panic, No Depression All other systems reviewed and are negative. [facility] Past Medical History Attestation statement: The following information was validated with the patient. Source: old records reviewed Medical History Stasis dermatitis of both legs Brain TIA Hypertension Hypercholesteremia Asthma Surgical History S/P gastric sleeve procedure Social History Social History Household Members: Family Housing: House Alcohol intake: current Alcohol intake frequency: does not drink Patient Tobacco Use Status: Never used Tobacco Smoked in Last 30 Days: No Use of substances other than those prescribed or required for medical reasons: No Substance Use Type: Marijuana and Prescription Drugs Advance Directives: No Advance Directives Information Provided: Yes Do you have a plan to hurt others: No Plan service: No Physical Exam ED Vital Signs: Vital Signs - 24 hr 11/07/24 16:30 11/07/24 16:35 Temperature 98.1 F 98.1 F Pulse Rate 78 78 Respiratory Rate 18 18 Blood Pressure 148/89 H 148/89 H Pulse Oximetry 98 98 Oxygen Delivery Method Room Air Room Air BMI result Body Mass Index 77.2 Appearance: Alert. Oriented X3. No acute distress. Eyes: Pupils equal, round and reactive to light. ENT: Pharynx normal. Neck: Normal inspection. Neck supple. CVS: Normal heart rate and rhythm. Pulses normal. Respiratory: No respiratory distress. Breath sounds normal. Abdomen: Soft and obese Rectal: no hemorrhoids or mass felt the mucosa is red and very ttp but there is no extension or mass felt into the rectum area, his pain is very out of proportion Skin: Skin warm and dry. Normal skin color. Normal skin turgor. Extremities: No lower extremity edema. No calf ttp Neuro: Oriented X 3. No motor deficit. No sensory deficit. CN2-12 intact Course Course Course Narrative: [facility] cannot accommodate his weight capacity at this time. call to [facility] for possible transfer 820pm Medical Decision Making Medical Decision Making [facility] Narrative: 29 yo male with PMH of morbid obesity he weights 506lbs at this time, LC, TIA, arthritis who reports severe rectal pain - at this time I feel no mass I see no ext hemorrhoids to cause this pain. It is severe in nature I suspect he will need CT scan which is not possible for us to do here. Patient is aware and has told me he can get CT scans at [facility] Differential Diagnosis Differential Diagnoses: The differential diagnosis associated with the presentation includes proctitis, rectal pain, impaction, constipation Admission/Observation Consideration of admission/observation: Escalation of care including admission/observation considered possible transfer to outside facility needs CT scan given his weight accepted to [facility] ED 832pm will dose with IV zosyn prior to transfer Consult Healthcare Provider accepted Dr. Jimenez Lab Data [facility] Lab Attestation statement: I reviewed the patient's lab results. 11/07/24 19:17 11/07/24 19:17 Labs: Lab Results 11/07/24 Range/Units 19:17 WBC 15.7 H (4.8-10.8) X10*3/uL RBC 4.32 L (4.60-5.80) X10*6/uL Hgb 12.5 L (14.0-18.0) g/dl Hct 38.3 L (42.0-52.0) % MCV 88.7 (80.0-98.0) fL MCH 28.9 (27.0-33.0) pg MCHC 32.6 (31.0-36.0) g/dl RDW 16.1 H (11.0-16.0) % MPV 13.0 H (9.4-12.4) fL Immature Gran % (Auto) 0.3 (0.0-0.4) % Neut % (Auto) 76.5 H (45-73) % Lymph % (Auto) 11.2 L (20-40) % [place] % (Auto) 11.2 H (2-11) % Eos % (Auto) 0.6 (0-4) % Baso % (Auto) 0.2 (0-2) % Lymph # (Auto) 1.8 (1.2-4.9) X10*3/uL [place] # (Auto) 1.8 H (0.1-1.2) X10*3/uL Eos # (Auto) 0.1 (0.0-0.4) X10*3/uL Baso # (Auto) 0.0 (0.0-0.2) X10*3/uL Abs Immat Gran (auto) 0.05 H (0.00-0.03) X10*3/uL Absolute Neuts (auto) 12.0 H (2.0-8.3) x10*3/uL Absolute Nucleated RBC 0.000 (0.0-0.012) X10*3/uL Nucleated RBC % (auto) 0.0 (0.0-0.2) /100WBC Sodium 136 (135-145) mmol/L Potassium 4.5 (3.3-5.1) mmol/L Chloride 101 (96-108) mmol/L Carbon Dioxide 25 (22-29) mmol/L Anion Gap 15 (12-20) BUN 12 (9-16) mg/dL Creatinine 1.03 (0.5-1.4) mg/dL Estim Creat Clear Calc 197.5 Estimated GFR > 60 Random Glucose 83 (60-115) mg/dL Calcium 9.0 (8.4-10.2) mg/dL Magnesium 1.6 (1.6-2.6) mg/dL Total Bilirubin 0.8 (0.0-1.0) mg/dL Direct Bilirubin 0.2 (0.0-0.5) mg/dL AST 29 (5-37) U/L ALT 7 (0-40) U/L Alkaline Phosphatase 98 (39-117) U/L C-Reactive Protein 26.10 H (< or = 0.50) mg/dL Total Protein 7.3 (6.5-8.0) g/dL Albumin 2.8 L (3.5-5.0) g/dL Lipase < 4 L (8-78) U/L Independent Interpretation I performed an independent interpretation of an: Plain X-Ray Interpretation: CLINICAL HISTORY: constipation 1 view abdomen Comparison: 05/28/2024 Findings: No significant bowel distention demonstrated. No significant increased stool noted. No free air. No abnormal calcification. No acute bony abnormalities. Impression: No significant abnormalities. Radiology Impression Discussion of test interpretation with radiology: I have reviewed the radiologist's reading. Independent Historian Clinical information obtained from an independent historian. History obtained from or confirmed by: EMS External Record Review External record reviewed: Outpatient record Discharge Plan Discharge Clinical Impression: Pain, rectal Patient Disposition: [facility] Transfer Details: [facility] Prescriptions: No Action (DME) walker Misc See Rx Instructions .Route Qty: 1 0RF Rx Instructions: As directed bupropion HCl 300 mg tablet extended release 24 hr 300 mg PO DAILY omega-3 acid ethyl esters 1 gram capsule 1 cap PO DAILY ferrous gluconate 324 mg (38 mg iron) tablet 324 mg PO TIDWM oxycodone-acetaminophen 5-325 mg tablet 2 tab PO BID PRN (Reason: Moderate Pain (Scale Score 5-6)) ascorbic acid (vitamin C) 500 mg Tablet 500 mg PO DAILY aspirin 81 mg tablet,chewable 1 tab PO DAILY albuterol sulfate [Ventolin HFA] 90 mcg/actuation HFA aerosol inhaler 2 inh INHALATION Q6H PRN (Reason: Shortness Of Breath) metoprolol tartrate 25 mg tablet 25 mg PO BID ondansetron 4 mg tablet,disintegrating 4 mg PO Q8H PRN (Reason: nausea and vomiting) Qty: 20 0RF (DME) wheelchair Device See Rx Instructions .ROUTE Rx Instructions: As directed pregabalin 25 mg capsule 25 mg PO BID 30 Days Qty: 60 0RF lidocaine 5 % adhesive patch,medicated 1 patch topical DAILY meloxicam 15 mg tablet 15 mg PO DAILY Print Language: Kazakh
[2024-11-07 19:39] LABS: Alanine Aminotransferase 7 U/L (0-40); Albumin Level 2.8 g/dL (3.5-5.0); Alkaline Phosphatase 98 U/L (39-117); Anion Gap 15 (12-20); Aspartate Amino Transferase 29 U/L (5-37); Bilirubin Direct 0.2 mg/dL (0.0-0.5); Bilirubin Total 0.8 mg/dL (0.0-1.0); Blood Urea Nitrogen 12 mg/dL (9-16); Carbon Dioxide 25 mmol/L (22-29); Chloride 101 mmol/L (96-108); Creatinine Clr Calc Pharmacy 197.5; Estimated Glomerular Filt Rate > 60; Glucose Random 83 mg/dL (60-115); Lipase < 4 U/L (8-78); Magnesium 1.6 mg/dL (1.6-2.6); Potassium 4.5 mmol/L (3.3-5.1); Sodium 136 mmol/L (135-145); Total Protein 7.3 g/dL (6.5-8.0)
[2024-11-07 19:52] LABS: Imm Gran Abs Auto 0.05 X10*3/uL (0.00-0.03); Imm Gran Pct Auto 0.3 % (0.0-0.4); MANUAL DIFF FLAG SCAN; Red Cell Distribution Width 16.1 % (11.0-16.0); SCAN SMEAR FLAG 1
[2024-11-07 19:54] LABS: Basophils Percent Auto 0.2 % (0-2); Eosinophils Absolute Auto 0.1 X10*3/uL (0.0-0.4); Eosinophils Percent Auto 0.6 % (0-4); Hematocrit 38.3 % (42.0-52.0); Hemoglobin 12.5 g/dl (14.0-18.0); Lymphocytes Absolute Auto 1.8 X10*3/uL (1.2-4.9); Lymphocytes Percent Auto 11.2 % (20-40); Mean Corpuscular HGB Conc 32.6 g/dl (31.0-36.0); Mean Corpuscular Hemoglobin 28.9 pg (27.0-33.0); Mean Corpuscular Volume 88.7 fL (80.0-98.0); Monocytes Absolute Auto 1.8 X10*3/uL (0.1-1.2); Monocytes Percent Auto 11.2 % (2-11); Neutrophils Percent Auto 76.5 % (45-73); PLT CLUMP 1; Red Blood Count 4.32 X10*6/uL (4.60-5.80)
[2024-11-07 19:59] LABS: PLT ABN DIST 1; White Blood Count 15.7 X10*3/uL (4.8-10.8)
[2024-11-07 20:32] LABS: Platelet Count 290 X10*3/uL (160-400); SLIDE REVIEW VERIFIED
[2024-11-07] MEDS: Morphine Sulfate 4 MG/ML CARTRIDGE IVPUSH (20:44)
[2024-11-07] MEDS: ondansetron HCL 4 MG/2 ML VIAL IVPUSH (20:44)
[2024-11-07 20:46] VITALS: BP 145/102; PULSE 103; RESP 16; TEMP 36.6; O2SAT 99
[2024-11-07] MEDS: Piperacillin Sodium/Tazobactam 3.375 GM in 0.9 % Sodium Chloride 50 ML IV (21:05)
[2024-11-07 21:24] LABS: Lactic Acid 0.8 mmol/L (0.5-2.0)
[2024-11-07 22:41] VITALS: BP 146/96; PULSE 99; RESP 22; TEMP 37.1; O2SAT 98
== END 2024-11-07 22:43 | disposition short-term general hospital (02) ==
PROVIDERS: Emergency Provider Emergency Medicine; PCP Student in an Organized Health Care Education/Training Program
DX: K62.89 Other specified diseases of anus and rectum (principal); K59.00 Constipation, unspecified; K64.8 Other hemorrhoids; Z79.899 Other long term (current) drug therapy; Z86.73 Personal history of transient ischemic attack (TIA), and cerebral infarction without residual deficits
CPT/HCPCS: 36415; 74018; 80048; 80076; 83605; 83690; 83735; 85025; 86140; 87040; 96365; 96375; 99285; J2270; J2405; J2543

== ENCOUNTER → 2024-11-07 18:23 | Outpatient (BNV) | payer MEDICAID, SELFPAY | PROVIDERS: Emergency Provider Emergency Medicine; PCP Student in an Organized Health Care Education/Training Program; Visit Provider Radiology Diagnostic Radiology | DX: K59.00 Constipation, unspecified (principal) | CPT/HCPCS: 74018 ==

== ENCOUNTER 2024-12-28 09:07 | Outpatient (REF) | payer MEDICAID, SELFPAY ==
--- NOTE | 2024-12-28 09:10 | EMG_ITS ---
FINDINGS: Bilateral median and ulnar motor and sensory studies were performed and bilateral radial sensory study was performed. Needle examination was also tried and performed and right paraspinal, but then, the patient could not tolerate the test and it was stopped. IMPRESSION: This was a somewhat limited study because of the patient's body habitus and difficulty with the test. It revealed mild bilateral median neuropathy across carpal tunnel and mild right ulnar neuropathy across cubital tunnel. MD DREW Amaro/SHRADDHA / [id number]
--- OUTSIDE RECORDS SUMMARY | 2024-12-28 09:51 | XMS_ITS | Clinical Summary ---
Author Organization [employer] Address [address] [facility] [address] [place] [address] Care Team Providers Care Dealer Development Manager Name Role Phone Karina Lopez MD Primary Care Pro vider Allergies Active Allergy Reactions Criticality Noted Date Comments Doxycycline Angioedema 01/19/2024 Medications * This document contains information received from the source organization and may not represent a complete record from that organization. Blood Pressure Monitor kit 1 kit in the morning. 1 kit 023 Active meloxicam (Mobic) 15 MG tablet TAKE 1 TABLET BY MOUTH EVERY MORNING 30 tablet 1 024 Active Misc. Devices (Pulse Oximeter) misc 1 Device Once per day. 1 each 024 Active pantoprazole (ProtoNix) 40 MG EC tablet Take 1 tablet (40 mg) by mouth Once per day. 90 tablet 025 Active ferrous gluconate (Fergon) 324 (38 Fe) MG tablet Take 1 tablet (324 mg) by mouth every other day. 90 tablet 025 Active folic acid (Folvite) 1 MG tablet Take 1 tablet (1,000 mcg) by mouth Once per day. 90 tablet 025 Active nystatin (Mycostatin) 623323 UNIT/GM powder Apply topically 2 times daily. 60 g 2 025 2025 Active lidocaine (Lidoderm) 5 % patch APPLY 1 PATCH TOPICALLY TO SKIN IN THE MORNING. LEAVE ON FOR 12 HOURS AND OFF FOR 12 HOURS DIRECTED 90 patch 025 Active albuterol (2.5 MG/3ML) 0.083% nebulizer solution Take 3 mL (2.5 mg) by nebulization every 6 (six) hours if needed for wheezing. 75 mL 11 025 2025 Active senna-docusate sodium (Senokot-S) 8.6-50 MG tablet Take 1 tablet by mouth if needed each day for constipation. 30 tablet 1 Active hyoscyamine (Levsin) 0.125 MG SL tablet DISSOLVE 1 TABLET BY MOUTH EVERY 6 HOURS NEEDED FOR CRAMPS 30 tablet 2 Active polycarbophil (FiberCon) 625 MG tabletIndicatio ns:Constipation , unspecified constipation type Take 1 tablet (625 mg) by mouth Once per day. 90 tablet 3 025 2025 Active atorvastatin (Lipitor) 40 MG tablet Take 1 tablet (40 mg) by mouth Once per day. 90 tablet 025 2025 Active pregabalin (Lyrica) 50 MG capsule Take 1 capsule (50 mg) by mouth 2 times daily. 60 capsule 2 2025 Active oxyCODONE (Roxicodone) 10 MG immediate release tabletIndicatio ns:Chronic pain of both knees Take 1 tablet (10 mg) by mouth every 12 (twelve) hours for 28 days. 56 tablet 025 2024 Active buPROPion XL (Wellbutrin XL) 300 MG 24 hr tablet TAKE 1 TABLET BY MOUTH EVERY MORNING 90 tablet Active Ventolin HFA 108 (90 Base) MCG/ACT inhaler INHALE 2 PUFFS BY MOUTH EVERY 6 HOURS NEEDED 18 g 2 Active Multiple Vitamins-Iron (Tab-A-Luis/Iro n) tablet Take 2 tablets by mouth Once per day. 180 tablet 5 Active Calcium Citrate-Vitamin D (Dushore Calcium/Vitamin D) 200-6.25 MG-MCG tablet Take 1 tablet by mouth at noon and 1 tablet in the evening. 180 tablet 5 Active naloxone (Narcan) 4 mg/0.1 mL nasal spray Administer 1 spray (4 mg) into affected nostril(s) if needed for opioid reversal. May repeat every 2-3 minutes if needed, alternating nostrils, until medical assistance becomes available. 2 each 025 2025 Active cholecalciferol (Vitamin D-3) 50 MCG (2000 UT) tablet Take 2,000 Units by mouth Once per day. 90 tablet 025 2025 Active omega-3 acid ethyl esters (Lovaza) 1 g capsule Take 1 capsule (1 g) by mouth in the morning. 90 capsule Active metoprolol tartrate (Lopressor) 25 MG tablet Take 1 tablet (25 mg) by mouth 2 times daily. 180 tablet 025 2024 Active aspirin (Aspirin Low Dose) 81 MG chewable tablet Chew 1 tablet (81 mg) Once per day. 90 tablet Active sodium chloride (Chireno) 0.65 % nasal spray Administer 1 spray into each nostril if needed for congestion. 15 mL 2 024 2024 ursodiol (Actigall) 250 MG tablet Take 1 tablet by mouth with breakfast and with evening meal. 024 2024 Discontinued(O ther) cholecalciferol (Vitamin D-3) 50 MCG (2000 UT) tablet Take 2,000 Units by mouth Once per day. 90 tablet 025 2024 Discontinued(R eorder (will not trigger notification to Pharmacy)) Ascorbic Acid (vitamin C) 500 MG tablet Take 1 tablet (500 mg) by mouth in the morning. 90 tablet 025 2024 Discontinued(O ther) cyanocobalamin (Vitamin B-12) 500 MCG tablet Take 1 tablet (500 mcg) by mouth Once per day. 90 tablet 025 2024 Discontinued(O ther) metoprolol tartrate (Lopressor) 25 MG tablet Take 1 tablet (25 mg) by mouth 2 times daily. 180 tablet 025 2024 Discontinued(R eorder (will not trigger notification to Pharmacy)) atorvastatin (Lipitor) 20 MG tablet Take 1 tablet (20 mg) by mouth Once per day. 90 tablet 025 2024 Discontinued(R eorder (will not trigger notification to Pharmacy)) omega-3 acid ethyl esters (Lovaza) 1 g capsule Take 1 capsule (1 g) by mouth in the morning. 90 capsule 025 2024 Discontinued(R eorder (will not trigger notification to Pharmacy)) buPROPion XL (Wellbutrin XL) 300 MG 24 hr tablet TAKE 1 TABLET BY MOUTH EVERY MORNING 90 tablet 025 2024 Discontinued(R eorder (will not trigger notification to Pharmacy)) albuterol (Ventolin HFA) 108 (90 Base) MCG/ACT inhaler INHALE 2 PUFFS BY MOUTH EVERY 6 HOURS NEEDED 18 g 2 025 2024 Discontinued aspirin (Aspirin Low Dose) 81 MG chewable tablet Chew 1 tablet (81 mg) Once per day. 90 tablet 025 2024 Discontinued(R eorder (will not trigger notification to Pharmacy)) pregabalin (Lyrica) 25 MG capsule Take 1 capsule (25 mg) by mouth 2 times daily. 60 capsule 1 025 2024 Discontinued(R eorder (will not trigger notification to Pharmacy)) Multiple Vitamins-Minera ls (Bariatric Multivitamins) capsule Take 1 tablet by mouth Once per day. 90 capsule 1 025 2024 Discontinued(O ther) Calcium Citrate-Vitamin D (Dushore Calcium/Vitamin D) 200-6.25 MG-MCG tablet Take 1 tablet by mouth 3 times daily. 025 2024 Discontinued(R eorder (will not trigger notification to Pharmacy)) oxyCODONE (Roxicodone) 10 MG immediate release tablet Take 1 tablet by mouth every 6 (six) hours if needed for pain. 025 2024 Discontinued(O ther) oxyCODONE-aceta minophen (Percocet) 5-325 MG tabletIndicatio ns:Back pain, unspecified back location, unspecified back pain laterality, unspecified chronicity,Ultrasonic Hand Solderer zafar pain of both knees Take 1 tablet by mouth every 6 (six) hours if needed for severe pain for up to 28 days. 112 tablet 025 2024 Discontinued(O ther) Multiple Vitamins-Iron (TAB-A-LUIS/IRO N PO) Take 2 tablets by mouth Once per day. 2024 Discontinued(R eorder (will not trigger notification to Pharmacy)) Active Problems Problem Noted Date Diagnosed Date Housing insecurity 12/22/2024 Blurry vision 12/22/2024 Hospital discharge follow-up 12/02/2024 Perineal abscess 12/02/2024 Long-term current use of opiate analgesic 2024 Back pain 10/22/2024 Neuropathy 10/22/2024 Left ankle pain 10/22/2024 Cholelithiasis 10/22/2024 Inguinal hernia 10/22/2024 Dental caries into pulp 09/09/2024 Non-restorable tooth 09/09/2024 S/P laparoscopic sleeve gastrectomy 03/29/2024 Transient ischemic attack (TIA) 03/11/2024 Severe episode of recurrent major depressive disorder, without psychotic features 01/26/2024 Assessment & Plan (02/17/2024 4:18 PM EDT): During IBH Consult Rosendo presenting with depressed mood, loss [...] medical condition. Rosendo has been admitted to [facility] due to morbid obesity and life-threatening obesity. [...] Health Integration Plan Internal Follow up with [facility] Patient Self Plan Patient to utilize skills provided in intervention , Patient to [facility] out to [facility] team as needed, Comply with medication , and Patient to reach out to [facility] as needed Assessment & Plan (01/26/2024 1:56 PM EDT): During IBH Consult Rosendo presenting with depressed mood, loss [...] sometimes. Currently connected with a therapist at [facility]. His brother is main social support, he's also Rosendo's CUSTOMER SERVICE REP. During today's intervention, Rosendo was engaged with active, reflective listening. clinician provided supportive therapy and used open-ended questions to assess risks, stressors, intensity and frequency. Recommendations regarding OP services (continue with [facility]) and incorporate small changes. PLAN: (check all that apply) Continue with current services (defined as services in the past 12 months) . Pt reports being connected with therapist at [facility]. Hypoxemia 12/09/2023 BMI 60.0-69.9, adult 10/07/2023 Skin maceration 05/23/2023 Physical deconditioning 05/23/2023 Subclinical hypothyroidism 05/23/2023 Bilateral lower extremity edema 05/23/2023 Microcytic anemia 05/23/2023 HLD (hyperlipidemia) 04/22/2023 HTN (hypertension) 04/22/2023 Assessment & Plan (09/25/2024 5:57 AM EST): - we could not accurate BP today, but had normal BP previously - continue current treatment plan LC (obstructive sleep apnea) 04/22/2023 Assessment & Plan (09/25/2024 6:09 AM EST): - patient had sleep studies, which were ordered by [facility]. Patient has CPAP, but needs some part replacement. Advised to contact [facility] sleep medicine clinic. Severe obesity 04/22/2023 Assessment & Plan (09/25/2024 6:02 AM EST): - s/p sleeve gasterectomy at [facility] - complicated by stricture - he has lost weight significantly - follow recommendations by weight management provider and PCP for individual plan General recommendation as following: Dietary Recommendations: Fruits, vegetables, whole grains, protein foods, and fat-free or low-fat dairy products are healthy choices. Eat different types of protein foods in your diet. This can include seafood, lean meats, poultry, beans, peas, lentils, nuts, seeds, soy products, and eggs. Limit foods and beverages higher in added sugars, saturated fat, and sodium. Exercise Recommendations: At least 150 minutes of moderate-intensity physical activity per week, or an equivalent combination of moderate- and vigorous-intensity activity Asthma 04/22/2023 Health care maintenance 04/22/2023 Knee pain, bilateral 04/22/2023 Family history of cancer 04/22/2023 Resolved Problems Problem Noted Date Diagnosed Date Resolved Date Blister of lip with infection 05/11/2024 10/22/2024 Urinary incontinence 11/08/2023 024 Hematuria 11/08/2023 01/19/2024 [...] (10/29/2023 4:12 PM EDT): -patient reports redness Tachycardia 05/23/2023 10/22/2024 Encounters * This document contains information received from the source organization and may not represent a complete record from that organization. Date Type Department Care Team Description 12/24/2024 Refill [facility] MED & PEDS [address] [place] [address] Karina Lopez MD 12/22/2024 Telephone [facility] OPTOMETRY [address] [place] [address] Ashley Kika, OD 12/21/2024 1:00 PM EDT Office Visit [facility] MEDICINE [address] [place] [address] Karina Lopez MD Housing insecurity (Primary Dx); Blurry vision; Hyperlipidemia, unspecified hyperlipidemia type; BMI 60.0-69.9, adult ([facility]/HCC); S/P laparoscopic sleeve gastrectomy; Severe obesity ([facility]); Health care maintenance 12/21/2024 Telephone [facility] OPTOMETRY [address] [place] [address] Ashley Kika, OD 12/21/2024 Travel 12/19/2024 Refill [facility] MEDICINE [address] [place] [address] Eden Mcdonald MD 12/17/2024 Refill [facility] MEDICINE [address] [place] [address] Karina Lopez MD 12/15/2024 Telephone [facility] MEDICINE [address] [place] [address] Karina Lopez MD 12/12/2024 Refill [facility] MEDICINE [address] [place] [address] Eden Mcdonald MD 12/06/2024 Telephone [facility] MEDICINE [address] [place] [address] Karina Lopez MD 12/02/2024 10:00 AM EDT Office Visit [facility] MEDICINE [address] [place] [address] Karina Lopez MD Chronic pain of both knees (Primary Dx); Neuropathy; Hyperlipidemia, unspecified hyperlipidemia type; BMI 60.0-69.9, adult (CMS/HCC); Severe obesity ([facility]); Health care maintenance; Microcytic anemia; Severe episode of recurrent major depressive disorder, without psychotic features ([facility]/HCC); Hospital discharge follow-up; Perineal abscess 12/02/2024 Travel 12/02/2024 Patient Outreach [address] [address] Karina Lopez MD Care Management (C3CM- initial assessment/ enrollment. lvm) 12/01/[address] [address] Karina Lopez MD Med Refill 12/01/2024 Refill [facility] MED & PEDS [address] [place] [address] Gloria Richmond RN Back pain, unspecified back location, unspecified back pain laterality, unspecified chronicity (Primary Dx); Chronic pain of both knees 12/01/2024 Telephone [facility] MED & PEDS [address] [place] [address] Karina Lopez MD 12/01/2024 Patient Outreach [address] [address] Karina Lopez MD Care Coordination (Appt reminder) 12/01/[address] [address] Karina Lopez MD chartprep 12/01/2024 Patient Outreach [address] [address] Karina Lopez MD 11/18/2024 Patient Outreach [address] [address] Karina Lopez MD 11/16/2024 Patient Outreach [address] [address] Karina Lopez MD Transition Of Care (Tcm) (HDF scheduled and SDOH screening negative and Tobacco screening negative) 11/16/2024 Patient Outreach [address] [address] Karina Lopez MD 11/16/2024 Patient Outreach [address] [address] Karina Lopez MD 11/15/2024 Patient Outreach [address] [address] Karina Lopez MD Transition Of Care (Tcm) (HDF unscheduled LVM ) 11/12/2024 Patient Outreach [address] [address] Karina Lopez MD 11/11/2024 Patient Outreach [address] [address] Karina Lopze MD 11/10/2024 Patient Outreach [address] [address] Karina Lopez MD Care Coordination (CM/CHW outreach) 11/10/2024 Patient Outreach [address] [address] Karina Lopez MD 11/10/2024 Patient Outreach [address] [address] Karina Lopez MD Transition Of Care (Tcm) (HDF unscheduled LVM ) 11/10/2024 Patient Outreach [address] [address] Karina Lopez MD 11/09/[address] [address] Karina Lopez MD Durable Medical Equipment 11/09/2024 Patient Outreach [address] [address] Karina Lopez MD 11/09/2024 Patient Outreach [address] [address] Karina Lopez MD 11/07/2024 Orders Only GENERIC EXTERNAL DATA DEPARTMENT Provider, Generic External Data 11/05/2024 2:30 PM EDT Office Visit [address] [address] Yudy Laguna ANP Constipation, unspecified constipation type (Primary Dx); Anal pain 11/05/2024 Travel 11/05/2024 Telephone [facility] MEDICINE [address] [place] [phone] Karina Lopez MD Nurse Triage 11/03/2024 Orders Only [facility] MEDICINE [address] [place] [address] Karina Lopez MD Back pain, unspecified back location, unspecified back pain laterality, unspecified chronicity (Primary Dx); Acute left ankle pain 11/02/2024 Telephone [facility] MEDICINE [address] [place] [address] Karina Lopez MD lab reminder 11/02/2024 Refill [facility] MEDICINE [address] [place] [phone] Eden Mcdonald MD 11/01/2024 Refill [facility] MED & PEDS [address] [place] [address] Gloria Richmond RN Chronic pain of both knees 11/01/2024 Telephone [facility] MED & PEDS [address] [place] [address] Karina Lopez MD Med Refill 10/29/2024 Patient Outreach [facility] MEDICINE [address] [place] [phone] Karina Lopez MD Care Coordination (C3CM- initial assessment/ enrollment lvm) 10/28/2024 Patient Outreach [facility] MEDICINE [address] [place] [phone] Karina Lopez MD Care Coordination (CM/CHW appt reminder) 10/26/2024 Telephone [facility] MEDICINE [address] [place] [phone] Karina Lopez MD 10/26/2024 Patient Outreach [facility] MEDICINE [address] [place] [address] Karina Lopez MD 10/26/2024 Patient Outreach [facility] MEDICINE [address] [place] [phone] Karina Lopez MD 10/25/2024 2:00 PM EDT Telemedicine [facility] MED & PEDS [address] [place] [address] Gloria Richmond, RN Long-term current use of opiate analgesic 10/25/2024 Telephone [facility] MED & PEDS [address] [place] [address] Gloria Richmond RN 10/25/2024 Travel 10/22/2024 1:15 PM EDT Office Visit [address] [address] Karina Lopez MD LC (obstructive sleep apnea) (Primary Dx); Back pain, unspecified back location, unspecified back pain laterality, unspecified chronicity; Tingling in extremities; Acute left ankle pain; Annual physical exam; Severe episode of recurrent major depressive disorder, without psychotic features ([facility]/HCC); Uncomplicated asthma, unspecified asthma severity, unspecified whether persistent; Chronic pain of both knees; Severe obesity ([facility]/HCC); Microcytic anemia; Health care maintenance; Physical deconditioning; Neuropathy; Calculus of gallbladder without cholecystitis without obstruction; Non-recurrent bilateral inguinal hernia without obstruction or gangrene 10/22/[address] [address] Karina Lopez MD MRI ; Results 10/22/2024 Travel 10/21/[address] [address] Karina Lopez MD DME from [facility] 10/13/2024 Patient Outreach [address] [address] Karina Lopez MD Care Coordination (CM/CHW outreach) 10/13/2024 Patient Outreach [address] [address] Karina Lopez MD Care Coordination (CHW Chart Review) 10/13/2024 Patient Outreach [address] [address] Karina Lopez MD Care Coordination ([facility]- chart review) 10/13/2024 Patient Outreach [address] [address] Karina Lopez MD 10/12/2024 Telephone [facility] MEDICINE [address] [place], [place] [phone] Karina Lopez MD chart prep 10/06/2024 Orders Only [facility] MEDICINE [address] [place] [address] Eden Mcdonald MD Acute low back pain, unspecified back pain laterality, unspecified whether sciatica present (Primary Dx); Numbness and tingling in both hands; Bilateral lower extremity edema; Bilateral numbness and tingling of arms and legs; Chronic low back pain, unspecified back pain laterality, unspecified whether sciatica present 10/01/2024 Population Health Risk Score [facility] (C3) Department [address] [place] [phone] Provider, Population Health Generic 09/30/2024 Refill [facility] CHC MED & PEDS [address] [place] [address] Gloria Richmond RN Chronic pain of both knees 09/30/2024 Telephone [facility] MED & PEDS [address] [place] [address] Karina Lopez MD from Last 3 Months Immunizations Immunization Administration Dates Next Due DTaP 02/05/2010, 8,10/20/1995,1994,1994,1994 [...] Answer Date Recorded Patient Health Questionnaire-9 Score 21 12/02/2024 Patient Health Questionnaire-9 Score 21 12/02/2024 Last PHQ-9: Questionnaire Data Not on file 0 12/02/2024 Housing Stability Answer Date Recorded What is [...] Date Recorded Patient Health Questionnaire-2 Score 6 12/02/2024 Internet Access Answer Date Recorded Internet Access [...] Sign Reading Time Taken Comments Blood Pressure 122/70 12/21/2024 1:19 PM EDT Pulse 84 12/21/2024 1:19 PM EDT Temperature 36.1 ??C (96.9 ??F) 12/21/2024 1:19 PM ED T Respiratory Rate 20 12/21/2024 1:19 PM EDT Oxygen Saturation 94% 12/21/2024 1:19 PM EDT Inhaled Oxygen Concentration - - Weight 237 kg (523 lb) 12/21/2024 1:19 PM EDT Height 172.7 cm (5' 8 ) 12/21/2024 1:19 PM EDT Body Mass Index 79.52 12/21/2024 1:19 PM EDT Plan of Treatment Upcoming Encounters Date Type Department Care Team (Late st Contact Info) Description 12/30/2024 11:30 AM EDT Telemedicine [facility] MEDICINE [address] [place] [phone] 01/17/2025 2:30 PM EDT Telemedicine [facility] CHC MED & PEDS [address] [place] [address] Gloria Richmond, RN [address] [place] [address] 03/08/2025 1:00 PM EDT Office Visit [facility] OPTOMETRY [address] [place] [address] Kika Ramirez, OD [address] [place] [address] 03/11/2025 1:00 PM EDT Office Visit [facility] MEDICINE [address] [place] [address] Karina Lopez MD [address] [place] [address] Health Maintenance Due Date Last Done Comments Dental Oral Exam 1994 Dental Prophylaxis 1994 Dental X-Ray: Full Mouth 1994 Family Planning (PISQ) 2009 Dental X-Ray: Bitewings 08/13/2024 08/12/2023 Depression Monitoring 06/04/2025 12/02/2024, 025 Alcohol/Substance Use Screening 09/20/2025 09/20/2024 SDOH Screening 11/16/2025 11/16/2024 Disability Screening 12/02/2025 12/02/2024 Tobacco Screening 12/21/2025 12/21/2024 Lipid Panel 11/05/2029 11/05/2024, 12/20, 04/21/2023 DTaP/Tdap/Td Vaccines (8 - Td or [...] age to complete this topic Pneumococcal Vaccine: Pediatrics (0 to 5 Years) and At-Risk Patients (6 to 49) Years) Completed 04/21/2023 COVID-19 Vaccine Completed 05/11/2024, 08/07/2023 Influenza Vaccine Completed 05/11/2024, 04/21/2023 HIV Screening Completed 11/05/2024, 04/21/2023 Hepatitis C Screening Completed 11/05/2024 Hepatitis A Vaccines Aged Out No long er eligible based on patient's age to complete this topic IPV Vaccines Aged Out No longer eligi ble based on patient's age to complete this topic Meningococcal B Vaccine Aged Out No l onger eligible based on patient's age to complete this topic Meningococcal Vaccine Aged Out No kandice jarek eligible based on patient's age to complete this topic RSV under 20 months Aged Out No longe r eligible based on patient's age to complete this topic Rotavirus Vaccines Aged Out No longer eligible based on patient's age to complete this topic Procedures Procedure Name Priority Date/Time Associated Diagnosis Comments LACTIC ACID Routine 11/07/2024 9:02 PM EDT BLOOD CULTURE (FIRST) Routine 11/07/2024 9:02 PM EDT BLOOD CULTURE (SECOND) Routine 9:01 PM EDT XR KUB AND UPRIGHT 2 VIEWS Routine 11/07/2024 7:24 PM EDT SLIDE REVIEW Routine 11/07/2024 7:17 PM EDT CBC WITH AUTO DIFFERENTIAL Routine 11/07/2024 7:17 PM EDT LIPASE Routine 11/07/2024 7:17 PM EDT C-REACTIVE PROTEIN Routine 11/07/2024 7: 17 PM EDT MAGNESIUM Routine 11/07/2024 7:17 PM EDT BASIC METABOLIC PANEL Routine 11/07/2024 7:17 PM EDT HEPATIC FUNCTION PANEL Routine 7:17 PM EDT VITAMIN B6 Routine 11/05/2024 3:35 PM EDT Neuropathy VITAMIN B1 Routine 11/05/2024 3:35 PM EDT Neuropathy FERRITIN Routine 11/05/2024 3:35 PM EDT Microcytic anemia IRON AND TOTAL IRON BINDING CAPACITY Routine 11/05/2024 3:35 PM EDT Microcytic anemia VITAMIN D,25-OH,TOTAL,IA Routine 11/05/2024 3:35 PM EDT Annual physical exam SYPHILIS SCREEN Routine 11/05/2024 3:35 PM EDT Annual physical exam HEPATITIS B SURFACE ANTIBODY, QUALITATIVE Routine 11/05/2024 3:35 PM EDT Annual physical exam CBC Routine 11/05/2024 3:35 PM EDT Annual physical exam URIC ACID Routine 11/05/2024 3:35 PM EDT Annual physical exam VITAMIN B12/FOLATE, SERUM PANEL Routine 11/05/2024 3:35 PM EDT Annual physical exam TSH W/REFLEX TO FT4 Routine 11/05/2024 3 :35 PM EDT Annual physical exam LIPID PANEL, STANDARD Routine 11/05/2024 3:35 PM EDT Annual physical exam HIV 1/2 ANTIGEN/ANTIBODY, FOURTH GENERATION W/RFL Routine 11/05/2024 3:35 PM EDT Annual physical exam HEPATITIS C AB W/REFL TO HCV RNA, QN, PCR Routine 11/05/2024 3:35 PM EDT Annual physical exam HEPATITIS B SURFACE ANTIGEN, EIA Routine 11/05/2024 3:35 PM EDT Annual physical exam HEPATITIS B CORE AB TOTAL Routine 11/05/2024 3:35 PM EDT Annual physical exam HEMOGLOBIN A1C Routine 11/05/2024 3:35 PM EDT Annual physical exam COMPREHENSIVE METABOLIC PANEL Routine 11/05/2024 3:35 PM EDT Annual physical exam BITEWING - SINGLE RADIOGRAPHIC IMAGE Routine 08/12/2023 1:00 PM EST Dental caries from Last 3 Months or Most Recently Relevant to Health Maintenance Results * Blood Culture (First) (11/07/2024 9:02 PM EDT) Blood Venous blood specimen / Unknown 11/07/2024 9:02 PM EDT 11/07/2024 9:08 PM EDT Comment:Blood Narrative [facility] - 11/12/2024 11:09 PM EDT Blood Culture (First) No growth after 5 days. Specimen Source: Blood us Generic External Data Provider LAB MICROBIOLOGY - GENERAL ORDERABLES Final Result Performing Organization Address [facility] de Phone Number [facility] [address] [place] [phone] * Lactic Acid (11/07/2024 9:02 PM EDT) Lactic Acid 0.8 0.5 - 2.0 mmol/L [facility] 11/07/2024 9:02 PM EDT 11/07/2024 9:05 PM EDT Generic External Data Provider LAB BLOOD ORDERAB LES Final Result Performing Organization Address [facility] de Phone Number [facility] [address] [place] [phone] * Blood Culture (Second) (11/07/2024 9:01 PM EDT) Blood Venous blood specimen / Unknown 11/07/2024 9:01 PM EDT 11/07/2024 9:05 PM EDT Comment:Blood Narrative [facility] - 11/12/2024 11:05 PM EDT Blood Culture (Second) No growth after 5 days. Specimen Source: Blood Generic External Data Provider LAB MICROBIOLOGY - GENERAL ORDERABLES Final Result Performing Organization Address [facility] de Phone Number [facility] [address] [place] [phone] * XR KUB and Upright 2 Views (11/07/2024 7:24 PM EDT) Anatomical Region Laterality Modality Radiographic Vivian ging 11/07/2024 7:24 PM EDT Narrative 11/07/2024 7:25 PM EDT ? [facility] ?[address] ?[place] [address] ?XRay Report ? Signed ? Patient: Mariaelena,Rosendo ?MR#: [id number] ?? 6 ? : 1995 ?Acct:[id number] ? Age/Sex: 29 / M ?ADM Date: 04/20/25 ? Loc: HO.ED ? Attending Dr: ? Ordering Physician: Tracie Nunez DO ?? Date of Service: 11/07/24 ?? Procedure(s): XR KUB ?? Accession Number(s): [id number] ? cc: Tracie Nunez DO; Karina Lopez MD ? CLINICAL HISTORY: constipation ? 1 view abdomen ? Comparison: 05/28/2024 ? Findings: ? No significant bowel distention demonstrated. ?? No significant increased stool noted. ?? No free air. No abnormal calcification. ?? No acute bony abnormalities. ? Impression: ? No significant abnormalities. ? This document has been electronically signed by: Mich Caldwell MD on ?? 11/07/2024 19:24:16 ? Dictated By: ?Mich Caldwell MD ? Signed By: ?<Electronically signed by Mich Caldwell MD in OV> ? 11/07/245 ? DD/ 23 ? TD/TT: 11/07/241923 ? Dispensing Lead: ? Procedure Note Catracho Leonard - 11/07/[address] [address] XRay Report Signed Patient: Meliton Ferrell#: [id number] 6 : 1995Acct:[id number] Age/Sex: 29 / MADM Date: 11/07/24 Loc: HO.ED Attending Dr: Ordering Physician: Tracie Nunez DO Date of Service: 11/07/24 Procedure(s): XR KUB Accession Number(s): [id number] cc: Tracie Nunez DO; Karian Lopez MD CLINICAL HISTORY: constipation 1 view abdomen Comparison: 05/28/2024 Findings: No significant bowel distention demonstrated. No significant increased stool noted. No free air. No abnormal calcification. No acute bony abnormalities. Impression: No significant abnormalities. This document has been electronically signed by: Mich Caldwell MD on 11/07/2024 19:24:16 Dictated By: Mich Caldwell MD Signed By: <Electronically signed by Mich Caldwell MD in OV> 11/07/241924 DD/ 23 TD/TT: 11/07/241923 Dispensing Lead: [facility] External Provider IMG XR PROCEDURES Edited Result - Final * Slide Review (11/07/2024 7:17 PM EDT) Slide Review VERIFIED [facility] 11/07/2024 7:17 PM EDT 11/07/2024 7:19 PM EDT us Generic External Data Provider LAB BLOOD ORDERAB LES Final Result [facility] [address] [place] [phone] * (ABNORMAL) CBC auto differential (11/07/2024 7:17 PM EDT) White Blood Count 15.7(H) 4.8 - 10.8 X10*3/uL [facility] Red Blood Count 4.32(L) 4.60 - 5.80 X10*6/uL [facility] Hemoglobin 12.5(L) 14.0 - 18.0 g/dl [facility] Hematocrit 38.3(L) 42.0 - 52.0 % [facility] Mean Corpuscular Volume 88.7 80.0 - 98.0 fL [facility] Mean Corpuscular Hemoglobin 28.9 27.0 - 33.0 pg [facility] Mean Corpuscular HGB Conc 32.6 31.0 - 36.0 g/dl [facility] Red Cell Distribution Width 16.1(H) 11.0 - 16.0 % [facility] Platelet Count 290 160 - 400 X10*3/uL [facility] Mean Platelet Volume 13.0(H) 9.4 - 12.4 fL [facility] Neutrophils Percent Auto 76.5(H) 45 - 73 % [facility] Imm Gran Pct Auto 0.3 0.0 - 0.4 % [facility] Lymphocytes Percent Auto 11.2(L) 20 - 40 % [facility] Monocytes Percent Auto 11.2(H) 2 - 11 % [facility] Eosinophils Percent Auto 0.6 0 - 4 % [facility] Basophils Percent Auto 0.2 0 - 2 % [facility] NRBC Pct Auto 0.0 0.0 - 0.2 /100WBC [facility] Neutrophils Absolute Auto 12.0(H) 2.0 - 8.3 x10*3/uL [facility] Imm Gran Abs Auto 0.05(H) 0.00 - 0.03 X10*3/uL [facility] Lymphocytes Absolute Auto 1.8 1.2 - 4.9 X10*3/uL [facility] Monocytes Absolute Auto 1.8(H) 0.1 - 1.2 X10*3/uL [facility] Eosinophils Absolute Auto 0.1 0.0 - 0.4 X10*3/uL [facility] Basophils Absolute Auto 0.0 0.0 - 0.2 X10*3/uL [facility] NRBC Abs Auto 0.000 0.0 - 0.012 X10*3/uL [facility] 11/07/2024 7:17 PM EDT 11/07/2024 7:19 PM EDT us Generic External Data Provider LAB BLOOD ORDERAB LES Edited Result - Final Performing Organization Address City/[facility]/ZIP Co de Phone Number [facility] [address] [place], [place] [phone] * (ABNORMAL) C-reactive Protein (11/07/2024 7:17 PM EDT) C Reactive Protein 26.10(H) < or = 0.50 mg/dL [facility] 11/07/2024 7:17 PM EDT 11/07/2024 7:19 PM EDT us Generic External Data Provider LAB BLOOD ORDERAB LES Final Result [facility] [address] [place] [phone] * Magnesium (11/07/2024 7:17 PM EDT) [facility] Magnesium 1.6 1.6 - 2.6 mg/dL [facility] 11/07/2024 7:17 PM EDT 11/07/2024 7:19 PM EDT Generic External Data Provider LAB BLOOD ORDERAB LES Final Result Performing Organization Address City/[facility]/ZIP Co de Phone Number [facility] [address] [place] [phone] * (ABNORMAL) Lipase (11/07/2024 7:17 PM EDT) [facility] Lipase <4(L) 8 - 78 U/L [facility] 11/07/2024 7:17 PM EDT 11/07/2024 7:19 PM EDT Generic External Data Provider LAB BLOOD ORDERAB LES Final Result Performing Organization Address City/[facility] Co de Phone Number [facility] [address] [place] [phone] * (ABNORMAL) Hepatic Function Panel (11/07/2024 7:17 PM EDT) [facility] Bilirubin, Total 0.8 0.0 - 1.0 mg/dL [facility] Bilirubin, Direct 0.2 0.0 - 0.5 mg/dL [facility] Aspartate Amino Transferase 29 5 - 37 U/L [facility] Comment:Slight Hemolysis.Int erpret result with caution. Alanine Aminotransferase 7 0 - 40 U/L [facility] Total Protein 7.3 6.5 - 8.0 g/dL [facility] Albumin Level 2.8(L) 3.5 - 5.0 g/dL [facility] Alkaline Phosphatase 98 39 - 117 U/L [facility] 11/07/2024 7:17 PM EDT 11/07/2024 7:19 PM EDT us Generic External Data Provider LAB BLOOD ORDERAB LES Final Result Performing Organization Address City/[facility]/ZIP Co de Phone Number [facility] [address] [place] [phone] * Basic Metabolic Panel (11/07/2024 7:17 PM EDT) Sodium 136 135 - 145 mmol/L [facility] Potassium 4.5 3.3 - 5.1 mmol/L [facility] Comment:Slight Hemolysis.Int erpret result with caution. Chloride 101 96 - 108 mmol/L [facility] Carbon Dioxide 25 22 - 29 mmol/L [facility] Anion Gap 15 12 - 20 [facility] Urea Nitrogen (BUN) 12 9 - 16 mg/dL [facility] Creatinine, Serum 1.03 0.5 - 1.4 mg/dL [facility] Creatinine Clr Calc Pharmacy 197.5 [facility] Comment:eGFR (calculated fro m the MDRD study equation) and eCrCl(calculated from the Cockcroft-Gault equation) are based ondifferent parameters and may not yield comparable results.If eCrCl result is absurd, please check patient'sheight/weight. Estimated Glomerular Filt Rate >60 [facility] Comment:Chronic Kidney Disea se: Estimated GFR < 60 mL/min/1.92m9Txjdpk Kidney Disease: Estimated GFR < 15 mL/min/1.73m2 Glucose 83 60 - 115 mg/dL [facility] Calcium 9.0 8.4 - 10.2 mg/dL [facility] 11/07/2024 7:17 PM EDT 11/07/2024 7:19 PM EDT us Generic External Data Provider LAB BLOOD ORDERAB LES Final Result Performing Organization Address City/[facility]/ZIP Co de Phone Number [facility] [address] [place] [phone] * Syphilis Screen (11/05/2024 3:35 PM EDT) Syphilis Screen Nonreactive Nonreactive [facility] Blood 11/05/2024 3:35 PM EDT 11/05/2024 4:10 PM EDT Karina Duarte MD LAB BLOOD ORDERAB LES Final Result [facility] [address] [place] [phone] * (ABNORMAL) Vitamin D, 25-Hydroxy, Total, Immunoassay (11/05/2024 3:35 PM EDT) Vitamin D 25-OH Total 23.3(L) >30 ng/mL [facility] Comment: Health Based Reference Values*< 20 ??ng/mL ??Grdxibyvc41-56 ng/mL ??Insufficient> 30 ??ng/mL ??Sufficient*Kim VAZQUEZ. N Engl J Med. 2007;357:266-280There is no well-established upper level of normal vitamin Dlevels. Some laboratories use 50 ng/mL as an upper limit ofnormal. However, toxicity is patient-dependent and may occurat any level. Careful correlation with the patient'spresentation is necessary and, if there is concern forvitamin D toxicity, treatment should be consideredirrespective of the serum level.Care must be taken in interpreting Vitamin D results fromdifferent laboratories and methodologies. ??Published datademonstrated that results from patients undergoinghemodialysis may show a negative bias when tested withvarious automated 25-OH vitamin D assays when compared toLC- MS/MS.When testing samples from patients whose predominant form ofVitamin D is Vitamin D2, such as patients receiving VitaminD2 supplementation, results that are subtherapeutic shouldbe confirmed with another method such as LC-MS/MS. Blood Venous blood specimen / Unknown 11/05/2024 3:35 PM EDT 11/05/2024 4:10 PM EDT us Karina Duarte MD LAB BLOOD ORDERAB LES Final Result Performing Organization Address City/[facility]/ZIP Co de Phone Number [facility] [address] [place] [phone] * Vitamin B12 (Cobalamin) and Folate Panel, Serum (11/05/2024 3:35 PM EDT) Vitamin B12 850 200 - 900 pg/mL [facility] Comment:NORMAL 200-900 PG/ML INDETERMINATE 160-199 PG/ML DEFICIENT < 160 PG/ML Folate 6.9 > or = 4.0 ng/mL [facility] Comment:Reference Values:> o r = 4.0 ng/mL< 4.0 ng/mL suggests folate deficiency Methotrexate, aminopterin and folinic acid(leucovorin) are chemotherapeutic agents whose molecularstructures are similar to folate; therefore, the Architectfolate assay cannot be used for patients using these drugs. Blood 11/05/2024 3:35 PM EDT 11/05/2024 4:10 PM EDT us Karina Duarte MD LAB BLOOD ORDERAB LES Final Result Performing Organization Address [facility] Co de Phone Number [facility] [address] [place] [phone] * TSH with Reflex to Free T4 (11/05/2024 3:35 PM EDT) TSH reflex Free T4 3.15 0.32 - 4.0 uIU/mL [facility] Blood 11/05/2024 3:35 PM EDT 11/05/2024 4:10 PM EDT us Karina Duarte MD LAB BLOOD ORDERAB LES Final Result Performing Organization Address City/[facility]/ZIP Co de Phone Number [facility] [address] [place] [phone] * Hepatitis C Antibody with Reflex to HCV, RNA, Quantitative, Real-Time PCR (11/05/2024 3:35 PM EDT) Pathologist [facility] Hepatitis C Antibody Nonreactive Nonreactive [facility] Comment:Antibodies to HCV no t detected; does not exclude early acuteHCV infection. Blood Venous blood specimen / Unknown 11/05/2024 3:35 PM EDT 11/05/2024 4:10 PM EDT Karina Duarte MD LAB BLOOD ORDERAB LES Final Result Performing Organization Address [facility]/ZIP Co de Phone Number [facility] [address] [place] [phone] * (ABNORMAL) Iron And Total Iron Binding Capacity (11/05/2024 3:35 PM EDT) [facility] Iron 20(L) 45 - 160 mcg/dL [facility] Total Iron Binding Capacity 169(L) 228 - 428 mcg/dL [facility] Percent Iron Saturation 12(L) 15 - 50 % [facility] Unsaturated Iron Binding 149 ug/dL [facility] Blood Venous blood specimen / Unknown 11/05/2024 3:35 PM EDT 11/05/2024 4:10 PM EDT Karina Duarte MD LAB BLOOD ORDERAB LES Final Result Performing Organization Address City/[facility]/ZIP Co de Phone Number [facility] [address] [place] [phone] * Hepatitis B surface antigen, EIA (11/05/2024 3:35 PM EDT) [facility] Hepatitis B Surface Ag Negative Negative [facility] Blood Venous blood specimen / Unknown 11/05/2024 3:35 PM EDT 11/05/2024 4:10 PM EDT Karina Duarte MD LAB BLOOD ORDERAB LES Final Result Performing Organization Address City/[facility]/ZIP Co de Phone Number [facility] [address] [place] [phone] * Hepatitis B Core Antibody, Total (11/05/2024 3:35 PM EDT) Hepatitis B Core Antibody Nonreactive Nonreactive [facility] Blood Venous blood specimen / Unknown 11/05/2024 3:35 PM EDT 11/05/2024 4:10 PM EDT us Karina Duarte MD LAB BLOOD ORDERAB LES Final Result Performing Organization Address [facility] Co de Phone Number [facility] [address] [place] [phone] * HIV-1/2 Antigen and Antibodies, Fourth Generation, with Reflexes (11/05/2024 3:35 PM EDT) [facility] HIV AB/AG Nonreactive Nonreactive [facility] Comment:HIV-1 p24 Ag and/or HIV-1/HIV-2 Ab not detected.A test result that is nonreactive does not exclude thepossibility of exposure to or infection with HIV-1 and/orHIV-2. Nonreactive results in this assay for individualswith prior exposure to HIV-1 and/or HIV-2 may be due toantigen and antibody levels that are below the limit ofdetection of this assay.The [employer] HIV Ag/Ab Combo assay result andsupplemental assay results should be interpreted inconjunction with the patient's clinical presentation,history and other laboratory results. If the results areinconsistent with clinical evidence, additional testing issuggested to confirm the result. Blood Venous blood specimen / Unknown 11/05/2024 3:35 PM EDT 11/05/2024 4:10 PM EDT us Karina Duarte MD LAB BLOOD ORDERAB LES Final Result Performing Organization Address [facility]/ZIP Co de Phone Number [facility] [address] [place] [phone] * Hepatitis B Surface Antibody, Qualitative (11/05/2024 3:35 PM EDT) [facility] ~Hepatitis B Surface Antibody NONREACTIVE Nonreactive [facility] Comment:Nonreactive: < 8.00 mIU/mL Blood Venous blood specimen / Unknown 11/05/2024 3:35 PM EDT 11/05/2024 4:10 PM EDT Karina Duarte MD LAB BLOOD ORDERAB LES Final Result [facility] [address] [place] [phone] * (ABNORMAL) CBC (11/05/2024 3:35 PM EDT) [facility] White Blood Count 9.2 4.8 - 10.8 X10*3/uL [facility] Red Blood Count 4.67 4.60 - 5.80 X10*6/uL [facility] Hemoglobin 13.4(L) 14.0 - 18.0 g/dl [facility] Hematocrit 41.8(L) 42.0 - 52.0 % [facility] Mean Corpuscular Volume 89.5 80.0 - 98.0 fL [facility] Mean Corpuscular Hemoglobin 28.7 27.0 - 33.0 pg [facility] Mean Corpuscular HGB Conc 32.1 31.0 - 36.0 g/dl [facility] Red Cell Distribution Width 16.6(H) 11.0 - 16.0 % [facility] Platelet Count TNP 160 - 400 X10*3/uL [facility] Comment:Platelet clumps note d. Platelet count will not be accurate.Recollecting the platelet count in a blue top tube mayeliminate platelet clumps. Order platelet count blue toptube. A lavender top tube must be drawn if CBC is required. Mean Platelet Volume 13.3(H) 9.4 - 12.4 fL [facility] NRBC Pct Auto 0.0 0.0 - 0.2 /100WBC [facility] NRBC Abs Auto 0.000 0.0 - 0.012 X10*3/uL [facility] Blood Venous blood specimen / Unknown 11/05/2024 3:35 PM EDT 11/05/2024 4:10 PM EDT Karina Duarte MD LAB BLOOD ORDERAB LES Final Result Performing Organization Address [facility]/ZIP Co de Phone Number [facility] [address] [place] [phone] * (ABNORMAL) Uric acid (11/05/2024 3:35 PM EDT) Uric Acid 8.7(H) 3.4 - 7.0 mg/dL [facility] Blood Venous blood specimen / Unknown 11/05/2024 3:35 PM EDT 11/05/2024 4:10 PM EDT Karina Duarte MD LAB BLOOD ORDERAB LES Final Result Performing Organization Address [facility] Co de Phone Number [facility] [address] [place] [phone] * Vitamin B1 (11/05/2024 3:35 PM EDT) Vitamin B1 12 8 - 30 nmol/L [facility] Comment:Vitamin supplementat ion within 24 hours prior toblood draw may affect the accuracy of the results.This test was developed and its analytical performancecharacteristics have been determined by [employer] [place], [place]. It hasnot been cleared or approved by the U.S. Food and DrugAdministration. This assay has been validated pursuantto the CLIA regulations and is used for clinicalpurposes.THIS TEST WAS PERFORMED AT:[id number] [place] [address]JPOAYZRMARIANNE MOLINA MD,PHD Blood Venous blood specimen / Unknown 11/05/2024 3:35 PM EDT 11/05/2024 4:10 PM EDT Karina Duarte MD LAB BLOOD ORDERAB LES Final Result Performing Organization Address [facility]/ZIP Co de Phone Number [facility] [address] [place] [phone] * Vitamin B6 (11/05/2024 3:35 PM EDT) Pathologist [facility] Vitamin B6 5.0 2.1 - 21.7 ng/mL [facility] Comment:Vitamin supplementat ion within 24 hours prior toblood draw may affect the accuracy of the results.This test was developed and its analytical performancecharacteristics have been determined by [employer] [place], [place]. It hasnot been cleared or approved by the U.S. Food and DrugAdministration. This assay has been validated pursuantto the CLIA regulations and is used for clinicalpurposes.THIS TEST WAS PERFORMED AT:[id number] [place] [address]YMNQKOBMARIANNE MOLINA MD,PHD Blood Venous blood specimen / Unknown 11/05/2024 3:35 PM EDT 11/05/2024 4:10 PM EDT us Karina Duarte MD LAB BLOOD ORDERAB LES Final Result Performing Organization Address City/[facility]/ZIP Co de Phone Number [facility] [address] [place] [phone] * Hemoglobin A1c (11/05/2024 3:35 PM EDT) Hemoglobin A1c 4.5 <6.0 % [facility] Comment:Hemoglobin A1C Refer ence Range Adults: 4.8 - 6.0 % Non diabetic: < 6.0 % Goal: < 7.0 %Additional Action Suggested: > 8.0 %Note: Hemoglobin A1c results are invalid for patients with abnormal amounts of HbF. Blood transfusions may impact the HbA1c concentration in the patient sample. Estimated Average Glucose 82 mg/dL [facility] Comment:eAG = Estimated ave rage glucose which is %A1C expressed asaverage glucose, using the formula of the E9M-XsldtdvTrelumm Glucose study (ADAG), Diabetes Care, Vol.31,#8,2007 Blood Venous blood specimen / Unknown 11/05/2024 3:35 PM EDT 11/05/2024 4:10 PM EDT us Karina Duarte MD LAB BLOOD ORDERAB LES Final Result Performing Organization Address City/[facility]/ZIP Co de Phone Number [facility] [address] [place] [phone] * Ferritin (11/05/2024 3:35 PM EDT) Ferritin 228 20 - 250 ng/mL [facility] Blood Venous blood specimen / Unknown 11/05/2024 3:35 PM EDT 11/05/2024 4:10 PM EDT us Karina Duarte MD LAB BLOOD ORDERAB LES Final Result Performing Organization Address [facility]/ZIP Co de Phone Number [facility] [address] [place] [phone] * (ABNORMAL) Lipid Panel, Standard (11/05/2024 3:35 PM EDT) Triglycerides 118 <150 mg/dL [facility] Comment:Desirable Triglyceri de: less than 150 mg/dLBorderline High Triglyceride 150-199 mg/dLHigh Triglyceride: 200-499 mg/dLVery High Triglyceride: greater than or equal to 5OO mg/dL Cholesterol 266(H) <200 mg/dL [facility] Comment:Desirable Cholestero l: less than 200 mg/dLBorderline High Cholesterol: 200-239 mg/dLHigh Cholesterol: greater than 239 mg/dL LDL Cholesterol Calculated 200(H) <100 mg/dL [facility] Comment:Desirable LDL: less than 100 mg/dLNear Optimal/Above Optimal LDL: 110- 129 mg/dLBorderline High LDL: 130-159 mg/dLHigh LDL: 160-189 mg/dLVery High LDL: greater than or equal to 190 mg/dL HDL Cholesterol 43 >40 mg/dL [facility] Comment:Desirable HDL: great er than 40 mg/dL Note: This HDL assay may give artificially low results in patients with liver disease. Blood Venous blood specimen / Unknown 11/05/2024 3:35 PM EDT 11/05/2024 4:10 PM EDT Karina Duarte MD LAB BLOOD ORDERAB LES Final Result [facility] [address] [place] [address] [phone] * (ABNORMAL) Comprehensive Metabolic Panel (11/05/2024 3:35 PM EDT) Sodium 137 135 - 145 mmol/L [facility] Potassium 4.4 3.3 - 5.1 mmol/L [facility] Chloride 99 96 - 108 mmol/L [facility] Carbon Dioxide 29 22 - 29 mmol/L [facility] Anion Gap 13 12 - 20 [facility] Urea Nitrogen (BUN) 11 9 - 16 mg/dL [facility] Creatinine, Serum 1.10 0.5 - 1.4 mg/dL [facility] Estimated Glomerular Filt Rate >60 [facility] Comment:Chronic Kidney Disea se: Estimated GFR < 60 mL/min/1.80y9Cvpcte Kidney Disease: Estimated GFR < 15 mL/min/1.73m2 Glucose 74 60 - 115 mg/dL [facility] Calcium 9.5 8.4 - 10.2 mg/dL [facility] Bilirubin, Total 1.1(H) 0.0 - 1.0 mg/dL [facility] Aspartate Amino Transferase 19 5 - 37 U/L [facility] Alanine Aminotransferase 8 0 - 40 U/L [facility] Total Protein 7.8 6.5 - 8.0 g/dL [facility] Albumin Level 3.2(L) 3.5 - 5.0 g/dL [facility] Alkaline Phosphatase 103 39 - 117 U/L [facility] Blood Venous blood specimen / Unknown 11/05/2024 3:35 PM EDT 11/05/2024 4:10 PM EDT us Karina Duarte MD LAB BLOOD ORDERAB LES Final Result [facility] [address] [place] [address] [phone] from Last 3 Months Insurance [facility] STAND ADULT Advance Directives Documents on File Type Date Recorded 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
[2024-12-28 11:26] LABS: C Reactive Protein 4.67 mg/dL (< or = 0.50)
[2024-12-28 11:27] LABS: Erythrocyte Sedimentation Rate 53 MM/HR (0-15)
[2024-12-30 22:13] LABS: IgA 448 mg/dL (47-310); IgG 2277 mg/dL (600-1640); IgM 74 mg/dL (50-300)
[2025-01-01 00:49] LABS: Copper, serum 142 mcg/dL (70-175)
[2025-01-01 10:37] LABS: Beta-Gamma Tocopherol 3.4 mg/L (<=4.3)
== END 2024-12-28 09:08 | disposition home or self-care (01) ==
LOC: HO.NEURO 09:07
PROVIDERS: PCP Student in an Organized Health Care Education/Training Program; Visit Provider Family Medicine
DX: G62.9 Polyneuropathy, unspecified (principal)
CPT/HCPCS: 36415; 82525; 82784; 84446; 85652; 86140; 86334; 95886; 95911

== ENCOUNTER 2025-06-15 14:47 | Outpatient (REF) | payer MEDICAID, SELFPAY ==
--- OUTSIDE RECORDS SUMMARY | 2025-06-13 14:00 | XMS_ITS | Encounter Summary ---
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 Encounter Details Date Type Department Care Team ([facility] Contact Info) Description 06/13/2025 2:00 PM EST Telemedicine [facility] CHC MED & PEDS [address] [place] [address] Gloria Richmond, RN [address] [place] [address] Chronic pain of both knees Social History Tobacco Use Types Packs/Day Years Used Date Smoking Tobacco: Never Passive Smoke Exposure: Never Smokeless Tobacco: Never Alcohol Use Standard Drinks/Week Comments Not Currently 0 (1 standard drink = 0.6 oz pur e alcohol) social Depression Answer Date Recorded Patient Health Questionnaire-9 Score 7 02/16/2025 Patient Health Questionnaire-9 Score 7 02/16/2025 Last PHQ-9: Questionnaire Data Not on file 0 02/16/2025 Housing Stability Answer Date Recorded What is your housing situation today? I have housing today, but I am worried about losing housing in the future 02/04/[address] you li ve. Do you have problems with any of the following? None of the above 02/04/2025 Food Insecurity Answer Date Recorded Within the [...] Date Recorded Patient Health Questionnaire-2 Score 2 02/16/2025 Internet Access Answer Date Recorded Internet Access Q1 Yes 2024 Internet Access Q2 Not on file 2024 Sex and Gender Information Value Date Recorded Sex Assigned at Male 05/20/2022 10:15 AM EDT Legal Sex Male 10:15 AM EDT Gender Identity Male 05/20/2022 10:15 AM EDT Sexual Orientation Straight 04/21/2023 1: 41 PM EDT documented as of this encounter Progress Notes * Gloria Richmond RN - 06/13/2025 2:00 PM EST SUBJECTIVE: Rosendo Ferrell is a 30 y.o. 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 The patient last took Oxycodone on: 06/13/25 Medication is: 60% % effective at alleviating pain. 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 PLAN: Information on pain group given: Previously discussed Information on acupuncture given: Previously discussed Narcan education provided: Previously discussed Narcan prescription: active Rosendo Ferrell will continue taking medication as prescribed and follow up at the next [facility] visit or sooner if needed. Rosendo Ferrell has verbalized understanding of care plan. Future Appointments Date Time Provider Department Center 06/29/2025 3:00 PM Kikazee Ramirez OD VISION [facility] 08/05/2025 1:00 PM Karina Duarte MD MEDICINE [facility] 08/17/2025 2:45 PM Gloria Richmond RN [facility] Gloria Richmond RN [1] Current Outpatient Medications: Acetaminophen Extra Strength 500 MG tablet, Take 1 tablet by mouth every 6 (six) hours if needed., Disp: , Rfl: albuterol (2.5 MG/3ML) 0.083% nebulizer solution, Take 3 mL (2.5 mg) by nebulization every 6 (six) hours if needed for wheezing., Disp: 75 mL, Rfl: 11 Aspirin Low Dose 81 MG chewable tablet, TAKE 1 TABLET BY MOUTH EVERY MORNING (CHEW), Disp: 90 tablet, Rfl: 0 atorvastatin (Lipitor) 40 MG tablet, TAKE 1 TABLET BY MOUTH EVERY MORNING, Disp: 90 tablet, Rfl: 1 Blood Pressure Monitor kit, 1 kit in the morning., Disp: 1 kit, Rfl: 0 buPROPion XL (Wellbutrin XL) 300 MG 24 hr tablet, TAKE 1 TABLET BY MOUTH EVERY MORNING, Disp: 90 tablet, Rfl: 0 Calcium Citrate-Vitamin D (Olmsted Calcium/Vitamin D) 200-6.25 MG-MCG tablet, Take 1 tablet by mouthat noon and 1 tablet in the evening., Disp: 180 tablet, Rfl: 5 cholecalciferol VITAMIN D (Vitamin D-3) 50 MCG (2000 UT) tablet, TAKE 1 TABLET BY MOUTH EVERY MORNING, Disp: 90 tablet, Rfl: 0 ferrous gluconate (Fergon) 324 (38 Fe) MG tablet, TAKE 1 TABLET BY MOUTH EVERY OTHER DAY IN THE MORNING, Disp: 45 tablet, Rfl: 1 folic acid (Folvite) 1 MG tablet, TAKE 1 TABLET BY MOUTH EVERY MORNING, Disp: 90 tablet, Rfl: 0 FT Stool Softener 50-8.6 MG tablet, TAKE 1 TABLET BY MOUTH EVERY MORNING, Disp: 90 tablet, Rfl: 1 hyoscyamine (Levsin) 0.125 MG SL tablet, DISSOLVE 1 TABLET BY MOUTH EVERY 6 HOURS NEEDED FOR CRAMPS, Disp: 30 tablet, Rfl: 2 lidocaine (Lidoderm) 5 % patch, APPLY 1 PATCH TOPICALLY TO SKIN IN THE MORNING. LEAVE ON FOR 12 HOURS AND OFF FOR 12 HOURS DIRECTED, Disp: 90 patch, Rfl: 0 meloxicam (Mobic) 15 MG tablet, TAKE 1 TABLET BY MOUTH EVERY MORNING, Disp: 30 tablet, Rfl: 1 metoprolol tartrate (Lopressor) 25 MG tablet, TAKE 1 TABLET BY MOUTH TWICE DAILY IN THE MORNING ANDIN THE EVENING, Disp: 180 tablet, Rfl: 0 Misc. Devices (Pulse Oximeter) misc, 1 Device Once per day., Disp: 1 each, Rfl: 0 Multiple Vitamins-Iron (Tab-A-Luis/Iron) tablet, Take 2 tablets by mouth Once per day., Disp: 180 tablet, Rfl: 5 naloxone (Narcan) 4 mg/0.1 mL nasal spray, Administer 1 spray (4 mg) into affected nostril(s) if needed for opioid reversal. May repeat every 2-3 minutes if needed, alternating nostrils, until medical assistance becomes available., Disp: 2 each, Rfl: 0 nystatin (Mycostatin) 789026 UNIT/GM powder, APPLY TOPICALLY TO THE AFFECTED AREA(S) TWICE DAILY ASDIRECTED, Disp: 60 g, Rfl: 2 omega-3 acid ethyl esters (Lovaza) 1 g capsule, TAKE 1 CAPSULE BY MOUTH EVERY MORNING, Disp: 90 capsule, Rfl: 0 oxyCODONE (Roxicodone) 10 MG immediate release tablet, Take 1 tablet (10 mg) by mouth every 12 (twelve) hours. Do not start before June 03, 2025., Disp: 56 tablet, Rfl: 0 pantoprazole (ProtoNix) 40 MG EC tablet, Take 1 tablet (40 mg) by mouth Once per day., Disp: 90 tablet, Rfl: 0 polycarbophil (FiberCon) 625 MG tablet, Take 1 tablet (625 mg) by mouth Once per day., Disp: 90 tablet, Rfl: 3 pregabalin (Lyrica) 75 MG capsule, Take 1 capsule (75 mg) by mouth 2 times daily., Disp: 60 capsule, Rfl: 2 Ventolin HFA 108 (90 Base) MCG/ACT inhaler, INHALE 2 PUFFS BY MOUTH EVERY 6 HOURS NEEDED FOR WHEEZING OR SHORTNESS OF BREATH, Disp: 18 g, Rfl: 2 documented in this encounter Plan of Treatment Upcoming Encounters Date Type Department Care Team (Late st Contact Info) Description 06/29/2025 3:00 PM EST Office Visit [facility] OPTOMETRY [address] [place], [place] [phone] Kika Ramirez, OD [address] [place] [address] 08/05/2025 1:00 PM EST Office Visit [facility] MEDICINE [address] [place] [address] Karina Lopez MD [address] [place] [address] 08/17/2025 2:45 PM EST Clinical Support [facility] CHC MED & PEDS [address] [place], [place] [phone] Gloria Richmond, RN [address], [place] [phone] documented as of this encounter Visit Diagnoses Diagnosis Chronic pain of both knees documented in this encounter Additional Health Concerns Assessment Noted Time PHQ-9 Depression Total Score: 7 02/17/20 12:02 PM EDT documented as of this encounter Care Teams Account Manager Employee Benefits Relationship Specialty Start Date End Date Karina Lopez MD [address] [place] [phone] PCP - General Internal Medicine 04/22/23 Karina Thacker Solaris AdministratorEvent Coordinator 09/26/23 Arturo Weeks MD Bariatrics 12/07/24 documented as of this encounter
[2025-06-15 16:32] LABS: Hemoglobin 11.5 g/dl (14.0-18.0); NRBC Abs Auto 0.000 X10*3/uL (0.0-0.012); NRBC Pct Auto 0.0 /100WBC (0.0-0.2)
[2025-06-15 16:33] LABS: Imm Gran Abs Auto 0.01 X10*3/uL (0.00-0.03); Imm Gran Pct Auto 0.2 % (0.0-0.4); MANUAL DIFF FLAG SCAN; NRBC Abs Auto 0.000 X10*3/uL (0.0-0.012); NRBC Pct Auto 0.0 /100WBC (0.0-0.2); SCAN SMEAR FLAG 1
[2025-06-15 16:34] LABS: Hematocrit 37.1 % (42.0-52.0); Mean Corpuscular HGB Conc 31.0 g/dl (31.0-36.0); Mean Corpuscular Hemoglobin 23.9 pg (27.0-33.0); Mean Corpuscular Volume 77.0 fL (80.0-98.0); PLT CLUMP 1; Red Blood Count 4.82 X10*6/uL (4.60-5.80)
[2025-06-15 16:35] LABS: Hematocrit 37.8 % (42.0-52.0); Hemoglobin 11.6 g/dl (14.0-18.0); Lymphocytes Absolute Auto 1.6 X10*3/uL (1.2-4.9); Mean Corpuscular HGB Conc 30.7 g/dl (31.0-36.0); Mean Corpuscular Hemoglobin 23.6 pg (27.0-33.0); Mean Corpuscular Volume 77.0 fL (80.0-98.0); PLT CLUMP 1; Red Blood Count 4.91 X10*6/uL (4.60-5.80)
[2025-06-15 16:52] LABS: Alanine Aminotransferase 13 U/L (0-40); Albumin Level 3.9 g/dL (3.5-5.0); Alkaline Phosphatase 91 U/L (39-117); Anion Gap 10 (12-20); Aspartate Amino Transferase 21 U/L (5-37); Blood Urea Nitrogen 9 mg/dL (9-16); Calcium 9.2 mg/dL (8.4-10.2); Carbon Dioxide 28 mmol/L (22-29); Chloride 106 mmol/L (96-108); Cholesterol 240 mg/dL (<200); Estimated Glomerular Filt Rate 56; HDL Cholesterol 34 mg/dL (>40); Potassium 4.0 mmol/L (3.3-5.1); Sodium 140 mmol/L (135-145); Total Protein 7.7 g/dL (6.5-8.0); Triglycerides 103 mg/dL (<150)
[2025-06-15 16:54] LABS: Alanine Aminotransferase 14 U/L (0-40); Albumin Level 3.9 g/dL (3.5-5.0); Alkaline Phosphatase 90 U/L (39-117); Anion Gap 11 (12-20); Aspartate Amino Transferase 23 U/L (5-37); Blood Urea Nitrogen 9 mg/dL (9-16); Calcium 9.3 mg/dL (8.4-10.2); Carbon Dioxide 28 mmol/L (22-29); Chloride 106 mmol/L (96-108); Cholesterol 241 mg/dL (<200); Estimated Glomerular Filt Rate 56; HDL Cholesterol 35 mg/dL (>40); Iron 42 mcg/dL (45-160); Percent Iron Saturation 23 % (15-50); Potassium 4.1 mmol/L (3.3-5.1); Sodium 141 mmol/L (135-145); Total Iron Binding Capacity 184 mcg/dL (228-428); Total Protein 7.7 g/dL (6.5-8.0); Triglycerides 105 mg/dL (<150); Unsaturated Iron Binding 142 ug/dL; Uric Acid 9.1 mg/dL (3.4-7.0)
[2025-06-15 17:11] LABS: Ferritin 122 ng/mL (20-250)
[2025-06-15 17:20] LABS: Folate 17.3 ng/mL (> or = 4.0); PLT ABN DIST 1; Vitamin B12 369 pg/mL (200-900)
[2025-06-15 17:27] LABS: Platelet Count 176 X10*3/uL (160-400); White Blood Count 4.6 X10*3/uL (4.8-10.8)
--- OUTSIDE RECORDS SUMMARY | 2025-06-15 17:28 | XMS_ITS | Encounter Summary ---
Author Organization [employer] Address [address] [place] [address] Care Team Providers Care Rougher Helper Name Role Phone Karina Lopez MD Primary Care Pro vider Reason for Visit * Reason Onset Date Comments Med Refill 01/03/2025 Encounter Details Date Type Department Care Team ([facility] st Contact Info) Description 01/03/2025 Telephone [facility] MEDICINE [address] [place] [address] Karina Lopez MD [address] [place] [address] Med Refill Social History Tobacco Use Types [...] encounter Miscellaneous Notes * Telephone Encounter - Maxim Cardozo - 01/03/2025 1:27 PM EDT TC from pt requesting medication refill. Medications needing refill : oxyCODONE (Roxicodone) 10 MG immediate release tablet To be sent to: [facility] pharmacy documented in this encounter Plan of Treatment Upcoming Encounters Date Type Department Care Team ([facility] st Contact Info) Description 06/29/2025 3:00 PM EST Office Visit [facility] OPTOMETRY [address] [place] [address] Kika Ramirez, OD [address] [place] [address] 08/05/2025 1:00 PM EST Office Visit [facility] MEDICINE [address] [place] [address] Karina Lopez MD [address] [place] [address] 08/17/2025 2:45 PM EST Clinical Support [facility] CHC MED & PEDS [address] [place], [place] [phone] Gloria Richmond, WILDER [address] [place] [address] documented as of this encounter Visit Diagnoses Not on filedocumented in this encounter Additional Health Concerns Assessment Noted Time PHQ-9 Depression Total Score: 21 025 11:42 AM EDT documented as of this encounter Care Teams Rougher Helper Relationship Specialty Start Date End Date Karina Lopez MD [address] [place] [phone] PCP - General Internal Medicine 04/22/23 Karina Thacker Library SupervisorWincher 09/26/23 Arturo Weeks MD Bariatrics 12/07/24 documented as of this encounter
--- OUTSIDE RECORDS SUMMARY | 2025-06-15 17:28 | XMS_ITS | Encounter Summary ---
Author Organization [employer] Address [address] [facility] 7 [place] [address] Care Team Providers Care Oracle Technical Developer Name Role Phone Karina Lopez MD Primary Care Pro vider Encounter Details Date Type Department Care Team (Late st Contact Info) Description 09/19/2023 Orders Only [facility] MEDICINE [address] [place] [address] Karina Lopez MD [address] [place] [address] Social History Tobacco Use Types Packs/Day Years [...] the past 12 months, has t he [employer], [employer], oil or water [email or web address] threatened to shut off services in your [...] Description 06/29/2025 3:00 PM EST Office Visit [facility] OPTOMETRY [address] [place] [address] Kika Ramirez, OD [address] [place] [address] 08/05/2025 1:00 PM EST Office Visit [facility] MEDICINE [address] [place] [address] Karina Lopez MD [address] [place] [address] 08/17/2025 2:45 PM EST Clinical Support [facility] CHC MED & PEDS [address] [place], [place] [phone] Gloria Richmond, WILDER [address] [place] [address] documented as of this encounter Visit Diagnoses Not on filedocumented in this encounter Additional Health Concerns Assessment Noted Time PHQ-9 Depression Total Score: 16 023 1:41 PM EDT documented as of this encounter Care Teams Oracle Technical Developer Relationship Specialty Start Date End Date Karina Lopez MD [address] [place] [address] PCP - General Internal Medicine 04/22/23 Karina Thacker Metal Furniture GlazierCold Rolling Machine Setter 09/26/23 Arturo Weeks MD Bariatrics 12/07/24 documented as of this encounter
--- OUTSIDE RECORDS SUMMARY | 2025-06-15 17:28 | XMS_ITS | Encounter Summary ---
Author Organization [employer] Address [address] [place] [address] Care Team Providers Care Control System Manager Name Role Phone Karina Lopez MD Primary Care Pro vider Reason for Visit * Reason Onset Date Comments FYI 02/03/2025 Encounter Details Date Type Department Care Team ([facility] st Contact Info) Description 02/03/2025 Telephone [facility] MEDICINE [address] [place] [address] Karina Lopez MD [address] [place] [address] FYI Social History Tobacco Use Types Packs/Day Years Used Date Smoking Tobacco: Never Passive Smoke Exposure: Never Smokeless Tobacco: Never Alcohol Use Standard Drinks/Week Comments Not Currently 0 (1 standard drink = 0.6 oz pur e alcohol) social Depression Answer Date Recorded Patient Health Questionnaire-9 Score 7 02/03/2025 Patient Health Questionnaire-9 Score 7 02/03/2025 Last PHQ-9: Questionnaire Data Not on file 0 02/03/2025 Housing Stability Answer Date Recorded What is [...] Date Recorded Patient Health Questionnaire-2 Score 2 02/03/2025 Internet Access Answer Date Recorded Internet Access Q1 Yes 2024 Internet Access Q2 Not on file 2024 Sex and Gender Information Value Date Recorded Sex Assigned at Male 05/20/2022 10:15 AM EDT Legal Sex Male 10:15 AM EDT Gender Identity Male 05/20/2022 10:15 AM EDT Sexual Orientation Straight 04/21/2023 1: 41 PM EDT documented as of this encounter Functional Status * Over the past 2 weeks, how often have you been bothered by any of the following problems? Question Answer Date of Assessment Author Patient Health Questionnaire -2 Score 2 02/03/2025 2:25 PM EDT Danelle Almonte RN * Little interest or pleasure in doing things Answer Date of Assessment Author Several days 02/03/2025 2:25 PM EDT Danelle Almonte RN * Feeling down, depressed, or hopeless Answer Date of Assessment Author Several days 02/03/2025 2:25 PM EDT Danelle Almonte RN * Trouble falling or staying asleep, or sleeping too much Answer Date of Assessment Author Several days 02/03/2025 2:25 PM EDT Danelle Almonte, WILDER * Feeling tired or having little energy Answer Date of Assessment Author Several days 02/03/2025 2:25 PM EDT Danelle Almonte RN * Poor appetite or overeating Answer Date of Assessment Author Several days 02/03/2025 2:25 PM ARNULFOT Danelle Almonte RN * Feeling bad about yourself - or that you are a failure or have let yourself or your family down Answer Date of Assessment Author Several days 02/03/2025 2:25 PM EDT Danelle Almonte, WILDER * Trouble concentrating on things, such as reading the newspaper or watching television Answer Date of Assessment Author Several days 02/03/2025 2:25 PM EDT Danelle Almonte RN * Moving or speaking so slowly that other people could have noticed? Or the opposite - being so fidgety or restless that you have been moving around a lot more than usual. Answer Date of Assessment Author Not at all 02/03/2025 2:25 PM EDT Danelle Almonte RN * Thoughts that you would be better off or hurting yourself in some way Answer Date of Assessment Author Not at all 02/03/2025 2:25 PM EDT Danelle Almonte RN * Patient Health Questionnaire-9 Score Answer Date of Assessment Author 7 02/03/2025 2:25 PM EDT Danelle Almonte RN * How difficult have these problems made it for you to do your work, take care of things at home, or get along with other people? Answer Date of Assessment Author Somewhat difficult 02/03/2025 2:25 PM EDT Danelle Delong RN * Over the last 2 weeks, how often have you been bothered by any of the following problems? Question Answer Date of Assessment Author Feeling nervous, anxious, or on edge 1 02/03/2025 2:25 PM EDT Danelle Almonte RN Not being able to stop or co ntrol worrying 1 02/03/2025 2:25 PM EDT Danelle Almonte RN Worrying too much about diff erent things 1 02/03/2025 2:25 PM EDT Danelle Almonte RN Trouble relaxing 1 02/03/2025 2:25 PM EDT Danelle Pro RN Being so restless that it is hard to sit still 1 02/03/2025 2:25 PM EDT Danelle Almonte RN Becoming easily annoyed or irritable 1 02/03/2025 2:25 PM EDT Danelle Almonte RN Feeling afraid as if somethi ng awful might happen 1 02/03/2025 2:25 PM EDT Danelle Almonte RN ABY-7 Total Score 7 02/03/2025 2:25 PM EDT Danelle Almonte RN documented as of this encounter Miscellaneous Notes * Telephone Encounter - Cedric Cruz - 02/03/2025 1:01 PM EDT Tc from anonymous caller calling to report concern for pt abusing pain medication and going as far as purchasing them to take more. Caller preferred to stay anonymous but states not only them but others are also concerned for the pt's well being. documented in this encounter Plan of Treatment Upcoming Encounters Date Type Department Care Team (Late st Contact Info) Description 06/29/2025 3:00 PM EST Office Visit [facility] OPTOMETRY [address] [place] [address] Kika Ramirez, OD [address] [place] [address] 08/05/2025 1:00 PM EST Office Visit [facility] MEDICINE [address] [place] [address] Karina Lopez MD [address] [place] [address] 08/17/2025 2:45 PM EST Clinical Support [facility] CHC MED & PEDS [address] [place] [address] Gloria Richmond, RN [address] [place] [address] documented as of this encounter Visit Diagnoses Not on filedocumented in this encounter Additional Health Concerns Assessment Noted Time PHQ-9 Depression Total Score: 7 02/04/20 25 2:25 PM EDT documented as of this encounter Care Teams Control System Manager Relationship Specialty Start Date End Date Karina Lopez MD [address] [place] [address] PCP - General Internal Medicine 04/22/23 Karina Thacker Liquor Bridge Operator HelperDirector Of Product Management 09/26/23 Arturo Weeks MD Bariatrics 12/07/24 documented as of this encounter
--- OUTSIDE RECORDS SUMMARY | 2025-06-15 17:28 | XMS_ITS ---
Author Organization [employer] Address [address] [place] [address] [address] [place] [address] Care Team Providers Care Oil Heater Installer Name Role Phone Karina Lopez MD Primary Care Pro vider [facility] Status:Closed (Closed) Start date:10/13/2024 Enrollment date:02/04/2025 Enrollment reason:ADT Feed End date:06/13/2025 Close reason:Goals Met Overview ED- Pt went to [facility] ED on 10/12. Please outreach for enrollment. Continued Care and Services Coordination
--- OUTSIDE RECORDS SUMMARY | 2025-06-15 17:28 | XMS_ITS | Encounter Summary ---
Author Organization [facility] Address [address] [place] [address] Phone Care Team Providers Care Squad Sergeant Name Role Phone Karina Lopez MD Primary Care Pro vider Mohit Weeks MD, FACS Unavailable Encounter Details Date Type Department Care Team (Late st Contact Info) Description 02/13/2024 Procedure Pass [facility] Echocardiography [address] [place] [address] Social History Tobacco Use Types Packs/Day Years Used Date Smoking Tobacco: Never Alcohol Use Standard Drinks/Week Comments Never 0 (1 standard drink = 0.6 oz pur e alcohol) Education Answer Date Recorded Are you interested in more education? Not on percy e 11/16/2022 Are you concerned about learning? Not on file 11/16/2022 No 11/16/2022 No 11/16/2022 Food Answer Date Recorded Within the past 6 months we worried whether our food would run out before we got money to buy more. Often True 024 Within the past 6 months the food we bought just didn't last and we didn't have enough money to get more. Unable to assess 02/05/2024 Residential Stability Answer Date Recor ded What is your housing situation today? I have adrienne sing 02/05/2024 How many times have you moved in the past 12 mon ths? Unable to assess 02/05/2024 Paying for Meds Answer Date Recorded Do you have trouble paying for medicines? Unable to assess 02/05/2024 Paying Utility Bills Answer Date Record ed Do you have trouble paying y our heating or electricity bill? Unable to assess 02/05/2024 Transportation Answer Date Recorded Has the lack of transportati on kept you from medical appointments or from getting medications? Yes 02/05/2024 Digital Access Answer Date Recorded No 02/05/2024 Yes 02/05/2024 Do you have reliable internet access at home? Un able to assess 02/05/2024 Do you have a device (e.g., phone, tablet, computer) with a working camera? Yes 02/05/2024 Sex and Gender Information Value Date Recorded Sex Assigned at Male 01/16/2022 6:25 PM EDT Legal Sex Male 6:22 PM EDT Gender Identity Male 01/16/2022 6:25 PM EDT Sexual Orientation Straight 02/10/2024 4: 19 PM EDT documented as of this encounter Functional Status * Calculated C-SSRS Risk Score (Lifetime/Recent) Answer Date of Assessment Author Low Risk 02/13/2024 12:23 PM EDT Lorenzo Fonseca, PhD * [place] Suicide Severity Rating Scale (Screener/Recent Self-Report) Question Answer Date of Assessment Author 1. Wish to be (Past 1 Month) Yes 024 12:23 PM EDT Lorenzo Fonseca, PhD 2. Non-Specific Active Suici cony Thoughts (Past 1 Month) No 02/13/2024 12:23 PM EDT Lorenzo Fonseca, PhD 6. Suicidal Behavior (Lifetime) No 12:23 PM EDT Lorenzo Fonseca, PhD documented as of this encounter Plan of Treatment Upcoming Encounters Date Type Department Care Team (Late st Contact Info) Description 06/30/2025 2:30 PM EST Telemedicine - audio only [facility] General & GI Surgery [address] [place], [place] [phone] [place] [address] Radha Byrne PA-C [address] [place], [place] [id number] [address] [place] [address] [email or web address] documented as of this encounter Visit Diagnoses Not on filedocumented in this encounter Care Teams Squad Sergeant Relationship Specialty Start Date End Date Karina Lopez MD [address] [place] [address] PCP - General Internal Medicine 05/26/23 Mohit Weeks MD, FACS [address] [place] [phone] [email or web address] General Surgery 02/06/24 documented as of this encounter Additional Source Comments The information contained in this document represents components of the legal health record. It is not the complete legal health record.[facility]
--- OUTSIDE RECORDS SUMMARY | 2025-06-15 17:28 | XMS_ITS | Encounter Summary ---
Author Organization [employer] Address [address] [place] [id number] Care Team Providers Care Infusion Nurse Name Role Phone Karina Lopez MD Primary Care Pro vider Reason for Visit * Reason Comments Med Refill Encounter Details Date Type Department Care Team ([facility] st Contact Info) Description 02/10/2025 Refill [facility] [address] [place] [address] Karina Lopez MD [address] [place] [address] Social History Tobacco Use Types Packs/Day Years [...] Upcoming Encounters Date Type Department Care Team ([facility] st Contact Info) Description 06/29/2025 3:00 PM EST Office Visit [facility] OPTOMETRY [address] [place] [address] Kika Ramirez, OD [address] [place] [address] 08/05/2025 1:00 PM EST Office Visit [facility] [address] [place] [address] Karina Lopez MD [address] [place] [address] 08/17/2025 2:45 PM EST Clinical Support [facility] [address] [place], [place] [phone] Gloria Richmond, WILDER [address] [place], [place] [phone] documented as of this encounter Visit Diagnoses Not on filedocumented in this encounter Additional Health Concerns Assessment Noted Time PHQ-9 Depression Total Score: 7 02/04/20 25 2:25 PM EDT documented as of this encounter Care Teams Infusion Nurse Relationship Specialty Start Date End Date Karina Lopez MD [address] [place] [id number] PCP - General Internal Medicine 04/22/23 Karina Thacker Compliance Review SpecialistCorrectional Case Manager 09/26/23 Arturo Weeks MD Bariatrics 12/07/24 documented as of this encounter
--- OUTSIDE RECORDS SUMMARY | 2025-06-15 17:29 | XMS_ITS | Encounter Summary ---
Author Organization [employer] Address [address] [place] [address] Care Team Providers Care Manager Pmo Name Role Phone Karina Lopez MD Primary Care Pro vider Reason for Visit * Reason Comments Med Refill Encounter Details Date Type Department Care Team (Late st Contact Info) Description 02/11/2024 Refill [facility] [address] [place] [address] Karina Lopez MD [address] [place] [address] Social History Tobacco Use Types Packs/Day Years [...] Description 06/29/2025 3:00 PM EST Office Visit [facility] OPTOMETRY [address] [place] [address] TarkaKika, OD [address] [place] [address] 08/05/2025 1:00 PM EST Office Visit [facility] MED[facility] [address] [place] [address] Karina Lopez MD [address] [place] [address] 08/17/2025 2:45 PM EST Clinical Support [facility] [address] [place] [address] Gloria Richmond, WILDER [address] [place] [address] documented as of this encounter Visit Diagnoses Not on filedocumented in this encounter Additional Health Concerns Assessment Noted Time PHQ-9 Depression Total Score: 22 024 1:23 PM EDT documented as of this encounter Care Teams Manager Pmo Relationship Specialty Start Date End Date Karina Lopez MD [address] [place] [address] PCP - General Internal Medicine 04/22/23 Karina Thacker Rat FarmerAdministrative Support Assistant 09/26/23 Arturo Weeks MD Bariatrics 12/07/24 documented as of this encounter
--- OUTSIDE RECORDS SUMMARY | 2025-06-15 17:29 | XMS_ITS | Encounter Summary ---
Author Organization [employer] Address [address] [place] [id number] Care Team Providers Care Armhole Presser Name Role Phone Karina Lopez MD Primary Care Pro vider Reason for Visit * Reason Onset Date Comments Nurse Triage 05/26/2023 Encounter Details Date Type Department Care Team ([facility] st Contact Info) Description 05/26/2023 Telephone [facility] MEDICINE [address] [place] [address] Karina Lopez MD [address] [place] [address] Nurse Triage Social History Tobacco Use Types [...] is all set now, Pt spoke with [place] and standard insurance is in place. Advised Pt to call for [employer]ILRO[employer] now and Pt reports will do that at this time. No further questions. * Telephone Encounter - Angelina Davalos RN - 05/26/2023 3:57 PM EST Triage call regarding knee pain. Pt reports has had this knee problem for 3 years and is calling inregards to insurance. Pt reports needs [place] certain type of [place] plan to be able to obtain RAILRO[employer] ST[employer] for home help. Advised Pt will call insurance contact at [facility] and Pt agreed. Call to [facility] [phone] to possibly call this Pt regarding insurance [...] The caller accepted this outcome Patient speaks ukrainian documented in this encounter Plan of Treatment Upcoming Encounters Date Type Department Care Team (Late st Contact Info) Description 06/29/2025 3:00 PM EST Office Visit [facility] OPTOMETRY [address] [place] [address] Elyssarodriguez Kika, OD [address] [place] [address] 08/05/2025 1:00 PM EST Office Visit [facility] MEDICINE [address] [place] [address] Karina Lopez MD [address] [place] [address] 08/17/2025 2:45 PM EST Clinical Support [facility] [address] [place], [place] [phone] Gloria Richmond, RN [address] [place] [address] documented as of this encounter Visit Diagnoses Not on filedocumented in this encounter Additional Health Concerns Assessment Noted Time PHQ-9 Depression Total Score: 16 023 1:41 PM EDT documented as of this encounter Care Teams Armhole Presser Relationship Specialty Start Date End Date Karina Lopez MD [address] [place] [address] PCP - General Internal Medicine 04/22/23 Karina Thacker Precision HonerConstruction Teacher 09/26/23 Arturo Weeks MD Bariatrics 12/07/24 documented as of this encounter
--- OUTSIDE RECORDS SUMMARY | 2025-06-15 17:29 | XMS_ITS | Encounter Summary ---
Author Organization [employer] Address [address] [place] [address] Care Team Providers Care Site Supervisor Name Role Phone Karina Lopez MD Primary Care Pro vider Reason for Visit * Reason Onset Date Comments Forms Missing Info 02/19/2024 Encounter Details Date Type Department Care Team ([facility] st Contact Info) Description 02/19/2024 Telephone [facility] MEDICINE [address] [place] [address] Karina Lopez MD [address] [place] [address] Forms Missing Info Social History Tobacco Use [...] Nneka Plummer - 02/24/2024 3:48 PM EDT [facility] is requesting additional information for pending O2 DME order. Please advise if recommend continuing the O2 order as sent, if DME should be placed on hold since pt is admitted or if changes areneeded. Thank you * Telephone Encounter - Enid Lott - 02/19/2024 9:33 AM EDT Tc from [facility] with [facility] reporting that she received some forms but forms are incomplete Missing: [facility] ID Hours per use per day Therapy Objective Activity needed for Portability Notes were provided, does not contain retest of Oxygen needed to qualify Please contact [phone] documented in this encounter Plan of Treatment Upcoming Encounters Date Type Department Care Team (Late st Contact Info) Description 06/29/2025 3:00 PM EST Office Visit [facility] OPTOMETRY [address] [place] [address] iKka Ramirez, OD [address] [place] [address] 08/05/2025 1:00 PM EST Office Visit [facility] MEDICINE [address] [place] [address] Karina Lopez MD [address] [place], [place] [phone] 08/17/2025 2:45 PM EST Clinical Support [facility] [address] [place] [address] Gloria Richmond, WILDER [address] [place], [place] [phone] documented as of this encounter Visit Diagnoses Not on filedocumented in this encounter Additional Health Concerns Assessment Noted Time PHQ-9 Depression Total Score: 22 024 1:23 PM EDT documented as of this encounter Care Teams Site Supervisor Relationship Specialty Start Date End Date Karina Lopez MD [address] [place] [address] PCP - General Internal Medicine 04/22/23 Karina Thacker Lift Team TechnicianExecutive Chef 09/26/23 Arturo Weeks MD Bariatrics 12/07/24 documented as of this encounter
--- OUTSIDE RECORDS SUMMARY | 2025-06-15 17:29 | XMS_ITS | Encounter Summary ---
Author Organization [facility] Address [address] [place] [address] Care Team Providers Care Fiction And Nonfiction Author Name Role Phone Karina Hall MD Primary Care Provider + Encounter Details Date Type Department Care Team ([facility] st Contact Info) Description 09/14/2024 [facility] Encounter [facility] SURGERY [address] [place] [address] Arjun Parekh MD PhD [address] [place] [phone] Social History Tobacco Use Types Packs/Day Years Used Date Smoking Tobacco: Never Assessed Interpersonal Safety Answer Date Record ed Is there anyone in your life that is hurting or threatening you in anyway? Not on file 09/13/2024 Physical Indicators of Abuse No evidence of phys ical abuse 09/13/2024 Sex and Gender Information Value Date Recorded Sex Assigned at Not on file Legal Sex Male 10:43 PM EST Gender Identity Not on file Sexual Orientation Not on file documented as of this encounter Plan of Treatment Not on file documented as of this encounter Visit Diagnoses Not on filedocumented in this encounter Care Teams Fiction And Nonfiction Author Relationship Specialty Start Date End Date Karina Hall MD [address] [phone] PCP - General Internal Medicine 09/13/24 documented as of this encounter
--- OUTSIDE RECORDS SUMMARY | 2025-06-15 17:29 | XMS_ITS | Clinical Summary ---
Author Organization [employer] Address [address] [place] [address] Care Team Providers Care Wellness Trainer Name Role Phone Karina Lopez MD Primary Care Pro vider Allergies Active Allergy Reactions Criticality Noted Date Comments Doxycycline Angioedema 01/19/2024 Medications * This document contains information received from the source organization and may not represent a complete record from that organization. Blood Pressure Monitor kit 1 kit in the morning. 1 kit 05/22/20 23 Active meloxicam (Mobic) 15 MG tablet TAKE 1 TABLET BY MOUTH EVERY MORNING 30 tablet 1 12/13/19 24 Active Misc. Devices (Pulse Oximeter) misc 1 Device Once per day. 1 each 01/19/20 24 Active pantoprazole (ProtoNix) 40 MG EC tablet Take 1 tablet (40 mg) by mouth Once per day. 90 tablet 09/21/19 25 Active lidocaine (Lidoderm) 5 % patch APPLY 1 PATCH TOPICALLY TO SKIN IN THE MORNING. LEAVE ON FOR 12 HOURS AND OFF FOR 12 HOURS DIRECTED 90 patch 09/21/19 25 Active albuterol (2.5 MG/3ML) 0.083% nebulizer solution Take 3 mL (2.5 mg) by nebulization every 6 (six) hours if needed for wheezing. 75 mL 11 09/21/19 25 2025 Active hyoscyamine (Levsin) 0.125 MG SL tablet DISSOLVE 1 TABLET BY MOUTH EVERY 6 HOURS NEEDED FOR CRAMPS 30 tablet 2 11/03/19 25 Active polycarbophil (FiberCon) 625 MG tabletIndicatio ns:Constipation , unspecified constipation type Take 1 tablet (625 mg) by mouth Once per day. 90 tablet 3 11/06/19 25 2025 Active Multiple Vitamins-Iron (Tab-A-Luis/Iro n) tablet Take 2 tablets by mouth Once per day. 180 tablet 5 12/22/19 25 Active Calcium Citrate-Vitamin D (Deloit Calcium/Vitamin D) 200-6.25 MG-MCG tablet Take 1 tablet by mouth at noon and 1 tablet in the evening. 180 tablet 5 12/22/19 25 Active naloxone (Narcan) 4 mg/0.1 mL nasal spray Administer 1 spray (4 mg) into affected nostril(s) if needed for opioid reversal. May repeat every 2-3 minutes if needed, alternating nostrils, until medical assistance becomes available. 2 each 12/22/19 25 2025 Active FT Stool Softener 50-8.6 MG tablet TAKE 1 TABLET BY MOUTH EVERY MORNING 90 tablet 1 02/16/20 25 Active atorvastatin (Lipitor) 40 MG tablet TAKE 1 TABLET BY MOUTH EVERY MORNING 90 tablet 1 02/16/20 25 Active Acetaminophen Extra Strength 500 MG tablet Take 1 tablet by mouth every 6 (six) hours if needed. 12/25/19 25 Active ferrous gluconate (Fergon) 324 (38 Fe) MG tablet TAKE 1 TABLET BY MOUTH EVERY OTHER DAY IN THE MORNING 45 tablet 1 5 11:18 AM EST 02/18/20 25 Active buPROPion XL (Wellbutrin XL) 300 MG 24 hr tablet TAKE 1 TABLET BY MOUTH EVERY MORNING 90 tablet 04/12/20 25 Active folic acid (Folvite) 1 MG tablet TAKE 1 TABLET BY MOUTH EVERY MORNING 90 tablet 04/12/20 25 Active Ventolin HFA 108 (90 Base) MCG/ACT inhaler INHALE 2 PUFFS BY MOUTH EVERY 6 HOURS NEEDED FOR WHEEZING OR SHORTNESS OF BREATH 18 g 2 04/25/20 25 Active nystatin (Mycostatin) 011331 UNIT/GM powder APPLY TOPICALLY TO THE AFFECTED AREA(S) TWICE DAILY DIRECTED 60 g 2 04/29/20 25 Active pregabalin (Lyrica) 75 MG capsule Take 1 capsule (75 mg) by mouth 2 times daily. 60 capsule 2 5 11:18 AM EST 05/12/20 25 2025 Active oxyCODONE (Roxicodone) 10 MG immediate release tabletIndicatio ns:Chronic pain of both knees Take 1 tablet (10 mg) by mouth every 12 (twelve) hours. Do not start before June 03, 2025. 56 tablet 5 12:28 PM EST 06/03/20 25 Active omega-3 acid ethyl esters (Lovaza) 1 g capsule TAKE 1 CAPSULE BY MOUTH EVERY MORNING 90 capsule 5 11:18 AM EST 06/09/20 25 Active Aspirin Low Dose 81 MG chewable tablet TAKE 1 TABLET BY MOUTH EVERY MORNING (CHEW) 90 tablet 5 11:18 AM EST 06/09/20 25 Active cholecalciferol VITAMIN D (Vitamin D-3) 50 MCG (1999 UT) tablet TAKE 1 TABLET BY MOUTH EVERY MORNING 90 tablet 5 11:18 AM EST 06/09/20 25 Active metoprolol tartrate (Lopressor) 25 MG tablet TAKE 1 TABLET BY MOUTH TWICE DAILY IN THE MORNING AND IN THE EVENING 180 tablet 5 11:18 AM EST 06/09/20 25 Active cholecalciferol VITAMIN D (Vitamin D-3) 50 MCG (1999) tablet TAKE 1 TABLET BY MOUTH EVERY MORNING 90 tablet 03/17/20 25 2024 Discontinued omega-3 acid ethyl esters (Lovaza) 1 g capsule TAKE 1 CAPSULE BY MOUTH EVERY MORNING 90 capsule 03/17/20 25 2024 Discontinued metoprolol tartrate (Lopressor) 25 MG tablet TAKE 1 TABLET BY MOUTH TWICE DAILY IN THE MORNING AND IN THE EVENING 180 tablet 03/17/20 25 2024 Discontinued Aspirin Low Dose 81 MG chewable tablet TAKE 1 TABLET BY MOUTH EVERY MORNING (CHEW) 90 tablet 03/17/20 25 2024 Discontinued oxyCODONE (Roxicodone) 10 MG immediate release tabletIndicatio ns:Chronic pain of both knees TAKE 1 TABLET BY MOUTH EVERY TWELVE HOURS 56 tablet 05/05/20 25 2024 Discontinued Active Problems Problem Noted Date Diagnosed Date Mild depression 04/22/2025 Anxiety 04/22/2025 Housing insecurity 12/22/2024 Perineal abscess 12/02/2024 Long-term current use of opiate analgesic 2024 Back pain 10/22/2024 Neuropathy 10/22/2024 Left ankle pain 10/22/2024 Cholelithiasis 10/22/2024 Inguinal hernia 10/22/2024 Dental caries into pulp 09/09/2024 Non-restorable tooth 09/09/2024 S/P laparoscopic sleeve gastrectomy 03/29/2024 Transient ischemic attack (TIA) 03/11/2024 Severe episode of recurrent major depressive disorder, without psychotic features (CMS/HCC) 01/26/2024 Assessment & Plan (02/17/2025 9:31 AM EDT): During IBH Consult Rosendo presenting with depressed mood, Tearful, crying spells , hopelessness, irritable mood, loss of interests/pleasure , sense of isolation/loneliness , isolating, changes in sleep difficulty falling asleep and difficulty staying asleep , fatigue/loss of energy, worthlessness, inappropriate/excessive guilt , difficulty concentrating; for a period of 18+ mo, for most or all symptoms in the context of illness or family illness and housing. Pt reports symptoms are present and differ in intensity and frequency leading to having a significant impact on his everyday activities. Rosendo hasn't started MH services. Referral for therapy services was placed on last appointment. Pt needs medication management to decrease sxs. He is currently working with CM to assist with housing. Positive support received from his family; his aunt is his ROTARY DRYER OPERATOR. Rosendo's chronic medical condition is identified as main trigger for increase of his depression. Assessment & Plan (02/03/2025 4:06 PM EDT): During IBH Consult Rosendo presenting with depressed mood, Tearful, crying spells , hopelessness, irritable mood, loss of interests/pleasure , sense of isolation/loneliness , isolating, changes in sleep difficulty falling asleep, psychomotor retardation, fatigue/loss of energy, worthlessness, inappropriate/excessive guilt , difficulty concentrating, indecisiveness; for a period of 18+ mo, for most or all symptoms in the context of illness or family illness and housing. Pt emotionally overwhelmed and stressed due to his housing situation. Pt reported he went to court today and was given eviction date effective on March 21. Due to his medical condition patient is unable to live with his family per his report. Pt is connected with CM to receive additional support for his current needs. Assessment & Plan (02/17/2024 4:18 PM EDT): [...] medical condition. Rosendo has been admitted to [facility] due to morbid obesity and life-threatening obesity. [...] Health Integration Plan Internal Follow up with [facility] Patient Self Plan Patient to utilize skills provided in intervention , Patient to [facility] as needed, Comply with medication , and Patient to reach out to HC as needed Assessment & Plan (01/26/2024 1:56 [...] sometimes. Currently connected with a therapist at [facility]. His brother is main social support, he's also Rosendo's ROTARY DRYER OPERATOR. During today's intervention, Rosendo was engaged with active, reflective listening. clinician provided supportive therapy and used open-ended questions to assess risks, stressors, intensity and frequency. Recommendations regarding OP services (continue with [facility]) and incorporate small changes. PLAN: (check all that apply) Continue with current services (defined as services in the past 12 months) . Pt reports being connected with therapist at [facility]. Hypoxemia 12/09/2023 BMI 60.0-69.9, adult ([facility]) 10/07/2023 Skin maceration 05/23/2023 Physical deconditioning 05/23/2023 [...] had sleep studies, which were ordered by [facility]. Patient has CPAP, but needs some part replacement. Advised to contact [facility] sleep medicine clinic. Severe obesity ([facility]) 04/22/2023 Assessment & Plan (09/25/2024 6:02 AM EST): - s/p sleeve gasterectomy at [facility] - complicated by stricture - he has [...] Problem Noted Date Diagnosed Date Resolved Date Blurry vision 12/22/2024 03/08/2025 Hospital discharge follow-up 12/02/2024 02/16/2025 Blister of lip with infection 05/11/2024 10/22/2024 [...] organization. Date Type Department Care Team Description 06/13/2025 2:00 PM EST Telemedicine [facility] MED & PEDS [address] [place] [phone] Gloria Richmond RN Chronic pain of both knees 06/13/2025 Travel 06/13/[address] [facility] [address] [place] [address] Karina Lopez MD Care Coordination (SDOH) 06/09/[address] [facility] [address] [place] [address] Karina Lopez MD 06/09/[address] [facility] MED & PEDS [address] [place] [address] Karina Lopez MD 06/02/[address] [facility] [address] [place] [address] Karina Lopez MD Chronic pain of both knees 05/26/[address] [facility] [address] [place] [address] Karina Lopez MD Care Management ([facility]- f/u call) 05/13/[address] [facility] [address] [place] [address] Karina Lopez MD Care Management ([facility]- f/u call) 05/12/[address] [facility] [address] [place] [address] Karina Lopez MD 05/11/[address] [facility] [address] [place] [address] Karina Lopez MD 05/07/[address] [facility] [address] [place] [address] Karina Lopez MD 05/05/[address] [facility] [address] [place] [address] Eden Mcdonald MD Chronic pain of both knees 05/03/2025 1:00 PM EDT Office Visit [facility] OPTOMET[facility] [address] [place] [address] Jeremy, Neeru, OD Regular astigmatism, bilateral (Primary Dx) 05/02/[address] [facility] [address] [place] [address] Karina Lopez MD 05/02/[address] [facility] [address] [place] [address] Karina Lopez MD Care Coordination ([facility] f/u) 04/29/[address] [facility] [address] [place] [address] Eden Mcdonald MD 04/24/[address] [facility] [address] [place] [address] Karina Lopez MD 04/20/[address] [facility] [address] [place] [address] Karina Lopez MD Care Coordination ([facility] f/u) 04/20/[address] [facility] [address] [place] [address] Karina Lopez MD Care Management ([facility]- f/u call) 04/11/2025 2:30 PM EDT Telemedicine [facility] MED & PEDS [address] [place] [address] Gloria Richmond, laboratory miller pain of left ankle 04/11/[address] [facility] [address] [place] [phone] Danelle Almonte RN 04/11/2025 Travel 04/11/[address] [facility] [address] [place] [phone] Eden Mcdonald MD 04/11/[address] [facility] [address] [place] [phone] Karina Lopez MD 04/06/[address] [facility] [address] [place] [phone] Karina Lopez MD Care Coordination ([facility] f/u) 04/06/[address] [facility] [address] [place] [phone] Karina Lopez MD Care Management ([facility]- f/u call lvm) 04/06/2025 Refill [facility] PED[facility] [address] [place] [address] Gloria Richmond, laboratory miller pain of both knees 04/06/[address] [facility] [address] [place] [phone] Karina Lopez MD Med Refill 04/04/[address] [facility] [address] [place] [phone] Karina Lopez MD Prior Authorization 03/29/[address] [facility] [address] [place] [address] Karina Lopez MD Care Coordination (CM/[facility] outreach) 03/28/2025 Telephone [facility] [address] [place] [address] Karina Lopez MD ROTARY DRYER OPERATOR Hours 03/25/[address] [facility] [address], [place] [phone] Karina Lopez MD Care Management ([facility]- f/u call) 03/17/[address] [facility] [address], [place] [phone] Yudy Laguna ANP 03/16/[address] [facility] [address] [place] [address] Karina Lopez MD Prior Authorization from Last 3 Months Immunizations Immunization Administration Dates Next Due DTaP 02/05/2010, 8,10/20/1995,1994,1994,1994 HPV, Quadrivalent 07/19/1998, 5,1994,1993 Hep B, Adolescent or Pediatric 02/18/1995,1993,1994 Hib ([facility]) 10/20/1995, 5,1994,1993 Influenza injectable quadriv alent preservative free 04/21/2023 Influenza, seasonal, injecta ble, preservative free 05/11/2024 MMR 07/19/1998,10/20/1995 Pfizer Covid-19 Vaccine 12+ 05/11/2024, Pneumococcal Conjugate PCV 20 04/21/2023 Tdap 04/21/2023 Varicella 02/05/2010,07/20/1998 Family History Medical History Relation Name Comments Glaucoma Maternal Grandfather Glaucoma Mother Breast cancer Mother's Sister maternal cousins x2 colon ca Other Relation Name Status Comments Maternal Grandfather Mother Mother's Sister Other Social History Tobacco Use [...] Sign Reading Time Taken Comments Blood Pressure 128/74 03/11/2025 1:07 PM EDT Pulse 74 03/11/2025 1:07 PM EDT Temperature 36.2 C (97.1 F) 03/11/2025 1:07 PM EDT Respiratory Rate 16 03/11/2025 1:07 PM EDT Oxygen Saturation 97% 02/16/2025 10:06 AM EDT Inhaled Oxygen Concentration - - Weight 227 kg (500 lb 6.4 oz) 03/11/2025 1:07 PM EDT Height 172.7 cm (5' 8 ) 02/16/2025 10:06 AM EDT Body Mass Index 76.09 02/16/2025 10:06 AM EDT Plan of Treatment Upcoming Encounters Date Type Department Care Team (Late st Contact Info) Description 06/29/2025 3:00 PM EST Office Visit [facility] [address] [place], [place] [phone] Kika Ramirez, OD [address] [place] [address] 08/05/2025 1:00 PM EST Office Visit [facility] [address] [place] [address] Karina Lopez MD [address] [place], [place] [phone] 08/17/2025 2:45 PM EST Clinical Support [facility]ED[facility] [address], [place] [phone] Gloria Richmond, RN [address] [place], [place] [phone] Health Maintenance Due Date Last Done Comments Dental Oral Exam 1994 Dental Prophylaxis 1994 Dental X-Ray: Full Mouth 1994 Family Planning (PISQ) 2009 HPV Vaccines (1 - Male 3-dose series) 2009 07/19/1998, 02/18/1995, 1994, Additional history exists Dental X-Ray: Bitewings 08/13/2024 08/12/2023 COVID-19 Vaccine ( - season) 2025 05/11/2024, 08/07/2023 Influenza Vaccine (#1) 2025 05/11/2024, 2022 Alcohol/Substance Use Screening 09/20/2025 09/20/2024 Disability Screening 12/02/2025 12/02/2024 SDOH Screening 02/04/2026 02/04/2025 Depression Screening 02/16/2026 02/16/2025, 02/17/20 Tobacco Screening 03/11/2026 03/11/2025 Lipid Panel 11/05/2029 06/15/2025, 10/19, 01/08/2024, Additional history exists DTaP/Tdap/Td Vaccines (8 - Td or Tdap) 04/21/2033 04/21/2023, 02/05/2010, 07/19/1998, Additional history exists Zoster Vaccines (1 of 2) 2044 RSV Patients and Patients Aged 60 years or older (1 - 1-dose 75+ series) 2069 Hepatitis B Vaccines Completed 02/18/1995, 1994, 1994 HIB Vaccines Completed 10/20/1995, 07/1994, 1994, Additional history exists Pneumococcal Vaccine: Pediatrics (0 to 5 Years) and At-Risk Patients (6 to 49) Years Completed 04/21/2023 HIV Screening Completed 11/05/2024, 04/21/2023 Hepatitis [...] Procedure Name Priority Date/Time Associated Diagnosis Comments URIC ACID Routine 06/15/2025 2:58 PM EST Health care maintenance FERRITIN Routine 06/15/2025 2:58 PM EST Health care maintenance IRON AND TOTAL IRON BINDING CAPACITY Routine 06/15/2025 2:58 PM EST Health care maintenance LIPID PANEL, STANDARD Routine 06/15/2025 2:58 PM EST Hyperlipidemia, unspecified hyperlipidemia type COMPREHENSIVE METABOLIC PANEL Routine 06/15/2025 2:58 PM EST Hyperlipidemia, unspecified hyperlipidemia type VITAMIN B12/FOLATE, SERUM PANEL Routine 06/15/2025 2:58 PM EST Health care maintenance VITAMIN D,25-OH,TOTAL,IA Routine 06/15/2025 2:58 PM EST Health care maintenance HEPATITIS C AB W/REFL TO HCV RNA, QN, PCR Routine 11/05/2024 3:35 PM EDT Annual physical exam HIV 1/2 ANTIGEN/ANTIBODY, FOURTH GENERATION W/RFL Routine 11/05/2024 3:35 PM EDT Annual physical exam BITEWING - SINGLE RADIOGRAPHIC IMAGE Routine 08/12/2023 1:00 PM EST Dental caries from Last 3 Months or Most Recently Relevant to Health Maintenance Results * Vitamin D, 25-Hydroxy, Total, Immunoassay (06/15/2025 2:58 PM EST) Vitamin D 25-OH Total 39.9 >30 ng/mL [facility] Comment: Health Based Reference Values*< 20 ng/mL Vkbdrsadh84-51 ng/mL Insufficient> 30 ng/mL Sufficient*Kim VAZQUEZ. N Engl J Med. 2007;357:266-280There is [...] Vitamin D results fromdifferent laboratories and methodologies. Published datademonstrated that results from patients undergoinghemodialysis may show a negative bias when tested withvarious automated 25-OH vitamin D assays when compared toLC-MS/MS.When testing samples from patients whose predominant form ofVitamin D is Vitamin D2, such as patients receiving VitaminD2 supplementation, results that are subtherapeutic shouldbe confirmed with another method such as LC-MS/MS. Blood Venous blood specimen / Unknown 06/15/2025 2:58 PM EST 06/15/2025 4:15 PM EST Karina Duarte MD LAB BLOOD ORDERAB LES Final Result Performing Organization Address [facility] Co de Phone Number [facility] [address] [place] [phone] * Vitamin B12 (Cobalamin) and Folate Panel, Serum (06/15/2025 2:58 PM EST) Vitamin B12 369 200 - 900 pg/mL [facility] Comment:NORMAL 200-900 PG/ML INDETERMINATE 160-199 PG/ML DEFICIENT < 160 PG/ML Folate 17.3 > or = 4.0 ng/mL [facility] Comment:Reference Values:> o r = 4.0 ng/mL< 4.0 ng/mL suggests folate deficiency Methotrexate, aminopterin and folinic acid(leucovorin) are chemotherapeutic agents whose molecularstructures are similar to folate; therefore, the Architectfolate assay cannot be used for patients using these drugs. Blood 06/15/2025 2:58 PM EST 06/15/2025 4:13 PM EST us Karina Duarte MD LAB BLOOD ORDERAB LES Final Result Performing Organization Address [facility] Co de Phone Number [facility] [address] [place] [phone] * (ABNORMAL) Iron And Total Iron Binding Capacity (06/15/2025 2:58 PM EST) Iron 42(L) 45 - 160 mcg/dL [facility] Total Iron Binding Capacity 184(L) 228 - 428 mcg/dL [facility] Percent Iron Saturation 23 15 - 50 % [facility] Unsaturated Iron Binding 142 ug/dL [facility] Blood Venous blood specimen / Unknown 06/15/2025 2:58 PM EST 06/15/2025 4:15 PM EST us Karina Duarte MD LAB BLOOD ORDERAB LES Final Result Performing Organization Address City/[facility]/ZIP Co de Phone Number [facility] [address] [place] [phone] * (ABNORMAL) Uric acid (06/15/2025 2:58 PM EST) Uric Acid 9.1(H) 3.4 - 7.0 mg/dL [facility] Blood Venous blood specimen / Unknown 06/15/2025 2:58 PM EST 06/15/2025 4:15 PM EST us Karina Duarte MD LAB BLOOD ORDERAB LES Final Result Performing Organization Address City/[facility]/ZIP Co de Phone Number [facility] [address] [place] [phone] * Ferritin (06/15/2025 2:58 PM EST) Pathologist [facility] Ferritin 122 20 - 250 ng/mL [facility] Blood Venous blood specimen / Unknown 06/15/2025 2:58 PM EST 06/15/2025 4:15 PM EST us Karina Duarte MD LAB BLOOD ORDERAB LES Final Result Performing Organization Address City/[facility]/ZIP Co de Phone Number [facility] [address] [place] [phone] * (ABNORMAL) Lipid Panel, Standard (06/15/2025 2:58 PM EST) Triglycerides 105 <150 mg/dL [facility] Comment:Desirable Triglyceri de: less than 150 mg/dLBorderline High Triglyceride 150-199 mg/dLHigh Triglyceride: 200-499 mg/dLVery High Triglyceride: greater than or equal to 5OO mg/dL Cholesterol 241(H) <200 mg/dL [facility] Comment:Desirable Cholestero l: less than 200 mg/dLBorderline High Cholesterol: 200-239 mg/dLHigh Cholesterol: greater than 239 mg/dL LDL Cholesterol Calculated 185(H) <100 mg/dL [facility] Comment:Desirable LDL: less than 100 mg/dLNear Optimal/Above Optimal LDL: 110- 129 mg/dLBorderline High LDL: 130-159 mg/dLHigh LDL: 160-189 mg/dLVery High LDL: greater than or equal to 190 mg/dL HDL Cholesterol 35(L) >40 mg/dL [facility] Comment:Desirable HDL: grea ter than 40 mg/dL Note: This HDL assay may give artificially low results in patients with liver disease. Blood Venous blood specimen / Unknown 06/15/2025 2:58 PM EST 06/15/2025 4:15 PM EST us Karina Duarte MD LAB BLOOD ORDERAB LES Final Result [facility] [address] [place] [phone] * (ABNORMAL) Comprehensive Metabolic Panel (06/15/2025 2:58 PM EST) Sodium 141 135 - 145 mmol/L [facility] Potassium 4.1 3.3 - 5.1 mmol/L [facility] Chloride 106 96 - 108 mmol/L [facility] Carbon Dioxide 28 22 - 29 mmol/L [facility] Anion Gap 11(L) 12 - 20 [facility] Urea Nitrogen (BUN) 9 9 - 16 mg/dL [facility] Creatinine, Serum 1.47(H) 0.5 - 1.4 mg/dL [facility] Estimated Glomerular Filt Rate 56 [facility] Comment:Chronic Kidney Disea se: Estimated GFR < 60 mL/min/[id number] Kidney Disease: Estimated GFR < 15 mL/min/1.73m2 Glucose 69 60 - 115 mg/dL [facility] Calcium 9.3 8.4 - 10.2 mg/dL [facility] Bilirubin, Total 0.3 0.0 - 1.0 mg/dL [facility] Aspartate Amino Transferase 23 5 - 37 U/L [facility] Alanine Aminotransferase 14 0 - 40 U/L [facility] Total Protein 7.7 6.5 - 8.0 g/dL [facility] Albumin Level 3.9 3.5 - 5.0 g/dL [facility] Alkaline Phosphatase 90 39 - 117 U/L [facility] Blood Venous blood specimen / Unknown 06/15/2025 2:58 PM EST 06/15/2025 4:15 PM EST Karina Duarte MD LAB BLOOD ORDERAB LES Final Result Performing Organization Address [facility]/ZIP Co de Phone Number [facility] [address] [place] [phone] * Hepatitis C Antibody with Reflex to HCV, RNA, Quantitative, Real-Time PCR (11/05/2024 3:35 PM EDT) Hepatitis C Antibody Nonreactive Nonreactive [facility] Comment:Antibodies to HCV no t detected; does not exclude early acuteHCV infection. Blood Venous blood specimen / Unknown 11/05/2024 3:35 PM EDT 11/05/2024 4:10 PM EDT us Karina Duarte MD LAB BLOOD ORDERAB LES Final Result Performing Organization Address City/[facility]/ZIP Co de Phone Number [facility] [address] [place] [address] [phone] * HIV-1/2 Antigen and Antibodies, Fourth Generation, with Reflexes (11/05/2024 3:35 PM EDT) HIV AB/AG Nonreactive Nonreactive [facility] Comment:HIV-1 p24 Ag and/or HIV-1/HIV-2 Ab not detected.A test result that is nonreactive does not exclude thepossibility of exposure to or infection with HIV-1 and/orHIV-2. Nonreactive results in this assay for individualswith prior exposure to HIV-1 and/or HIV-2 may be due toantigen and antibody levels that are below the limit ofdetection of this assay.[facility] HIV Ag/Ab Combo assay result andsupplemental assay results should be interpreted inconjunction with the patient's clinical presentation,history and other laboratory results. If the results areinconsistent with clinical evidence, additional testing issuggested to confirm the result. 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
--- OUTSIDE RECORDS SUMMARY | 2025-06-15 17:29 | XMS_ITS | Encounter Summary ---
Author Organization [employer] Address [address] [place] [address] Care Team Providers Care Watch Supervisor Name Role Phone Karina Lopez MD Primary Care Pro vider Reason for Visit * Reason Onset Date Comments FYI 06/24/2023 Encounter Details Date Type Department Care Team ([facility] st Contact Info) Description 06/24/2023 Telephone [facility] MEDICINE [address] [place] [address] Karina Lopez MD [address] [place] [address] FYI Social History Tobacco Use Types Packs/Day [...] Almonte - 06/25/2023 12:54 PM EST Tc from howie with S calling to advise PCP pt missed OT appointment due to fall. * Telephone Encounter - Gavin Glass - 06/24/2023 3:35 PM EST Tc shashi Ortiz at [facility] calling to report patient fell on 06/23 and is having minor pain in back area. documented in this encounter Plan of Treatment Upcoming Encounters Date Type Department Care Team (Late st Contact Info) Description 06/29/2025 3:00 PM EST Office Visit [facility] OPTOMETRY [address] [place] [address] Kika Ramirez, OD [address] [place] [address] 08/05/2025 1:00 PM EST Office Visit [facility] MEDICINE [address] [place] [address] Karina Lopez MD [address] [place] [address] 08/17/2025 2:45 PM EST Clinical Support [facility] CHC MED & PEDS [address] [place] [address] Gloria Richmond, RN [address] [place] [address] documented as of this encounter Visit Diagnoses Not on filedocumented in this encounter Additional Health Concerns Assessment Noted Time PHQ-9 Depression Total Score: 16 023 1:41 PM EDT documented as of this encounter Care Teams Watch Supervisor Relationship Specialty Start Date End Date Karina Lopez MD [address] [place] [address] PCP - General Internal Medicine 04/22/23 Karina Thacker Dye OperatorEngineering Technology Instructor 09/26/23 Arturo Weeks MD Bariatrics 12/07/24 documented as of this encounter
--- OUTSIDE RECORDS SUMMARY | 2025-06-15 17:29 | XMS_ITS | Encounter Summary ---
Author Organization [employer] Address [address] [place] [address] [place] [address] Care Team Providers Care Echocardiograph Technician Name Role Phone Karina Lopez MD Primary Care Pro vider Reason for Visit * Reason Comments Med Refill Encounter Details Date Type Department Care Team (Late st Contact Info) Description 09/23/2023 Refill [facility] MEDICINE [address] [place] [address] Karina Lopez MD [address] [place] [address] Social History Tobacco Use Types Packs/Day Years [...] Description 06/29/2025 3:00 PM EST Office Visit [facility] OPTOMETRY [address] [place], [place] [phone] Kika Ramirez, OD [address] [place] [address] 08/05/2025 1:00 PM EST Office Visit [facility] MEDICINE [address] [place] [address] Karina Lopez MD [address] [place] [address] 08/17/2025 2:45 PM EST Clinical Support [facility] CHC MED & PEDS [address] [place], [place] [phone] Gloria Richmond, RN [address] [place] [address] documented as of this encounter Visit Diagnoses Not on filedocumented in this encounter Additional Health Concerns Assessment Noted Time PHQ-9 Depression Total Score: 16 023 1:41 PM EDT documented as of this encounter Care Teams Echocardiograph Technician Relationship Specialty Start Date End Date Karina Lopez MD [address] [place] [address] PCP - General Internal Medicine 04/22/23 Karina Thacker Media Marketing DirectorCytology Manager 09/26/23 Arturo Weeks MD Bariatrics 12/07/24 documented as of this encounter
--- OUTSIDE RECORDS SUMMARY | 2025-06-15 17:29 | XMS_ITS | Encounter Summary ---
Author Organization [employer] Address [address] [place] [address] [place] [address] Care Team Providers Care Answering Service Operator Name Role Phone Karina Lopez MD Primary Care Pro vider Reason for Visit * Reason Comments Med Refill Encounter Details Date Type Department Care Team (Late st Contact Info) Description 12/10/2023 Refill [facility] MEDICINE [address] [place] [address] Karina Lopez MD 230 [place] [address] Social History Tobacco Use Types Packs/Day Years [...] Description 06/29/2025 3:00 PM EST Office Visit [facility] OPTOMETRY [address] [place], [place] [phone] Kika Ramirez, OD [address] [place] [address] 08/05/2025 1:00 PM EST Office Visit [facility] MEDICINE [address] [place] [address] Karina Lopez MD [address] [place] [address] 08/17/2025 2:45 PM EST Clinical Support [facility] CHC MED & PEDS [address] [place], [place] [phone] Gloria Richmond, RN [address] [place] [address] documented as of this encounter Visit Diagnoses Not on filedocumented in this encounter Additional Health Concerns Assessment Noted Time PHQ-9 Depression Total Score: 16 023 1:41 PM EDT documented as of this encounter Care Teams Answering Service Operator Relationship Specialty Start Date End Date Karina Lopez MD [address] [place] [address] PCP - General Internal Medicine 04/22/23 Karina Thacker Agent Contract ClerkComputer System Validation Specialist 09/26/23 Arturo Weeks MD Bariatrics 12/07/24 documented as of this encounter
--- OUTSIDE RECORDS SUMMARY | 2025-06-15 17:29 | XMS_ITS | Encounter Summary ---
Author Organization [employer] Address [address] [place] [address] Care Team Providers Care Assistant Director Of Public Works Name Role Phone Karina Lopez MD Primary Care Pro vider Reason for Visit * Reason Onset Date Comments Medication Question 02/13/2024 Encounter Details Date Type Department Care Team ([facility] st Contact Info) Description 02/13/2024 Telephone [facility] MEDICINE [address] [place] [address] Karina Lopez MD [address] [place] [address] Medication Question Social History Tobacco Use Types [...] with pcp first. Please contact pt at [phone]. Swiss Speaker. documented in this encounter Plan of Treatment Upcoming Encounters Date Type Department Care Team ([facility] st Contact Info) Description 06/29/2025 3:00 PM EST Office Visit [facility] OPTOMETRY [address] [place] [address] Kika Ramirez, OD [address] [place] [address] 08/05/2025 1:00 PM EST Office Visit [facility] MEDICINE [address] [place] [address] Karina Lopez MD 230 [place] [address] 08/17/2025 2:45 PM EST Clinical Support [facility] CHC MED & PEDS [address] [place] [address] Gloria Richmond, WILDER 505 [place] [address] documented as of this encounter Visit Diagnoses Not on filedocumented in this encounter Additional Health Concerns Assessment Noted Time PHQ-9 Depression Total Score: 22 01/25/ 024 1:23 PM EDT documented as of this encounter Care Teams Assistant Director Of Public Works Relationship Specialty Start Date End Date Karina Lopez MD [address] [place] [address] PCP - General Internal Medicine 04/22/23 Karina Thacker Quality AssuranceThermal Surfacing Machine Operator 09/26/23 Arturo Weeks MD Bariatrics 12/07/24 documented as of this encounter
--- OUTSIDE RECORDS SUMMARY | 2025-06-15 17:29 | XMS_ITS | Encounter Summary ---
Author Organization [email or web address] Address [address] [place] [address] Care Team Providers Care Raw Material Handler Name Role Phone Karina Lopez MD Primary Care Pro vider Reason for Visit * Reason Onset Date Comments Med Refill 06/23/2023 Encounter Details Date Type Department Care Team ([facility] st Contact Info) Description 06/23/2023 Telephone [facility] MEDICINE [address] [place] [address] Karina Lopez MD [address] [place] [address] Med Refill Social History Tobacco Use Types [...] EST Trazodone and Wellbutrin were sent to [facility] #[id number] on 04/21/23 #30 with 2 refills. * Telephone Encounter - Arely Almonte - 06/23/2023 1:02 PM EST Tc from pt requesting medication refill on buPROPion XL (Wellbutrin XL) 150 MG 24 hr tablet and traZODone (Desyrel) 50 MG tablet to be sent to [facility]/pharmacy #1 - [address] documented in this encounter Plan of Treatment Upcoming Encounters Date Type Department Care Team (Late st Contact Info) Description 06/29/2025 3:00 PM EST Office Visit [facility] OPTOMETRY [address] [place] [address] Kika Ramirez, OD [address] [place] [address] 08/05/2025 1:00 PM EST Office Visit [facility] MEDICINE [address] [place] [address] Karina Lopez MD [address] [place] [address] 08/17/2025 2:45 PM EST Clinical Support [facility] MED & PEDS [address] [place] [address] Gloria Richmond, RN [address] [place] [address] documented as of this encounter Visit Diagnoses Not on filedocumented in this encounter Additional Health Concerns Assessment Noted Time PHQ-9 Depression Total Score: 16 023 1:41 PM EDT documented as of this encounter Care Teams Raw Material Handler Relationship Specialty Start Date End Date Karina Lopez MD [address] [place] [address] PCP - General Internal Medicine 04/22/23 Karina Thacker Head CookResource Agent 09/26/23 Arturo Weeks MD Bariatrics 12/07/24 documented as of this encounter
--- OUTSIDE RECORDS SUMMARY | 2025-06-15 17:29 | XMS_ITS | Encounter Summary ---
Author Organization [employer] Address [address] [facility] [address] [place] [address] Care Team Providers Care Motor Vehicle License Clerk Name Role Phone Karina Lopez MD Primary Care Pro vider Reason for Visit * Reason Comments Med Refill Encounter Details Date Type Department Care Team (Late st Contact Info) Description 02/06/2024 Refill [facility] CHC MED & PEDS [address] [place] [address] Karina Lopez MD 230 [place] [address] Chronic pain of both knees Social History [...] 06/29/2025 3:00 PM EST Office Visit [facility] OPTOMETRY [address] [place] [address] Kika Ramirez, OD 267 [place] [address] 08/05/2025 1:00 PM EST Office Visit [facility] MEDICINE [address] [place] [address] Karina Lopez MD [address] [place] [address] 08/17/2025 2:45 PM EST Clinical Support [facility] CHC MED & PEDS [address] [place] [address] Gloria Richmond, WILDER [address] [place] [address] documented as of this encounter Visit Diagnoses Diagnosis Chronic pain of both knees documented in this encounter Additional Health Concerns Assessment Noted Time PHQ-9 Depression Total Score: 22 024 1:23 PM EDT documented as of this encounter Care Teams Motor Vehicle License Clerk Relationship Specialty Start Date End Date Karina Lopez MD [address] [place] [address] PCP - General Internal Medicine 04/22/23 Karina Thacker Grey Roll ManScrew Driver Operator 09/26/23 Arturo Weeks MD Bariatrics 12/07/24 documented as of this encounter
--- OUTSIDE RECORDS SUMMARY | 2025-06-15 17:29 | XMS_ITS | Encounter Summary ---
Author Organization [employer] Address [address] [place] [address] Care Team Providers Care Pea Viner Mechanic Name Role Phone Karina Lopez MD Primary Care Pro vider Reason for Visit * Reason Onset Date Comments FYI 08/05/2023 Encounter Details Date Type Department Care Team ([facility] st Contact Info) Description 08/05/2023 Telephone [facility] MEDICINE [address] [place] [address] Karina Lopez MD [address] [place] [address] FY Social History Tobacco Use Types Packs/Day Years [...] 8:44 AM EST Tc from Diana at [facility] call to inform the PCP the patientis going to be discharged from physical therapy any questions please call diana at [phone] documented in this encounter Plan of Treatment Upcoming Encounters Date Type Department Care Team (Late st Contact Info) Description 06/29/2025 3:00 PM EST Office Visit [facility] OPTOMETRY [address] [place] [address] Kika Ramirez, OD [address] [place] [address] 08/05/2025 1:00 PM EST Office Visit [facility] MEDICINE [address] [place] [address] Karina Lopez MD [address] [place] [address] 08/17/2025 2:45 PM EST Clinical Support [facility] CHC MED & PEDS 505 [place] [address] Gloria Richmond, WILDER 505 [place] [address] documented as of this encounter Visit Diagnoses Not on filedocumented in this encounter Additional Health Concerns Assessment Noted Time PHQ-9 Depression Total Score: 16 023 1:41 PM EDT documented as of this encounter Care Teams Pea Viner Mechanic Relationship Specialty Start Date End Date Karina Lopez MD [address] [place] [address] PCP - General Internal Medicine 04/22/23 Karina Thacker Machine Deicer Element WinderCustoms Opener Verifier Packer 09/26/23 Arturo Weeks MD Bariatrics 12/07/24 documented as of this encounter
--- OUTSIDE RECORDS SUMMARY | 2025-06-15 17:29 | XMS_ITS | Encounter Summary ---
Author Organization [employer] Address [address] [place] [address] Care Team Providers Care Venture Capital Analyst Name Role Phone Karina Lopez MD Primary Care Pro vider Reason for Referral * Imaging (Routine) - Closed Specialty Diagnoses / Procedures Referred By Felix quinteros Referred To Contact Radiology Diagnoses Bilateral hand numbness Fall, initial encounter Bilateral leg numbness Procedures MR Cervical Spine w/o Contrast Eden Mcdonald MD [address] [place] [address] Phone: tel: fax: [facility] [address] [facility], [address] [place] [address] Phone: tel: fax: Referral ID Status Reason Start Date Expiration Date Visits Re quested Visits Authorized [id number] Closed 09/14/2024 09/14/2025 1 1 Encounter Details Date Type Department Care Team (Late st Contact Info) Description 09/14/2024 Orders Only [facility] MEDICINE [address] [place], [place] [phone] Eden Mcdonald MD [address] [place], [place] [phone] Bilateral hand numbness (Primary Dx); Fall, initial encounter; Bilateral leg numbness Social History Tobacco Use Types Packs/Day Years [...] EST Office Visit [facility] OPTOMETRY [address] [place] [address] Kika Ramirez, CHARLEEN 267 [place] [address] 08/05/2025 1:00 PM EST Office Visit [facility] MEDICINE [address] [place] [address] Karina Lopez MD 230 [place] [address] 08/17/2025 2:45 PM EST Clinical Support [facility] CHC MED & PEDS 505 [place] [address] Gloria Richmond, RN 505 [place] [address] Scheduled Orders Name Type Priority Associated Diagnoses Orde r Schedule MR Cervical Spine w/o Contrast Imaging Routine Bilateral hand numbness Fall, initial encounter Bilateral leg numbness Expected: 09/14/2024, Expires: 09/14/2025 documented as of this encounter Visit Diagnoses Diagnosis Bilateral hand numbness- Primary Disturbance of skin sensation Fall, initial encounter Bilateral leg numbness Disturbance of skin sensation documented in this encounter Additional Health Concerns Assessment Noted Time PHQ-9 Depression Total Score: 22 024 1:23 PM EDT documented as of this encounter Care Teams Venture Capital Analyst Relationship Specialty Start Date End Date Karina Lopez MD [address] [place] [address] PCP - General Internal Medicine 04/22/23 Karina Thacker Policy InternCriminal Records Technician 09/26/23 Arturo Weeks MD Bariatrics 12/07/24 documented as of this encounter
--- OUTSIDE RECORDS SUMMARY | 2025-06-15 17:29 | XMS_ITS | Encounter Summary ---
Author Organization [employer] Address [address] [place] [address] [place] [address] Care Team Providers Care Chocolate Finisher Operator Name Role Phone Karina Lopez MD Primary Care Pro vider Reason for Visit * Reason Comments Med Refill Encounter Details Date Type Department Care Team (Late st Contact Info) Description 06/10/[address] [facility] MEDICINE [address] [place] [address] Karina Lopez MD 230 [place] [address] Social History Tobacco Use Types Packs/Day Years [...] Description 06/29/2025 3:00 PM EST Office Visit [facility] OPTOMETRY [address] [place], [place] [phone] Kika Ramirez, OD [address] [place] [address] 08/05/2025 1:00 PM EST Office Visit [facility] MEDICINE [address] [place] [address] Karina Lopez MD 230 [place] [address] 08/17/2025 2:45 PM EST Clinical Support [facility] CHC MED & PEDS [address] [place], [place] [phone] Gloria Richmond, RN 505 [place] [address] documented as of this encounter Visit Diagnoses Not on filedocumented in this encounter Additional Health Concerns Assessment Noted Time PHQ-9 Depression Total Score: 16 023 1:41 PM EDT documented as of this encounter Care Teams Chocolate Finisher Operator Relationship Specialty Start Date End Date Karina Lopez MD [address] [place] [address] PCP - General Internal Medicine 04/22/23 Karina Thacker Ladies Suit OperatorFurnace Combustion Tester 09/26/23 Arturo Weeks MD Bariatrics 12/07/24 documented as of this encounter
--- OUTSIDE RECORDS SUMMARY | 2025-06-15 17:29 | XMS_ITS | Encounter Summary ---
Author Organization [employer] Address [address] [place] [address] Care Team Providers Care Nude Model Name Role Phone Karina Lopez MD Primary Care Pro vider Reason for Visit * Reason Onset Date Comments FYI 07/30/2023 Encounter Details Date Type Department Care Team ([facility] st Contact Info) Description 07/30/2023 Telephone [facility] MEDICINE [address] [place] [address] Karina Lopez MD [address] [place] [address] FY Social History Tobacco Use Types Packs/Day [...] 2:00 PM EST Tc from Diana at [employer] calling to report the patients vital signs. Heart Rate: 112 Blood Pressure: 134/103 Pain: 10 documented in this encounter Plan of Treatment Upcoming Encounters Date Type Department Care Team (Late st Contact Info) Description 06/29/2025 3:00 PM EST Office Visit [facility] OPTOMETRY [address] [place] [address] TarkaKika, OD [address] [place] [address] 08/05/2025 1:00 PM EST Office Visit [facility] MEDICINE [address] [place] [address] Karina Lopez MD [address] [place] [address] 08/17/2025 2:45 PM EST Clinical Support [facility] CHC MED & PEDS [address] [place] [address] Gloria Richmond, WILDER [address] [place] [address] documented as of this encounter Visit Diagnoses Not on filedocumented in this encounter Additional Health Concerns Assessment Noted Time PHQ-9 Depression Total Score: 16 023 1:41 PM EDT documented as of this encounter Care Teams Nude Model Relationship Specialty Start Date End Date Karina Lopez MD [address] [place] [address] PCP - General Internal Medicine 04/22/23 Karina Thacker Radiophone OperatorLogging Superintendent 09/26/23 Arturo Weeks MD Bariatrics 12/07/24 documented as of this encounter
--- OUTSIDE RECORDS SUMMARY | 2025-06-15 17:29 | XMS_ITS | Encounter Summary ---
Author Organization [employer] Address [address] [place] [address] [address], [place] [address] Care Team Providers Care Snubber Name Role Phone Karina Lopez MD Primary Care Pro vider Reason for Referral * Consultation (Routine) - Closed Specialty Diagnoses / Procedures Referred By Felix quinteros Referred To Contact Pain Medicine Diagnoses Chronic low back pain, unspecified back pain laterality, unspecified whether sciatica present Eden Mcdonald MD [address] [place], [place] Phone: tel: fax: [address] [address] Phone: tel: fax: Referral ID Status Reason Start Date Expiration Date V isits Requested Visits Authorized [id number] Closed Specialty Services Required 10/06/2024 10/06/2025 6 6 * Neurology (Routine) - Closed Specialty Diagnoses / Procedures Referred By Felix quinteros Referred To Contact Diagnoses Numbness and tingling in both hands Bilateral numbness and tingling of arms and legs Procedures EMG Eden Mcdonald MD [address] [place] [address] Phone: tel: fax: [address] [address] Phone: tel: fax: Referral ID Status Reason Start Date Expiration Date Visits Re quested Visits Authorized [id number] Closed 10/06/2024 10/06/2025 1 1 * Neurology (Routine) - Closed Specialty Diagnoses / Procedures Referred By Contac t Referred To Contact Diagnoses Numbness and tingling in both hands Bilateral numbness and tingling of arms and legs Procedures Nerve conduction test Eden Mcdonald MD [address] [place] [address] Phone: tel: fax: [facility] [address] [place] [address] Phone: tel: fax: Referral ID Status Reason Start Date Expiration Date Visits Re quested Visits Authorized [id number] Closed 10/06/2024 10/06/2025 1 1 * Imaging (Routine) - Closed Specialty Diagnoses / Procedures Referred By Contac t Referred To Contact Cardiology Diagnoses Bilateral lower extremity edema Procedures Vascular US lower extremity venous insufficiency bilateral Eden Mcdonald MD [address] [place] [address] Phone: tel: fax: [facility] [address] [place] [address] Phone: tel: fax: Referral ID Status Reason Start Date Expiration Date V isits Requested Visits Authorized [id number] Closed Perform Procedure 10/06/2024 10/06/2025 1 1 Encounter Details Date Type Department Care Team (Late st Contact Info) Description 10/06/2024 Orders Only [facility] MEDICINE [address] [place] [address] Eden Mcdonald MD [address] [place] [address] Acute low back pain, unspecified back pain laterality, unspecified whether sciatica present (Primary Dx); Numbness and tingling in both hands; Bilateral lower extremity edema; Bilateral numbness and tingling of arms and legs; Chronic low back pain, unspecified back pain laterality, unspecified whether sciatica present Social History Tobacco Use Types Packs/Day Years [...] the past 12 months, has t he [employer], gas, oil or water [employer] threatened to shut off services in your [...] Description 06/29/2025 3:00 PM EST Office Visit [facility] OPTOMETRY [address] [place] [address] Ashley Kika, OD [address] [place] [address] 08/05/2025 1:00 PM EST Office Visit [facility] MEDICINE [address] [place] [address] Karina Lopez MD [address] [place] [address] 08/17/2025 2:45 PM EST Clinical Support [facility]C MED & PEDS [address] [place] [address] Gloria Richmond RN [address] [place] [address] Scheduled Orders Name Type Priority Associated Diagnoses Orde r Schedule Nerve conduction test Neurology Routine Numbness and tingling in both hands Bilateral numbness and tingling of arms and legs Expected: 10/06/2024 (Approximate), Expires: 10/06/2025 EMG Neurology Routine Numbness and tingling in both hands Bilateral numbness and tingling of arms and legs Expected: 10/06/2024 (Approximate), Expires: 10/06/2025 Scheduled Referrals Name Type Priority Associated Diagnoses Orde r Schedule Referral to Pain Medicine Outpatient Referral Routine Chronic low back pain, unspecified back pain laterality, unspecified whether sciatica present Expected: 10/06/2024 (Approximate), Expires: 10/06/2025 documented as of this encounter Visit Diagnoses Diagnosis Acute low back pain, unspecified back pain laterality, unspecified whether sciatica present- Primary Numbness and tingling in both hands Bilateral lower extremity edema Bilateral numbness and tingling of arms and legs Chronic low back pain, unspecified back pain laterality, unspecified whether sciatica present documented in this encounter Additional Health Concerns Assessment Noted Time PHQ-9 Depression Total Score: 22 024 1:23 PM EDT documented as of this encounter Care Teams Snubber Relationship Specialty Start Date End Date Karina Lopez MD [address] [place] [address] PCP - General Internal Medicine 04/22/23 Karina Thacker Control Systems Drafting OfficerSumatra Opener 09/26/23 Arturo Weeks MD Bariatrics 12/07/24 documented as of this encounter
--- OUTSIDE RECORDS SUMMARY | 2025-06-15 17:29 | XMS_ITS | Encounter Summary ---
Author Organization [employer] Address [address] [place] [address] 7 [place] [address] Care Team Providers Care Tube Bender Hand Name Role Phone Karina Lopez MD Primary Care Pro vider Reason for Visit * Reason Onset Date Comments New patient 04/04/2023 Encounter Details Date Type Department Care Team ([facility] st Contact Info) Description 04/04/2023 Telephone [facility] MEDICINE [address] [place], [place] [phone] Daniele Desouza MD [address] [place], [place] [phone] New patient Social History Tobacco Use Types [...] EDT LADARIUS Dorman called pt to Offer MEDICAL SCIENTIST appt. Pt demographics and insurance information were verified. Pt reports the following medical conditions: HTN, High Cholesterol, Diabetic, Sleep Anemia, Weight. Pt is currently taking medication: Yes will bring on day of appt. Pt given MEDICAL SCIENTIST appt with Dr. Hall on 04/21/2023 @ 1:15 pm. Pt will be sent appt reminder card an/d medical release form and agrees to complete and to return to medical records prior to MEDICAL SCIENTIST appt. documented in this encounter Plan of Treatment Upcoming Encounters Date Type Department Care Team (Late st Contact Info) Description 06/29/2025 3:00 PM EST Office Visit [facility] OPTOMETRY [address] [place] [address] Elyssarodriguez Kika, OD [address] [place] [address] 08/05/2025 1:00 PM EST Office Visit [facility] MEDICINE [address] [place] [address] Karina Lopez MD [address] [place] [address] 08/17/2025 2:45 PM EST Clinical Support [facility] CHC MED & PEDS [address] [place], [place] [phone] Gloria Richmond, RN [address] [place] [address] documented as of this encounter Visit Diagnoses Not on filedocumented in this encounter Care Teams Tube Bender Hand Relationship Specialty Start Date End Date Karina Lopez MD [address] [place] [address] PCP - General Internal Medicine 04/22/23 Karina Thacker Mailing Machine OperatorAppeals Reviewer Veteran 09/26/23 Arturo Weeks MD Bariatrics 12/07/24 documented as of this encounter
--- OUTSIDE RECORDS SUMMARY | 2025-06-15 17:29 | XMS_ITS | Encounter Summary ---
Author Organization [employer] Address [address] [place] [address] Care Team Providers Care Turbine Technician Name Role Phone Karina Lopez MD Primary Care Pro vider Reason for Visit * Reason Onset Date Comments FYI 08/06/2023 Encounter Details Date Type Department Care Team ([facility] st Contact Info) Description 08/06/2023 Telephone [facility] MEDICINE [address] [place] [address] Karina Lopez MD [address] [place] [address] FY Social History Tobacco Use Types Packs/Day [...] - 08/06/2023 3:09 PM EST Tc from [facility] calling to advise PCP pt will be discharged from PT due to no progress. documented in this encounter Plan of Treatment Upcoming Encounters Date Type Department Care Team (Late st Contact Info) Description 06/29/2025 3:00 PM EST Office Visit [facility] OPTOMETRY [address] [place] [address] TarKika frias, OD [address] [place] [address] 08/05/2025 1:00 PM EST Office Visit [facility] MEDICINE [address] [place] [address] Karina Lopez MD [address] [place] [address] 08/17/2025 2:45 PM EST Clinical Support [facility] CHC MED & PEDS [address] [place] [address] Gloria Richmond, RN [address] [place] [address] documented as of this encounter Visit Diagnoses Not on filedocumented in this encounter Additional Health Concerns Assessment Noted Time PHQ-9 Depression Total Score: 16 023 1:41 PM EDT documented as of this encounter Care Teams Turbine Technician Relationship Specialty Start Date End Date Karina Lopez MD [address] [place] [address] PCP - General Internal Medicine 04/22/23 Karina Thacker Flat Grinder OperatorCircular Knitter 09/26/23 Arturo Weeks MD Bariatrics 12/07/24 documented as of this encounter
--- OUTSIDE RECORDS SUMMARY | 2025-06-15 17:29 | XMS_ITS | Encounter Summary ---
Author Organization [employer] Address [address] [place] [address] Care Team Providers Care Buffing Wheel Raker Name Role Phone Karina Lopez MD Primary Care Pro vider Reason for Visit * Reason Onset Date Comments Reschedule 07/15/2023 Encounter Details Date Type Department Care Team ([facility] st Contact Info) Description 07/15/2023 Telephone [facility] MEDICINE [address] [place] [address] Karina Lopez MD [address] [place] [address] Reschedule Social History Tobacco Use Types Packs/Day [...] to knee pain. Please contact pt at [phone] documented in this encounter Plan of Treatment Upcoming Encounters Date Type Department Care Team (Late st Contact Info) Description 06/29/2025 3:00 PM EST Office Visit [facility] OPTOMETRY [address] [place] [address] Kika Ramirez, OD [address] [place] [address] 08/05/2025 1:00 PM EST Office Visit [facility] MEDICINE [address] [place] [address] Karina Lopez MD [address] [place] [address] 08/17/2025 2:45 PM EST Clinical Support [facility] CHC MED & PEDS [address] [place] [address] Gloria Richmond, WILDER [address] [place] [address] documented as of this encounter Visit Diagnoses Not on filedocumented in this encounter Additional Health Concerns Assessment Noted Time PHQ-9 Depression Total Score: 16 023 1:41 PM EDT documented as of this encounter Care Teams Buffing Wheel Raker Relationship Specialty Start Date End Date Karina Lopez MD [address] [place] [address] PCP - General Internal Medicine 04/22/23 Karina Thacker Access ClerkStock Parts Fabricator 09/26/23 Arturo Weeks MD Bariatrics 12/07/24 documented as of this encounter
--- OUTSIDE RECORDS SUMMARY | 2025-06-15 17:29 | XMS_ITS | Encounter Summary ---
Author Organization [employer] Address [address] [place] [address] Care Team Providers Care Legal Support Assistant Name Role Phone Karina Lopez MD Primary Care Pro vider Reason for Visit * Reason Onset Date Comments Prior Authorization 03/16/2025 Encounter Details Date Type Department Care Team ([facility] st Contact Info) Description 03/16/2025 Telephone [facility] MEDICINE [address] [place] [address] Karina Lopez MD [address] [place] [address] Prior Authorization Social History Tobacco Use Types Packs/Day Years [...] enough money to get more: Never True 11/ 08/2022 Transportation Answer Date Recorded In the [...] encounter Miscellaneous Notes * Telephone Encounter - Evon Tucker - 03/24/2025 5:03 PM EDT Spoke to patient, informed patient that if 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 If [employer] states they need a PA for this then they will need to contact to have the PA form sent to us for review and approval. 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 * Telephone Encounter - Dotty Finney - 03/24/2025 2:19 PM EDT Tc from pt aunt requesting for pt to get call back , stating pt called insurance and they advised him to contact provider that pcp is able to sign off on CULL GRADER hours. Contact pt at [phone] * Telephone Encounter - Kamilla Strickland LPN - 03/23/2025 8:29 AM EDT Awaiting the return of Director, Evon Tucker, as Forms department is unaware of a prior authorization process for [employer]. Evon will return on -03/24/25. * Telephone Encounter - Dotty Finney - 03/18/2025 2:46 PM EDT Tc from pt requesting a call back regarding prior message. 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 Pt stated that the budget was . Freight Service Inspector advised that pt will need tocontact the company back and the insurance for more hours. Pt stated that they had already contact both the insurance and the company and were told to contact PCP Office. Contact pt at [phone] documented in this encounter Plan of Treatment Upcoming Encounters Date Type Department Care Team (Late st Contact Info) Description 06/29/2025 3:00 PM EST Office Visit [facility] OPTOMETRY [address] [place] [address] Kika Ramirez, OD [address] [place] [address] 08/05/2025 1:00 PM EST Office Visit [facility] MEDICINE [address] [place] [address] Karina Lopez MD [address] [place] [address] 08/17/2025 2:45 PM EST Clinical Support [facility] CHC MED & PEDS [address] [place] [address] Gloria Richmond, RN [address] [place] [address] documented as of this encounter Visit Diagnoses Not on filedocumented in this encounter Additional Health Concerns Assessment Noted Time PHQ-9 Depression Total Score: 7 02/17/20 25 12:02 PM EDT documented as of this encounter Care Teams Legal Support Assistant Relationship Specialty Start Date End Date Karina Lopez MD [address] [place] [address] PCP - General Internal Medicine 04/22/23 Karina Thacker Generator AssemblerNew Business Clerk 09/26/23 Arturo Weeks MD Bariatrics 12/07/24 documented as of this encounter
--- OUTSIDE RECORDS SUMMARY | 2025-06-15 17:29 | XMS_ITS | Encounter Summary ---
Author Organization [employer] Address [address] [place] [address] [place] [address] Care Team Providers Care Toxicology Supervisor Name Role Phone Karina Lopez MD Primary Care Pro vider Reason for Visit * Reason Comments Med Refill Encounter Details Date Type Department Care Team (Late st Contact Info) Description 09/21/2023 Refill [facility] MEDICINE [address] [place] [address] Karina Lopez MD [address] [place] [address] Social History Tobacco Use Types Packs/Day Years [...] Description 06/29/2025 3:00 PM EST Office Visit [facility] OPTOMETRY [address] [place], [place] [phone] Kika Ramirez, OD [address] [place] [address] 08/05/2025 1:00 PM EST Office Visit [facility] MEDICINE [address] [place] [address] Karina Lopez MD [address] [place] [address] 08/17/2025 2:45 PM EST Clinical Support [facility] CHC MED & PEDS [address] [place], [place] [phone] Gloria Richmond, RN [address] [place] [address] documented as of this encounter Visit Diagnoses Not on filedocumented in this encounter Additional Health Concerns Assessment Noted Time PHQ-9 Depression Total Score: 16 023 1:41 PM EDT documented as of this encounter Care Teams Toxicology Supervisor Relationship Specialty Start Date End Date Karina Lopez MD [address] [place] [address] PCP - General Internal Medicine 04/22/23 Karina Thacker Crystal SlicerBindery Library Technical Assistant 09/26/23 Arturo Weeks MD Bariatrics 12/07/24 documented as of this encounter
--- OUTSIDE RECORDS SUMMARY | 2025-06-15 17:29 | XMS_ITS | Encounter Summary ---
Author Organization [employer] Address [address] [place] [address] Care Team Providers Care Camper Assembler Name Role Phone Karina Lopez MD Primary Care Pro vider Reason for Visit * Reason Onset Date Comments Nurse Triage 07/04/2023 Encounter Details Date Type Department Care Team ([facility] st Contact Info) Description 07/04/2023 Telephone [facility] MEDICINE [address] [place] [address] Karina Lopez MD [address] [place] [address] Nurse Triage Social History Tobacco Use Types [...] 07/04/2023 4:26 PM EST Call returned to [facility] pt seen for PT today. States had to call in vitals of BP140/100 HR 110 during PT session per their protocol. This is baseline to occur with any activity for patient. Per [facility] pt baseline 95bmp at rest. No sx reported of CP, SILVA or dizziness. Pt has baseline SOB. Pt is scheduled for PT twice a week. Keeping PT sessions very short and simple. Pt having back, leg and ankle pain but not new onset pain. [facility] states pt at baseline when finished PT session. [facility] advised will send as update to PCP to discuss with Pt at upcoming appt this month. Future Appointments Date Time Provider Department Center 07/15/2023 11:15 AM Karina Duarte MD [facility] 07/24/2023 2:30 PM Gloria Waller RN [facility] Protocol Used: Information Only Call - No Triage (Adult) Protocol-Based Disposition: Home Care Positive Triage Question: * Follow-up information-only call to recent contact, no triage required * All higher-acuity triage questions were negative Care Advice Discussed: * Reasons To Call Back - New symptoms develop - You become worse * Telephone Encounter - Anabel Burgess - 07/04/2023 4:19 PM EST Tc from [facility] with [employer] calling to inform PCP Symptoms: High Blood Pressure - Caller Reports, Heartbeat Symptoms (Fast, Slow, or Irregular) Outcome: Schedule a same-day appointment or talk to a nurse or provider today Reason: Caller denied all higher acuity questions Any questions contact [facility] [phone] documented in this encounter Plan of Treatment Upcoming Encounters Date Type Department Care Team ([facility] st Contact Info) Description 06/29/2025 3:00 PM EST Office Visit [facility] OPTOMETRY [address] [place] [address] Kika Ramirez, OD [address] [place] [address] 08/05/2025 1:00 PM EST Office Visit [facility] MEDICINE [address] [place] [address] Karina Lopez MD [address] [place] [address] 08/17/2025 2:45 PM EST Clinical Support [facility] CHC MED & PEDS [address] [place], [place] [phone] Gloria Richmond, RN [address] [place] [address] documented as of this encounter Visit Diagnoses Not on filedocumented in this encounter Additional Health Concerns Assessment Noted Time PHQ-9 Depression Total Score: 16 023 1:41 PM EDT documented as of this encounter Care Teams Camper Assembler Relationship Specialty Start Date End Date Karina Lopez MD [address] [place] [address] PCP - General Internal Medicine 04/22/23 Karina Thacker Licensed WeigherFinisher Cold Rolling 09/26/23 Arturo Weeks MD Bariatrics 12/07/24 documented as of this encounter
--- OUTSIDE RECORDS SUMMARY | 2025-06-15 17:29 | XMS_ITS | Encounter Summary ---
Author Organization [employer] Address [address] [place] [address] Care Team Providers Care Montessori Program Director Name Role Phone Karina Lopez MD Primary Care Pro vider Reason for Visit * Reason Onset Date Comments Call Back Request 12/08/2023 Encounter Details Date Type Department Care Team ([facility] Contact Info) Description 12/08/2023 Telephone [facility] MEDICINE [address] [place] [address] Karina Lopez MD [address] [place] [address] Call Back Request Social History Tobacco Use [...] 9:35 AM EDT TC from [facility] at [facility] to inform PCP of current concerns [...] lives on the third floor and the [facility] wants to make living arrangements for the pt to have a first floor dwelling. Appt today for 1045 with PCP via telehealth.Forwarding to PCP for FYI * Telephone Encounter - Arely Almonte - 12/08/2023 10:20 AM EDT Tc from [facility] pt is having low oxygen saturation. [facility] pt does not want to wear CPAP or go to the ER. [facility] pt is looking for recommendations. Declines triage andrequesting to speak with nurse. documented in this encounter Plan of Treatment Upcoming Encounters Date Type Department Care Team (Late st Contact Info) Description 06/29/2025 3:00 PM EST Office Visit [facility] OPTOMETRY [address] [place] [address] Kika Ramirez OD [address] [place] [address] 08/05/2025 1:00 PM EST Office Visit [facility] MEDICINE [address] [place], [place] [phone] Karina Lopez MD [address] [place], [place] [phone] 08/17/2025 2:45 PM EST Clinical Support [facility] CH[facility] MED & PEDS 505 [place], [place] [phone] Gloria Richmond, RN [address] [place], [place] [phone] documented as of this encounter Visit Diagnoses Not on filedocumented in this encounter Additional Health Concerns Assessment Noted Time PHQ-9 Depression Total Score: 16 023 1:41 PM EDT documented as of this encounter Care Teams Montessori Program Director Relationship Specialty Start Date End Date Karina Lopez MD [address] [place] [address] PCP - General Internal Medicine 04/22/23 Karina Thacker Grand Jury Deputy SheriffProvider Contracting Consultant 09/26/23 Arturo Weeks MD Bariatrics 12/07/24 documented as of this encounter
--- OUTSIDE RECORDS SUMMARY | 2025-06-15 17:29 | XMS_ITS | Encounter Summary ---
Author Organization [employer] Address [address] [place] [address] Care Team Providers Care Rating Clerk Name Role Phone Karina Lopez MD Primary Care Pro vider Encounter Details Date Type Department Care Team (Late st Contact Info) Description 09/14/2024 Orders Only [facility] MEDICINE [address] [place] [address] Eden Mcdonald MD [address] [place] [address] Social History Tobacco Use Types Packs/Day Years [...] Description 06/29/2025 3:00 PM EST Office Visit [facility] OPTOMETRY [address] [place] [address] Kika Ramirez, OD [address] [place] [address] 08/05/2025 1:00 PM EST Office Visit [facility] MEDICINE [address] [place] [address] Karina Lopez MD [address] [place] [address] 08/17/2025 2:45 PM EST Clinical Support [facility] CHC MED & PEDS [address] [place], [place] [phone] Gloria Richmond, WILDER [address] [place] [address] documented as of this encounter Visit Diagnoses Not on filedocumented in this encounter Additional Health Concerns Assessment Noted Time PHQ-9 Depression Total Score: 22 024 1:23 PM EDT documented as of this encounter Care Teams Rating Clerk Relationship Specialty Start Date End Date Karina Lopez MD [address] [place] [address] PCP - General Internal Medicine 04/22/23 Karina Thacker Cable Machine OperatorMagento Developer 09/26/23 Arturo Weeks MD Bariatrics 12/07/24 documented as of this encounter
--- OUTSIDE RECORDS SUMMARY | 2025-06-15 17:29 | XMS_ITS | Encounter Summary ---
Author Organization [email or web address] Address 75 [facility] 7 [place] [address] Care Team Providers Care Superintendent Cemetery Name Role Phone Karina Lopez MD Primary Care Pro vider Encounter Details Date Type Department Care Team ([facility] st Contact Info) Description 06/25/2023 Telephone [facility] [address] [place] [address] Karina Lopez MD 230 [place] [address] Social History Tobacco Use Types Packs/Day Years [...] t he electric, gas, oil or water [employer] threatened to shut off services in your [...] encounter Miscellaneous Notes * Telephone Encounter - Padmachio Samaniego Kaylie - 06/25/2023 3:42 PM EST TC from pt returning call from Triage task on 06/25/2023 RN called pt to triage below. No answer, LVM for return call. Tc from Diana at [employer] [employer] [facility] calling to report patient fell on 06/23 and is having minor pain in back area. Please contact pt at [phone] documented in this encounter Plan of Treatment Upcoming Encounters Date Type Department Care Team (Late st Contact Info) Description 06/29/2025 3:00 PM EST Office Visit [facility] [address] [place] [address] Kika Ramirez, OD [address] [place] [address] 08/05/2025 1:00 PM EST Office Visit [facility] [address] [place] [address] Karina Lopez MD 230 [place] [address] 08/17/2025 2:45 PM EST Clinical Support [facility] [address] [place], [place] [phone] Gloria Richmond, RN 505 [place], [place] [phone] documented as of this encounter Visit Diagnoses Not on filedocumented in this encounter Additional Health Concerns Assessment Noted Time PHQ-9 Depression Total Score: 16 023 1:41 PM EDT documented as of this encounter Care Teams Superintendent Cemetery Relationship Specialty Start Date End Date Karina Lopez MD [address] [place] [address] PCP - General Internal Medicine 04/22/23 Karina Thacker Top Bottom Attaching Machine OperatorCommercial Real Estate Underwriter 09/26/23 Arturo Weeks MD Bariatrics 12/07/24 documented as of this encounter
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
--- OUTSIDE RECORDS SUMMARY | 2025-06-15 17:29 | XMS_ITS | Encounter Summary ---
Author Organization [employer] Address [address] [place] [address] Care Team Providers Care Primary Clinician Name Role Phone Karina Lopez MD Primary Care Pro vider Reason for Visit * Reason Onset Date Comments FYI 06/20/2023 Durable Medical Equipment 06/20/2023 Encounter Details Date Type Department Care Team ([facility] st Contact Info) Description 06/20/2023 Telephone [facility] [address] [place] [address] Karina Lopez MD [address] [place], [place] [phone] FYI; Durable Medical Equipment Social History Tobacco [...] 11:21 AM EST Tc from Meme from [facility] [employer] requesting a status update on DME supplies requested ( bariatric walker, commode and tub bench). Please contact at [phone] * Telephone Encounter - Nneka Plummer - 06/25/2023 3:22 PM EST Please see below message regarding pt's bariatric DMEs. * Telephone Encounter - Gavin Glass - 06/20/2023 1:29 PM EST Tc from Lillie at [facility] [employer] calling to report some of the medical equipment will not be able to fill due to weight capacity max is 500-550. documented in this encounter Plan of Treatment Upcoming Encounters Date Type Department Care Team (Late st Contact Info) Description 06/29/2025 3:00 PM EST Office Visit [facility] OPTOMETRY [address] [place] [address] Kika Ramirez, OD [address] [place] [address] 08/05/2025 1:00 PM EST Office Visit [facility] [address] [place] [address] Karina Lopez MD [address] [place], [place] [phone] 08/17/2025 2:45 PM EST Clinical Support [facility]EDS 505 [place], [place] [phone] Gloria Richmond, RN 505 [place], [place] [phone] documented as of this encounter Visit Diagnoses Not on filedocumented in this encounter Additional Health Concerns Assessment Noted Time PHQ-9 Depression Total Score: 16 023 1:41 PM EDT documented as of this encounter Care Teams Primary Clinician Relationship Specialty Start Date End Date Karina Lopez MD [address] [place], [place] [phone] PCP - General Internal Medicine 04/22/23 Karina Thacker Rubber Production Machine OperatorChemical Engineering Teacher 09/26/23 Arturo Weeks MD Bariatrics 12/07/24 documented as of this encounter
--- OUTSIDE RECORDS SUMMARY | 2025-06-15 17:29 | XMS_ITS | Encounter Summary ---
Author Organization [employer] Address [address] [place] [address] Care Team Providers Care Bell Ringer Name Role Phone Karina Lopez MD Primary Care Pro vider Reason for Visit * Reason Onset Date Comments FYI 07/24/2023 Encounter Details Date Type Department Care Team ([facility] st Contact Info) Description 07/24/[address] [facility] MED[facility]INE [address] [place] [address] Karina Lopez MD 230 [place] [address] FY Social History Tobacco Use Types Packs/Day [...] - 07/24/2023 3:42 PM EST Tc from ama with [facility] calling to report vitals. BP [...] [facility] OPTOMETRY [address] [place] [address] Kika Ramirez, OD 267 [place] [address] 08/05/2025 1:00 PM EST Office Visit [facility] MED[facility] 230 [place] [address] Karina Lopez MD 230 [place] [address] 08/17/2025 2:45 PM EST Clinical Support [facility] MED & PEDS 505 [place], [place] [phone] Gloria Richmond, WILDER 505 [place], [place] [phone] documented as of this encounter Visit Diagnoses Not on filedocumented in this encounter Additional Health Concerns Assessment Noted Time PHQ-9 Depression Total Score: 16 023 1:41 PM EDT documented as of this encounter Care Teams Bell Ringer Relationship Specialty Start Date End Date Karina Lopez MD [address] [place] [address] PCP - General Internal Medicine 04/22/23 Karina Thacker Datawarehouse DeveloperMarksmanship Instructor 09/26/23 Arturo Weeks MD Bariatrics 12/07/24 documented as of this encounter
--- OUTSIDE RECORDS SUMMARY | 2025-06-15 17:29 | XMS_ITS | Encounter Summary ---
Author Organization [employer] Address [address] [place] [address] Care Team Providers Care Supervisor Roving Department Name Role Phone Karina Lopez MD Primary Care Pro vider Reason for Visit * Reason Onset Date Comments Call Back Request 12/08/2023 Encounter Details Date Type Department Care Team ([facility] Contact Info) Description 12/08/2023 Telephone [facility] 230 [place] [address] Karina Lopez MD [address] [place] [address] Call Back Request Social History Tobacco Use [...] Glass - 12/08/2023 2:57 PM EDT Tc shashi [facility] the Public [facility] Nurse requesting a call back to discuss about health matters at [phone] no further information provided at this time documented in this encounter Plan of Treatment Upcoming Encounters Date Type Department Care Team (Late st Contact Info) Description 06/29/2025 3:00 PM EST Office Visit [facility] OPTOMETRY [address] [place] [address] Kika Ramirez, OD [address] [place] [address] 08/05/2025 1:00 PM EST Office Visit [facility] MEDICINE 230 [place] [address] Karina Lopez MD [address] [place] [address] 08/17/2025 2:45 PM EST Clinical Support [facility] MED [facility]EDS 505 [place] [address] Gloria Richmond, WILDER [address] [place] [address] documented as of this encounter Visit Diagnoses Not on filedocumented in this encounter Additional Health Concerns Assessment Noted Time PHQ-9 Depression Total Score: 16 023 1:41 PM EDT documented as of this encounter Care Teams Supervisor Roving Department Relationship Specialty Start Date End Date Karina Loepz MD [address] [place] [address] PCP - General Internal Medicine 04/22/23 Karina Thacker Steel RiggerDrivematic Machine Operator 09/26/23 Arturo Weeks MD Bariatrics 12/07/24 documented as of this encounter
--- OUTSIDE RECORDS SUMMARY | 2025-06-15 17:29 | XMS_ITS | Encounter Summary ---
Author Organization [employer] Address [address] [place] [address] [place] [address] Care Team Providers Care Improvement Director Name Role Phone Karina Lopez MD Primary Care Pro vider Reason for Visit * Reason Comments Med Refill Encounter Details Date Type Department Care Team (Late st Contact Info) Description 07/08/2023 Refill [facility] MEDICINE [address] [place] [address] Karina Lopez MD 230 [place] [address] Social History Tobacco Use Types Packs/Day Years [...] 06/29/2025 3:00 PM EST Office Visit [facility] OPTOMETRY [address] [place], [place] [phone] Kika Ramirez, OD 267 [place] [address] 08/05/2025 1:00 PM EST Office Visit [facility] MEDICINE [address] [place] [address] Karina Lopez MD 230 [place] [address] 08/17/2025 2:45 PM EST Clinical Support [facility] MED & PEDS 505 [place], [place] [phone] Gloria Richmond, RN 505 [place] [address] documented as of this encounter Visit Diagnoses Not on filedocumented in this encounter Additional Health Concerns Assessment Noted Time PHQ-9 Depression Total Score: 16 023 1:41 PM EDT documented as of this encounter Care Teams Improvement Director Relationship Specialty Start Date End Date Karina Lopez MD [address] [place] [address] PCP - General Internal Medicine 04/22/23 Karina Thacker Preparation Plant SupervisorIv Technician 09/26/23 Arturo Weeks MD Bariatrics 12/07/24 documented as of this encounter
--- OUTSIDE RECORDS SUMMARY | 2025-06-15 17:29 | XMS_ITS | Encounter Summary ---
Author Organization [employer] Address [address] [place] [address] [place] [address] Care Team Providers Care Rattlesnake Farmer Name Role Phone Karina Lopez MD Primary Care Pro vider Reason for Visit * Reason Comments Med Refill Encounter Details Date Type Department Care Team (Late st Contact Info) Description 07/20/2023 Refill [facility] MEDICINE 230 [place] [address] Karina Lopez MD [address] [place] [address] Social History Tobacco Use Types Packs/Day Years [...] Description 06/29/2025 3:00 PM EST Office Visit [facility] OPTOMETRY 267 [place], [place] [phone] Kika Ramirez, OD 267 [place] [address] 08/05/2025 1:00 PM EST Office Visit [facility] MEDICINE [address] [place] [address] Karina Lopez MD [address] [place] [address] 08/17/2025 2:45 PM EST Clinical Support [facility] MED [facility] PEDS 505 [place], [place] [phone] Gloria Richmond, RN 505 [place] [address] documented as of this encounter Visit Diagnoses Not on filedocumented in this encounter Additional Health Concerns Assessment Noted Time PHQ-9 Depression Total Score: 16 023 1:41 PM EDT documented as of this encounter Care Teams Rattlesnake Farmer Relationship Specialty Start Date End Date Karina Lopez MD [address] [place] [address] PCP - General Internal Medicine 04/22/23 Karina Thacker Manager UnderwritingCustomer Marketing Manager 09/26/23 Arturo Weeks MD Bariatrics 12/07/24 documented as of this encounter
--- OUTSIDE RECORDS SUMMARY | 2025-06-15 17:29 | XMS_ITS | Encounter Summary ---
Author Organization [email or web address] Address [address] [place] [address] Care Team Providers Care Copper Tapper Name Role Phone Karina Lopez MD Primary Care Pro vider Reason for Visit * Reason Onset Date Comments Call Back Request 06/30/2023 Encounter Details Date Type Department Care Team ([facility] Contact Info) Description 06/30/2023 Telephone [facility] MEDICINE [address] [place] [address] Karina Lopez MD [address] [place] [address] Call Back Request Social History Tobacco Use [...] with PCP about. Please contact pt at [phone] documented in this encounter Plan of Treatment Upcoming Encounters Date Type Department Care Team (Late st Contact Info) Description 06/29/2025 3:00 PM EST Office Visit [facility] OPTOMETRY [address] [place] [address] Kika Ramirez, OD [address] [place] [address] 08/05/2025 1:00 PM EST Office Visit [facility] MED[facility]INE [address] [place] [address] Karina Lopez MD [address] [place] [address] 08/17/2025 2:45 PM EST Clinical Support [facility] MED [facility]EDS 505 [place] [address] Gloria Richmond, WILDER 505 [place] [address] documented as of this encounter Visit Diagnoses Not on filedocumented in this encounter Additional Health Concerns Assessment Noted Time PHQ-9 Depression Total Score: 16 023 1:41 PM EDT documented as of this encounter Care Teams Copper Tapper Relationship Specialty Start Date End Date Karina Lopez MD [address] [place] [address] PCP - General Internal Medicine 04/22/23 Karina Thacker Stock HandlerSand Caster 09/26/23 Arturo Weeks MD Bariatrics 12/07/24 documented as of this encounter
--- OUTSIDE RECORDS SUMMARY | 2025-06-15 17:29 | XMS_ITS | Encounter Summary ---
Author Organization [employer] Address [address] [place] [address] [place] [address] Care Team Providers Care Tablet Technician Name Role Phone Karina Lopez MD Primary Care Pro vider Reason for Visit * Reason Comments Med Refill Encounter Details Date Type Department Care Team (Late st Contact Info) Description 06/19/2023 Refill [facility] MEDICINE 230 [place] [address] Karina Lopez MD [address] [place] [address] Social History Tobacco Use Types Packs/Day Years [...] 3:00 PM EST Office Visit [facility] OPTOMETRY [address] [place], [place] [phone] Kika Ramirez, OD 267 [place] [address] 08/05/2025 1:00 PM EST Office Visit [facility] MEDICINE 230 [place] [address] Karina Lopez MD 230 [place] [address] 08/17/2025 2:45 PM EST Clinical Support [facility] MED & PEDS 505 [place], [place] [phone] Gloria Richmond, RN 505 [place] [address] documented as of this encounter Visit Diagnoses Not on filedocumented in this encounter Additional Health Concerns Assessment Noted Time PHQ-9 Depression Total Score: 16 023 1:41 PM EDT documented as of this encounter Care Teams Tablet Technician Relationship Specialty Start Date End Date Karina Lopez MD [address] [place] [address] PCP - General Internal Medicine 04/22/23 Karina Thacker Brush Clearer SurveyingAthletic Director 09/26/23 Arturo Weeks MD Bariatrics 12/07/24 documented as of this encounter
--- OUTSIDE RECORDS SUMMARY | 2025-06-15 17:30 | XMS_ITS | Encounter Summary ---
Author Organization [employer] Address 75 [facility] 7t [place] [address] Care Team Providers Care Engine Lathe Operator Name Role Phone Karina Lopez MD Primary Care Pro vider Encounter Details Date Type Department Care Team (Latest Contact Info) Description 06/13/2025 Travel Social History Tobacco Use Types Packs/Day [...] Description 06/29/2025 3:00 PM EST Office Visit [facility] OPTOMETRY 267 [place], [place] [phone] Kika Ramirez, OD 267 [place] [address] 08/05/2025 1:00 PM EST Office Visit [facility] MEDICINE 230 [place] [address] Karina Lopez MD 230 [place] [address] 08/17/2025 2:45 PM EST Clinical Support [facility] MED [facility] PEDS 505 [place], [place] [phone] Gloria Richmond, RN 505 [place] [address] documented as of this encounter Visit Diagnoses Not on filedocumented in this encounter Additional Health Concerns Assessment Noted Time PHQ-9 Depression Total Score: 7 02/17/20 25 12:02 PM EDT documented as of this encounter Care Teams Engine Lathe Operator Relationship Specialty Start Date End Date Karina Lopez MD [address] [place] [address] PCP - General Internal Medicine 04/22/23 Karina Thacker Computer Security SpecialistEmail Producer 09/26/23 Arturo Weeks MD Bariatrics 12/07/24 documented as of this encounter
--- OUTSIDE RECORDS SUMMARY | 2025-06-15 17:30 | XMS_ITS | Encounter Summary ---
Author Organization [facility] Address [address] [place] [address] Phone Care Team Providers Care Flexographic Printing Press Operator Name Role Phone Karina Lopez MD Primary Care Pro vider Mohit Weeks MD, FACS Unavailable Encounter Details Date Type Department Care Team (Late st Contact Info) Description 06/21/2024 Procedure Pass [facility] [address] [place] [address] Social History Tobacco Use Types Packs/Day Years Used Date Smoking Tobacco: Never Passive Smoke Exposure: Current Smokeless Tobacco: Never Alcohol Use Standard Drinks/Week Comments Never 0 (1 standard drink = 0.6 oz pur e alcohol) Home Health Assessment: Transportation Answer Date Recorded Lack of Transportation (Medical) No 04/23/2024 Lack of Transportation (Non-Medical) No 04/23/2024 Patient Unable or Declines to Respond No 04/23/2024 Education Answer Date Recorded Are you interested in more education? Not on percy e 11/16/2022 Are you concerned about learning? Not on file 11/16/2022 No 11/16/2022 No 11/16/2022 Food Answer Date Recorded Within the past 6 months we worried whether our food would run out before we got money to buy more. Never True 06/22/2024 Within the past 6 months the food we bought just didn't last and we didn't have enough money to get more. Never True Residential Stability Answer Date Recor ded What is your housing situation today? I have adrienne harry 06/22/2024 How many times have you move d in the past 12 months? Zero (I did not move) 06/22/2024 Paying for Meds Answer Date Recorded Do you have trouble paying for medicines? No 06/22/2024 Paying Utility Bills Answer Date Record ed Do you have trouble paying your heating or elect ricity bill? No 06/22/2024 Transportation Answer Date Recorded Has the lack of transportati on kept you from medical appointments or from getting medications? No 06/22/2024 Digital Access Answer Date Recorded No 06/22/2024 Yes 06/22/2024 Do you have reliable internet access at home? Ye s 06/22/2024 Do you have a device (e.g., phone, tablet, computer) with a working camera? Yes 06/22/2024 Intimate Partner Violence Answer Date R ecorded Are you denied basic needs s uch as food, clothing, or medical care? No 06/21/2024 In the past 12 months have y ou been in a relationship with a person who hurts, threatens, or tries to control you? No 06/21/2024 Are you denied basic needs s uch as food, clothing, or medical care? No 06/21/2024 In the past 12 months have y ou been in a relationship with a person who hurts, threatens, or tries to control you? No 06/21/2024 Sex and Gender Information Value Date Recorded Sex Assigned at Male 01/16/2022 6:25 PM EDT Legal Sex Male 6:22 PM EDT Gender Identity Male 01/16/2022 6:25 PM EDT Sexual Orientation Straight 02/10/2024 4: 19 PM EDT documented as of this encounter Functional Status * Calculated C-SSRS Risk Score (Lifetime/Recent) Answer Date of Assessment Author No Risk Indicated 06/21/2024 11:15 PM Glenda Bueno RN * [place] Suicide Severity Rating Scale (Screener/Recent Self-Report) Question Answer Date of Assessment Author 1. Wish to be (Past 1 Month) No 06/21/2024 11:15 PM Glenda Bueno RN 2. Non-Specific Active Suici cony Thoughts (Past 1 Month) No 06/21/2024 11:15 PM EST Jesse So RN 6. Suicidal Behavior (Lifetime) No 11:15 PM EST Glenda So RN documented as of this encounter Plan of Treatment Upcoming Encounters Date Type Department Care Team ([facility] st Contact Info) Description 06/30/2025 2:30 PM EST Telemedicine - audio only [facility] General & GI Surgery [address] [facility] [place] [address] Radha Byrne PA-C [address] [facility] [address] [place] [address] [email or web address] documented as of this encounter Visit Diagnoses Not on filedocumented in this encounter Additional Health Concerns Assessment Noted Time PHQ-9 Depression Total Score: 18 024 4:00 PM EDT PHQ-2 Depression Total Score: 6 02/19/20 24 4:00 PM EDT documented as of this encounter Care Teams Flexographic Printing Press Operator Relationship Specialty Start Date End Date Karina Lopez MD [address] [place] [address] PCP - General Internal Medicine 05/26/23 Mohit Weeks MD, FACS [address] [place] [address] [email or web address] 02/06/24 documented as of this encounter Additional Source Comments The information contained in this document represents components of the legal health record. It is not the complete legal health record.[facility]
--- OUTSIDE RECORDS SUMMARY | 2025-06-15 17:30 | XMS_ITS | Encounter Summary ---
Author Organization [employer] Address [address] [place] [address] Care Team Providers Care Silverware Washer Name Role Phone Karina Lopez MD Primary Care Pro vider Reason for Visit * Reason Onset Date Comments Med Refill 04/06/2025 Encounter Details Date Type Department Care Team ([facility] st Contact Info) Description 04/06/2025 Telephone [facility] MEDICINE [address] [place] [address] Karina Lopez MD [address] [place] [address] Med Refill Social History Tobacco Use Types [...] encounter Miscellaneous Notes * Telephone Encounter - Rah Osborn - 04/06/2025 9:40 AM EDT TC from pt requesting medication refill. Medications needing refill : oxyCODONE (Roxicodone) 10 MG immediate release tablet To be sent to: [facility] documented in this encounter Plan of Treatment Upcoming Encounters Date Type Department Care Team ([facility] st Contact Info) Description 06/29/2025 3:00 PM EST Office Visit [facility] OPTOMETRY [address] [place] [address] Kika Ramirez, OD [address] [place] [address] 08/05/2025 1:00 PM EST Office Visit [facility] MEDICINE [address] [place] [address] Karina Lopez MD [address] [place] [address] 08/17/2025 2:45 PM EST Clinical Support [facility] CHC MED & PEDS [address] [place] [address] Gloria Richmond, WILDER [address] [place] [address] documented as of this encounter Visit Diagnoses Not on filedocumented in this encounter Additional Health Concerns Assessment Noted Time PHQ-9 Depression Total Score: 7 02/17/20 25 12:02 PM EDT documented as of this encounter Care Teams Silverware Washer Relationship Specialty Start Date End Date Karina Lopez MD [address] [place] [address] PCP - General Internal Medicine 04/22/23 Karina Thacker Real Estate Job TitlesCommercial Leasing Manager 09/26/23 Arturo Weeks MD Bariatrics 12/07/24 documented as of this encounter
--- OUTSIDE RECORDS SUMMARY | 2025-06-15 17:30 | XMS_ITS | Encounter Summary ---
Author Organization [facility] Address [address] [place] [address] Phone Care Team Providers Care Veterinary Inspector Name Role Phone Karina Lopez MD Primary Care Pro vider Mohit Weeks MD, FACS Unavailable Reason for Visit * Reason Onset Date Comments Post-op Problem 03/15/2024 Patient states h e is missing Rxs for post operative medications. Please call to review Tele [phone] has already LM on 's admin line Encounter Details Date Type Department Care Team (Late st Contact Info) Description 03/15/2024 Telephone [facility] General & GI Surgery [address] [place] [address] Mohit Weeks MD, FACS [address] [place] [address] [email or web address] Post-op Problem (Patient states he is missing Rxs for post operative medications. Please call to review Tele [phone]/Patient has already LM on 's admin line ) Social History Tobacco Use Types Packs/Day Years Used Date Smoking Tobacco: Never Alcohol Use Standard Drinks/Week Comments Never 0 (1 standard drink = 0.6 oz pur e alcohol) Home Health Assessment: Transportation Answer Date Recorded Lack of Transportation (Medical) Yes 03/16/2024 Lack of Transportation (Non-Medical) Yes 03/16/2024 Patient Unable or Declines to Respond No 03/16/2024 Education Answer Date Recorded Are you interested [...] Upcoming Encounters Date Type Department Care Team ([facility] st Contact Info) Description 06/30/2025 2:30 PM EST Telemedicine - audio only [facility] General & GI Surgery [address] [facility]3 [place] [address] Radha Byrne PA-C 75 [facility] [place]BII [place] [address] [place] [address] [email or web address] documented as of this encounter Visit Diagnoses Not on filedocumented in this encounter Additional Health Concerns Assessment Noted Time PHQ-9 Depression Total Score: 18 024 4:00 PM EDT PHQ-2 Depression Total Score: 6 02/19/20 24 4:00 PM EDT documented as of this encounter Care Teams Veterinary Inspector Relationship Specialty Start Date End Date Karina Lopez MD [address] [place] [address] PCP - General Internal Medicine 05/26/23 Mohit Weeks MD, FACS [address] [place] [address] [email or web address] General Surgery 02/06/24 documented as of this encounter Additional Source Comments The information contained in this document represents components of the legal health record. It is not the complete legal health record.[facility]
--- OUTSIDE RECORDS SUMMARY | 2025-06-15 17:30 | XMS_ITS | Clinical Summary ---
Author Organization [facility] [address] [facility] Address [address] [place] [phone] Phone Care Team Providers Care Coater Slate Name Role Phone Karina Hall MD Primary Care Provider + Immunizations Immunization Administration Dates Next Due Influenza, split virus, trivalent, Preservative Free 05/11/2024 Social History Tobacco Use Types Packs/Day Years [...] on file Sexual Orientation Not on file Last Filed Vital Signs Vital Sign Reading Time Taken Comments Blood Pressure 136/72 09/13/2024 1:30 PM EST Pulse 98 09/13/2024 1:30 PM EST Temperature 36.6 C (97.9 F) 09/13/2024 11:46 AM EST Respiratory Rate 17 09/13/2024 1:30 PM EST Oxygen Saturation 93% 09/13/2024 1:3 0 PM EST Inhaled Oxygen Concentration - - Weight 265.5 kg (585 lb 5.1 oz) 09/13/2024 3:43 AM EST weight per [facility] Height - - Body Mass Index - - Plan of Treatment Health Maintenance Due Date Last Done Comments HIV screening 2007 Hepatitis C screening 2012 Influenza vaccine 02/18/2025 05/11/2024, 04/21/2023 Covid-19 vaccine series ( season) 2025 05/11/2024, 08/07/2023 Tetanus adult (Td q 10,TDAP once) 04/21/2033 04/21/2023, 02/05/2010, 07/19/1998, Additional history exists RSV Immunization (1 - 1-dose 75+ series) 2069 Pneumococcal Vaccine (2 - 49 years) Aged Out 04/21/2023 No longer eligible based on patient's age to complete this topic Meningococcal B Vaccine Aged Out No l onger eligible based on patient's age to complete this topic Meningococcal Vaccine Aged Out No kandice jarek eligible based on patient's age to complete this topic Insurance [id number] MEDICAID [id number] MEDICAID [id number] MEDICAID Care Teams Coater Slate Relationship Specialty Start Date End Date Karina Hall MD [phone] [phone] PCP - General Internal Medicine 09/13/24
--- OUTSIDE RECORDS SUMMARY | 2025-06-15 17:30 | XMS_ITS | Encounter Summary ---
Author Organization [employer] Address [address] [place] [address] Care Team Providers Care Food Vendor Name Role Phone Karina Lopez MD Primary Care Pro vider Reason for Visit * Reason Comments Med Refill Encounter Details Date Type Department Care Team ([facility] st Contact Info) Description 05/07/2025 Refill [facility] MEDICINE [address] [place] [address] Karina Lopez MD [address] [place] [address] Social History Tobacco Use Types Packs/Day Years [...] Upcoming Encounters Date Type Department Care Team ([facility] st Contact Info) Description 06/29/2025 3:00 PM EST Office Visit [facility] OPTOMETRY [address] [place] [address] Kika Ramirez, OD [address] [place] [address] 08/05/2025 1:00 PM EST Office Visit [facility] MEDICINE [address] [place] [address] Karina Lopez MD [address] [place] [address] 08/17/2025 2:45 PM EST Clinical Support [facility] CHC MED & PEDS [address] [place], [place] [phone] Gloria [place], WILDER [address] [place], [place] [phone] documented as of this encounter Visit Diagnoses Not on filedocumented in this encounter Additional Health Concerns Assessment Noted Time PHQ-9 Depression Total Score: 7 02/17/20 25 12:02 PM EDT documented as of this encounter Care Teams Food Vendor Relationship Specialty Start Date End Date Karina Lopez MD [address] [place] [address] PCP - General Internal Medicine 04/22/23 Karina Thacker Clay Structure Builder And ServicerWax Pot Tender 09/26/23 Arturo Weeks MD Bariatrics 12/07/24 documented as of this encounter
--- OUTSIDE RECORDS SUMMARY | 2025-06-15 17:30 | XMS_ITS | Encounter Summary ---
Author Organization [employer] Address [address] [facility] 7t [place] [address] Care Team Providers Care Monumental Stonemason Name Role Phone Karina Lopez MD Primary Care Pro vider Reason for Visit * Reason Comments Med Refill Encounter Details Date Type Department Care Team ([facility] st Contact Info) Description 12/19/2024 Refill [facility] MEDICINE [address] [place], [place] [phone] Eden Mcdonald MD [address] [place], [place] [phone] Social History Tobacco Use Types Packs/Day Years [...] 06/29/2025 3:00 PM EST Office Visit [facility] OPTOMETRY [address] [place] [address] Kika Ramirez, OD [address] [place] [address] 08/05/2025 1:00 PM EST Office Visit [facility] MEDICINE [address] [place] [address] Karina Lopez MD [address] [place] [address] 08/17/2025 2:45 PM EST Clinical Support [facility] CHC MED & PEDS 505 [place], [place] [phone] Gloria iRchmond, WILDER [address] [place] [address] documented as of this encounter Visit Diagnoses Not on filedocumented in this encounter Additional Health Concerns Assessment Noted Time PHQ-9 Depression Total Score: 21 025 11:42 AM EDT documented as of this encounter Care Teams Monumental Stonemason Relationship Specialty Start Date End Date Karina Lopez MD [address] [place] [address] PCP - General Internal Medicine 04/22/23 Karina Thacker Kit PlannerGang Tailer 09/26/23 Arturo Weeks MD Bariatrics 12/07/24 documented as of this encounter
--- OUTSIDE RECORDS SUMMARY | 2025-06-15 17:30 | XMS_ITS | Encounter Summary ---
Author Organization [facility] Address [address] [place] [address] Phone Care Team Providers Care Airline Station Agent Name Role Phone Karina Lopez MD Primary Care Pro vider Mohit Weeks MD, FACS Unavailable Encounter Details Date Type Department Care Team (Late st Contact Info) Description 03/12/2024 Procedure Pass [facility] Periop [address] [place] [address] Social History Tobacco Use Types Packs/Day Years [...] 2:30 PM EST Telemedicine - audio only [facility] General & GI Surgery [address] [place], [place] [address] [place] [address] Radha Byrne PA-C [address] [place], [place] [address] [address] [place] [address] [email or web address] documented as of this encounter Visit Diagnoses Not on filedocumented in this encounter Additional Health Concerns Assessment Noted Time PHQ-9 Depression Total Score: 18 024 4:00 PM EDT PHQ-2 Depression Total Score: 6 02/19/20 24 4:00 PM EDT documented as of this encounter Care Teams Airline Station Agent Relationship Specialty Start Date End Date Karina Lopez MD [address] [place] [address] PCP - General Internal Medicine 05/26/23 Mohit Weeks MD, FACS [address] [place] [address] [email or web address] General Surgery 02/06/24 documented as of this encounter Additional Source Comments The information contained in this document represents components of the legal health record. It is not the complete legal health record.[facility]
--- OUTSIDE RECORDS SUMMARY | 2025-06-15 17:30 | XMS_ITS | Encounter Summary ---
Author Organization [facility] Address [address] [place] [address] Phone Care Team Providers Care Director Of Teenage Activities Name Role Phone Karina Lopez MD Primary Care Pro vider Mohit Weeks MD, FACS Unavailable Encounter Details Date Type Department Care Team (Late st Contact Info) Description 06/22/2024 Procedure Pass [facility] Periop [address] [place] [address] Social History Tobacco Use Types Packs/Day Years [...] [facility] General & GI Surgery 75 [facility]2[address]3 [place] [address] Radha Byrne PA-C 75 [facility] [place] [place] [address] [email or web address] documented as of this encounter Visit Diagnoses Not on filedocumented in this encounter Additional Health Concerns Assessment Noted Time PHQ-9 Depression Total Score: 18 024 4:00 PM EDT PHQ-2 Depression Total Score: 6 02/19/20 24 4:00 PM EDT documented as of this encounter Care Teams Director Of Teenage Activities Relationship Specialty Start Date End Date Karina Lopez MD [address] [place] [address] PCP - General Internal Medicine 05/26/23 Mohit Weeks MD, FACS [address] [place] [address] [email or web address] General Surgery 02/06/24 documented as of this encounter Additional Source Comments The information contained in this document represents components of the legal health record. It is not the complete legal health record.[facility]
--- OUTSIDE RECORDS SUMMARY | 2025-06-15 17:30 | XMS_ITS | Clinical Summary ---
Author Organization [facility] Address [address] [facility] [address] [place] [address] Phone Care Team Providers Care Child Care Center Administrator Name Role Phone Karina Lopez MD Primary Care Pro vider Mohit Weeks MD, FACS Unavailable Allergies Active Allergy Reactions Criticality Noted Date Comments Doxycycline Angioedema 01/19/2024 Medications * This document contains information received from the source organization and may not represent a complete record from that organization. meloxicam (MOBIC) 15 MG tablet Take 15 mg by mouth daily as needed. Active omega-3 acid ethyl esters (LOVAZA) 1 gram capsule Take 1 g by mouth daily. Active albuterol 90 mcg/actuation inhaler Inhale 2 puffs into the lungs every 6 (six) hours as needed. 4 Active albuterol 2.5 mg /3 mL (0.083 %) nebulizer solution Take 2.5 mg by nebulization every 6 (six) hours as needed. 4 Active ASCORBIC ACID WITH THONY HIPS 500 MG tablet Take 500 mg by mouth every morning. 4 Active lidocaine (LIDODERM) 5 % APPLY 1 PATCH TOPICALLY TO SKIN IN THE MORNING. LEAVE ON FOR 12 HOURS AND OFF FOR 12 HOURS DIRECTED 4 Active oxyCODONE-aceta minophen (PERCOCET) 5-325 mg per tablet Take 2 tablets by mouth every 12 (twelve) hours as needed. 4 Active traZODone (DESYREL) 50 MG tablet Take 1 tablet by mouth nightly at bedtime as needed. 4 Active acetaminophen (TYLENOL) 650 mg/20.3 mL Soln Take 30.5 mL (975 mg total) by mouth every 6 (six) hours. 4 Active atorvastatin (LIPITOR) 20 MG tablet Take 1 tablet (20 mg total) by mouth daily. 30 tablet 4 Active buPROPion (WELLBUTRIN XL) 300 MG ER 24 hr tablet Take 1 tablet (300 mg total) by mouth every morning. 30 tablet 4 Active metoprolol tartrate (LOPRESSOR) 25 MG tablet Take 1 tablet (25 mg total) by mouth 2 (two) times a day. 60 tablet 4 Active ondansetron (ZOFRAN) 4 MG tablet Take 1 tablet (4 mg total) by mouth every 6 (six) hours as needed. 10 tablet 4 Active ergocalciferol (DRISDOL) 50,000 unit capsule Take 1 capsule (50,000 Units total) by mouth once a week. After 12 weeks, please start the cholecalciferol/ Vit D3 2000 IU daily that I also prescribed for you 12 capsule 4 Active cholecalciferol (VITAMIN D3) 2,000 unit tablet Take 1 tablet (2,000 Units total) by mouth daily. Start after 50,000 vit D weekly completed 90 tablet 3 4 Active folic acid (FOLVITE) 1 MG tablet Take 1 tablet (1 mg total) by mouth daily. 90 tablet 3 4 Active hyoscyamine (LEVSIN SL) 0.[address] 1 tablet (0.125 mg total) under the tongue every 4 (four) hours as needed for cramping (specific location in comments). 30 tablet 4 Active cyanocobalamin, vitamin B-12, 500 MCG tablet Take 1 tablet (500 mcg total) by mouth daily. 90 tablet 3 4 Active calcium citrate-vitamin D3 (CITRACAL+D) 950 mg (200 mg elemental)-250 units Tab Take 1 tablet by mouth 3 (three) times a day. 90 tablet 11 4 Active aspirin 81 MG EC tablet Take 81 mg by mouth daily. Active ferrous gluconate 324 mg (38 mg elemental) tablet Take 324 mg by mouth daily. 4 Active vitamin A 85106 UNIT capsule Take 1 capsule (10,000 Units total) by mouth daily. 90 capsule 3 Active gabapentin (NEURONTIN) 100 MG capsule Take 1 capsule (100 mg total) by mouth every 8 (eight) hours for 5 days. 15 capsule Active Active Problems Problem Noted Date Diagnosed Date Dysphagia 08/30/2024 Nausea & vomiting 08/30/2024 Epigastric pain 06/21/2024 Dehydration, severe 05/24/2024 S/P laparoscopic sleeve gastrectomy 03/29/2024 Obstructive sleep apnea syndrome 03/11/2024 Transient ischemic attack (TIA) 03/11/2024 ALVAREZ (dyspnea on exertion) 03/11/2024 Obesity 02/04/2024 Cellulitis and abscess of left lower extremity 0 01/27/2024 BMI 70 and over, adult 10/07/2023 ERRONEOUS ENCOUNTER--DISREGARD 10/07/2023 Encounters Date Type Department Care Team Description 05/24/2025 Telephone [facility] General & GI Surgery [address] [place] [address] [place] [address] Advice Only from Last 3 Months Social History Tobacco Use Types Packs/Day Years Used Date Smoking Tobacco: Never Passive Smoke Exposure: Current Smokeless Tobacco: Never Tobacco Cessation:Counseling Given: Not Answered Alcohol Use Standard Drinks/Week Comments Never 0 [...] as food, clothing, or medical care? No 08/30/2024 In the past 12 months have y ou been in a relationship with a person who hurts, threatens, or tries to control you? No 08/30/2024 Are you denied basic needs s uch as food, clothing, or medical care? No 08/30/2024 In the past 12 months have y ou been in a relationship with a person who hurts, threatens, or tries to control you? No 08/30/2024 Sex and Gender Information Value Date Recorded Sex Assigned at Male 01/16/2022 6:25 PM EDT Legal Sex Male 6:22 PM EDT Gender Identity Male 01/16/2022 6:25 PM EDT Sexual Orientation Straight 02/10/2024 4: 19 PM EDT Last Filed Vital Signs Vital Sign Reading Time Taken Comments Blood Pressure 134/81 09/02/2024 7:35 AM EST Pulse 98 09/02/2024 7:35 AM EST Temperature 36.6 C (97.9 F) 09/02/2024 7:35 AM EST Respiratory Rate 18 09/02/2024 7:35 AM EST Oxygen Saturation 93% 09/02/2024 7:35 AM EST Inhaled Oxygen Concentration 40% 09/01/2024 1 0:07 PM EST Weight 217.7 kg (480 lb) 12/16/2024 11:48 AM EDT Height 172.7 cm (5' 7.99 ) 01/30/2025 8:00 PM ED T Body Mass Index 73 09/01/2024 2:00 PM EST Plan of Treatment Upcoming Encounters Date Type Department Care Team (Late st Contact Info) Description 06/30/2025 2:30 PM EST Telemedicine - audio only [facility] General & GI Surgery 75 [facility] ASB2-3 [place] [address] Radha Byrne PA-C 75 [facility] ASBII Level III [place] [address] [email or web address] Health Maintenance Due Date Last Done Comments HEPATITIS C SCREENING 2012 HIV ONE-TIME SCREENING (18-65 YEARS) 2012 DEPRESSION SCREENING 02/18/2025 02/19/2024, 02/19/20 24 INFLUENZA VACCINE (#1) 2025 05/11/2024, 2022 COVID-19 VACCINE ( season) 2025 05/11/2024, 08/07/2023 Adult Td,Tdap Booster 04/21/2033 04/21/2023 HIB VACCINES Completed 10/20/1995, 07/1994, 1994, Additional history exists PNEUMOCOCCAL VACCINES (0-49 years) Aged Out 04/21/2023 No longer eligible based on patient's age to complete this topic SMOKING STATUS SCREENING (Once After 26 Yrs) Completed 06/28/2024 HEPATITIS A VACCINES Aged Out No long er eligible based on patient's age to complete this topic MENINGOCOCCAL VACCINES (ACWY) Aged Out No longer eligible based on patient's age to complete this topic MENINGOCOCCAL VACCINES (B) Aged Out N o longer eligible based on patient's age to complete this topic Medical Devices Not on file Insurance [address] [place] [address] [place] [address] [place] [address] [place] [address] [facility] [address] [facility] C3 ACO Advance Directives For more information, please contact: [phone] (9AM - 5PM [facility], Friday-Friday) Documents on File Type Date Recorded Patient Contact Lens Inspector Expl anation Healthcare Proxy 03/17/2024 5:15 PM * Full Code (Latest Code Status on File) Date Activated Date Inactivated Comments 06/21/2024 3:28 PM Question Answer Comments Code Status Confirmed With: Patient * Full Code Date Activated Date Inactivated Comments 03/12/2024 4:16 PM 06/21/2024 3:28 PM Question Answer Comments Code Status Confirmed With: Patient * Full Code Date Activated Date Inactivated Comments 02/04/2024 7:57 PM 03/12/2024 4:16 PM Question Answer Comments Code Status Confirmed With: Patient Care Teams Child Care Center Administrator Relationship Specialty Start Date End Date Karina Lopez MD [address] [place] [address] PCP - General Internal Medicine 05/26/23 Mohit Weeks MD, FACS [address] [place] [address] [email or web address] General Surgery 02/06/24 Additional Source Comments The information contained in this document represents components of the legal health record. It is not the complete legal health record.[facility]
--- OUTSIDE RECORDS SUMMARY | 2025-06-15 17:30 | XMS_ITS | Encounter Summary ---
Author Organization [employer] Address [address] [place] [address] Care Team Providers Care Nightman Name Role Phone Karina Lopez MD Primary Care Pro vider Reason for Visit * Reason Comments Med Refill Encounter Details Date Type Department Care Team ([facility] st Contact Info) Description 05/11/2025 Refill [facility] MEDICINE [address] [place] [address] Karina Lopez MD 230 [place] [address] Social History Tobacco Use Types Packs/Day Years [...] Telephone Encounter - Karina Duarte MD - 05/12/2025 4:21 PM EDT Sent already documented in this encounter Plan of Treatment Upcoming Encounters Date Type Department Care Team (Late st Contact Info) Description 06/29/2025 3:00 PM EST Office Visit [facility] OPTOMETRY [address] [place] [address] Kika Ramirez, OD [address] [place] [address] 08/05/2025 1:00 PM EST Office Visit [facility] MEDICINE [address] [place] [address] Karina Lopez MD 230 [place] [address] 08/17/2025 2:45 PM EST Clinical Support [facility] CHC MED & PEDS [address] [place], [place] [phone] Gloria [place], RN 505 [place], [place] [phone] documented as of this encounter Visit Diagnoses Not on filedocumented in this encounter Additional Health Concerns Assessment Noted Time PHQ-9 Depression Total Score: 7 02/17/20 25 12:02 PM EDT documented as of this encounter Care Teams Nightman Relationship Specialty Start Date End Date Karina Lopez MD [address] [place] [address] PCP - General Internal Medicine 04/22/23 Karina Thacker Network Firewall EngineerGuide Delegate 09/26/23 Arturo Weeks MD Bariatrics 12/07/24 documented as of this encounter
--- OUTSIDE RECORDS SUMMARY | 2025-06-15 17:30 | XMS_ITS | Encounter Summary ---
Author Organization [employer] Address [address] [place] [address] 7 [place] [address] Care Team Providers Care Vp Sales Name Role Phone Karina Lopez MD Primary Care Pro vider Encounter Details Date Type Department Care Team ([facility] st Contact Info) Description 06/09/2025 Refill [facility] MEDICINE [address] [place] [address] Karina Lopez MD [address] [place] [address] Social History Tobacco Use Types Packs/Day Years [...] Telephone Encounter - Karina Duarte MD - 06/09/2025 1:10 PM EST All sent already documented in this encounter Plan of Treatment Upcoming Encounters Date Type Department Care Team (Late st Contact Info) Description 06/29/2025 3:00 PM EST Office Visit [facility] OPTOMETRY [address] [place] [address] Kika Ramirez, OD [address] [place] [address] 08/05/2025 1:00 PM EST Office Visit [facility] MEDICINE [address] [place] [address] Karina Lopez MD [address] [place] [address] 08/17/2025 2:45 PM EST Clinical Support [facility] CHC MED & PEDS [address] [place], [place] [phone] Gloria Richmond, RN [address] [place], [place] [phone] documented as of this encounter Visit Diagnoses Not on filedocumented in this encounter Additional Health Concerns Assessment Noted Time PHQ-9 Depression Total Score: 7 02/17/20 25 12:02 PM EDT documented as of this encounter Care Teams Vp Sales Relationship Specialty Start Date End Date Karina Lopez MD [address] [place] [address] PCP - General Internal Medicine 04/22/23 Karina Thacker Sales Assistant DisplaysMason Tender Restoration Labor 09/26/23 Arturo Weeks MD Bariatrics 12/07/24 documented as of this encounter
--- OUTSIDE RECORDS SUMMARY | 2025-06-15 17:30 | XMS_ITS | Encounter Summary ---
Author Organization [employer] Address [address] [place] [address] Care Team Providers Care Assurance Manager Name Role Phone Karina Lopez MD Primary Care Pro vider Reason for Visit * Reason Comments Care Coordination SDOH Encounter Details Date Type Department Care Team (Latest Contact Info) Description 06/13/2025 Patient Outreach [facility] MEDICINE [address] [place] [address] Karina Lopez MD [address] [place] [address] Care Coordination (SDOH) Social History Tobacco Use Types Packs/Day Years [...] as of this encounter Progress Notes * Saadia Cruz - 06/13/2025 9:35 AM EST CHW Saadia Cruz placed outbound call to patient for follow up on SDOH needs. Patient's name, DOBand address not confirmed. No answer at this time. CHW LVM reinforcing direct contact information for any additional questions or concerns and extended clinic hours on Mondays and Wednesdays, and Walk-In Urgent Care Located in [facility]. Patient provided with after-hours line for [facility], , which offer night time triage service and option to transfer to vitreo retinal surgeon provider if needed. CHW LVM discussing with the patient progress made in the CHW Program. Patient was notified in voicemail that they are being graduated from the Care Management-CHW Program. Voicemail also entailed education on how to receive SDOH services inthe future. documented in this encounter Plan of Treatment Upcoming Encounters Date Type Department Care Team ([facility] st Contact Info) Description 06/29/2025 3:00 PM EST Office Visit [facility] OPTOMETRY [address] [place], [place] [phone] Kika Ramirez, OD [address] [place], [place] [phone] 08/05/2025 1:00 PM EST Office Visit [facility] MEDICINE [address] [place] [address] Karina Lopez MD [address] [place] [address] 08/17/2025 2:45 PM EST Clinical Support [facility] CH[facility] MED & PEDS 505 [place] [address] Gloria Richmond, WILDER [address] [place] [address] documented as of this encounter Visit Diagnoses Not on filedocumented in this encounter Additional Health Concerns Assessment Noted Time PHQ-9 Depression Total Score: 7 02/17/20 12:02 PM EDT documented as of this encounter Care Teams Assurance Manager Relationship Specialty Start Date End Date Karina Lopez MD [address] [place] [phone] PCP - General Internal Medicine 04/22/23 Karina Thacker Cnc Lathe ProgrammerSpeed Runner 09/26/23 Arturo Weeks MD Bariatrics 12/07/24 documented as of this encounter
--- OUTSIDE RECORDS SUMMARY | 2025-06-15 17:30 | XMS_ITS | Encounter Summary ---
Author Organization [employer] Address [address] [place] [address] Care Team Providers Care Silica Spray Mixer Name Role Phone Karina Lopez MD Primary Care Pro vider Reason for Visit * Reason Comments Med Refill Encounter Details Date Type Department Care Team (Late st Contact Info) Description 12/17/2024 Refill [facility] MEDICINE [address] [place] [address] Karina Lopez MD [address] [place] [address] Social History Tobacco Use Types Packs/Day Years [...] Description 06/29/2025 3:00 PM EST Office Visit [facility] OPTOMETRY [address] [place] [address] Kika Ramirez, OD [address] [place] [address] 08/05/2025 1:00 PM EST Office Visit [facility] MEDICINE [address] [place] [address] Karina Lopez MD [address] [place] [address] 08/17/2025 2:45 PM EST Clinical Support [facility] CH[facility] MED & PEDS 505 [place], [place] [phone] Gloria Richmond, WILDER [address] [place] [address] documented as of this encounter Visit Diagnoses Not on filedocumented in this encounter Additional Health Concerns Assessment Noted Time PHQ-9 Depression Total Score: 21 025 11:42 AM EDT documented as of this encounter Care Teams Silica Spray Mixer Relationship Specialty Start Date End Date Karina Lopez MD [address] [place] [address] PCP - General Internal Medicine 04/22/23 Karina Thacker Band DirectorSoyfreeze Operator 09/26/23 Arturo Weeks MD Bariatrics 12/07/24 documented as of this encounter
--- OUTSIDE RECORDS SUMMARY | 2025-06-15 17:30 | XMS_ITS | Encounter Summary ---
Author Organization [facility] Address [address] [place] [address] Phone Care Team Providers Care Senior Living Sales Counselor Name Role Phone Karina Lopez MD Primary Care Pro vider Mohit Weeks MD, FACS Unavailable Encounter Details Date Type Department Care Team (Late st Contact Info) Description 06/23/2024 Procedure Pass [facility] Periop [address] [place] [address] Social History Tobacco Use Types Packs/Day Years [...] 2:30 PM EST Telemedicine - audio only [facility] General & GI Surgery 75 [facility] [place] [address] Radha Byrne PA-C 75 [facility] ASBII [address] [place] [address] [email or web address] documented as of this encounter Visit Diagnoses Not on filedocumented in this encounter Additional Health Concerns Assessment Noted Time PHQ-9 Depression Total Score: 18 024 4:00 PM EDT PHQ-2 Depression Total Score: 6 02/19/20 24 4:00 PM EDT documented as of this encounter Care Teams Senior Living Sales Counselor Relationship Specialty Start Date End Date Karina Lopez MD [address] [place] [address] PCP - General Internal Medicine 05/26/23 Mohit Weeks MD, FACS [address] [place] [address] [email or web address] General Surgery 02/06/24 documented as of this encounter Additional Source Comments The information contained in this document represents components of the legal health record. It is not the complete legal health record.[facility]
--- OUTSIDE RECORDS SUMMARY | 2025-06-15 17:30 | XMS_ITS | Encounter Summary ---
Author Organization [facility] Address [address] [place] [address] Phone Care Team Providers Care Embossing Tool Setter Name Role Phone Karina Lopez MD Primary Care Pro vider Mohit Weeks MD, FACS Unavailable Encounter Details Date Type Department Care Team (Late st Contact Info) Description 06/21/2024 Procedure Pass [facility] [address] [place] [address] Social History Tobacco Use Types Packs/Day Years [...] 06/21/2024 11:15 PM Glenda Bueno RN * Wiley Ford Suicide Severity Rating Scale (Screener/Recent Self-Report) Question [...] ([facility] st Contact Info) Description 06/30/2025 2:30 PM EST Telemedicine - audio only [facility] General & GI Surgery 75 [facility] [place] [address] Radha Byrne PA-C [facility] [address] [place] [address] [email or web address] documented as of this encounter Visit Diagnoses Not on filedocumented in this encounter Additional Health Concerns Assessment Noted Time PHQ-9 Depression Total Score: 18 024 4:00 PM EDT PHQ-2 Depression Total Score: 6 02/19/20 24 4:00 PM EDT documented as of this encounter Care Teams Embossing Tool Setter Relationship Specialty Start Date End Date Karina Lopez MD [address] [place] [address] PCP - General Internal Medicine 05/26/23 Mohit Weeks MD, FACS [address] [place] [address] [email or web address] General Surgery 02/06/24 documented as of this encounter Additional Source Comments The information contained in this document represents components of the legal health record. It is not the complete legal health record.[facility]
--- OUTSIDE RECORDS SUMMARY | 2025-06-15 17:30 | XMS_ITS | Encounter Summary ---
Author Organization [facility] Address [address] [place] [address] Phone Care Team Providers Care Traffic Circuit Engineer Name Role Phone Karina Lopez MD Primary Care Pro vider Mohit Weeks MD, FACS Unavailable Encounter Details Date Type Department Care Team (Late st Contact Info) Description 08/31/2024 Procedure Pass [facility] Endoscopy Department [address] [place] [address] Social History Tobacco Use Types Packs/Day Years [...] 2:30 PM EST Telemedicine - audio only [facility] General & GI Surgery 75 [facility] [place] [address] Radha Byrne PA-C 75 [facility] [address] [place] [address] [email or web address] documented as of this encounter Visit Diagnoses Not on filedocumented in this encounter Additional Health Concerns Assessment Noted Time PHQ-9 Depression Total Score: 18 024 4:00 PM EDT PHQ-2 Depression Total Score: 6 02/19/20 24 4:00 PM EDT documented as of this encounter Care Teams Traffic Circuit Engineer Relationship Specialty Start Date End Date Karina Lopez MD [address] [place] [address] PCP - General Internal Medicine 05/26/23 Mohit Weeks MD, FACS [address] [place] [address] [email or web address] General Surgery 02/06/24 documented as of this encounter Additional Source Comments The information contained in this document represents components of the legal health record. It is not the complete legal health record.[facility]
[2025-06-15 17:31] LABS: PLT ABN DIST 1; Platelet Count 177 X10*3/uL (160-400); White Blood Count 4.5 X10*3/uL (4.8-10.8)
== END 2025-06-15 14:48 | disposition home or self-care (01) ==
LOC: HO.HHCL 14:47
PROVIDERS: PCP Student in an Organized Health Care Education/Training Program; Visit Provider Registered Nurse Psychiatric/Mental Health
DX: Z00.00 Encounter for general adult medical examination without abnormal findings (principal); E78.5 Hyperlipidemia, unspecified; Z79.899 Other long term (current) drug therapy
CPT/HCPCS: 36415; 80053; 80061; 82248; 82306; 82607; 82728; 82746; 83540; 84443; 84550; 85025; 85027